=== PATIENT | female | born 1965 | race Caucasian/White ===

== ENCOUNTER 2019-12-28 23:58 | Emergency (ER) | payer OTHER, SELFPAY ==
--- NOTE | ~2019-12-28 | XR_ITS ---
EXAMINATION: XR chest 1V portable DATE: 12/29/2019 00:40 INDICATION: Chest pain and palpitations TECHNIQUE: frontal view of the chest was obtained. COMPARISON: Chest radiograph dated 01/11/2019 FINDINGS: The lungs are clear with no focal airspace opacities, pulmonary edema, pleural effusion or pneumothor ax. The cardiomediastinal silhouette is normal. Mild thoracic dextrocurvature. IMPRESSION: 1. No acute cardiopulmonary disease. Reviewed, dictated and finalized at location A.
[2019-12-29 00:02] VITALS: BP 172/102; PULSE 78; RESP 12; TEMP 37.4; O2SAT 100
--- NOTE | 2019-12-29 00:06 | ECG_ITS ---
Measurements Intervals [place] Rate: 71 P: 26 [place]: 134 QRS: 15 QRSD: 89 T: 51 QT: 382 QTc: 417 Interpretive Statements SINUS RHYTHM NORMAL ECG Electronically Signed On 12-29-2019 6:53:37 CDT by Arthur Capellan D.O.
--- NOTE | 2019-12-29 00:23 | ED.ARRPALP ---
HPI - Arrhythmia/Palpitations General Chief Complaint: Arrhythmia/Palpitations Stated Complaint: cp, palpitations Time Seen by Provider: 12/29/19 00:02 Source: patient Mode of arrival: ambulatory Limitations: no limitations History of Present Illness HPI narrative: 54 yo female with h/o palpitations, GERD who presents for evaluation of palpitations. Patient states that over the past few years she has had intermittent palpitations which was thought to be due to GERD. She reports once she started taking ranitidine her palpitations resolved and GERD symptoms resolved. She stopped taking RAnitidine due to recall so she is taking protonix and pepcid in place of it. She reports her GI symptoms have returned and she has develop palpitations again. She reports her palpitations are occurring more frequently now. She states tonight she felt her heart race and then she states it felt like it was skipping beats. Prior to this feeling, she reports feeling of bubble in her Chest , and it resolved after belching. She also reports palpitations stopped briefly afterwards, but then restarted 2 minutes later. She reports this is occurring frequently over the past our. She is also concerned about heart attack because she had chest tightness and sob 2 days ago that have resolved. She reports strong family history of woman under age 55 for [place]. complaint: rapid heart beat, skipped beats and palpitations Onset (ago): month(s) Duration: intermittent Context: occurred during rest Related Data Allergies Allergy/AdvReac Type Severity Reaction Status Date / Time codeine Allergy Unknown Verified 05/13/17 11:07 antihistamines Allergy Unknown Uncoded 01/30/14 04:04 Review of Systems Review of Systems: All systems reviewed & are unremarkable except as noted in HPI and below Constitutional: Constitutional: Denies chills, Denies fever(s) and Denies weakness ENT: Denies dizziness and Denies sore throat Cardiovascular: Cardiovascular: Reports chest pain, Reports rapid heart rate and Denies radiating jaw, neck or arm pain Respiratory: Respiratory: Denies cough and Reports dyspnea Gastrointestinal: Gastrointestinal: Reports abdominal pain, Denies constipation, Denies diarrhea, Denies nausea and Denies vomiting Neurologic: Denies dizziness and Denies weakness [facility] Past Medical History Medical History (Updated 12/29/19 @ 02:03 by Johanna Calero MD) GERD (gastroesophageal reflux disease) Iron deficiency anemia Surgical History Surgical History (Updated 12/29/19 @ 00:38 by Johanna Calero MD) H/O tubal ligation Family History Family History (Updated 12/29/19 @ 00:38 by Johanna Calero MD) Mother Acute myocardial infarction Social History Social History (Updated 12/29/19 @ 00:39 by Johanna Calero MD) Smoking packs per day: 1 Smoking cigarettes per day: 20.0 Years smoked: 6 Smoking pack-years: 6.00 Smoking status: Former smoker Tobacco type: cigarettes and e-cigarettes Exam Const: General: no acute distress and alert Nutritional Appearance: thin Orientation/consciousness: patient oriented x3 HENMT: Mouth: Yes Normal oral and palatal mucosa present Throat: posterior oropharynx normal Eyes: Pupils: Equal, round and reactive pupils present EOM: EOMs intact bilaterally Chest: Chest palpation & inspection: normal inspection of the chest Resp: Effort & Inspection: normal respiratory effort, no retractions and no use of accessory muscles Auscultation: clear to auscultation bilaterally Cardio: Rate: regular rate Rhythm: regular rhythm Heart sounds: no murmurs GI: Inspection: non-distended GI Palp: Yes Tenderness to palpation present (GI) (epigastric) Auscultation: normal bowel sounds Back/Spine/Pelvis: Back: no CVA tenderness Skin: General skin exam: normal color Rashes: no rashes Neuro: General: patient oriented x3 and moves all extremities Extrem: General: normal to inspection and no ped
[2019-12-29 00:32] LABS: Basophils Absolute Auto 0.1 K/mm3 (0.0-0.1); Basophils Percent Auto 0.8 % (0.2-1.2); Eosinophils Absolute Auto 0.1 K/mm3 (0-0.3); Eosinophils Percent Auto 0.9 % (0-4.4); Hematocrit 37.1 % (37.0-47.0); Hemoglobin 11.6 g/dL (12.0-15.0); Immature Granulocyte Absolute 0.02 K/mm3 (0.00-0.031); Immature Granulocyte Percent A 0.3 % (0-0.5); Lymphocytes Absolute Auto 2.37 K/mm3 (0.9-3.2); Lymphocytes Percent Auto 31.8 % (18.3-44.2); Mean Corpuscular HGB Conc 31.3 g/dl (32-36); Mean Corpuscular Hemoglobin 26.1 pg (26-34); Mean Corpuscular Volume 83.4 fl (80-100); Mean Platelet Volume 10.9 fl (7.4-10.4); Monocytes Absolute Auto 0.8 K/mm3 (0.1-0.6); Monocytes Percent Auto 10.1 % (2.6-8.5); Neutrophils Absolute Auto 4.2 K/mm3 (1.3-6.7); Neutrophils Percent Auto 56.1 % (45.5-73.1); Platelet Count Result 362 k/mm3 (150-375); Red Blood Count 4.45 M/mm3 (4.2-5.4); Red Cell Distribution Width 15.2 % (11.5-14.5); White Blood Count 7.5 K/mm3 (4.5-10.0)
[2019-12-29 00:41] LABS: INR 0.9; Prothrombin Time 11.5 Seconds (11.1-14.7)
[2019-12-29 00:42] LABS: Partial Thromboplastin Time 26.6 SECONDS (22.3-36.8)
[2019-12-29 00:49] LABS: Magnesium 2.1 mg/dL (1.6-2.3)
[2019-12-29 00:51] LABS: Blood Urea Nitrogen 20 mg/dL (7-17); Calcium 9.2 mg/dL (8.4-10.2); Carbon Dioxide 32 mmol/L (22-30); Chloride 100 mmol/L (98-107); Estimated Glomerular Filt Rate > 60; Glucose 101 mg/dL (65-105); Potassium 3.8 mmol/L (3.4-5.0); Sodium 138 mmol/L (137-145)
[2019-12-29 01:02] VITALS: BP 149/87; PULSE 62; RESP 14; O2SAT 100
[2019-12-29 01:03] LABS: Troponin I < 0.012 ng/mL (0.000-0.034)
[2019-12-29 01:05] LABS: Alanine Aminotransferase 19 U/L (4-35); Albumin Level 4.7 g/dL (3.5-5.1); Alkaline Phosphatase 65 U/L (38-126); Aspartate Amino Transferase 28 U/L (14-36); Bilirubin,Total 0.2 mg/dL (0.2-1.3); Lipase 103 U/L (23-300)
[2019-12-29 01:58] VITALS: BP 135/81; PULSE 66; RESP 16; O2SAT 100
[2019-12-29 02:22] VITALS: BP 146/83; PULSE 66; RESP 14; TEMP 37.1; O2SAT 99
== END 2019-12-29 02:24 | disposition home or self-care (01) ==
PROVIDERS: Emergency Provider General Practice; PCP Family Medicine
DX: R00.2 Palpitations (principal); I48.91 Unspecified atrial fibrillation; I48.92 Unspecified atrial flutter; K21.9 Gastro-esophageal reflux disease without esophagitis; Z87.891 Personal history of nicotine dependence
CPT/HCPCS: 36415; 71045; 80048; 80076; 83690; 83735; 84443; 84484; 85025; 85610; 85730; 93005; 99284

== ENCOUNTER 2020-01-09 00:29 | Emergency (ER) | payer OTHER, SELFPAY ==
--- NOTE | ~2020-01-09 | XR_ITS ---
EXAMINATION: XR chest 2V DATE: 01/09/2020 01:48 INDICATION: Heart palpitations and midsternal chest pain TECHNIQUE: PA and lateral views of the chest are obtained. COMPARISON: 12/29/2019 FINDINGS: The lungs are free of acute opacities. There is no pleural effusion or pneumothorax. The ca rdiomediastinal silhouette is normal. There is mild thoracic spondylosis. IMPRESSION: 1. No acute cardiopulmonary abnormality. Reviewed, dictated and finalized at location A.
[2020-01-09 00:34] VITALS: BP 160/99; PULSE 79; RESP 16; O2SAT 99
[2020-01-09 00:37] VITALS: PULSE 79
--- NOTE | 2020-01-09 00:45 | ECG_ITS ---
Measurements Intervals [place] Rate: 80 P: 67 [place]: 143 QRS: -4 QRSD: 89 T: 47 QT: 369 QTc: 426 Interpretive Statements SINUS RHYTHM NORMAL ECG Electronically Signed On 01-09-2020 8:52:53 CDT by Arthur Capellan D.O.
--- NOTE | 2020-01-09 00:57 | ED.ARRPALP ---
HPI - Arrhythmia/Palpitations General Chief Complaint: Chest Pain Stated Complaint: heart palpitations Time Seen by Provider: 01/09/20 00:39 Source: patient Mode of arrival: ambulatory Limitations: no limitations History of Present Illness HPI narrative: Patient is a 54-year-old female who presents to the emergency department with complaint of palpitations and feeling as though her heart is racing. Patient was seen in the emergency department earlier this month for similar symptoms. At that time it was noted by emergency physician the patient appeared to have a short run of atrial fibrillation. Patient has follow-up appointment scheduled with tray worker next month. Patient has followed up with primary care who has her taking metoprolol and she has just completed wearing a Holter monitor. Patient reports intense symptoms this evening which are slightly improved here in the emergency department, the patient does still feel though she is having palpitations. Patient states she had very minor chest pain and feeling clammy. Patient also reports feeling lightheaded and dizzy. MD complaint: rapid heart beat, heart racing and palpitations Severity: similar to previous episodes Arrhythmia history: atrial fibrillation Associated symptoms: chest pain, shortness of breath, diaphoresis and other (weakness, dizziness) Treatments prior to arrival: beta-sirena (Metoprolol extended release 25 mg daily) Related Data Allergies Allergy/AdvReac Type Severity Reaction Status Date / Time Antihistamines - Alkylamine Allergy Unknown Palpitation Verified 01/06/20 12:23 s codeine Allergy Unknown Hallucinati Verified 01/06/20 12:23 ons antihistamines Allergy Unknown Uncoded 01/06/20 12:23 Review of Systems Review of Systems: All systems reviewed & are unremarkable except as noted in HPI and below Cardiovascular: Cardiovascular: Reports chest pain, Reports rapid heart rate, Reports irregular heart rhythm, Reports lightheadedness, Reports palpitations and Reports dyspnea PMFSH Past Medical History Medical History GERD (gastroesophageal reflux disease) Iron deficiency anemia Palpitations Surgical History Surgical History H/O tubal ligation Family History Family History (System 01/06/20 @ 12:23 by Meseret Buckley) Father Family history of cardiovascular disease Mother Family history of cardiovascular disease Mother Acute myocardial infarction Social History Social History Smoking packs per day: 1 Smoking cigarettes per day: 20.0 Years smoked: 6 Smoking pack-years: 6.00 Smoking status: Former smoker Tobacco type: cigarettes and e-cigarettes Smoking end date: 09/16/15 Alcohol intake: current Gender identity (if verbalized by the patient): Female Exam Const: General: cooperative, no acute distress and alert Nutritional Appearance: well nourished Orientation/consciousness: patient oriented x3 Limitations: no limitations HENMT: Mouth: Yes lip normal and Yes moist mucous membranes Resp: Effort & Inspection: normal respiratory effort Auscultation: clear to auscultation bilaterally Cardio: Rate: regular rate Rhythm: regular rhythm GI: GI Palp: Yes Soft to palpation and No Tenderness to palpation present (GI) Auscultation: normal bowel sounds Skin: General skin exam: normal color Neuro: General: patient oriented x3 Cognition (Neuro): normal cognition Speech: normal speech Extrem: General: normal to inspection, full ROM and no clubbing, cyanosis or edema Psych: Mental Status: mental status grossly normal Affect: Anxious affect present Attitude: cooperative Course Course Emergency Course: Patient in normal sinus rhythm in the emergency department without any evidence of arrhythmia noted on telemetry monitoring and no arrhy
[2020-01-09 01:40] LABS: Basophils Absolute Auto 0.1 K/mm3 (0.0-0.1); Basophils Percent Auto 0.6 % (0.2-1.2); Eosinophils Absolute Auto 0.1 K/mm3 (0-0.3); Eosinophils Percent Auto 1.6 % (0-4.4); Hematocrit 31.8 % (37.0-47.0); Hemoglobin 10.2 g/dL (12.0-15.0); Immature Granulocyte Absolute 0.02 K/mm3 (0.00-0.031); Immature Granulocyte Percent A 0.2 % (0-0.5); Lymphocytes Absolute Auto 3.22 K/mm3 (0.9-3.2); Lymphocytes Percent Auto 37.2 % (18.3-44.2); Mean Corpuscular HGB Conc 32.1 g/dl (32-36); Mean Corpuscular Hemoglobin 26.4 pg (26-34); Mean Corpuscular Volume 82.4 fl (80-100); Monocytes Absolute Auto 0.7 K/mm3 (0.1-0.6); Monocytes Percent Auto 8.5 % (2.6-8.5); Neutrophils Absolute Auto 4.5 K/mm3 (1.3-6.7); Neutrophils Percent Auto 51.9 % (45.5-73.1); Platelet Count Result 350 k/mm3 (150-375); Red Blood Count 3.86 M/mm3 (4.2-5.4); Red Cell Distribution Width 15.5 % (11.5-14.5); White Blood Count 8.7 K/mm3 (4.5-10.0)
[2020-01-09 01:51] LABS: INR 0.9; Partial Thromboplastin Time 25.7 SECONDS (22.3-36.8); Prothrombin Time 11.9 Seconds (11.1-14.7)
[2020-01-09 01:56] LABS: Alanine Aminotransferase 23 U/L (4-35); Albumin Level 4.1 g/dL (3.5-5.1); Alkaline Phosphatase 67 U/L (38-126); Aspartate Amino Transferase 28 U/L (14-36); Bilirubin,Total 0.2 mg/dL (0.2-1.3); Blood Urea Nitrogen 14 mg/dL (7-17); Calcium 9.2 mg/dL (8.4-10.2); Carbon Dioxide 23 mmol/L (22-30); Chloride 104 mmol/L (98-107); Estimated Glomerular Filt Rate > 60; Glucose 78 mg/dL (65-105); Magnesium 1.7 mg/dL (1.6-2.3); Potassium 3.5 mmol/L (3.4-5.0); Sodium 137 mmol/L (137-145)
[2020-01-09 02:08] LABS: Troponin I < 0.012 ng/mL (0.000-0.034)
[2020-01-09 02:15] LABS: D Dimer 0.27 ug/mL (<0.48)
[2020-01-09 03:41] VITALS: BP 119/74; PULSE 72; RESP 13; O2SAT 97
--- NOTE | 2020-01-09 03:43 | PC.NURSE ---
MD notified that Pt states she having no chest discomfort and abd pain has subsided to a 2.
== END 2020-01-09 03:45 | disposition home or self-care (01) ==
PROVIDERS: Emergency Provider Emergency Medicine; PCP Family Medicine
DX: R00.2 Palpitations (principal); K21.9 Gastro-esophageal reflux disease without esophagitis; D50.9 Iron deficiency anemia, unspecified; Z87.891 Personal history of nicotine dependence
CPT/HCPCS: 36415; 71046; 80053; 83735; 84484; 85025; 85380; 85610; 85730; 93005; 99284

== ENCOUNTER 2020-01-18 07:49 | Outpatient (CLI) | payer OTHER, SELFPAY ==
--- NOTE | ~2020-01-18 | US_ITS ---
US right upper quadrant INDICATION: Biliary colic. PROCEDURE: Realtime right upper abdominal ultrasound. COMPARISON: No prior studies for comparison. FINDINGS: The pancreas is normal without focal mass or pancreatic ductal dilation. Liver echotexture is normal without focal mass or intrahepatic biliary dilatation. There is normal directional flow i n the portal vein. The gallbladder is normal without stones, gallbladder wall thickening or pericholecystic fluid. Comm on bile duct measures 4 mm. No sonographic Conner's sign. IMPRESSION: 1: Normal limited abdominal ultrasound. Reviewed, dictated and finalized at location A.
== END 2020-01-18 07:50 | disposition home or self-care (01) ==
PROVIDERS: PCP Family Medicine; Visit Provider Internal Medicine Gastroenterology
DX: K80.50 Calculus of bile duct without cholangitis or cholecystitis without obstruction (principal)
CPT/HCPCS: 76705

== ENCOUNTER 2020-03-01 00:43 | Outpatient (CLI) | payer OTHER, SELFPAY ==
[2020-03-01 18:12] LABS: SARS-CoV-2 RNA PCR Negative
== END 2020-03-01 00:44 | disposition home or self-care (01) ==
LOC: ANHCOVIDDT 00:43
PROVIDERS: PCP Family Medicine; Visit Provider Internal Medicine Gastroenterology
DX: Z20.828 Contact with and (suspected) exposure to other viral communicable diseases (principal); Z01.812 Encounter for preprocedural laboratory examination
CPT/HCPCS: 87635; C9803; U0003

== ENCOUNTER 2020-03-03 01:52 | Day surgery (SDC) | payer OTHER, SELFPAY ==
[2020-02-29 13:20] VITALS: BMI 20.4
--- NOTE | 2020-03-03 09:33 | SUR.PREOP ---
Pt took Metoprolol with small sip of water per Dr Szymanski order.
[2020-03-03 09:34] VITALS: BP 174/100; PULSE 68; RESP 18; TEMP 36.8; O2SAT 100; BMI 21.2
[2020-03-03] MEDS: LACTATED RINGERS 1,000 ML 150 ML IV CONT (09:49)
--- NOTE | 2020-03-03 09:59 | P.PNAN_ITS ---
Anes - Initial Pre Proc Eval Procedure: Operation Date: 03/03/20 10:30 Proposed Procedures p Esophagogastroduodenoscopy - Chuy Andino MD Date/Time: 03/03/20 09:59 Surgeon: Chuy Andino MD Pre Op Diagnosis: Dyspepsia, Epigastric Pain Patient Data Age: 54 Gender: F Height: 5 ft 1 in Weight: 51.1 kg Last Vital Signs Temp 98.3 F 03/03/20 09:34 Pulse 68 03/03/20 09:34 Resp 18 03/03/20 09:34 BP 174/100 H 03/03/20 09:34 Pulse Ox 100 03/03/20 09:34 Allergies Allergy/AdvReac Type Severity Reaction Status Date / Time Antihistamines - Alkylamine Allergy Mild Palpitation Verified 03/03/20 09:32 s codeine Allergy Unknown Hallucinati Verified 03/03/20 09:32 ons antihistamines AdvReac Mild Other Uncoded 03/03/20 09:32 Home Medications Medication Instructions Recorded Confirmed Type metoprolol succinate 50 mg PO DAILY 02/29/20 02/29/20 History pantoprazole 40 mg PO BID 02/29/20 02/29/20 History Patient hx anesthesia problems: none Family hx anesthesia problems: none PMFSH Past Medical History Medical History (Updated 02/17/20 @ 09:46 by Elie Aquino PA-C) GERD (gastroesophageal reflux disease) Iron deficiency anemia Palpitations Paroxysmal A-fib Surgical History Surgical History H/O tubal ligation Family History Family History (System 01/06/20 @ 12:23 by Meseret Buckley) Father Family history of cardiovascular disease Mother Family history of cardiovascular disease Mother Acute myocardial infarction Social History Social History Smoking packs per day: 1 Smoking cigarettes per day: 20.0 Years smoked: 6 Smoking pack-years: 6.00 Smoking status: Former smoker Tobacco type: cigarettes and e-cigarettes/vaping Smoking end date: 09/16/15 Alcohol intake: current Gender identity (if verbalized by the patient): Female Anes - Eval Final PreProcedure Day of Procedure 03/03/20 09:59 Patient weight: normal Heart: regular rate and rhythm Lungs: clear to auscultation Airway: Mallampati scale class II Neurological: alert and oriented Last oral intake: >/= 8 hours ASA classification: III Emergent: no Anesthetic plan: proceed Anesthesia type and monitoring: general GIVS and standard monitoring Informed Consent: The patient's anesthetic plan and its attendant risks and ana efits were discussed with the patient/family/POA. Questions were solicited and answers provided to the satisfaction of the patient/family/POA.
--- NOTE | 2020-03-03 10:04 | WPDGICN ---
Assessment and Plan Assessment and plan (1) Dyspepsia: Code(s): R10.13 - Epigastric pain Status: Acute Assessment and Plan: Patient has epigastric pain. Acid appears to be a component of this discomfort. She notices worsening on eating. In modest improvement on pantoprazole b.i.d.. Previously had good response to ranitidine. Because of current poor response plan is to proceed with EGD further recommendations after endoscopy. (2) Paroxysmal A-fib: Code(s): I48.0 - Paroxysmal atrial fibrillation Status: Acute (3) Epigastric abdominal pain: Code(s): R10.13 - Epigastric pain Status: Acute GI Consult Note Consult date/time: 03/03/20 10:04 HPI: Maureen Sorenson is a 54 year old female Seen in evaluation at the request of Dr. Axel Angeles. Patient has a long history of abdominal pain is been present for many years. Pain is located in mid epigastric area of the abdomen. She previously had a good response to ranitidine. This medication with withdrawn. Since that time she has had difficulty with Pepcid and Protonix with no response to symptoms. Over the last 1 week his increased dose of pantoprazole to40mg p.o. b.i.d. with slight improvement. She denies any bleeding. She denies any weight loss. She describes pain in the midepigastric area was. It is sometimes a pressure-like pain sometimes burning. Intensity appears to fluctuate. Occasionally eating may help this discomfort. Review of Systems Review of Systems: All systems reviewed & are unremarkable except as noted in HPI and below PMFSH Past Medical History Medical History GERD (gastroesophageal reflux disease) Iron deficiency anemia Palpitations Paroxysmal A-fib Surgical History Surgical History H/O tubal ligation Family History Family History Father Family history of cardiovascular disease Mother Family history of cardiovascular disease Mother Acute myocardial infarction Social History Social History Smoking packs per day: 1 Smoking cigarettes per day: 20.0 Years smoked: 6 Smoking pack-years: 6.00 Smoking status: Former smoker Tobacco type: cigarettes and e-cigarettes/vaping Smoking end date: 09/16/15 Alcohol intake: current Gender identity (if verbalized by the patient): Female Meds Home Medications and Allergies Home Medications Medication Instructions Recorded Confirmed Type metoprolol succinate 50 mg PO DAILY 02/29/20 02/29/20 History pantoprazole 40 mg PO BID 02/29/20 02/29/20 History Allergies Allergy/AdvReac Type Severity Reaction Status Date / Time Antihistamines - Alkylamine Allergy Mild Palpitation Verified 03/03/20 09:32 s codeine Allergy Unknown Hallucinati Verified 03/03/20 09:32 ons antihistamines AdvReac Mild Other Uncoded 03/03/20 09:32 Vital Signs Vital Signs - 24 hr 03/03/20 09:34 Temperature 36.8 C Pulse Rate 68 Respiratory Rate 18 Blood Pressure 174/100 H Pulse Oximetry 100 Exam Narrative: Exam Narrative: physical exam reveals patient to be alert. Vital signs stable. HEENT exam unremarkable. Lungs are clear to auscultation and percussion. Heart is without murmur or extra sounds. Abdominal exam bowel sounds are present soft nontender with no hepatosplenomegaly. Digital external rectal exam normal. Recent ultrasound of the right upper quadrant unremarkable.
[2020-03-03] MEDS: BENZOCAINE (*SP) 60 ML SPRAY CAN (HURRICAINE) 1 SPRAY MUCOUS MEM (10:15)
[2020-03-03 10:25] VITALS: BP 144/62; PULSE 59; RESP 18; O2SAT 98
[2020-03-03 10:35] VITALS: BP 150/72; PULSE 59; RESP 20; O2SAT 99
[2020-03-03 11:04] VITALS: BP 159/88; PULSE 59; RESP 21; O2SAT 100
== END 2020-03-03 10:55 | disposition home or self-care (01) ==
PROVIDERS: PCP Family Medicine; Visit Provider Internal Medicine Gastroenterology
PROC: 0DJ08ZZ Inspection of Upper Intestinal Tract, Via Natural or Artificial Opening Endoscopic (ICD-10-PCS; CPT 43235; principal; 2020-03-03 10:30)
DX: R10.13 Epigastric pain (principal); I48.0 Paroxysmal atrial fibrillation; D50.9 Iron deficiency anemia, unspecified; K21.9 Gastro-esophageal reflux disease without esophagitis; Z87.891 Personal history of nicotine dependence
CPT/HCPCS: 43239; 87081; J2704; J7120

== ENCOUNTER 2020-06-08 12:09 | Emergency (ER) | payer OTHER, SELFPAY ==
[2020-06-08 12:17] VITALS: BP 152/86; PULSE 76; RESP 20; TEMP 36.8; O2SAT 100
--- NOTE | 2020-06-08 12:23 | ED.ABDPAIN ---
HPI - Abdominal Pain General Chief Complaint: Abdominal Pain Stated Complaint: LOW ABD PAIN/DIARRHEA/CONSTIPATION Source: patient and RN notes reviewed Limitations: no limitations History of Present Illness HPI narrative: The patient, a recent ex-smoker/occ drinker, presents with fever and lower quadrant pain. Patient states and records indicate she has had normal RUQ ultrasound [2019], pelvic ultrasound for cyst that resolved [2019], no prior colonoscopy. And recently, patient states she was treated for UTI with Septra for 5 days, to about 05 June [no C &S available]. About a day and a half later she developed right lower quadrant and pubic abdominal pain, associated with fever to 100.6 and cramps. Symptoms are mild to moderate, worse with walking or movement, and associated with intermittent loose stools -after she had taken Gas-Ex . No vomiting, hematuria, frequency/urgency/dysuria; cough, S OB, rash, CP, loss of taste/smell Related Data Home Medications Medication Instructions Recorded Confirmed metoprolol succinate 50 mg PO DAILY 02/29/20 02/29/20 pantoprazole 40 mg PO BID 02/29/20 02/29/20 Allergies Allergy/AdvReac Type Severity Reaction Status Date / Time Antihistamines - Alkylamine Allergy Mild Palpitation Verified 06/08/20 16:15 s codeine Allergy Unknown Hallucinati Verified 06/08/20 16:15 ons antihistamines AdvReac Mild Other Uncoded 05/31/20 16:41 Review of Systems Review of Systems: Narrative: General/Constitutional: No weight loss,REPORTS fever Eyes: N0: Redness,discharge Ears/Nose/Throat: No: Epistaxis,ear discharge Respiratory: Denies: Hemoptysis Gastrointestinal: No Vomiting, Bleeding-rectal Skin: No Lumps, eruption Neurologic: No Focal Weakness,Sz Hematologic: Denies: Petechiae/Purpura Psychiatric: No: Suicida ideationl All Other Systems: Reviewed and Negative [facility] Social History Social History Smoking packs per day: 1 Smoking cigarettes per day: 20.0 Years smoked: 6 Smoking pack-years: 6.00 Smoking status: Former smoker Tobacco type: cigarettes and e-cigarettes/vaping Second hand tobacco smoke exposure: No Smoking end date: 09/16/15 Alcohol intake: current Substance use: never Substance use type: does not use Gender identity (if verbalized by the patient): Female Comments At time of signature, agree with nursing past medical, surgical, social and family history. There is no relevant family history pertinent to the presenting complaint Exam Narrative: Exam Narrative: General Appearance: Well appearing, Conjunctiva clear Ears: External ear normal Nose: Normal nose Mouth/Throat: Normal appearing Supple Respiratory: Airway patent, No respiratory distress Abdomen: Soft, RLQ and suprapubic tenderness tender, No massess, No organomegaly Musculoskeletal: Positive heel tap on left, full ROM Skin: Warm, Dry Neurological: A&O x3, Normal affect Course Vital Signs Vital signs: Vital Signs Temperature 98.2 F 06/08/20 12:17 Pulse Rate 76 06/08/20 12:17 Respiratory Rate 20 06/08/20 12:17 Blood Pressure 152/86 H 06/08/20 12:17 Pulse Oximetry 100 06/08/20 12:17 Temperature 98.2 F 06/08/20 12:17 Pulse Rate 76 06/08/20 12:17 Respiratory Rate 20 06/08/20 12:17 Blood Pressure 152/86 H 06/08/20 12:17 Pulse Oximetry 100 06/08/20 12:17 MDM - Abdominal Pain Lab Data Labs: Urine Glucose Negative Reference Range: Negative Urine Bilirubin 1+ Reference Range: Negative Urine Ketone Trace Reference Range: Negative Urine Specific [place] 1.030 Reference Range:1.001-1.035 Urine Blood 2+ Reference Range: Negative * * Urine pH 5.0 Reference Range: 5.0-9.0 Urine
== END 2020-06-08 12:57 | disposition short-term general hospital (02) ==
LOC: EXPGLEN 12:12
PROVIDERS: Emergency Provider Emergency Medicine; PCP Family Medicine
DX: R10.30 Lower abdominal pain, unspecified (principal); Z87.891 Personal history of nicotine dependence; I48.91 Unspecified atrial fibrillation; K21.9 Gastro-esophageal reflux disease without esophagitis; M19.90 Unspecified osteoarthritis, unspecified site
CPT/HCPCS: 81003; 99212; G0463

== ENCOUNTER 2020-06-08 13:08 | Emergency (ER) | payer OTHER, SELFPAY ==
--- NOTE | ~2020-06-08 | CT_ITS ---
EXAMINATION: CT abdomen pelvis w con DATE: 06/08/2020 16:42 INDICATION: Low abdominal pain. Constipation. Recent UTI. TECHNIQUE: Computed tomography (CT) of the abdomen and pelvis was performed with 100 cc Omnipaque 350 intravenous contrast. The dose-length product was 203.71 mGy-cm. Automated exposure control and iter ative reconstruction technique were employed. COMPARISON: No prior studies for comparison. FINDINGS: Lung bases are unremarkable. Heart size normal. No significant pleural or pericardial effus ion. No significant vascular abnormality. Mild retroperitoneal lymphadenopathy, likely reactive. The liver, spleen, pancreas, adrenal glands and kidneys are unremarkable. Gallbladder is present. Nor mal appendix. There is abnormal thickening of the distal sigmoid colon and rectum with surrounding ph legmonous change in the left pelvis, most likely infectious colitis, although malignancy is not exclu ded. No drainable abscess identified. Small follicles are noted in the left ovary. No free air. IMPRESSION: 1. Abnormal thickening of the distal sigmoid colon and rectum with surrounding phlegmonous change in the left pelvis, most likely infectious colitis, although malignancy is not excluded. No drainable ab scess identified. Reviewed, dictated and finalized at location A. IMPRESSION: 1. Abnormal thickening of the distal sigmoid colon and rectum with surrounding phlegmonous change in the left pelvis, most likely infectious colitis, although malignancy is not excluded. No drainable abscess identified.
--- NOTE | ~2020-06-08 | XR_ITS ---
EXAMINATION: XR chest 2V DATE: 06/08/2020 16:51 INDICATION: Cough TECHNIQUE: PA and lateral views of the chest are obtained. COMPARISON: 01/09/2020 FINDINGS: The lungs are free of acute opacities. There is no pleural effusion or pneumothorax. The ca rdiomediastinal silhouette is normal. The visualized bones and soft tissues are unremarkable. Contras t from earlier CT examination partially opacifies the urinary tract. IMPRESSION: 1. No acute cardiopulmonary abnormality. Reviewed, dictated and finalized at location A.
[2020-06-08 13:12] VITALS: BP 147/79; PULSE 73; RESP 18; TEMP 36.8; O2SAT 100
[2020-06-08 13:33] LABS: Basophils Absolute Auto 0.1 K/mm3 (0.0-0.1); Basophils Percent Auto 0.4 % (0.2-1.2); Eosinophils Absolute Auto 0.1 K/mm3 (0-0.3); Eosinophils Percent Auto 0.4 % (0-4.4); Hematocrit 31.3 % (37.0-47.0); Hemoglobin 9.7 g/dL (12.0-15.0); Immature Granulocyte Percent A 0.5 % (0-0.5); Lymphocytes Percent Auto 13.9 % (18.3-44.2); Mean Corpuscular Hemoglobin 23.5 pg (26-34); Mean Corpuscular Volume 75.8 fl (80-100); Mean Platelet Volume 9.8 fl (7.4-10.4); Monocytes Absolute Auto 1.4 K/mm3 (0.1-0.6); Monocytes Percent Auto 6.9 % (2.6-8.5); Neutrophils Absolute Auto 15.2 K/mm3 (1.3-6.7); Neutrophils Percent Auto 77.9 % (45.5-73.1); Platelet Count Result 389 k/mm3 (150-375); Red Blood Count 4.13 M/mm3 (4.2-5.4); White Blood Count 19.5 K/mm3 (4.5-10.0)
[2020-06-08 13:47] LABS: Alanine Aminotransferase 31 U/L (4-35); Albumin Level 4.6 g/dL (3.5-5.1); Alkaline Phosphatase 110 U/L (38-126); Anion Gap 8 mmol/L (8-16); Aspartate Amino Transferase 26 U/L (14-36); Bilirubin,Total 0.8 mg/dL (0.2-1.3); Blood Urea Nitrogen 13 mg/dL (7-17); Calcium 9.4 mg/dL (8.4-10.2); Carbon Dioxide 27 mmol/L (22-30); Chloride 100 mmol/L (98-107); Estimated CRCL calculation 70 ml/min; Estimated Glomerular Filt Rate > 60; Glucose 83 mg/dL (65-105); Lipase 33 U/L (23-300); Potassium 4.5 mmol/L (3.4-5.0); Sodium 135 mmol/L (137-145)
--- NOTE | 2020-06-08 16:02 | ED.ABDPAIN ---
HPI - Abdominal Pain General Chief Complaint: Abdominal Pain Stated Complaint: Abd pain Time Seen by Provider: 06/08/20 16:02 Source: patient Limitations: no limitations History of Present Illness HPI narrative: Patient is a 54-year-old female who presents for evaluation of lower abdominal pain and fever. Patient reports that she has had a 2-day history of intermittent fevers to 100 Fahrenheit. Patient reports that she was treated for urinary tract infection last week and finished a course of Septra. She reports mild lower abdominal pain with radiation to both flanks. She denies nausea or vomiting. She reports history of acid reflux and gastrointestinal symptoms, has suffered from loose stools over the past several days. Patient denies any vaginal bleeding or purulent discharge. No new sexual partners. Patient denies blood present in her stool. Related Data Home Medications Medication Instructions Recorded Confirmed metoprolol succinate 50 mg PO DAILY 02/29/20 02/29/20 pantoprazole 40 mg PO BID 02/29/20 02/29/20 Allergies Allergy/AdvReac Type Severity Reaction Status Date / Time Antihistamines - Alkylamine Allergy Mild Palpitation Verified 06/08/20 16:15 s codeine Allergy Unknown Hallucinati Verified 06/08/20 16:15 ons antihistamines AdvReac Mild Other Uncoded 05/31/20 16:41 Review of Systems Review of Systems: Narrative: CONSTITUTIONAL: Reports low-grade fever and chills EYES: Denies visual changes, redness, or discharge. ENT: Reports mild rhinorrhea and congestion CARDIOVASCULAR: Denies chest pain, palpitations, or edema. RESPIRATORY: Reports mild dry cough, denies shortness of breath GASTROINTESTINAL: Reports lower abdominal pain, nausea and vomiting GENITOURINARY: Denies dysuria or hematuria. SKIN: Denies rash or itching. MUSCULOSKELETAL: Reports flank pain without joint pain, or myalgia. NEUROLOGIC: Denies headache, numbness, or weakness. [facility] Past Medical History Medical History GERD (gastroesophageal reflux disease) Iron deficiency anemia Palpitations Paroxysmal A-fib Family History Family History Father Family history of cardiovascular disease Mother Family history of cardiovascular disease Mother Acute myocardial infarction Social History Social History Smoking packs per day: 1 Smoking cigarettes per day: 20.0 Years smoked: 6 Smoking pack-years: 6.00 Smoking status: Former smoker Tobacco type: cigarettes and e-cigarettes/vaping Second hand tobacco smoke exposure: No Smoking end date: 09/16/15 Alcohol intake: current Substance use: never Substance use type: does not use Gender identity (if verbalized by the patient): Female Exam Narrative: Exam Narrative: GENERAL: Awake, alert, conversant HEAD: Normocephalic, atraumatic. EYES: PERRLA and EOMI. ENT: Nares clear, no rhinorrhea or epistaxis. Mucous membranes moist. NECK: Supple. CHEST: No respiratory distress, breathing even and non labored HEART: Regular rate, sinus rhythm ABDOMEN:Non distended, tender to palpation in the right and left lower quadrant, guarding present, nonrigid, no rebound EXTREMITIES: Normal range of motion. No edema. SKIN: Warm, dry, no rash. NEURO:No focal deficits. Alert and oriented x3 Course Vital Signs Vital signs: Vital Signs Temperature 36.8 C 06/08/20 13:12 Pulse Rate 73 06/08/20 13:12 Respiratory Rate 18 06/08/20 13:12 Blood Pressure 147/79 H 06/08/20 13:12 Pulse Oximetry 100 06/08/20 13:12 Temperature 36.7 C 06/08/20 16:14 Pulse Rate 88 06/08/20 16:14 Respiratory Rate 17 06/08/20 16:14 Blood Pressure 139/80 06/08/20 16:14 Pulse Oximetry 98 06/08/20 16:14 MDM - Abdominal Pain Differential Diagnosis Differential diagnosis: Likely abdominal pain, constipation, dive
[2020-06-08 16:14] VITALS: BP 139/80; PULSE 88; RESP 17; TEMP 36.7; O2SAT 98
[2020-06-08 16:31] LABS: Add Urine Microscopic? YES; Appearance Urine Clear (Clear); Bacteria Urine Trace /hpf; Bilirubin Urine Negative (Negative); Blood Urine 1+ (Negative); Color Urine Yellow (Yellow); Glucose Urine UA Negative (Negative); Ketones Urine Trace mg/dL (Negative); Leukocyte Esterase Ur Negative LEU/UL (Negative); Mucus Urine Heavy /lpf; Nitrate Urine Negative (Negative); Protein Urine 1+ mg/dL (Negative); RBC Urine 0-2 /hpf (0-2); Specific Grav Ur 1.023 (1.001-1.035); Squamous Epithelial Cell Urine Moderate /hpf (Few); Urobilinogen Urine Negative mg/dL (<2.0); WBC Urine 0-3 /hpf
[2020-06-08 16:36] LABS: Lactic Acid Reflex 0.6 mmol/L (0.7-2.1)
== END 2020-06-08 19:15 | disposition home or self-care (01) ==
PROVIDERS: Emergency Medicine; Emergency Provider Emergency Medicine; PCP Family Medicine
DX: K52.9 Noninfective gastroenteritis and colitis, unspecified (principal); R10.30 Lower abdominal pain, unspecified; Z87.891 Personal history of nicotine dependence
CPT/HCPCS: 36415; 71046; 74177; 80053; 81001; 81025; 83605; 83690; 85025; 87040; 96365; 99284; J2543; Q9967

== ENCOUNTER 2020-07-25 11:56 | Outpatient (CLI) | payer OTHER, SELFPAY ==
--- NOTE | ~2020-07-25 | NM_ITS ---
EXAMINATION: NM hepatobiliary w pharm DATE: 07/25/2020 15:25 INDICATION: Right upper quadrant abdominal pain. COMPARISON: CT abdomen and pelvis 06/08/2020 TECHNIQUE: 5.2 mCi Tc-99m mebrofenin (Choletec) was administered intravenously. Scintigraphic images of the abdomen were obtained for one hour. Then, 1.1 mcg sincalide (Kinevac) IV was administered, an d imaging was continued for 30 minutes. FINDINGS: There is normal clearance of radiotracer from the blood pool. There is homogeneous tracer u ptake by the liver. Activity progresses to the bowel and gallbladder. Gallbladder ejection fraction (GBEF) was 79%. Note that most patients with gallbladder dysfunction have GBEF < 35%, which overlaps with the broad normal range of 10-90%. IMPRESSION: 1. Normal hepatobiliary scintigraphy. Reviewed, dictated and finalized at location B. EON'S ASSISTANT
== END 2020-07-25 11:57 | disposition home or self-care (01) ==
PROVIDERS: PCP Family Medicine; Visit Provider Internal Medicine Gastroenterology
DX: R10.11 Right upper quadrant pain (principal)
CPT/HCPCS: 78227; A9537; J2805

== ENCOUNTER 2020-08-02 03:00 | Outpatient (CLI) | payer OTHER, SELFPAY ==
[2020-08-02 19:47] LABS: SARS-CoV-2 RNA PCR Positive
== END 2020-08-02 03:01 | disposition home or self-care (01) ==
LOC: ANHCOVIDDT 03:00
PROVIDERS: PCP Family Medicine; Visit Provider Internal Medicine Gastroenterology
DX: Z01.812 Encounter for preprocedural laboratory examination (principal); U07.1 COVID-19
CPT/HCPCS: 87635; C9803; U0003

== ENCOUNTER 2020-12-02 16:48 | Outpatient (CLI) | payer OTHER, SELFPAY | END 2020-12-02 16:49 | disposition home or self-care (01) | LOC: ANHCOVIDVC 16:48 | PROVIDERS: PCP Family Medicine | DX: Z23 Encounter for immunization (principal) | CPT/HCPCS: 0001A; 91300 ==

== ENCOUNTER 2021-01-02 11:06 | Outpatient (CLI) | payer OTHER, SELFPAY | END 2021-01-02 11:07 | disposition home or self-care (01) | LOC: ANHCOVIDVC 11:06 | PROVIDERS: PCP Family Medicine | DX: Z23 Encounter for immunization (principal) | CPT/HCPCS: 0001A; 91300 ==

== ENCOUNTER 2021-02-10 12:16 | Outpatient (CLI) | payer OTHER, SELFPAY ==
[2021-02-10 12:42] LABS: Basophils Absolute Auto 0.1 K/mm3 (0.0-0.1); Basophils Percent Auto 0.8 % (0.2-1.2); Eosinophils Absolute Auto 0.1 K/mm3 (0-0.3); Eosinophils Percent Auto 1.2 % (0-4.4); Hematocrit 29.9 % (37.0-47.0); Hemoglobin 8.9 g/dL (12.0-15.0); Immature Granulocyte Absolute 0.02 K/mm3 (0.00-0.031); Immature Granulocyte Percent A 0.3 % (0-0.5); Lymphocytes Absolute Auto 2.25 K/mm3 (0.9-3.2); Lymphocytes Percent Auto 29.8 % (18.3-44.2); Mean Corpuscular HGB Conc 29.8 g/dl (32-36); Mean Corpuscular Hemoglobin 21.9 pg (26-34); Mean Corpuscular Volume 73.5 fl (80-100); Mean Platelet Volume 9.9 fl (7.4-10.4); Monocytes Absolute Auto 0.7 K/mm3 (0.1-0.6); Monocytes Percent Auto 9.3 % (2.6-8.5); Neutrophils Absolute Auto 4.4 K/mm3 (1.3-6.7); Neutrophils Percent Auto 58.6 % (45.5-73.1); Platelet Count Result 428 k/mm3 (150-375); Red Blood Count 4.07 M/mm3 (4.2-5.4); Red Cell Distribution Width 17.6 % (11.5-14.5); White Blood Count 7.6 K/mm3 (4.5-10.0)
[2021-02-10 12:55] LABS: Alanine Aminotransferase 25 U/L (4-35); Albumin Level 4.7 g/dL (3.5-5.1); Alkaline Phosphatase 66 U/L (38-126); Anion Gap 8 mmol/L (8-16); Aspartate Amino Transferase 28 U/L (14-36); Bilirubin,Total 0.3 mg/dL (0.2-1.3); Blood Urea Nitrogen 19 mg/dL (7-17); Calcium 9.8 mg/dL (8.4-10.2); Carbon Dioxide 29 mmol/L (22-30); Chloride 105 mmol/L (98-107); Estimated Glomerular Filt Rate > 60; Glucose 93 mg/dL (65-105); Potassium 4.5 mmol/L (3.4-5.0); Sodium 142 mmol/L (137-145)
[2021-02-10 13:02] LABS: Erythrocyte Sedimentation Rate 29 mm/hr (0-20)
[2021-02-10 13:25] LABS: Thyroid Stimulating Hormone 0.703 uIU/mL (0.465-4.680)
== END 2021-02-10 12:17 | disposition home or self-care (01) ==
PROVIDERS: PCP Family Medicine; Visit Provider Physician Assistant
DX: R51.9 Headache, unspecified (principal); R11.0 Nausea
CPT/HCPCS: 36415; 80053; 84443; 85025; 85652

== ENCOUNTER 2021-02-13 13:08 | Emergency (ER) | payer OTHER, SELFPAY ==
--- NOTE | ~2021-02-13 | CT_ITS ---
EXAMINATION: CT BRAIN W/O DATE: 02/13/2021 16:34 INDICATION: Headache for 3 months. TECHNIQUE: Computed tomography (CT) of the head was performed without intravenous contrast. The dose- length product was 605.33 mGy-cm. Automated exposure control and iterative reconstruction technique w ere employed. COMPARISON: MRI dated 04/16/2018 FINDINGS: Normal brain parenchymal volume for age. Normal shaw-white differentiation. No acute intrac ranial hemorrhage, infarction, mass or mass effect. There is a prominent left choroidal fissure cyst. No ventriculomegaly or midline shift. Midline sagittal images demonstrate a normal corpus callosum, c raniovertebral junction and sella turcica. Basilar cisterns are patent. Paranasal sinuses and mastoids are pneumatized. No depressed skull fractures. IMPRESSION: 1. No acute intracranial abnormality. Reviewed, dictated and finalized at location A.
[2021-02-13 13:47] VITALS: BP 173/87; PULSE 72; RESP 16; TEMP 36.8; O2SAT 100
[2021-02-13 16:00] VITALS: BP 187/90; PULSE 62; RESP 18; TEMP 36.8; O2SAT 100
--- NOTE | 2021-02-13 16:33 | ED.HA ---
HPI - Headache General Chief Complaint: Headache Stated Complaint: HEADACHE MULTIPLE AREAS Time Seen by Provider: 02/13/21 14:25 Source: patient, family and RN notes reviewed Mode of arrival: ambulatory History of Present Illness HPI Narrative: Patient is 55 years old white female presents with intermittent pain at left forehead, left temporal area, left lower jaw for the last few days. Patient is so concerned and worried about the possibility of intracranial blood clot. Patient had a new diagnosis of temporalis arthritis and was started on prednisone 4 days ago. Currently patient is asymptomatic. Patient denies any fever, chills, nausea, vomiting, headache, vision disorder Related Data Home Medications Medication Instructions Recorded Confirmed metoprolol succinate 50 mg PO DAILY 02/29/20 02/10/21 Allergies Allergy/AdvReac Type Severity Reaction Status Date / Time Antihistamines - Alkylamine Allergy Mild Palpitation Verified 02/10/21 11:43 s codeine Allergy Unknown Hallucinati Verified 02/10/21 11:43 ons antihistamines AdvReac Mild Other Uncoded 02/10/21 11:43 Review of Systems Review of Systems: Narrative: CONSTITUTIONAL: Denies fever, chills, or sweats. EYES: Denies visual changes, redness, or discharge. ENT: Denies rhinorrhea, congestion, sore throat, or otalgia. CARDIOVASCULAR: Denies chest pain, palpitations, or edema. RESPIRATORY: Denies cough or dyspnea. GASTROINTESTINAL: Denies abdominal pain, nausea, vomiting, or diarrhea. GENITOURINARY: Denies dysuria or hematuria. SKIN: Denies rash or itching. MUSCULOSKELETAL: Denies back pain, joint pain, or myalgia. NEUROLOGIC: Denies headache, numbness, or weakness. PSYCHIATRIC: Denies anxiety or depression. [facility] Past Medical History Medical History (Updated 02/13/21 @ 16:39 by Makayla Vogt MD) GERD (gastroesophageal reflux disease) Iron deficiency anemia Palpitations Paroxysmal A-fib Surgical History Surgical History H/O tubal ligation Family History Family History Father Family history of cardiovascular disease Mother Family history of cardiovascular disease Mother Acute myocardial infarction Social History Social History Social History: Smoking packs per day: 1 Smoking cigarettes per day: 20.0 Years smoked: 6 Smoking pack-years: 6.00 Smoking status: Former smoker Tobacco type: cigarettes and e-cigarettes/vaping Second hand tobacco smoke exposure: No Smoking end date: 09/16/15 Additional smoking assessment comments: VAPING 12/2019 Alcohol intake: current Drinks per week: 12 Substance use: never Substance use type: does not use Gender identity (if verbalized by the patient): Female Spiritual care concerns: No Exam Narrative: Exam Narrative: General appearance: Well-developed, well-nourished Skin: Normal color Head: Normocephalic, nontraumatic Eyes: Clear conjunctiva ENT: Oropharynx normal, ears normal, nose normal Neck: Supple, nontender Chest and respiratory: Airway patent, no respiratory distress, no accessory muscle use Heart: Regular rate/rhythm Abdomen: Soft, nontender, no organomegaly, quiet bowel sounds Vascular: Normal peripheral pulses, normal capillary refill. Musculoskeletal: Normal range of motion, nontender back Neurologic: Alert and oriented ?3, MECHANIC ASSISTANT is normal as tested, no gross motor deficit Course Course Emergency Course: Stable Vital Signs Vital signs: Vital Signs Temperature 36.8 C 02/13/21 13:47 Pulse Rate 72
== END 2021-02-13 17:07 | disposition home or self-care (01) ==
PROVIDERS: Emergency Provider Emergency Medicine; PCP Family Medicine
DX: R51.9 Headache, unspecified (principal); I48.0 Paroxysmal atrial fibrillation; K21.9 Gastro-esophageal reflux disease without esophagitis; D50.9 Iron deficiency anemia, unspecified; Z87.891 Personal history of nicotine dependence
CPT/HCPCS: 70450; 99284

== ENCOUNTER 2021-04-27 05:05 | Emergency (ER) | payer OTHER, SELFPAY ==
--- NOTE | ~2021-04-27 | US_ITS ---
EXAMINATION: US abdomen limited DATE: 04/27/2021 08:09 INDICATION: Epigastric pain TECHNIQUE: Multiple grayscale and Doppler ultrasound images of the abdomen were obtained. COMPARISON: 01/18/2020 FINDINGS: The head, body, and tail of the pancreas are normal. The liver is normal with normal echoge nicity and echotexture. No surface nodularity. Normal hepatopetal flow in the main portal vein. The g allbladder is normal with no abnormal wall thickening, pericholecystic fluid or stones. The normal co mmon bile duct measures 3 mm. There was no sonographic Conner sign. IMPRESSION: 1. Normal sonographic study of the gallbladder. Reviewed, dictated and finalized at location B.
[2021-04-27 05:07] VITALS: BP 185/100; PULSE 76; RESP 20; TEMP 36.5; O2SAT 99
[2021-04-27 05:51] LABS: Basophils Absolute Auto 0.1 K/mm3 (0.0-0.1); Basophils Percent Auto 0.4 % (0.2-1.2); Eosinophils Absolute Auto 0.2 K/mm3 (0-0.3); Eosinophils Percent Auto 1.3 % (0-4.4); Hematocrit 30.6 % (37.0-47.0); Hemoglobin 9.2 g/dL (12.0-15.0); Immature Granulocyte Absolute 0.06 K/mm3 (0.00-0.031); Immature Granulocyte Percent A 0.4 % (0-0.5); Lymphocytes Absolute Auto 2.07 K/mm3 (0.9-3.2); Lymphocytes Percent Auto 15.3 % (18.3-44.2); Mean Corpuscular HGB Conc 30.1 g/dl (32-36); Mean Corpuscular Hemoglobin 23.5 pg (26-34); Mean Corpuscular Volume 78.1 fl (80-100); Mean Platelet Volume 9.8 fl (7.4-10.4); Monocytes Absolute Auto 0.9 K/mm3 (0.1-0.6); Monocytes Percent Auto 6.4 % (2.6-8.5); Neutrophils Absolute Auto 10.3 K/mm3 (1.3-6.7); Neutrophils Percent Auto 76.2 % (45.5-73.1); Platelet Count Result 364 k/mm3 (150-375); Red Blood Count 3.92 M/mm3 (4.2-5.4); Red Cell Distribution Width 22.9 % (11.5-14.5); White Blood Count 13.5 K/mm3 (4.5-10.0)
[2021-04-27 06:02] LABS: Alanine Aminotransferase 21 U/L (4-35); Albumin Level 4.1 g/dL (3.5-5.1); Alkaline Phosphatase 56 U/L (38-126); Anion Gap 7 mmol/L (8-16); Aspartate Amino Transferase 30 U/L (14-36); Bilirubin,Total 0.2 mg/dL (0.2-1.3); Blood Urea Nitrogen 12 mg/dL (7-17); Calcium 8.8 mg/dL (8.4-10.2); Carbon Dioxide 23 mmol/L (22-30); Chloride 102 mmol/L (98-107); Estimated CRCL calculation 82 ml/min; Estimated Glomerular Filt Rate > 60; Glucose 89 mg/dL (65-110); Lipase 51 U/L (23-300); Potassium 3.5 mmol/L (3.4-5.0); Sodium 132 mmol/L (137-145)
[2021-04-27 06:41] LABS: Add Urine Microscopic? NO; Appearance Urine Clear (Clear); Bilirubin Urine Negative (Negative); Blood Urine Negative (Negative); Color Urine Straw (Yellow); Glucose Urine UA Negative (Negative); Ketones Urine Negative (Negative); Leukocyte Esterase Ur Negative LEU/UL (Negative); Nitrate Urine Negative (Negative); Protein Urine Negative (Negative); Specific Grav Ur 1.013 (1.001-1.035); Urobilinogen Urine Negative mg/dL (<2.0)
[2021-04-27 07:18] VITALS: BP 127/84; PULSE 71; RESP 14; O2SAT 97
--- NOTE | 2021-04-27 07:43 | ED.NAVMDI ---
HPI - Nausea/Vomiting/Diarrhea General Chief complaint: Nausea/Vomiting/Diarrhea Stated complaint: abd pain, N/V Time Seen by Provider: 04/27/21 07:08 History of Present Illness HPI Narrative: 55 yo female w/ h/o GERD presents to the ED for nausea, vomiting, and abdominal pain. The pain started last night shortly after returning form a trip to [place]. bilateral upper quadrants. Radiates to the epigastrium. Cramping. Moderate. Associated with vomiting. No diarrhea, fever, CP, SOB. Related Data Home Medications Medication Instructions Recorded Confirmed metoprolol succinate 50 mg PO DAILY 02/29/20 04/13/21 Allergies Allergy/AdvReac Type Severity Reaction Status Date / Time Antihistamines - Alkylamine Allergy Mild Palpitation Verified 04/27/21 07:22 s codeine Allergy Unknown Hallucinati Verified 04/27/21 07:22 ons antihistamines AdvReac Mild Other Uncoded 04/13/21 14:48 Review of Systems Review of Systems: All systems reviewed & are unremarkable except as noted in HPI and below Constitutional: Constitutional: Denies fever(s) ENT: Denies dizziness Cardiovascular: Cardiovascular: Denies chest pain Respiratory: Respiratory: Denies dyspnea Gastrointestinal: Gastrointestinal: Reports as per HPI, Denies constipation and Denies diarrhea Genitourinary: Genitourinary: Denies hematuria, Denies nocturia, Denies dysuria and Denies flank pain Neurologic: Denies dizziness and Denies weakness [facility] Past Medical History Medical History GERD (gastroesophageal reflux disease) Iron deficiency anemia Palpitations Paroxysmal A-fib Surgical History Surgical History H/O tubal ligation Family History Family History Father Family history of cardiovascular disease Mother Family history of cardiovascular disease Mother Acute myocardial infarction Social History Social History Social History: Smoking packs per day: 1 Smoking cigarettes per day: 20.0 Years smoked: 6 Smoking pack-years: 6.00 Smoking status: Never smoker Tobacco type: cigarettes and e-cigarettes/vaping Second hand tobacco smoke exposure: No Smoking end date: 09/16/15 Additional smoking assessment comments: VAPING 2016 12/2019 Alcohol intake: current Drinks per week: 12 Substance use: never Substance use type: does not use Gender identity (if verbalized by the patient): Female Spiritual care concerns: No Exam Const: General: healthy appearing, no acute distress and alert Orientation/consciousness: patient oriented x3 HENMT: Head: normal to inspection Neck: Neck: normal visual inspection and lymphadenopathy noted Resp: Effort & Inspection: normal respiratory effort Auscultation: clear to auscultation bilaterally, no rales, no rhonchi and no wheezes Cardio: Jugular venous distension: no JVD Rate: regular rate Rhythm: regular rhythm Heart sounds: no murmurs GI: Inspection: non-distended GI Palp: Yes Soft to palpation, Yes Tenderness to palpation present (GI) (epigastric, mild), No Guarding due to palpation present (GI) and No Rebound tenderness present Skin: General skin exam: normal color Neuro: General: patient oriented x3 and moves all extremities Speech: normal speech Extrem: General: no edema Psych: Appearance: well kempt Affect: normal affect Course Vital Signs Vital signs: Vital Signs Temperature 36.5 C 04/27/21 05:07 Pulse Rate 76 04/27/21 05:07 Respiratory Rate 20 04/27/21 05:07 Blood Pressure 185/100 H 04/27/21 05:07 Pulse Oximetry 99 04/27/21 05:07 Temperature 36.5 C 04/27/21 05:07 Pulse Rate 71 04/27/21 07:18 Respiratory Rate 14 04/27/21 07:18 Blood Pressure 127/84 04/27/21 07:18 Pulse Oximetry 97 04/27/21 0
[2021-04-27] MEDS: ONDANSETRON INJ 4 MG/2 ML VIAL IV PUSH (07:55)
[2021-04-27] MEDS: SODIUM CHLORIDE 0.9% IV 1,000 ML 999 ML IV CONT (07:55)
[2021-04-27] MEDS: PANTOPRAZOLE SODIUM IV 40 MG VIAL IV PUSH (07:56)
[2021-04-27] MEDS: DICYCLOMINE HCL INJ 20 MG/2 ML VIAL IM (07:56)
[2021-04-27 09:27] VITALS: BP 156/90; PULSE 755; RESP 20; O2SAT 100
== END 2021-04-27 09:35 | disposition home or self-care (01) ==
PROVIDERS: General Practice; Emergency Provider Emergency Medicine; PCP Family Medicine
DX: K52.9 Noninfective gastroenteritis and colitis, unspecified (principal); K21.9 Gastro-esophageal reflux disease without esophagitis; D50.9 Iron deficiency anemia, unspecified; I48.0 Paroxysmal atrial fibrillation; Z87.891 Personal history of nicotine dependence
CPT/HCPCS: 36415; 51701; 76705; 80053; 81003; 81025; 83690; 85025; 96361; 96374; 96375; 99284; C9113; J0500; J2405; J7030

== ENCOUNTER 2021-05-18 15:20 | Outpatient (CLI) | payer OTHER, SELFPAY ==
[2021-05-18 15:55] LABS: Hematocrit 33.4 % (37.0-47.0); Hemoglobin 10.4 g/dL (12.0-15.0); Mean Corpuscular HGB Conc 31.1 g/dl (32-36); Mean Corpuscular Hemoglobin 24.6 pg (26-34); Mean Corpuscular Volume 79.1 fl (80-100); Mean Platelet Volume 10.4 fl (7.4-10.4); Platelet Count Result 424 k/mm3 (150-375); Red Blood Count 4.22 M/mm3 (4.2-5.4); Red Cell Distribution Width 21.4 % (11.5-14.5); White Blood Count 8.4 K/mm3 (4.5-10.0)
== END 2021-05-18 15:21 | disposition home or self-care (01) ==
LOC: ANHLAB 15:23
PROVIDERS: PCP Family Medicine; Visit Provider Obstetrics & Gynecology Gynecology
DX: R79.9 Abnormal finding of blood chemistry, unspecified (principal)
CPT/HCPCS: 36415; 85027

== ENCOUNTER 2021-06-05 01:50 | Day surgery (SDC) | payer OTHER, SELFPAY ==
[2021-05-26 14:48] VITALS: BMI 20.7
--- NOTE | 2021-06-05 07:34 | WPDHPUPDATE1 ---
History and Physical Update Update Date/Time: 06/05/21 07:34 History and Physical has been reviewed, including an updated exam of the patient. There are NO changes in the patient's condition. Risks, benefits, and alternatives have been discussed and questions answered. Patient agrees to proceed with procedure.
--- NOTE | 2021-06-05 07:34 | PM.HPGS ---
History of Present Illness History of Present Illness Consent: Risks, benefits, and alternatives have been discussed and questions answered. Patient agrees to proceed with procedure. Chief complaint: menorrhagia, abnormal uterine bleeding Narrative: Maureen Sorenson is a 55 year old female with anemia and noted in February 03 at hemoglobin of 8.9 hematocrit of 29.9. Repeat hemoglobin after iron in May reveals a hemoglobin of 10.4 hematocrit of 33.4. Patient states cycles have been heavy and on her worst days she has been changing a tampon every 15minutes for the months of December and January. The patient was previously scheduled canceled and is now rescheduled for further evaluation using D&C hysteroscopy. Risks of infection, bleeding, and perforation were reviewed as well as possible pathology. Pelvic ultrasound was grossly normal without evidence of fibroids. Patient voices understanding and agrees to proceed. Review of Systems Constitutional: Constitutional: Reports night sweats Genitourinary: Genitourinary: Reports urinary incontinence Musculoskeletal: Musculoskeletal: Reports back pain and Reports neck pain Neurologic: Reports headache(s) PMFSH Past Medical History Medical History (Updated 06/05/21 @ 08:05 by Theresa Marrqouin MD) GERD (gastroesophageal reflux disease) Iron deficiency anemia (normal spontaneous vaginal delivery) x3 Palpitations Paroxysmal A-fib Surgical History Surgical History (Updated 06/05/21 @ 08:04 by Theresa Marroquin MD) H/O tubal ligation Status post myomectomy 2006 Family History Family History Father Family history of cardiovascular disease Mother Family history of cardiovascular disease Mother Acute myocardial infarction Social History Social History Social History: Smoking packs per day: 1 Smoking cigarettes per day: 20.0 Years smoked: 6 Smoking pack-years: 6.00 Smoking status: Never smoker Tobacco type: cigarettes and e-cigarettes/vaping Second hand tobacco smoke exposure: No Smoking end date: 09/16/15 Additional smoking assessment comments: VAPING 2015 TO 12/2019 Alcohol intake: current Drinks per week: 15 Substance use: never Substance use type: does not use Living arrangements: with family Gender identity (if verbalized by the patient): Female Sexual Orientation (if Verbalized by the Patient): Straight or Heterosexual Spiritual care concerns: No Meds Home Medications and Allergies Home Medications Medication Instructions Recorded Confirmed Type metoprolol succinate 50 mg PO QAM 02/29/20 05/26/21 History pantoprazole 40 mg tablet,delayed 40 mg PO BID #180 tablet 01/02/21 05/26/21 Rx release Allergies Allergy/AdvReac Type Severity Reaction Status Date / Time codeine Allergy Unknown Hallucinati Verified 05/26/21 14:23 ons antihistamines AdvReac Mild Other Uncoded 05/26/21 14:23 Exam : External Female Exam: normal external appearance Speculum Exam - Vagina: normal appearance of the vagina Speculum Exam - Cervix: normal appearance of the cervix Bimanual exam- vagina & uterus: normal bimanual exam Bimanual Exam- Adnexa, other: normal adnexae Assessment and Plan Assessment and plan (1) Menorrhagia: Code(s): N92.0 - Excessive and frequent menstruation with regular cycle Status: Acute Assessment and Plan: Plan to proceed with D&C hysteroscopy
[2021-06-05] MEDS: ACETAMINOPHEN 500 MG TABLET 1000 MG PO (08:30)
--- NOTE | 2021-06-05 08:30 | WPDANESEPPF ---
Anes - Initial Pre Proc Eval Procedure: Operation Date: 06/05/21 09:45 Proposed Procedures p Hysteroscopy Dilation and Curettage - Theresa Marroquin MD Date/Time: 06/05/21 08:30 Surgeon: Theresa Marroquin MD Pre Op Diagnosis: menorrhagia, abnormal uterine bleeding Patient Data Age: 55 Gender: F Height: 1.55 m Weight: 49.9 kg Allergies Allergy/AdvReac Type Severity Reaction Status Date / Time codeine AdvReac Unknown Hallucinati Verified 06/05/21 08:17 ons antihistamines AdvReac Mild Other Uncoded 06/05/21 08:17 Home Medications Medication Instructions Recorded Confirmed Type metoprolol succinate 50 mg PO QAM 02/29/20 06/05/21 History pantoprazole 40 mg tablet,delayed 40 mg PO BID #180 tablet 01/02/21 06/05/21 Rx release Patient hx anesthesia problems: none Family hx anesthesia problems: none PMFSH Past Medical History Medical History (Updated 06/05/21 @ 08:32 by Darien Thompson MD) Anemia, blood loss Anemia, iron deficiency Chronic GERD GERD (gastroesophageal reflux disease) History of peptic ulcer Iron deficiency anemia Menorrhagia (normal spontaneous vaginal delivery) x3 Palpitations Paroxysmal A-fib Surgical History Surgical History (Updated 06/05/21 @ 08:04 by Theresa Marroquin MD) H/O tubal ligation Status post myomectomy 2006 Family History Family History Father Family history of cardiovascular disease Mother Family history of cardiovascular disease Mother Acute myocardial infarction Social History Social History Social History: Smoking packs per day: 1 Smoking cigarettes per day: 20.0 Years smoked: 6 Smoking pack-years: 6.00 Smoking status: Never smoker Tobacco type: cigarettes and e-cigarettes/vaping Second hand tobacco smoke exposure: No Smoking end date: 09/16/15 Additional smoking assessment comments: VAPING 2015 TO 12/2019 Alcohol intake: current Drinks per week: 15 Substance use: never Substance use type: does not use Living arrangements: with family Gender identity (if verbalized by the patient): Female Sexual Orientation (if Verbalized by the Patient): Straight or Heterosexual Spiritual care concerns: No Anes - Eval Final PreProcedure Day of Procedure 06/05/21 08:30 Patient weight: normal Heart: regular rate and rhythm Lungs: clear to auscultation and normal air movement Airway: Mallampati scale class II Neurological: alert and oriented Last oral intake: >/= 8 hours ASA classification: III Emergent: no Anesthetic plan: proceed Anesthesia type and monitoring: general GIVS and LMA Informed Consent: The patient's anesthetic plan and its attendant risks and benefits were discussed with the patient/family/POA. Questions were solicited and answers provided to the satisfaction of the patient/family/POA.
[2021-06-05] MEDS: LACTATED RINGERS 1,000 ML 30 ML IV CONT (08:35)
[2021-06-05 08:57] VITALS: BP 162/93; PULSE 67; TEMP 37.1; O2SAT 99
--- NOTE | 2021-06-05 10:03 | P.OP_ITS ---
Procedure Note - Detailed Date of Procedure 06/05/21 Pre-op Diagnosis menorrhagia, abnormal uterine bleeding Post-op Diagnosis same Procedure Performed D&C hysteroscopy Surgeon Theresa Marroquin MD Anesthesia MAC and local Findings Uterus is 8cm and appears grossly to be secretory Description of Procedure The patient is taken to the operating room and placed under anesthesia in the dorsal lithotomy position. She was prepped and draped in usual sterile fashion. [place] speculum was placed in the vagina and cervix is grasped on the anterior lip with a tenaculum. The cervix is serially injected in each quadrant with 1% lidocaine. The uterus is sounded to 8cm. The cervix is serially dilated with Hegar. The diagnostic hysteroscope is placed with a secretory appearance noted. The hysteroscope was removed and the medium sharp curette used to sharply curette the endometrium until a good uterine cry was noted in all areas. All instruments are removed. Patient is awakened from anesthesia and taken to recovery in stable condition. Sponge, needle, and instrument counts are correct per the OR staff. Estimated Blood Loss 5 Drains No Packing No Pathology yes (Endometrial curettings) Complications No immediate complications Condition stable Disposition PACU
[2021-06-05 10:04] VITALS: BP 143/100; PULSE 63; RESP 16; O2SAT 99
[2021-06-05 10:25] VITALS: BP 180/90; PULSE 56; RESP 16; O2SAT 99
[2021-06-05 10:45] VITALS: BP 167/88; PULSE 55; RESP 16
== END 2021-06-05 10:58 | disposition home or self-care (01) ==
PROVIDERS: PCP Family Medicine; Visit Provider Obstetrics & Gynecology Gynecology
PROC: 0U5B8ZZ Destruction of Endometrium, Via Natural or Artificial Opening Endoscopic (ICD-10-PCS; CPT 58563; principal; 2021-06-05 09:45)
DX: N92.0 Excessive and frequent menstruation with regular cycle (principal); K21.9 Gastro-esophageal reflux disease without esophagitis; Z87.891 Personal history of nicotine dependence
CPT/HCPCS: 58558; 88305; A9270; J3010; J7030; J7120

== ENCOUNTER 2021-06-06 08:42 | Emergency (ER) | payer OTHER, SELFPAY ==
[2021-06-06 08:59] VITALS: BP 198/95; PULSE 67; RESP 16; TEMP 37; O2SAT 99
--- NOTE | 2021-06-06 09:10 | ED.GENADULT ---
HPI - General Adult General Chief complaint: Unspecified Stated complaint: jaw pain Source: patient and RN notes reviewed Limitations: no limitations History of Present Illness HPI narrative: The patient, on several medications, presents with jaw pain. Patient states she has been seeing neurology in the past for possible TMJ versus trigeminal neuralgia. She has been on gabapentin, and symptoms had resolved; but she noticed a new 1 day history of left jaw pain. Coincident with this, patient had a D&C yesterday during which she underwent anesthesia involving the LMA. No fever, tooth ache, earache, lancinating pain, known teeth grinding/bruxism. There is a mild, slightly worse with palpation; vital signs remarkable for elevated blood pressure [did not take musa blood pressure pills today, not until 10 AM] Related Data Home Medications Medication Instructions Recorded Confirmed metoprolol succinate 50 mg PO QAM 02/29/20 06/05/21 gabapentin 06/06/21 Allergies Allergy/AdvReac Type Severity Reaction Status Date / Time codeine AdvReac Unknown Hallucinati Verified 06/05/21 08:17 ons antihistamines AdvReac Mild Other Uncoded 06/05/21 08:17 Review of Systems Review of Systems: General/Constitutional: No weight loss,fever Eyes: N0: Redness,discharge Ears/Nose/Throat: No: Epistaxis,ear discharge Respiratory: Denies: Hemoptysis Gastrointestinal: No Vomiting, Bleeding-rectal Skin: No Lumps, eruption Neurologic: No Focal Weakness,Sz Hematologic: Denies: Petechiae/Purpura Psychiatric: No: Suicida ideationl All Other Systems: Reviewed and Negative [facility] Past Medical History Medical History (Updated 06/06/21 @ 09:14 by Gregg Cordero MD) Anemia, blood loss Anemia, iron deficiency Chronic GERD GERD (gastroesophageal reflux disease) History of peptic ulcer Iron deficiency anemia Menorrhagia (normal spontaneous vaginal delivery) x3 Palpitations Paroxysmal A-fib Surgical History Surgical History (Updated 06/05/21 @ 08:04 by Theresa Marroquin MD) H/O tubal ligation Status post myomectomy 2006 Family History Family History Father Family history of cardiovascular disease Mother Family history of cardiovascular disease Mother Acute myocardial infarction Social History Social History Social History: Smoking packs per day: 1 Smoking cigarettes per day: 20.0 Years smoked: 6 Smoking pack-years: 6.00 Smoking status: Never smoker Tobacco type: cigarettes and e-cigarettes/vaping Second hand tobacco smoke exposure: No Smoking end date: 09/16/15 Additional smoking assessment comments: VAPING 2015 TO 12/2019 Alcohol intake: current Drinks per week: 15 Substance use: never Substance use type: does not use Gender identity (if verbalized by the patient): Female Sexual Orientation (if Verbalized by the Patient): Straight or Heterosexual Spiritual care concerns: No Comments At time of signature, agree with nursing past medical, surgical, social and family history. There is no relevant family history pertinent to the presenting complaint Exam Narrative: General Appearance: Well appearing, Well nourished, EYE: PERRLA, EOMI, Conjunctiva clear Ears: External ear normal, Auditory canal normal Nose: Normal nose Mouth/Throat: Normal appearing without left jaw swelling), tender TMJ, normal lips, MM moist, Uvula midline ,scattered dental caries) Neck: Supple, No adenopathy Respiratory: Airway patent, No respiratory distress, Musculoskeletal: Full ROM, Non tender, Normal strength Skin: Warm, Dry, Normal color Neurological: A&O x3, Speech clear, CN II-XII intact Psychiatric: Normal mood, Normal affect Course Vital Signs Vital signs: Vital Signs Temperature 98.6 F 06/06/21 08:59 Pulse Rate 67 06/06/21 08:59 Respiratory Ra
[2021-06-06 09:22] VITALS: BP 174/92
== END 2021-06-06 09:22 | disposition home or self-care (01) ==
PROVIDERS: Emergency Provider Emergency Medicine; PCP Family Medicine
DX: M26.622 Arthralgia of left temporomandibular joint (principal); F17.200 Nicotine dependence, unspecified, uncomplicated; D50.9 Iron deficiency anemia, unspecified; K21.9 Gastro-esophageal reflux disease without esophagitis
CPT/HCPCS: 99213; G0463

== ENCOUNTER 2021-07-27 11:36 | Outpatient (CLI) | payer OTHER, SELFPAY ==
[2021-07-27 11:50] LABS: Hematocrit 37.1 % (37.0-47.0); Hemoglobin 11.8 g/dL (12.0-15.0)
== END 2021-07-27 11:37 | disposition home or self-care (01) ==
LOC: ANHSURGERY 11:39
PROVIDERS: Anesthesiology; PCP Family Medicine; Visit Provider Obstetrics & Gynecology Gynecology
DX: Z01.812 Encounter for preprocedural laboratory examination (principal); D50.9 Iron deficiency anemia, unspecified
CPT/HCPCS: 36415; 85014; 85018

== ENCOUNTER 2021-07-31 01:59 | Day surgery (SDC) | payer OTHER, SELFPAY ==
[2021-07-26 13:57] VITALS: BMI 20.7
--- NOTE | 2021-07-26 14:14 | PC.NURSE ---
Report to the Outpatient Waiting Room, entrance under the green pavilion located off [facility], at time 8:45 on date 07/31/21. OR Time: 10:45. - You and your visitor will be asked a series of questions to screen for COVID 19 for your protection. - A mask is required within the hospital. - Only one visitor is allowed at this time. Patient visitors will be guided where to wait when not with patient. Preoperative COVID Testing Requirements: No COVID Test needed if: (proof is required; if not received patient will have Rapid Test prior to entry) - Patient has received COVID Vaccine at least 14 days prior to procedure date or - Patient has positive COVID test result within last 90 days of surgery date. COVID Test needed if above criteria is not met If not COVID vaccinated a COVID test must be conducted within 72 hours of surgery and patient is asked to isolate self from time of testing until procedure. You will go to the [facility] for your COVID testing. The [facility] site is located at the corner of [address] [facility]. You will only be called if COVID results are positive and your surgeon may reschedule your elective surgery date. Patients may have clear liquids (water, carbonated beverages, clear teas, apple juice) until 3 hours prior to surgery with a maximum of 20 ounces. - No food from midnight until time of surgery - Infants may have breast milk until 4 hours before surgery, infant formula 6 hours prior to surgery. - Children will be allowed to drink immediately following surgery. If applicable, please bring a bottle or sippy cup to assist with drinking. Juice, water, soda, and popsicles are readily available. For infants on formula, please bring formula the day of surgery. Pacifiers are allowed. Take the following medications with a SIP of water the morning of surgery: METOPROLOL Medications to discontinue per physician: N/A Date to take last dose: N/A Please no make-up, nail icelandic, hairspray, perfume, deodorant, or body powder the day of surgery. No jewelry (including any body piercings) or valuables the day of surgery, leave them at home. Please take a shower or bath the night before, or the morning of, surgery with an antibacterial soap. Wear comfortable, loose fitting clothing. Children are encouraged to wear pajamas. - Jewelry must be removed prior to entering the operating room. Rings and piercings that are not removed may be cut off. - The hospital will not accept responsibility for valuables. - Please leave all valuables, including medications, at home the day of surgery. If you are going home after surgery, a licensed intermodal owner operator truck driver must drive you home. - NO public transportation without another adult. - We recommend that an adult stay with you for 24 hours following discharge. - We also recommend that you do not drive, make important decision, drink alcoholic beverages, or take any drugs that were not prescribed by your health care provider for at least 24 hours after your discharge time. For Pediatric surgeries, we recommend two adults accompany the child home (only one inside the building at this time). Follow any additional instructions given to you from your surgeon. Telephone instructions given to CALVIN CLEMENTS and asked if any additional questions and then verbalized understanding. Patient advised to call surgeon office or pre surgery nurse liaison [phone] if any additional questions.
--- NOTE | 2021-07-31 07:37 | WPDHPUPDATE1 ---
History and Physical Update Update Date/Time: 07/31/21 07:37 History and Physical has been reviewed, including an updated exam of the patient. There are NO changes in the patient's condition. Risks, benefits, and alternatives have been discussed and questions answered. Patient agrees to proceed with procedure.
--- NOTE | 2021-07-31 07:37 | PM.HPGS ---
History of Present Illness History of Present Illness Consent: Risks, benefits, and alternatives have been discussed and questions answered. Patient agrees to proceed with procedure. Chief complaint: menorrhagia Narrative: Maureen Sorenson is a 56 year old female with regular and heavy cycles resulting in anemia. Options were reviewed and the patient elected to proceed with Faiza ablation for treatment. Risks of infection, bleeding, perforation, and persistent menorrhagia were reviewed. Patient voiced understanding and agrees to proceed. Review of Systems Constitutional: Constitutional: Reports night sweats Musculoskeletal: Musculoskeletal: Reports back pain and Reports neck pain Neurologic: Reports headache(s) [facility] Past Medical History Medical History (Updated 06/07/21 @ 00:00 by Tiffanie Dabrian) Anemia, blood loss Anemia, iron deficiency Chronic GERD GERD (gastroesophageal reflux disease) History of peptic ulcer Iron deficiency anemia Menorrhagia (normal spontaneous vaginal delivery) x3 Palpitations Paroxysmal A-fib Surgical History Surgical History (Updated 06/05/21 @ 08:04 by Theresa Marroquin MD) H/O tubal ligation Status post myomectomy 2005 Family History Family History Father Family history of cardiovascular disease Mother Family history of cardiovascular disease Mother Acute myocardial infarction Social History Social History Social History: Smoking packs per day: 1 Smoking cigarettes per day: 20.0 Years smoked: 6 Smoking pack-years: 6.00 Smoking status: Never smoker Tobacco type: cigarettes and e-cigarettes/vaping Second hand tobacco smoke exposure: No Smoking end date: 09/16/15 Additional smoking assessment comments: VAPING 2015 TO 12/2019 Alcohol intake: current Drinks per week: 15 Substance use: never Substance use type: does not use Living arrangements: with family Gender identity (if verbalized by the patient): Female Sexual Orientation (if Verbalized by the Patient): Straight or Heterosexual Spiritual care concerns: No Meds Home Medications and Allergies Home Medications Medication Instructions Recorded Confirmed Type metoprolol succinate 50 mg PO QAM 02/29/20 07/26/21 History pantoprazole 40 mg tablet,delayed 40 mg PO BID #180 tablet 01/02/21 07/26/21 Rx release Allergies Allergy/AdvReac Type Severity Reaction Status Date / Time codeine AdvReac Unknown Hallucinati Verified 07/26/21 13:56 ons antihistamines AdvReac Mild Other Uncoded 07/26/21 13:56 Exam Const: General: healthy appearing and alert Orientation/consciousness: patient oriented x3 Resp: Effort & Inspection: normal respiratory effort Auscultation: clear to auscultation bilaterally Cardio: Rate: regular rate Rhythm: regular rhythm GI: GI Palp: Yes Soft to palpation, No Tenderness to palpation present (GI) and No Palpable mass present : External Female Exam: normal external appearance Speculum Exam - Vagina: normal appearance of the vagina and normal vaginal discharge Speculum Exam - Cervix: normal appearance of the cervix Bimanual exam- vagina & uterus: uterine size normal and consistency normal Bimanual Exam- Adnexa, other: normal adnexae and No adnexal tenderness Neuro: General: patient oriented x3 Assessment and Plan Assessment and plan (1) Menorrhagia: Code(s): N92.0 - Excessive and frequent menstruation with regular cycle Status: Acute Assessment and Plan: Plan to proceed with Fazia endometrial ablation
[2021-07-31 09:30] VITALS: BP 186/90; PULSE 65; RESP 16; TEMP 37.2; O2SAT 100
[2021-07-31] MEDS: ACETAMINOPHEN 500 MG TABLET 1000 MG PO (09:39)
--- NOTE | 2021-07-31 09:41 | P.PNAN_ITS ---
Anes - Initial Pre Proc Eval Procedure: Operation Date: 07/31/21 10:45 Proposed Procedures p Hysteroscopy Endometrial Ablation with Faiza - Theresa Marroquin MD Date/Time: 07/31/21 09:41 Surgeon: Theresa Marroquin MD Pre Op Diagnosis: menorrhagia Patient Data Age: 56 Gender: F Height: 1.55 m Weight: 49.9 kg Allergies Allergy/AdvReac Type Severity Reaction Status Date / Time codeine AdvReac Unknown Hallucinati Verified 07/26/21 13:56 ons antihistamines AdvReac Mild Other Uncoded 07/26/21 13:56 Home Medications Medication Instructions Recorded Confirmed Type metoprolol succinate 50 mg PO QAM 02/29/20 07/26/21 History pantoprazole 40 mg tablet,delayed 40 mg PO BID #180 tablet 01/02/21 07/26/21 Rx release Patient hx anesthesia problems: none Family hx anesthesia problems: none Results Review: All pre-operative results and documents have been reviewed as part of the pre-operative evaluation. [facility] Past Medical History Medical History Anemia, blood loss Anemia, iron deficiency Chronic GERD GERD (gastroesophageal reflux disease) History of peptic ulcer Iron deficiency anemia Menorrhagia (normal spontaneous vaginal delivery) x3 Palpitations Paroxysmal A-fib Surgical History Surgical History H/O tubal ligation Status post myomectomy 2006 Family History Family History Father Family history of cardiovascular disease Mother Family history of cardiovascular disease Mother Acute myocardial infarction Social History Social History (Updated 07/31/21 @ 09:42 by Amrit Carias MD) Social History: Smoking packs per day: 1 Smoking cigarettes per day: 20.0 Years smoked: 6 Smoking pack-years: 6.00 Smoking status: Former smoker Tobacco type: cigarettes and e-cigarettes/vaping Second hand tobacco smoke exposure: No Smoking end date: 09/16/15 Additional smoking assessment comments: VAPING 2015 TO 12/2019 Alcohol intake: current Drinks per week: 15 Substance use: never Substance use type: does not use Living arrangements: with family Gender identity (if verbalized by the patient): Female Sexual Orientation (if Verbalized by the Patient): Straight or Heterosexual Spiritual care concerns: No Anes - Eval Final PreProcedure Day of Procedure 07/31/21 09:41 Patient weight: normal Heart: regular rate and rhythm Lungs: clear to auscultation Airway: Mallampati scale class II Neurological: alert and oriented Last oral intake: >/= 8 hours ASA classification: II Emergent: no Anesthetic plan: proceed Anesthesia type and monitoring: general GIVS and standard monitoring Results Review: All pre-operative results and documents have been reviewed as part of the pre-operative evaluation. Informed Consent: The patient's anesthetic plan and its attendant risks and benefits were discussed with the patient/family/POA. Questions were solicited and answers provided to the satisfaction of the patient/family/POA.
[2021-07-31] MEDS: LACTATED RINGERS 1,000 ML 30 ML IV CONT (09:42)
--- NOTE | 2021-07-31 11:06 | W.PM.PROC2 ---
Procedure Note - Detailed Date of Procedure 07/31/21 Pre-op Diagnosis menorrhagia Post-op Diagnosis same Procedure Performed Faiza endometrial ablation with hysteroscopy Surgeon Theresa Marroquin MD Anesthesia MAC and local Description of Procedure the patient was taken to the operating room and placed under anesthesia in the dorsal lithotomy position. She was prepped and draped in the usual sterile fashion. [place] speculum was placed in the vagina and the cervix was grasped on the anterior lip with a tenaculum. The cervix is injected in each quadrant with 1% lidocaine. The uterus is sounded to 8cm. The cervix is serially dilated to an 8 Hegar. Diagnostic hysteroscope was placed with no abnormalities noted. TheMinerva device is opened and placed. Cavity assessment passed on the 1st attempt. The device was set at 5cm. Treatment cycle lasted the full 2 minutes. Diagnostic hysteroscope is placed with good ablation effect noted. All instruments are removed and the patient was awakened from anesthesia. Sponge, needle, and instrument counts are correct per the OR staff. Patient is taken to recovery room in stable condition. Estimated Blood Loss 5 Drains No Packing No Pathology none sent Complications No immediate complications Disposition PACU
[2021-07-31 11:11] VITALS: BP 170/85; PULSE 68; RESP 16; O2SAT 100
[2021-07-31 11:40] VITALS: BP 172/89; PULSE 55
== END 2021-07-31 11:58 | disposition home or self-care (01) ==
PROVIDERS: PCP Family Medicine; Visit Provider Obstetrics & Gynecology Gynecology
PROC: 0U5B8ZZ Destruction of Endometrium, Via Natural or Artificial Opening Endoscopic (ICD-10-PCS; CPT 58563; principal; 2021-07-31 10:45)
DX: N92.0 Excessive and frequent menstruation with regular cycle (principal); D50.8 Other iron deficiency anemias; Z87.11 Personal history of peptic ulcer disease; K21.9 Gastro-esophageal reflux disease without esophagitis; I48.0 Paroxysmal atrial fibrillation; Z87.891 Personal history of nicotine dependence; R00.2 Palpitations
CPT/HCPCS: 58563; 36415; 85014; 85018; A9270; J1100; J1885; J2250; J2405; J2704; J3010; J7030; J7120

== ENCOUNTER 2021-09-19 14:40 | Outpatient (CLI) | payer OTHER, SELFPAY ==
[2021-09-19 15:00] LABS: Hematocrit 34.8 % (37.0-47.0); Hemoglobin 11.2 g/dL (12.0-15.0); Mean Corpuscular HGB Conc 32.2 g/dl (32-36); Mean Corpuscular Volume 90.2 fl (80-100); Mean Platelet Volume 9.9 fl (7.4-10.4); Platelet Count Result 387 k/mm3 (150-375); Red Blood Count 3.86 M/mm3 (4.2-5.4); Red Cell Distribution Width 15.1 % (11.5-14.5); White Blood Count 7.5 K/mm3 (4.5-10.0)
== END 2021-09-19 14:41 | disposition home or self-care (01) ==
PROVIDERS: PCP Family Medicine; Visit Provider Obstetrics & Gynecology Gynecology
DX: N92.0 Excessive and frequent menstruation with regular cycle (principal)
CPT/HCPCS: 36415; 85027

== ENCOUNTER 2022-01-16 17:14 | Emergency (ER) | payer OTHER, SELFPAY ==
[2022-01-16] VITALS (24 sets, daily range): BP systolic 160–195; BP diastolic 89–107; PULSE 60–82; RESP 12–22; TEMP 36.7; O2SAT 92–100
--- NOTE | ~2022-01-16 | XR_ITS ---
EXAMINATION: XR chest 2V Exam Date/Time: 01/16/2022 17:35 CDT CLINICAL HISTORY: chest pain X2 DAYS, LT SIDED ACHEY PAIN, HX AFIB Comparison: 06/08/20. RESULT: Lines, tubes, and devices: None. Lungs and pleura: Clear. Cardiomediastinal silhouette: Stable cardiomediastinal silhouette. Other: No acute osseous or upper abdominal finding. IMPRESSION: No acute cardiopulmonary process Reviewed, dictated and finalized at location K.
--- NOTE | 2022-01-16 17:24 | ECG_ITS ---
Measurements Intervals [place] Rate: 67 P: 12 MO: 133 QRS: -17 QRSD: 98 T: -3 QT: 389 QTc: 413 Interpretive Statements SINUS RHYTHM LEFT VENTRICULAR HYPERTROPHY BASELINE ARTIFACT- II, III BORDERLINE ECG Electronically Signed On 01-17-2022 7:00:26 CDT by Arthur Capellan D.O.
--- NOTE | 2022-01-16 17:27 | ED.CHESTPAIN ---
HPI - Chest Pain General Chief Complaint: Chest Pain <Ying Quintana PA-C - Last Filed: 01/16/22 22:56> Stated Complaint: chest pain <ANGÉLICA Guy Last Filed: 01/16/22 22:56> Time Seen by Provider: 01/16/22 17:26 <ANGÉLICA Guy Last Filed: 01/16/22 22:56> Source: patient <ANGÉLICA Guy Last Filed: 01/16/22 22:56> Mode of arrival: ambulatory <ANGÉLICA Guy Last Filed: 01/16/22 22:56> Limitations: no limitations <ANGÉLICA Guy Last Filed: 01/16/22 22:56> History of Present Illness HPI narrative: Patient is a 56-year-old female who presents the ED with report of L sided chest pain. Patient reports she developed pain just to the left of her sternum yesterday morning around 11 AM. The pain feels like a brief sharp pain which radiates straight through to her back. The pain lasts for a few seconds at a time before resolving. It has been intermittent and occurred about 5 times throughout the day yesterday and today. 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 No other unusual activity. She has a Hx of GERD and reports having CP associated with this in the past, but states this pain felt different. Also reports having recent congestion and mild occasional shortness of breath today, which she feels is more due to anxiety. No shortness of breath with exertion. No nausea, dizziness, abdominal pain, fever, chills, cough. No long distance travel, recent surgery or immobilization. Patient reports a history of palpitations which she has seen Dr. Haile for in the past. She has worn a Holter monitor due to concern for paroxysmal AFIB but was never able to capture this with previous Holters. She denies having palpitations with her current chest pain. She does not take aspirin or any other blood thinners. She does have a history of high blood pressure for which she takes metoprolol. Also reports family history in late 50s of heart disease. <Ying Quintana PA-C - Last Filed: 01/16/22 22:56> Related Data Home Medications: Home Medications Medication Instructions Recorded Confirmed metoprolol succinate 50 mg PO QAM 02/29/20 01/18/22 <Ying Quintana PA-C - Last Filed: 01/16/22 22:56> Allergies/Adverse Reactions: Allergies Allergy/AdvReac Type Severity Reaction Status Date / Time codeine AdvReac Unknown Hallucinati Verified 01/18/22 13:56 ons antihistamines AdvReac Mild Other Uncoded 01/18/22 13:56 <Ying Quintana PA-C - Last Filed: 01/16/22 22:56> Review of Systems Review of Systems: CONSTITUTIONAL: Denies fever, chills, or sweats. ENT: Reports congestion. Denies rhinorrhea, sore throat, or otalgia. CARDIOVASCULAR: Reports CP. Denies palpitations or BLE edema. RESPIRATORY: Reports SOB. Denies cough. GASTROINTESTINAL: Denies abdominal pain, nausea, vomiting, or diarrhea. MUSCULOSKELETAL: Reports back pain, radiated from chest. Denies BLE pain, joint pain, or myalgia. NEUROLOGIC: Denies dizziness, headache, numbness, or weakness. PSYCHIATRIC: Reports anxiety. <Ying Quintana PA-C - Last Filed: 01/16/22 22:56> All systems reviewed & are unremarkable except as noted in HPI and below <Ying Quintana PA-C - Last Filed: 01/16/22 22:56> [facility] Past Medical History Medical History: Medical History Anemia, blood loss Anemia, iron deficiency Chronic GERD GERD (gastroesophageal reflux disease) History of peptic ulcer Iron deficiency anemia Menorrhagia (normal spontaneous vaginal delivery) x3 Palpitations Paroxysmal A-fib <Ying Quintana PA-C - Last Filed: 01/16/22 22:56> Surgical History Surgical History: Surgical History H/O tubal ligation History of endometrial ablation Status post myomectomy 2005
[2022-01-16] MEDS: ASPIRIN 81 MG CHEWABLE TABLET 324 MG PO (17:39)
[2022-01-16 17:51] LABS: Basophils Absolute Auto 0.1 K/mm3 (0.0-0.1); Basophils Percent Auto 0.7 % (0.2-1.2); Eosinophils Absolute Auto 0.1 K/mm3 (0-0.3); Eosinophils Percent Auto 0.8 % (0-4.4); Hematocrit 35.5 % (37.0-47.0); Hemoglobin 11.7 g/dL (12.0-15.0); Immature Granulocyte Absolute 0.02 K/mm3 (0.00-0.031); Immature Granulocyte Percent A 0.2 % (0-0.5); Lymphocytes Absolute Auto 2.56 K/mm3 (0.9-3.2); Mean Corpuscular Volume 88.1 fl (80-100); Mean Platelet Volume 10.5 fl (7.4-10.4); Monocytes Absolute Auto 0.9 K/mm3 (0.1-0.6); Monocytes Percent Auto 10.4 % (2.6-8.5); Neutrophils Absolute Auto 4.7 K/mm3 (1.3-6.7); Neutrophils Percent Auto 56.9 % (45.5-73.1); Platelet Count Result 317 k/mm3 (150-375); Red Blood Count 4.03 M/mm3 (4.2-5.4); Red Cell Distribution Width 14.5 % (11.5-14.5); White Blood Count 8.3 K/mm3 (4.5-10.0)
[2022-01-16 18:03] LABS: Alanine Aminotransferase 22 U/L (4-35); Albumin Level 4.7 g/dL (3.5-5.1); Alkaline Phosphatase 70 U/L (38-126); Anion Gap 7 mmol/L (8-16); Aspartate Amino Transferase 27 U/L (14-36); Bilirubin,Total 0.2 mg/dL (0.2-1.3); Blood Urea Nitrogen 21 mg/dL (7-17); Calcium 8.9 mg/dL (8.4-10.2); Carbon Dioxide 29 mmol/L (22-30); Chloride 102 mmol/L (98-107); Estimated CRCL calculation 60 ml/min; Estimated Glomerular Filt Rate > 60; Glucose 97 mg/dL (65-110); Lipase 88 U/L (23-300); Sodium 138 mmol/L (137-145)
[2022-01-16 18:12] LABS: Partial Thromboplastin Time 29.4 SECONDS (22.3-36.8); Prothrombin Time 12.4 Seconds (11.1-14.7)
[2022-01-16 18:14] LABS: Troponin I < 0.012 ng/mL (0.000-0.034)
[2022-01-16 18:15] LABS: D Dimer 0.29 ug/mL (<0.48)
[2022-01-16] MEDS: SODIUM CHLORIDE 0.9% IV 1,000 ML 999 ML IV CONT (18:41)
[2022-01-16] MEDS: LIDOCAINE HCL 2% VISC SOLN 15 ML UDC 20 ML PO (19:52)
[2022-01-16] MEDS: MAG HYDROX/AL HYDROX/SIMETH 30 ML UDC PO (19:53)
[2022-01-16 20:35] LABS: Troponin I < 0.012 ng/mL (0.000-0.034)
== END 2022-01-16 20:50 | disposition home or self-care (01) ==
PROVIDERS: Emergency Provider Emergency Medicine; PCP Family Medicine
DX: R07.89 Other chest pain (principal); I10 Essential (primary) hypertension; D50.9 Iron deficiency anemia, unspecified; I48.0 Paroxysmal atrial fibrillation; Z87.891 Personal history of nicotine dependence; I51.7 Cardiomegaly
CPT/HCPCS: 36415; 71046; 80053; 83690; 84484; 85025; 85380; 85610; 85730; 93005; 96361; 96374; 99284; A9270; J0131; J7030

== ENCOUNTER 2022-02-17 16:55 | Emergency (ER) | payer OTHER, SELFPAY ==
[2022-02-17 17:04] VITALS: BP 169/74; PULSE 68; RESP 16; TEMP 36.7; O2SAT 99
--- NOTE | 2022-02-17 17:07 | ED.SKABFB ---
HPI - Skin/Abscess/Foreign Bdy General Chief complaint: Skin/Abscess/Foreign Body Stated complaint: insect bite Time Seen by Provider: 02/17/22 17:08 Source: patient Mode of arrival: ambulatory Limitations: no limitations History of Present Illness HPI narrative: 56-year-old female presents with concern for insect bite to left side of chest. Reports that she woke up this morning with redness, tenderness and itching. Thinks that she may have a spider or wasp bite. Did not see either of these insects in her home. Afebrile. Applying triple antibiotic ointment with no relief of symptoms. All systems reviewed and negative except as noted above. Related Data Home Medications Medication Instructions Recorded Confirmed metoprolol succinate 25 mg 50 mg PO QAM 02/29/20 02/17/22 tablet,extended release 24 hr Allergies Allergy/AdvReac Type Severity Reaction Status Date / Time codeine AdvReac Unknown Hallucinati Verified 02/17/22 17:03 ons antihistamines AdvReac Intermediate Palpitation Uncoded 02/17/22 17:18 s Review of Systems Review of Systems: CONSTITUTIONAL: Denies fever, chills, or sweats. EYES: Denies visual changes, redness, or discharge. ENT: Denies rhinorrhea, congestion, sore throat, or otalgia. CARDIOVASCULAR: Denies chest pain, palpitations, or edema. RESPIRATORY: Denies cough or dyspnea. GASTROINTESTINAL: Denies abdominal pain, nausea, vomiting, or diarrhea. GENITOURINARY: Denies dysuria or hematuria. SKIN: Denies and itching to left chest. MUSCULOSKELETAL: Denies back pain, joint pain, or myalgia. NEUROLOGIC: Denies headache, numbness, or weakness. PSYCHIATRIC: Denies anxiety or depression. All other systems reviewed are negative, except as documented in HPI. [facility] Past Medical History Medical History Anemia, blood loss Anemia, iron deficiency Chronic GERD GERD (gastroesophageal reflux disease) History of peptic ulcer Iron deficiency anemia Menorrhagia (normal spontaneous vaginal delivery) x3 Palpitations Paroxysmal A-fib Surgical History Surgical History H/O tubal ligation History of endometrial ablation Status post myomectomy 2006 Family History Family History Father Family history of cardiovascular disease Diabetes mellitus Skin cancer Heart disease Mother Family history of cardiovascular disease Heart disease Mother Acute myocardial infarction Sibling Skin cancer Hypertension Heart disease Son Heart disease Social History Social History Social History: Smoking packs per day: 1 Smoking cigarettes per day: 20.0 Years smoked: 6 Smoking pack-years: 6.00 Tobacco type: cigarettes and e-cigarettes/vaping Second hand tobacco smoke exposure: No Smoking end date: 09/16/15 Additional smoking assessment comments: VAPING 2015 TO 12/2019 Alcohol intake: current Drinks per week: 15 Substance use: never Substance use type: does not use Gender identity (if verbalized by the patient): Female Sexual Orientation (if Verbalized by the Patient): Straight or Heterosexual Spiritual care concerns: No Comments At time of signature, agree with nursing past medical, surgical, social and family history. There is no relevant family history pertinent to the presenting complaint. Exam Narrative: GENERAL: This is a well-nourished, well-developed patient, in no apparent distress. HEAD: normocephalic, atraumatic. EYES: PERRL. Sclera clear/white. Vision is grossly intact. EARS: External ears normal NOSE: External nose normal NECK: Neck supple, non-tender without lymphadenopathy, masses or thyromegaly. CARDIOVASCULAR: Regular rate and rhythm without murmurs, gallops, or rubs. RESPIRATORY: Clear to auscultatio
== END 2022-02-17 17:25 | disposition home or self-care (01) ==
PROVIDERS: Emergency Provider Nurse Practitioner Family; PCP Family Medicine
DX: S20.362A Insect bite (nonvenomous) of left front wall of thorax, initial encounter (principal); W57.XXXA Bitten or stung by nonvenomous insect and other nonvenomous arthropods, initial encounter; Z87.891 Personal history of nicotine dependence; K21.9 Gastro-esophageal reflux disease without esophagitis; I48.0 Paroxysmal atrial fibrillation
CPT/HCPCS: 99213; G0463

== ENCOUNTER 2022-04-28 13:35 | Outpatient (CLI) | payer OTHER, SELFPAY ==
--- NOTE | ~2022-04-28 | MR_ITS ---
EXAMINATION: MR brain IAC wo con DATE: 04/28/2022 14:34 INDICATION: Dizziness. Vertigo. Headache. Bilateral tinnitus. TECHNIQUE: Magnetic resonance imaging (MRI) of the brain, brainstem, and internal auditory canals was performed without intravenous contrast. COMPARISON: Brain MRI 04/16/2018, head CT 02/13/2021 FINDINGS: There are scattered areas of nonspecific increased T2-weighted signal intensity in the cere bral white matter. There is no intracranial hemorrhage, acute infarction, or abnormal intracranial ma ss lesion. The ventricles are normal in size. The internal auditory canals and inner and middle ears are normal. The paranasal sinuses are clear. The orbits are normal. The mastoid air cells are normal. IMPRESSION: 1. Moderate nonspecific cerebral white matter disease, which likely represents chronic small vessel i schemic disease, worsened from 04/16/2018. Reviewed, dictated and finalized at location A. IMPRESSION: 1. Moderate nonspecific cerebral white matter disease, which likely represents chronic small vessel ischemic disease, worsened from 04/16/2018.
== END 2022-04-28 13:36 | disposition home or self-care (01) ==
PROVIDERS: PCP Family Medicine; Visit Provider Physician Assistant
DX: R51.9 Headache, unspecified (principal); R42 Dizziness and giddiness; H93.19 Tinnitus, unspecified ear; H53.8 Other visual disturbances; R93.0 Abnormal findings on diagnostic imaging of skull and head, not elsewhere classified
CPT/HCPCS: 70551

== ENCOUNTER 2022-07-07 22:25 | Emergency (ER) | payer OTHER, SELFPAY ==
--- NOTE | ~2022-07-07 | CT_ITS ---
EXAMINATION: CT brain wo con INDICATION: Transient alteration of awareness COMPARISON: None TECHNIQUE: Standard unenhanced head CT. The dose-length product (DLP) was 529.67 mGy-cm. The mA was a djusted according to patient size. Iterative reconstruction technique was employed. FINDINGS: There is no intracranial hemorrhage, acute infarction, or abnormal mass lesion. The ventric les are normal. There is no abnormal mass effect or midline shift. The shaw-white matter differentiat ion is normal. The basal cisterns are patent. The orbits are normal. There is mild mucosal thickening of the paranasal sinuses. IMPRESSION: 1. No acute intracranial abnormality. Reviewed, dictated and finalized at location F.
[2022-07-07 22:21] VITALS: BP 166/85; PULSE 72; RESP 20; TEMP 36.9; O2SAT 97
--- NOTE | 2022-07-07 22:29 | ECG_ITS ---
Measurements Intervals [place] Rate: 67 P: 25 WI: 138 QRS: -2 QRSD: 93 T: 20 QT: 395 QTc: 418 Interpretive Statements SINUS RHYTHM COMPARED TO ECG 01/16/2022 17:28:40 NO SIGNIFICANT CHANGES Electronically Signed On 07-08-2022 8:55:22 CDT by Lindsay Sampson M.D.
--- NOTE | 2022-07-07 22:41 | PC.NURSE ---
Patient ambulated to the bathroom with a steady unassisted gait. When patient ambulated back to the room she got lightheaded and needed a stand by assistance. ERP notified.
[2022-07-07 23:24] VITALS: PULSE 71; RESP 19
[2022-07-07 23:30] VITALS: PULSE 78; RESP 17
[2022-07-07 23:32] VITALS: BP 109/84; PULSE 70; RESP 19; O2SAT 97
[2022-07-07 23:33] VITALS: PULSE 83; RESP 19; O2SAT 100
[2022-07-07 23:45] VITALS: PULSE 72; RESP 14; O2SAT 96
[2022-07-08] VITALS (19 sets, daily range): BP systolic 105–135; BP diastolic 61–81; PULSE 63–77; RESP 12–24; O2SAT 96–100
--- NOTE | 2022-07-08 00:30 | ED.SYNCOPE ---
HPI - Syncope General Chief Complaint: Syncope <ANGÉLICA Garcia Filed: 07/08/22 03:40> Stated Complaint: Syncopal episode <ANGÉLICA Garcia Filed: 07/08/22 03:40> Time Seen by Provider: 07/07/22 23:40 <ANGÉLICA Garcia Last Filed: 07/08/22 03:40> Source: patient and old records reviewed <ANGÉLICA Garcia Filed: 07/08/22 03:40> Mode of arrival: EMS <ANGÉLICA Garcia Filed: 07/08/22 03:40> Limitations: no limitations <ANGÉLICA Garcia Filed: 07/08/22 03:40> History of Present Illness HPI narrative: Patient is a 56 y/o female who presents to the ED with c/o syncope. Patient reports she was at a [employer] and had 5 beers. She got into a heated argument with her son and began feeling unwell and slightly dizzy during the argument. She then reportedly passed out. Family member at bedside witnessed event and reports she fell backwards, but did not hit her head. It took 3-4 minutes for her to regain full consciousness and awareness afterwards. Patient c/o pain to her LUE and left sided head. She states she feels better otherwise. Does have frequent history of dizziness. Sees Dr. Caballero. States she was recently diagnosed with small vessel white matter disease and is concerned that her disease has progressed to the point it is causing her to pass out. She denies any CP, SOB, N/V, abdominal pain, vision changes. <ANGÉLICA Garcia Filed: 07/08/22 03:40> Related Data Home Medications: Home Medications Medication Instructions Recorded Confirmed metoprolol succinate 25 mg 50 mg PO QAM 02/29/20 06/14/22 tablet,extended release 24 hr <ANGÉLICA Garcia Last Filed: 07/08/22 03:40> Allergies/Adverse Reactions: Allergies Allergy/AdvReac Type Severity Reaction Status Date / Time codeine AdvReac Unknown Hallucinati Verified 07/07/22 22:30 ons antihistamines AdvReac Intermediate Palpitation Uncoded 06/22/22 10:51 s decongestants AdvReac Intermediate Palpitation Uncoded 07/07/22 22:30 s <Ying Harvey PA-C - Last Filed: 07/08/22 03:40> Review of Systems Review of Systems: CONSTITUTIONAL: Denies fever, chills, or sweats. EYES: Denies visual changes. CARDIOVASCULAR: Denies chest pain. RESPIRATORY: Denies dyspnea. GASTROINTESTINAL: Denies abdominal pain, nausea, vomiting, or diarrhea. MUSCULOSKELETAL: Reports LUE pain. NEUROLOGIC: Reports syncope, lightheaded, L sided CORONADO. Denies HI, numbness, or weakness. <Ying Harvey PA-C - Last Filed: 07/08/22 03:40> All systems reviewed & are unremarkable except as noted in HPI and below <Ying Harvey PA-C - Last Filed: 07/08/22 03:40> [facility] Past Medical History Medical History: Medical History Anemia, blood loss Anemia, iron deficiency Chronic GERD Dyspepsia GERD (gastroesophageal reflux disease) History of peptic ulcer Iron deficiency anemia Menorrhagia (normal spontaneous vaginal delivery) x3 Palpitations Paroxysmal A-fib White matter disease <Ying Harvey PA-C - Last Filed: 07/08/22 03:40> Surgical History Surgical History: Surgical History H/O tubal ligation History of endometrial ablation Status post myomectomy 2005 <Ying Harvey PA-C - Last Filed: 07/08/22 03:40> Family History Family History: Family History Father Family history of cardiovascular disease Diabetes mellitus Skin cancer Heart disease Mother Family history of cardiovascular disease Heart disease Mother Acute myocardial infarction Sibling Skin cancer Hypertension Heart disease Son Heart disease <Ying Harvey PA-C - Last Filed: 07/08/22 03:40> Social H
[2022-07-08] MEDS: SODIUM CHLORIDE 0.9% IV 1,000 ML 999 ML IV CONT (00:43)
[2022-07-08] MEDS: MECLIZINE HCL 25 MG TABLET PO (00:44)
--- NOTE | 2022-07-08 00:46 | PC.NURSE ---
Patient taken to CT at this time.
[2022-07-08 00:51] LABS: Basophils Absolute Auto 0.1 K/mm3 (0.0-0.1); Basophils Percent Auto 0.8 % (0.2-1.2); Eosinophils Absolute Auto 0.2 K/mm3 (0-0.3); Eosinophils Percent Auto 1.5 % (0-4.4); Hematocrit 35.6 % (37.0-47.0); Hemoglobin 11.7 g/dL (12.0-15.0); Immature Granulocyte Absolute 0.05 K/mm3 (0.00-0.031); Immature Granulocyte Percent A 0.5 % (0-0.5); Lymphocytes Absolute Auto 2.69 K/mm3 (0.9-3.2); Lymphocytes Percent Auto 25.1 % (18.3-44.2); Mean Corpuscular HGB Conc 32.9 g/dl (32-36); Mean Corpuscular Hemoglobin 30.5 pg (26-34); Mean Corpuscular Volume 92.7 fl (80-100); Monocytes Absolute Auto 0.6 K/mm3 (0.1-0.6); Monocytes Percent Auto 5.5 % (2.6-8.5); Neutrophils Absolute Auto 7.1 K/mm3 (1.3-6.7); Neutrophils Percent Auto 66.6 % (45.5-73.1); Platelet Count Result 419 k/mm3 (150-375); Red Blood Count 3.84 M/mm3 (4.2-5.4); Red Cell Distribution Width 14.5 % (11.5-14.5); White Blood Count 10.7 K/mm3 (4.5-10.0)
[2022-07-08 00:56] LABS: Add Urine Microscopic? YES; Appearance Urine Clear (Clear); Bilirubin Urine Negative (Negative); Blood Urine 2+ (Negative); Color Urine Colorless (Yellow); Glucose Urine UA Negative (Negative); Ketones Urine Negative (Negative); Leukocyte Esterase Ur Negative LEU/UL (Negative); Mucus Urine Rare /lpf; Nitrate Urine Negative (Negative); Protein Urine Negative (Negative); RBC Urine 0-2 /hpf (0-2); Squamous Epithelial Cell Urine Rare /hpf (Few); Urobilinogen Urine Negative mg/dL (<2.0); WBC Urine 0-3 /hpf
[2022-07-08 00:57] LABS: Specific Grav Ur 1.002 (1.001-1.035)
[2022-07-08 01:00] LABS: Alanine Aminotransferase 33 U/L (6-35); Albumin Level 4.5 g/dL (3.5-5.1); Alkaline Phosphatase 90 U/L (38-126); Anion Gap 14 mmol/L (8-16); Aspartate Amino Transferase 40 U/L (14-36); Bilirubin,Total 0.4 mg/dL (0.2-1.3); Blood Urea Nitrogen 13 mg/dL (7-17); Calcium 8.8 mg/dL (8.4-10.2); Carbon Dioxide 23 mmol/L (22-30); Chloride 105 mmol/L (98-107); Estimated CRCL calculation 81 ml/min; Estimated Glomerular Filt Rate > 60; Glucose 86 mg/dL (65-110); Potassium 4.4 mmol/L (3.4-5.0); Sodium 142 mmol/L (137-145)
== END 2022-07-08 02:42 | disposition home or self-care (01) ==
PROVIDERS: Physician Assistant; Emergency Provider Emergency Medicine; PCP Family Medicine
DX: R55 Syncope and collapse (principal); I48.0 Paroxysmal atrial fibrillation; D50.9 Iron deficiency anemia, unspecified; K21.9 Gastro-esophageal reflux disease without esophagitis; Z87.891 Personal history of nicotine dependence
CPT/HCPCS: 36415; 70450; 80053; 81001; 85025; 93005; 96360; 99284; A9270; J7030

== ENCOUNTER 2022-08-08 09:02 | Outpatient (CLI) | payer OTHER, SELFPAY ==
--- NOTE | 2022-08-08 11:00 | NEURO_ITS ---
Impression: # History of pain in all four extremities. # Normal nerve conduction study. # Normal needle/EMG exam. # Clinical correlation recommended. Motor Nerve Conduction Upper Extremities Median Nerve Conduction Velocity (m/sec) Terminal Latency (msec) Response Voltage(mV) Elbow-Wrist Wrist Elbow Wrist Right 63 2.4 6 9 Left 60 2.3 8 10 Ulnar Nerve Conduction Velocity (m/sec) Terminal Latency (msec) Response Voltage(mV) Above Elbow Below Elbow Wrist Above Elbow Below Elbow Wrist Right 63 64 2.1 6 6 7 Left 60 60 2.5 4 4 5 F-Wave Latency Median (ms) Ulnar (ms) Right 24.2 24.9 Left 24.2 24.7 Sensory Nerve Conduction Upper Extremities Median Nerve Stimulation Terminal Latency (msec) Wrist/Digit Response Voltage (uV) Wrist Right 2.6/2.7 57/42 Left 2.9/3.0 57/75 Ulnar Nerve Stimulation Terminal Latency (msec) Wrist/Digit Response Voltage (uV) Wrist Right 2.3 73 Left 2.3 53 Radial Nerve Terminal Latency (msec) Response Voltage(mV) Right 2.2 50 Left 2.2 60 Left Right Muscles Examined Fibrillation Fasciculation Scarcity Voltage Duration Left Right Left Right Left Right Left Right Left Right Deltoid Biceps X X Brachioradialis Triceps X X Pronator Teres X X Ext Indicis X X Ext Digitorum X X Abd Poll Brev X X 1st Dorsal Interosseus Paraspinals Motor Nerve Conduction Lower Extremities Peroneal Nerve Conduction Velocity (m/sec) Terminal Latency (msec) Response Voltage(mV) Popliteal space-Ankle Ankle Extensor Dig Brevis Popliteal space Ankle Right 53-54 3.4 6-6 7 Left 47-48 3.4 4-4 5 Tibial Nerve Conduction Velocity (m/sec) Terminal Latency (msec) Response Voltage(mV) Popliteal space-Ankle Ankle-Extensor Dig Brevis Popliteal space Ankle Right 54 3.7 7 10 Left 48 3.7 6 8 F-waves Peroneal Nerve (ms) Tibial Nerve (ms) Right 43.9 44.6 Left 44.0 45.5 Sensory Nerve Conduction Lower Extremities Sural Nerve Stimulation Terminal Latency (msec) Ankle Response Voltage (uV) Ankle Response Velocity (m/sec) Right 3.5 7 46 Left 3.5 13 46 Superficial Peroneal Nerve Stimulation Terminal Latency (msec) Ankle Response Voltage (uV) Ankle Response Velocity (m/sec) Right 3.3 7 48 Left 3.5 9 46 Left Right Muscles Examined Fibrillation Fasciculation Scarcity Voltage Duration Left Right Left Right Left Right Left Right Left Right X X Ant Tibialis X X Gastroc X X Fibularis Long X X Flex Dig Long X X Ext Dig Brev Abd Hallucis Quadriceps Paraspinals MTDD
== END 2022-08-08 09:03 | disposition home or self-care (01) ==
PROVIDERS: PCP Family Medicine; Visit Provider Psychiatry & Neurology Neurology
DX: M79.601 Pain in right arm (principal); M79.605 Pain in left leg; M79.602 Pain in left arm; M79.604 Pain in right leg
CPT/HCPCS: 95886; 95913

== ENCOUNTER 2022-08-13 13:32 | Emergency (ER) | payer OTHER, SELFPAY ==
--- NOTE | ~2022-08-13 | CT_ITS ---
EXAMINATION: CT brain wo con DATE: 08/13/2022 13:55 INDICATION: Right-sided visual changes last night and again today TECHNIQUE: Computed tomographic angiography (CTA) of the head was performed without intravenous contr ast. Exam dose: 605.33 mGy-cm total exam DLP. Volume-rendered and maximum intensity projection 3D reconstructions of the intracranial arteries were created by the technologist on a separate workstati on. COMPARISON: 07/08/2022 CT brain 04/28/2022 MR brain examination 02/13/2021 CT brain FINDINGS: Left choroidal fissure cyst, anatomic variant. No intracranial mass lesion or hemorrhage or cerebrovascular accident is detected. No midline shift o r mass effect. Normal ventricular size. No subdural or epidural hematoma. The orbital contents are unremarkable. The mastoid air cells and included paranasal sinuses are unremarkable. No fracture or bone destruction of the cranial vault. IMPRESSION: No significant abnormality or significant change since 07/08/2022 Reviewed, dictated and finalized at Location A. Reviewed, dictated and finalized at location B. [employer]UITY [employer]ANNER
--- NOTE | ~2022-08-13 | XR_ITS ---
XR chest 1V DATE: 08/13/2022 13:59 INDICATION: Partial loss of right vision. Right-sided headache. History of atrial fibrillation. TECHNIQUE: PA view COMPARISON: 01/16/2022 PA and lateral chest FINDINGS: Normal heart size. No hilar or mediastinal enlargement. The lungs are moderately hyperinfla leydi but clear of infiltrate or consolidation. No pleural effusion or pulmonary vascular congestion or pneumothorax is detected. IMPRESSION: Moderate hyperinflation; no active cardiopulmonary disease Reviewed, dictated and finalized at location B. WARE SPECIALIST
--- NOTE | 2022-08-13 13:33 | ECG_ITS ---
Measurements Intervals [place] Rate: 64 P: 24 SD: 138 QRS: 26 QRSD: 84 T: 26 QT: 389 QTc: 404 Interpretive Statements SINUS RHYTHM INCOMPLETE RIGHT BUNDLE BRANCH BLOCK NONSPECIFIC T-WAVE ABNORMALITY- ANTERIOR LEADS BASELINE ARTIFACT- I, II, III, AVR, AVL, AVF BORDERLINE ECG COMPARED TO ECG 07/07/2022 22:30 NO FURTHER INTERPRETATION IS POSSIBLE Electronically Signed On 08-13-2022 17:42:37 GIS CONSULTANT by Arthur Capellan D.O.
[2022-08-13 14:00] LABS: Basophils Absolute Auto 0.1 K/mm3 (0.0-0.1); Basophils Percent Auto 0.6 % (0.2-1.2); Eosinophils Absolute Auto 0.2 K/mm3 (0-0.3); Eosinophils Percent Auto 1.8 % (0-4.4); Hematocrit 37.3 % (37.0-47.0); Hemoglobin 12.2 g/dL (12.0-15.0); Immature Granulocyte Absolute 0.02 K/mm3 (0.00-0.031); Immature Granulocyte Percent A 0.2 % (0-0.5); Lymphocytes Absolute Auto 1.75 K/mm3 (0.9-3.2); Lymphocytes Percent Auto 19.7 % (18.3-44.2); Mean Corpuscular HGB Conc 32.7 g/dl (32-36); Mean Corpuscular Hemoglobin 30.3 pg (26-34); Mean Corpuscular Volume 92.8 fl (80-100); Mean Platelet Volume 10.2 fl (7.4-10.4); Monocytes Absolute Auto 0.6 K/mm3 (0.1-0.6); Monocytes Percent Auto 7.1 % (2.6-8.5); Neutrophils Absolute Auto 6.3 K/mm3 (1.3-6.7); Neutrophils Percent Auto 70.6 % (45.5-73.1); Platelet Count Result 397 k/mm3 (150-375); Red Blood Count 4.02 M/mm3 (4.2-5.4); Red Cell Distribution Width 14.6 % (11.5-14.5); White Blood Count 8.9 K/mm3 (4.5-10.0)
[2022-08-13 14:05] VITALS: BP 152/72; PULSE 69; RESP 16; TEMP 36.9; O2SAT 98
[2022-08-13 14:10] LABS: Alanine Aminotransferase 21 U/L (6-35); Albumin Level 4.5 g/dL (3.5-5.1); Alkaline Phosphatase 60 U/L (38-126); Anion Gap 10 mmol/L (8-16); Aspartate Amino Transferase 25 U/L (14-36); Bilirubin,Total 0.5 mg/dL (0.2-1.3); Blood Urea Nitrogen 15 mg/dL (7-17); Calcium 8.9 mg/dL (8.4-10.2); Carbon Dioxide 27 mmol/L (22-30); Chloride 101 mmol/L (98-107); Estimated Glomerular Filt Rate > 60; Glucose 115 mg/dL (65-110); Potassium 4.2 mmol/L (3.4-5.0); Prothrombin Time 12.8 Seconds (11.1-14.7); Sodium 138 mmol/L (137-145)
[2022-08-13 14:11] LABS: Partial Thromboplastin Time 28.6 SECONDS (22.3-36.8)
[2022-08-13 14:22] LABS: Troponin I < 0.012 ng/mL (0.000-0.034)
[2022-08-13 15:38] VITALS: PULSE 64
[2022-08-13 15:41] VITALS: O2SAT 100
--- NOTE | 2022-08-13 16:16 | ED.NEUROSD ---
HPI - Neuro Symptoms/Deficit General Chief Complaint: Neuro Symptoms/Deficit Stated Complaint: visual changes/ pain behind eye Time Seen by Provider: 08/13/22 16:13 Source: patient Limitations: no limitations History of Present Illness HPI Narrative: Patient is a 57-year-old female with a history of hypertension, acid reflux, presenting to the emergency department for evaluation of left eye pain with intermittent flashes/floaters sensation in the left eye. Patient endorses intermittent flashes of light which have persisted over the past 2 days. They seem to come and last for a few minutes and are associated with right temporal pain. Patient denies any current visual changes. To reports complete resolution of symptoms. She denies neck pain, chest pain, shortness of breath. Denies lower extremity or upper extremity focal weakness or numbness. Patient has a history of vertigo and white matter disease and does follow with neurologist Dr. Caballero. She did discuss her symptoms with her physician and he referred her to this emergency department for evaluation yesterday but she decided to come today patient denies any current eye pain, redness or discharge. She does report chronic sinusitis and congestion. Related Data Home Medications Medication Instructions Recorded Confirmed metoprolol succinate 25 mg 50 mg PO QAM 02/29/20 06/14/22 tablet,extended release 24 hr Allergies Allergy/AdvReac Type Severity Reaction Status Date / Time codeine AdvReac Unknown Hallucinati Verified 08/13/22 15:45 ons antihistamines AdvReac Intermediate Palpitation Uncoded 08/13/22 15:45 s decongestants AdvReac Intermediate Palpitation Uncoded 08/13/22 15:45 s Review of Systems Review of Systems: CONSTITUTIONAL: Denies fever, chills, or sweats. EYES: Denies current visual changes, redness, or discharge. ENT: Denies rhinorrhea, congestion, sore throat, or otalgia. CARDIOVASCULAR: Denies chest pain, palpitations, or edema. RESPIRATORY: Denies cough or dyspnea. GASTROINTESTINAL: Denies abdominal pain, nausea, vomiting, or diarrhea. GENITOURINARY: Denies dysuria or hematuria. SKIN: Denies rash or itching. MUSCULOSKELETAL: Denies back pain, joint pain, or myalgia. NEUROLOGIC: Denies current headache, numbness, or weakness. [facility] Past Medical History Medical History Anemia, blood loss Anemia, iron deficiency Chronic GERD Dyspepsia GERD (gastroesophageal reflux disease) History of peptic ulcer Iron deficiency anemia Menorrhagia (normal spontaneous vaginal delivery) x3 Palpitations Paroxysmal A-fib White matter disease Surgical History Surgical History H/O tubal ligation History of endometrial ablation Status post myomectomy 2005 Family History Family History Father Family history of cardiovascular disease Diabetes mellitus Skin cancer Heart disease Mother Family history of cardiovascular disease Heart disease Mother Acute myocardial infarction Sibling Skin cancer Hypertension Heart disease Son Heart disease Social History Social History Social History: Years smoked: 6 Smoking status: Former smoker Second hand tobacco smoke exposure: No Smoking end date: 09/16/15 Additional smoking assessment comments: VAPING 2015 TO 12/2019/stopped vaping Alcohol intake: current Drinks per week: 10 Substance use: never Substance use type: does not use Gender identity (if verbalized by the patient): Female Sexual Orientation (if Verbalized by the Patient): Straight or Heterosexual Spiritual care concerns: No Exam Narrative: GENERAL: Awake, alert, conversant HEAD: Normocephalic, atraumatic. EYES: PERRLA and EOMI. visual acuity OD: 20/25, OS 20/25, OU 20/25
[2022-08-13 19:00] VITALS: BP 141/87; PULSE 66; RESP 16; TEMP 36.8; O2SAT 100
[2022-08-13 20:00] VITALS: BP 135/94; PULSE 65; RESP 16; TEMP 36.8; O2SAT 99
== END 2022-08-13 20:28 | disposition home or self-care (01) ==
PROVIDERS: Family Medicine; Emergency Provider Emergency Medicine; PCP Family Medicine
DX: H53.8 Other visual disturbances (principal); I10 Essential (primary) hypertension; K21.9 Gastro-esophageal reflux disease without esophagitis; D50.9 Iron deficiency anemia, unspecified; I48.0 Paroxysmal atrial fibrillation; R90.82 White matter disease, unspecified; Z87.11 Personal history of peptic ulcer disease; Z87.891 Personal history of nicotine dependence; I45.10 Unspecified right bundle-branch block; R94.31 Abnormal electrocardiogram [ECG] [EKG]
CPT/HCPCS: 36415; 70450; 71045; 80053; 84484; 85025; 85610; 85730; 93005; 99284

== ENCOUNTER 2022-10-31 15:32 | Outpatient (CLI) | payer OTHER, SELFPAY | END 2022-10-31 15:33 | disposition home or self-care (01) | LOC: ANHLAB 15:34 | PROVIDERS: PCP Family Medicine; Visit Provider Physician Assistant | DX: Z00.5 Encounter for examination of potential donor of organ and tissue (principal) | CPT/HCPCS: 36415; 86850; 86900; 86901 ==

== ENCOUNTER 2022-11-19 10:33 | Outpatient (CLI) | payer OTHER, SELFPAY ==
[2022-11-19 11:16] LABS: Basophils Absolute Auto 0.1 K/mm3 (0.0-0.1); Basophils Percent Auto 0.8 % (0.2-1.2); Eosinophils Absolute Auto 0.1 K/mm3 (0-0.3); Eosinophils Percent Auto 0.8 % (0-4.4); Hematocrit 40.5 % (37.0-47.0); Hemoglobin 13.1 g/dL (12.0-15.0); Immature Granulocyte Absolute 0.02 K/mm3 (0.00-0.031); Immature Granulocyte Percent A 0.3 % (0-0.5); Lymphocytes Absolute Auto 1.81 K/mm3 (0.9-3.2); Lymphocytes Percent Auto 22.6 % (18.3-44.2); Mean Corpuscular HGB Conc 32.3 g/dl (32-36); Mean Corpuscular Hemoglobin 29.4 pg (26-34); Mean Corpuscular Volume 90.8 fl (80-100); Mean Platelet Volume 10.9 fl (7.4-10.4); Monocytes Absolute Auto 0.7 K/mm3 (0.1-0.6); Monocytes Percent Auto 8.9 % (2.6-8.5); Neutrophils Absolute Auto 5.3 K/mm3 (1.3-6.7); Neutrophils Percent Auto 66.6 % (45.5-73.1); Platelet Count Result 326 k/mm3 (150-375); Red Blood Count 4.46 M/mm3 (4.2-5.4); Red Cell Distribution Width 15.2 % (11.5-14.5)
[2022-11-19 12:01] LABS: Erythrocyte Sedimentation Rate 16 mm/hr (0-20)
== END 2022-11-19 10:34 | disposition home or self-care (01) ==
LOC: ANHLAB 10:35
PROVIDERS: PCP Family Medicine; Visit Provider Psychiatry & Neurology Neurology
DX: R51.9 Headache, unspecified (principal)
CPT/HCPCS: 36415; 85025; 85652; 86038; 86039

== ENCOUNTER 2022-11-25 12:56 | Emergency (ER) | payer OTHER, SELFPAY ==
[2022-11-25 13:04] VITALS: BP 188/100; PULSE 65; RESP 16; TEMP 36.3; O2SAT 99
[2022-11-25 13:15] VITALS: BP 182/112
--- NOTE | 2022-11-25 13:27 | ED.GENADULT ---
HPI - General Adult General Chief complaint: Unspecified Stated complaint: hbp Time Seen by Provider: 11/25/22 13:20 Source: patient Mode of arrival: ambulatory Limitations: no limitations History of Present Illness HPI narrative: Ms. Sorenson is a 57 year old female patient presenting to the clinic is a 57-year-old female patient presenting to clinic today with complaints of high blood pressure and fogginess. States she had a headache last night that prompted her to take her blood pressure and her blood pressure was 190 systolic. Her headache has since subsided. She is also feeling flushed. She denies any visual changes, dizziness, shortness of breath, chest pain. Has been having some issues with binge drinking over the last few nights. She has discussed her high blood pressure with her PCP and she states he was planning to increase her amlodipine if her blood pressure was still elevated-states she has been keeping a record for her doctor. States that she has just finishing her menses Related Data Home Medications Medication Instructions Recorded Confirmed metoprolol succinate 25 mg 50 mg PO QAM 02/29/20 11/25/22 tablet,extended release 24 hr Allergies Allergy/AdvReac Type Severity Reaction Status Date / Time codeine AdvReac Unknown Hallucinati Verified 11/25/22 13:08 ons antihistamines AdvReac Intermediate Palpitation Uncoded 11/25/22 13:08 s decongestants AdvReac Intermediate Palpitation Uncoded 11/25/22 13:08 s Review of Systems Review of Systems: Pertinent positives per HPI. Patient denies any fever, chills, rash, headache, visual changes, dizziness, cough, runny nose, sore throat, shortness of breath, chest pain, palpitations, nausea, vomiting, diarrhea, constipation, abdominal pain, or any urinary issues. [facility] Past Medical History Medical History Anemia, blood loss Anemia, iron deficiency Chronic GERD Dyspepsia GERD (gastroesophageal reflux disease) History of peptic ulcer Iron deficiency anemia Menorrhagia (normal spontaneous vaginal delivery) x3 Palpitations Paroxysmal A-fib White matter disease Surgical History Surgical History H/O tubal ligation History of endometrial ablation Status post myomectomy 2006 Family History Family History Father Family history of cardiovascular disease Diabetes mellitus Skin cancer Heart disease Mother Family history of cardiovascular disease Heart disease Mother Acute myocardial infarction Sibling Skin cancer Hypertension Heart disease Son Heart disease Social History Social History Social History: Years smoked: 6 Smoking status: Former smoker Second hand tobacco smoke exposure: No Smoking end date: 09/16/15 Additional smoking assessment comments: VAPING 2015 TO 12/2019/stopped vaping Alcohol intake: current Drinks per week: 10 Substance use: never Substance use type: does not use Lack of Transportation: No Lack of Food: Never True Current Housing: I Have Housing Concerned About Future Housing: No Difficulty Paying Gas/Electric Bills: No Difficulty Paying for Meds: No Education: High School Diploma/GED Difficulty w/ Childcare or Family Care: No Living arrangements: with family Occupation/Education: occupation Gender identity (if verbalized by the patient): Female Sexual Orientation (if Verbalized by the Patient): Straight or Heterosexual Spiritual care concerns: No Comments At the time of my signature, I reviewed and agree with the nursing past medical, surgical, social, and family history. There is no relevant family history pertinent to the patient complaint. Exam Narrative: General: Well-developed, well sarah
[2022-11-25] MEDS: cloNIDine HCL 0.1 MG TABLET PO (13:39)
[2022-11-25 14:20] VITALS: BP 178/112
== END 2022-11-25 14:49 | disposition home or self-care (01) ==
PROVIDERS: Emergency Provider Nurse Practitioner Family; PCP Family Medicine
DX: I10 Essential (primary) hypertension (principal); I48.0 Paroxysmal atrial fibrillation; Z87.891 Personal history of nicotine dependence
CPT/HCPCS: 81003; 99212; A9270; G0463

== ENCOUNTER 2023-04-24 16:30 | Outpatient (RCR) | payer OTHER, SELFPAY ==
--- NOTE | 2023-04-05 09:06 | OPREHPOC ---
Outpatient Therapy Plan of Care This is a Multidisciplinary Plan of Care that may contain components documented by all disciplines (PT, OT, and ST.) PT Problem 1 PT Problem #1 Knowledge Deficit PT Goal 1 Goal 1* indep with HEP 2* demonstrate correct posture with exercises PT Problem 2 PT Problem #2 Pain PT Goal 1 Goal 1* pt report pain at worst of 5/10 2* pt report times of NO pain 3* Self assessment functional score with Neck Index of 24% limitation PT Problem 3 PT Problem #3 Impaired Range of Motion PT Goal 1 Goal 1* sitting active cervical rotation to L 55', without pain increase 2* in standing, pt maintain correct shoulder position PT Problem 4 PT Problem #4 Impaired Strength PT Goal 1 Goal 1* pt perform 20 reps of cervical-thoracic strengthening exercises, on mat and standing positions
--- NOTE | 2023-04-05 09:06 | PTOPEVAL1 ---
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; likes to work out and do fitness exercises-due to shoulder pain; now limited due to shoulder pain Reported Pain Level Pain Score Self Report Additional Pain Score Comments pain range in the past week: 3-8/10 both sides of neck, into both upper traps and biceps; fu, hurts, sore, throbs, pulling, tense, tight muscles ; like nerve pain in upper traps; pinch in neck; headaches-- not really migraines, generally pain over L forehead and sometimes L cheek; sometimes over various parts of head; increase pain: work at computer 1 hr to 5 hours-- varies; resisted arm weights for fitness decrease pain: rest, tylenol, heat pad; awaken 1-2x/night due to pain--have insomnia in general, do not sleep well; usually sleep on sides Assessment PT Clinical Summary Maureen has the diagnosis of chronic cervical pain, which has increased over the past year. She has never had PT in the past. Pain is increased with working on the computer and resisted arm exercises , with a disruption in her sleep. She also has headaches, dizziness and sinus issue. Self assessment functional activity limitation of 38% with Neck Index. With the evaluation: she has spasms and tenderness throughout cervical, upper traps, SCM; poor position of neck and shoulders, with computer use of 4 monitors; cervical rotation is limited to R and L, with L painful. Skilled PT services are indicated for modalities to decrease pain and spasms, therapeutic exercises to increase strength and
--- NOTE | 2023-04-17 15:03 | PCPTNOTE ---
Pt. canceled 04/17/23 noting that she had to work.
--- NOTE | 2023-04-26 15:32 | PCPTNOTE ---
Pt. got stuck at work and is not able to make appointment on 04/26/23.
--- NOTE | 2023-05-08 11:51 | PCPTNOTE ---
pt did not show for today's appt; called and she thought appt was tomorrow. she rescheduled the reeval appt.
--- NOTE | 2023-05-15 10:55 | PTOPDC ---
Assessment and note entered by Martha Curran, PT Evaluation Information Assessment PT Clinical Summary PHYSICAL THERAPY DISCHARGE Maureen has received 5 PT sessions. She did not show for the reevaluation appointment. She called/canceled 2 and did not show for 2 appointments. The goals were not assessed. Discharge PT services. Discharge PT. Plan of Care PT Services Indicated No
== END 2023-05-15 13:04 | disposition home or self-care (01) ==
LOC: ANHPT 16:30
PROVIDERS: PCP Family Medicine; Visit Provider Physician Assistant
DX: M54.2 Cervicalgia (principal); M47.812 Spondylosis without myelopathy or radiculopathy, cervical region; G89.29 Other chronic pain
CPT/HCPCS: 97110; 97140; 97161; 97530; 99199

== ENCOUNTER → 2023-06-17 15:25 | Outpatient (CLI) | payer OTHER, SELFPAY ==
--- NOTE | ~2023-06-17 | XR_ITS ---
XR cervical spine min 6V DATE: 06/17/2023 15:54 INDICATION: Neck pain TECHNIQUE: AP, open-mouth, odontoid, lateral, bilateral oblique views. Flexion and extension lateral views. COMPARISON: 07/19/2018 MRI cervical spine FINDINGS: C1 and C2 are normally aligned and the odontoid process is intact. No fracture or dislocati on or locked facet or prevertebral soft tissue swelling. Moderately severe degenerative disc disease at C4-5 and severe degenerative disc disease at C5-6, wit h mild retrolisthesis at each of these levels. Moderately prominent degenerative disc disease at C6-7. Prominent uncovertebral joint spurring is noted at C4-5 and C5-6 in particular, with corresponding en croachment upon the anterior aspect of the C5 and C6 neural foramina. There is no instability on flexion or extension. IMPRESSION: Cervical spondylosis Reviewed, dictated and finalized at location L. IMPRESSION: Cervical spondylosis
== END ==
PROVIDERS: PCP Psychiatry & Neurology Neurology; Visit Provider Physician Assistant
DX: M47.892 Other spondylosis, cervical region (principal)
CPT/HCPCS: 72052

== ENCOUNTER → 2023-07-10 08:37 | Outpatient (CLI) | payer OTHER, SELFPAY ==
--- NOTE | ~2023-07-10 | MR_ITS ---
MRI of the cervical spine Clinical History: Cervicalgia Technique: Axial T2-weighted and gradient images, and sagittal T1-weighted, T2-weighted, and STIR jolie ges were acquired. COMPARISON: 07/19/2018 Findings: No acute fracture seen. There is minimal grade 1 retrolisthesis of C4 over C5. No suspiciou s bone marrow signal abnormality seen. At C2-C3, there is no disc bulge or herniation. No spinal canal stenosis, cord compression, or neural foraminal narrowing. At C3-C4, there is mild central disc protrusion. No spinal canal stenosis, cord compression, or neura l foraminal narrowing. At C4-C5, there is degenerative distended with minimal disc osteophyte complex. There is probable min imal central canal stenosis without alvaro cord compression. There is mild bilateral neural foraminal narrowing. At C5-C6, there is degenerative disc narrowing with mild disc osteophyte complex. There is mild centr al canal stenosis without alvaro cord compression. There is probable mild bilateral neural foraminal n arrowing. At C6-C7, there is minimal disc osteophyte complex. No spinal canal stenosis, cord compression, or de finite neural foraminal narrowing. No abnormal signal seen in the spinal cord. Paravertebral soft tissues are unremarkable. Impression: Mild degenerative spondylosis, as above. Minimal grade 1 retrolisthesis of C4 over C5. Reviewed, dictated and finalized at [facility]. Impression: Mild degenerative spondylosis, as above. Minimal grade 1 retrolisthesis of C4 over C5.
== END ==
PROVIDERS: PCP Physician Assistant; Visit Provider Physician Assistant
DX: M43.02 Spondylolysis, cervical region (principal)
CPT/HCPCS: 72141

== ENCOUNTER 2023-09-13 09:47 | Outpatient (CLI) | payer OTHER, SELFPAY ==
--- NOTE | ~2023-09-13 | US_ITS ---
EXAMINATION: US pelvic complete DATE: 09/13/2023 INDICATION: Other specified noninflammatory disorders of the cervix TECHNIQUE: Multiple transabdominal sonographic images of the pelvis were obtained. COMPARISON: 08/11/2019 FINDINGS: The uterus measures 8.2 x 3.4 x 4.9 cm. Small nabothian cysts are noted at the cervix which measure up to 10 mm. The endometrial complex measures 5 mm. The right ovary measures 2.0 x 1.3 x 2.2 cm. The left ovary measures 1.9 x 1.7 x 2.3 cm. There is normal vascular flow in the ovaries. There is no free fluid in the pelvis. IMPRESSION: 1. Small nabothian cysts of the cervix. Reviewed, dictated and finalized at location B. ACTER IMPERSONATOR
== END 2023-09-13 09:48 ==
LOC: MICIMG 09:48
PROVIDERS: PCP Obstetrics & Gynecology Gynecology; Visit Provider Obstetrics & Gynecology Gynecology
DX: N88.8 Other specified noninflammatory disorders of cervix uteri (principal)
CPT/HCPCS: 76856

== ENCOUNTER 2023-09-27 13:38 | Outpatient (CLI) | payer OTHER, SELFPAY ==
[2023-09-27 14:05] LABS: Appearance Urine Clear (Clear); Bilirubin Urine Negative (Negative); Blood Urine Negative (Negative); Color Urine Yellow (Yellow); Glucose Urine UA Negative (Negative); Ketones Urine Negative (Negative); Leukocyte Esterase Ur Negative LEU/UL (NEGATIVE); Nitrate Urine Negative (Negative); Protein Urine Negative (Negative); Specific Grav Ur 1.015 (1.001-1.035); Urobilinogen Urine 0.2 mg/dL (<2.0); pH Urine 5.5 (5.0-9.0)
[2023-09-27 14:11] LABS: Add Urine Microscopic? NO
== END 2023-09-27 13:39 | disposition home or self-care (01) ==
LOC: ANHLAB 13:40
PROVIDERS: PCP Obstetrics & Gynecology Gynecology; Visit Provider Physician Assistant
DX: N39.0 Urinary tract infection, site not specified (principal); R30.0 Dysuria
CPT/HCPCS: 81003; 87086; 87088

== ENCOUNTER 2023-10-22 16:11 | Outpatient (CLI) | payer OTHER, SELFPAY ==
--- NOTE | ~2023-10-22 | US_ITS ---
Pelvic ultrasound. Clinical History: Pelvic pain Technique: Realtime transabdominal and transvaginal scanning of the pelvis was performed. Color flow Doppler and Doppler spectral analysis were performed. Findings: The uterus is anteverted, and measures 6.9 x 3.2 x 3.8 cm. The endometrial stripe has a th ickness of 5 mm. Probable ill-defined intramural fibroid measures 1.2 cm in diameter. Cervical naboth adri cysts present. Neither ovary seen. No other adnexal mass seen.. There is no evidence of free fluid in the cul de sac. Impression: Probable 1.2 cm ill-defined intramural fibroid. Reviewed, dictated and finalized at location . MANUFACTURER Impression: Probable 1.2 cm ill-defined intramural fibroid.
== END 2023-10-22 16:12 ==
PROVIDERS: Visit Provider Advanced Practice Midwife
DX: R10.31 Right lower quadrant pain (principal); R10.2 Pelvic and perineal pain
CPT/HCPCS: 76830

== ENCOUNTER 2023-10-23 10:25 | Outpatient (CLI) | payer OTHER, SELFPAY ==
--- NOTE | ~2023-10-23 | MM_ITS ---
EXAMINATION: MM screening raffi BI w melisa HISTORY: Screening mammogram. Baseline examination. TECHNIQUE: Craniocaudal and mediolateral oblique 3-D tomosynthesis images were obtained and synthetic 2-D images were generated. CAD analysis was submitted and interpreted. COMPARISON: No prior mammogram is available for comparison at this institution. BREAST PARENCHYMAL COMPOSITION: The breasts are heterogeneously dense, which may obscure small masses . FINDINGS: There is no evidence of suspicious mass, calcification, or architectural distortion to sugg est malignancy in either breast. IMPRESSION: 1. No mammographic evidence of malignancy. 2. Recommend routine screening mammography in one year. BI-RADS Category 1: Negative Reviewed, dictated and finalized at location A. GAME BOX PERSON
== END 2023-10-23 10:26 ==
LOC: MICIMG 10:26
PROVIDERS: PCP Obstetrics & Gynecology Gynecology; Visit Provider Obstetrics & Gynecology Gynecology
DX: Z12.31 Encounter for screening mammogram for malignant neoplasm of breast (principal)
CPT/HCPCS: 77063; 77067

== ENCOUNTER 2023-10-30 16:48 | Outpatient (CLI) | payer OTHER, SELFPAY ==
--- NOTE | ~2023-10-30 | CT_ITS ---
EXAMINATION: CT abdomen pelvis wo con DATE: 10/30/2023 17:11 INDICATION: Constipation TECHNIQUE: Computed tomography (CT) of the abdomen and pelvis was performed without intravenous contr ast. Automated exposure control and iterative reconstruction technique were employed. The dose-length product was 218.77 mGy-cm. COMPARISON: 06/08/2020 FINDINGS: Lung bases are clear. Heart size is normal. Atherosclerotic coronary artery calcific lesion. No peric ardial or pleural effusion. Liver, gallbladder, spleen, pancreas, bilateral adrenal glands and kidney s are normal. There is mild to moderate sigmoid diverticulosis without adjacent inflammatory change t o suggest diverticulitis. There is a moderate amount of stool scattered throughout the colon. No bow el obstruction. Bladder and anteverted uterus are normal. There are tubal ligation rings at the bilat eral adnexa. No free intraperitoneal gas or fluid. No pathologically enlarged abdominal or pelvic lym phadenopathy. Bones are unremarkable. IMPRESSION: 1. Moderate amount of colonic stool and mild to moderate sigmoid diverticulosis. Reviewed, dictated and finalized at location A. INE BOOKKEEPER IMPRESSION: 1. Moderate amount of colonic stool and mild to moderate sigmoid diverticulosis .
== END 2023-10-30 16:49 | disposition home or self-care (01) ==
LOC: ANHIMG 16:50
PROVIDERS: PCP Obstetrics & Gynecology Gynecology; Visit Provider Physician Assistant
DX: K59.00 Constipation, unspecified (principal); R19.5 Other fecal abnormalities; R10.30 Lower abdominal pain, unspecified
CPT/HCPCS: 74176

== ENCOUNTER 2023-11-09 15:19 | Emergency (ER) | payer OTHER, SELFPAY ==
[2023-11-09 15:57] VITALS: BP 119/76; PULSE 59; RESP 18; TEMP 36.4; O2SAT 100
[2023-11-09 16:15] LABS: Basophils Absolute Auto 0.1 K/mm3 (0.0-0.1); Basophils Percent Auto 0.5 % (0.2-1.2); Eosinophils Absolute Auto 0.1 K/mm3 (0-0.3); Eosinophils Percent Auto 0.6 % (0-4.4); Hematocrit 39.8 % (37.0-47.0); Hemoglobin 12.9 g/dL (12.0-15.0); Immature Granulocyte Absolute 0.04 K/mm3 (0.00-0.031); Immature Granulocyte Percent A 0.3 % (0-0.5); Immature Platelet Fraction Pct 4.7 % (0.9-11.2); Lymphocytes Absolute Auto 2.34 K/mm3 (0.9-3.2); Lymphocytes Percent Auto 18.1 % (18.3-44.2); Mean Corpuscular HGB Conc 32.4 g/dl (32-36); Mean Corpuscular Volume 95.7 fl (80-100); Mean Platelet Volume 10.2 fl (7.4-10.4); Monocytes Absolute Auto 0.8 K/mm3 (0.1-0.6); Neutrophils Absolute Auto 9.7 K/mm3 (1.3-6.7); Neutrophils Percent Auto 74.5 % (45.5-73.1); Platelet Count Result 326 k/mm3 (150-375); Red Blood Count 4.16 M/mm3 (4.2-5.4); Red Cell Distribution Width 13.2 % (11.5-14.5); White Blood Count 12.9 K/mm3 (4.5-10.0)
[2023-11-09 16:24] LABS: Alanine Aminotransferase 70 U/L (6-35); Albumin Level 4.5 g/dL (3.5-5.1); Alkaline Phosphatase 83 U/L (38-126); Anion Gap 7 mmol/L (8-16); Aspartate Amino Transferase 48 U/L (14-36); Bilirubin,Total 0.6 mg/dL (0.2-1.3); Blood Urea Nitrogen 18 mg/dL (7-17); Calcium 9.7 mg/dL (8.4-10.2); Carbon Dioxide 30 mmol/L (22-30); Chloride 102 mmol/L (98-107); Estimated CRCL calculation 67 ml/min; Estimated Glomerular Filt Rate > 60; Glucose 95 mg/dL (65-110); Lipase 68 U/L (23-300); Potassium 4.2 mmol/L (3.4-5.0); Sodium 139 mmol/L (137-145)
[2023-11-09 16:58] LABS: Appearance Urine Clear (Clear); Bacteria Urine None Seen /hpf; Bilirubin Urine Negative (Negative); Blood Urine Negative (Negative); Color Urine Dark Yellow (Yellow); Glucose Urine UA Negative (Negative); Ketones Urine Negative (Negative); Leukocyte Esterase Ur Negative LEU/UL (Negative); Need Manual Microscopic Reviewed; Nitrate Urine Positive (Negative); Non Pathogenic Casts 0-2; Protein Urine Negative (Negative); RBC Urine 0-2 /hpf (0-2); Specific Grav Ur 1.005 (1.001-1.035); Squamous Epithelial Cell Urine None seen /hpf (Few); WBC Urine 0-5 /hpf; pH Urine 7.5 (5.0-9.0)
[2023-11-09 17:10] LABS: Add Urine Microscopic? YES
--- NOTE | 2023-11-09 20:08 | PC.NURSE ---
2008-NO ANSWER WHEN NAME CALLED FOR ROOM PLACEMENT.
--- NOTE | 2023-11-09 20:28 | PC.NURSE ---
PT CALLED FOR TRIAGE X2, NO ANSWER
== END 2023-11-09 20:00 | disposition left against medical advice (07) ==
LOC: ANHED 20:45
PROVIDERS: Emergency Provider Emergency Medicine
DX: R10.9 Unspecified abdominal pain (principal)
CPT/HCPCS: 36415; 80053; 81001; 83690; 85025; 85055; 99199

== ENCOUNTER 2023-11-27 02:29 | Day surgery (SDC) | payer OTHER, SELFPAY ==
[2023-11-21 14:25] VITALS: BMI 21.2
--- NOTE | 2023-11-25 09:01 | SUR.PREOP ---
Patient called regarding upcoming procedure. Reviewed preop instructions, appointment times, and procedure prep.
[2023-11-27 07:43] VITALS: BP 109/73; PULSE 71; RESP 16; TEMP 36.4; O2SAT 100; BMI 21.3
[2023-11-27] MEDS: LACTATED RINGERS 1,000 ML 150 ML IV CONT (07:47)
--- NOTE | 2023-11-27 08:32 | WPDANESEPPF ---
Anes - Initial Pre Proc Eval Procedure: Operation Date: 11/27/23 09:00 Proposed Procedures p Colonoscopy - Jeevan Anne MD Date/Time: 11/27/23 08:32 Surgeon: Jeevan Anne MD Pre Op Diagnosis: right lower quadrant pain,constipation, Patient Data Age: 58 Gender: F Height: 1.55 m Weight: 51.2 kg Last Vital Signs Temp 97.5 F L 11/27/23 07:43 Pulse 71 11/27/23 07:43 Resp 16 11/27/23 07:43 BP 109/73 11/27/23 07:43 Pulse Ox 100 11/27/23 07:43 O2 Del Method Room Air 11/27/23 07:43 Allergies Allergy/AdvReac Type Severity Reaction Status Date / Time codeine Allergy Intermediate Hives Verified 11/27/23 07:41 antihistamines Allergy Intermediate Palpitation Uncoded 11/27/23 07:41 s decongestants Allergy Intermediate Palpitation Uncoded 11/27/23 07:41 s Home Medications Medication Instructions Recorded Confirmed Type amlodipine 5 mg tablet 5 mg PO DAILY #90 tabs 09/26/23 11/27/23 Rx pantoprazole 40 mg tablet,delayed 40 mg PO BID #180 tabs 10/21/23 11/27/23 Rx release Prelies 2 tab-cap PO BIDWMEAL 11/21/23 11/27/23 History acetaminophen 500 mg capsule 500 - 1,000 mg PO BID PRN Pain 11/21/23 11/27/23 History metoprolol succinate 50 mg 50 mg PO DAILY 11/21/23 11/27/23 History tablet,extended release 24 hr Patient hx anesthesia problems: none Family hx anesthesia problems: none Results Review: All pre-operative results and documents have been reviewed as part of the pre-operative evaluation. [facility] Past Medical History Medical History (Updated 11/12/23 @ 15:18 by So Anderson APRN) Altered bowel habits Anemia, blood loss Anemia, iron deficiency Chronic GERD Constipation Dyspepsia GERD (gastroesophageal reflux disease) History of peptic ulcer Iron deficiency anemia Menorrhagia (normal spontaneous vaginal delivery) x3 Palpitations Paroxysmal A-fib RLQ abdominal pain White matter disease Surgical History Surgical History H/O tubal ligation History of endometrial ablation Status post myomectomy 2005 Family History Family History Father Family history of cardiovascular disease Diabetes mellitus Skin cancer Heart disease Mother Family history of cardiovascular disease Heart disease Mother Acute myocardial infarction Sibling Skin cancer Hypertension Heart disease Son Heart disease Social History Social History Social History: Smoking packs per day: 1 Smoking cigarettes per day: 20.0 Years smoked: 5 Smoking pack-years: 5.00 Smoking status: Former smoker Tobacco type: cigarettes Second hand tobacco smoke exposure: No Smoking end date: 09/16/15 Additional smoking assessment comments: VAPING 2015 TO 12/2019/stopped vaping Alcohol intake: current Drinks per week: 12 Substance use: never Substance use type: does not use Lack of Transportation: No Lack of Food: Never True Current Housing: I Have Housing Concerned About Future Housing: No Difficulty Paying Gas/Electric Bills: No Difficulty Paying for Meds: No Education: High School Diploma/GED Difficulty w/ Childcare or Family Care: No Living arrangements: with family Occupation/Education: occupation Gender identity (if verbalized by the patient): Female Sexual Orientation (if Verbalized by the Patient): Straight or Heterosexual Spiritual care concerns: No Anes - Eval Final PreProcedure Day of Procedure 11/27/23 08:32 Patient weight: normal Heart: regular rate and rhythm Lungs: clear to auscultation Airway: Mallampati scale class II Neurological: alert and oriented Last oral intake: >/= 8 hours ASA classification: III Emergent: no Anesthetic plan: proceed Anesthesia type and monitoring: general GIVS and standard monit
--- NOTE | 2023-11-27 08:35 | WPDHPUPDATE1 ---
History and Physical Update Update Date/Time: 11/27/23 08:35 History and Physical has been reviewed, including an updated exam of the patient. There are NO changes in the patient's condition. Risks, benefits, and alternatives have been discussed and questions answered. Patient agrees to proceed with procedure.
[2023-11-27 08:56] VITALS: BP 93/56; PULSE 73; RESP 20; O2SAT 100
[2023-11-27 09:06] VITALS: BP 107/68; PULSE 71; RESP 20; O2SAT 100
[2023-11-27 09:16] VITALS: BP 108/67; PULSE 60; RESP 18; O2SAT 100
== END 2023-11-27 09:23 | disposition home or self-care (01) ==
PROVIDERS: PCP Family Medicine; Visit Provider Internal Medicine Gastroenterology
PROC: 0DJD8ZZ Inspection of Lower Intestinal Tract, Via Natural or Artificial Opening Endoscopic (ICD-10-PCS; CPT 45378; principal; 2023-11-27 09:00)
DX: K57.30 Diverticulosis of large intestine without perforation or abscess without bleeding (principal); K64.8 Other hemorrhoids; D50.0 Iron deficiency anemia secondary to blood loss (chronic); K21.9 Gastro-esophageal reflux disease without esophagitis; D50.9 Iron deficiency anemia, unspecified; R90.82 White matter disease, unspecified; Z98.890 Other specified postprocedural states; Z87.891 Personal history of nicotine dependence; Z86.79 Personal history of other diseases of the circulatory system; Z82.49 Family history of ischemic heart disease and other diseases of the circulatory system; Z84.0 Family history of diseases of the skin and subcutaneous tissue
CPT/HCPCS: 45378; J2704; J7120

== ENCOUNTER 2023-12-20 23:52 | Emergency (ER) | payer OTHER, SELFPAY ==
[2023-12-20 23:55] VITALS: BP 131/76; PULSE 65; RESP 15; TEMP 36.4; O2SAT 100
--- NOTE | 2023-12-21 01:25 | ED.EYEPROB ---
HPI - Eye Problem General Chief complaint: Eye Problems Stated complaint: pain in right eye Time Seen by Provider: 12/21/23 01:14 History of Present Illness HPI Narrative: Patient is a 58-year-old female who presents to the emergency department this evening complaining of a red right eye. Patient states that she was this afternoon taking a nap and when she woke up she noticed this spot. Patient admits that she does have some pain in her and she believes that this occurred due to her rubbing her eye multiple. Patient denies any recent upper respiratory illness, any fevers or chills, any blood thinner use and any recent trauma. Patient did state that she is currently doing physical therapy for pelvic muscle strengthening. There are no other modifying, alleviating, or precipitating factors at this time. Related Data Home Medications Medication Instructions Recorded Confirmed Prelies 2 tab-cap PO BIDWMEAL 11/21/23 11/27/23 acetaminophen 500 mg capsule 500 - 1,000 mg PO BID PRN Pain 11/21/23 11/27/23 metoprolol succinate 50 mg 50 mg PO DAILY 11/21/23 11/27/23 tablet,extended release 24 hr Allergies Allergy/AdvReac Type Severity Reaction Status Date / Time codeine Allergy Intermediate Hives Verified 12/21/23 00:38 antihistamines Allergy Intermediate Palpitation Uncoded 11/27/23 07:41 s decongestants Allergy Intermediate Palpitation Uncoded 11/27/23 07:41 s Review of Systems Review of Systems: All systems are reviewed and are negative unless stated otherwise in the HPI. [facility] Past Medical History Medical History Altered bowel habits Anemia, blood loss Anemia, iron deficiency Chronic GERD Constipation Dyspepsia GERD (gastroesophageal reflux disease) History of peptic ulcer Iron deficiency anemia Menorrhagia (normal spontaneous vaginal delivery) x3 Palpitations Paroxysmal A-fib RLQ abdominal pain White matter disease Surgical History Surgical History H/O tubal ligation History of endometrial ablation Status post myomectomy 2005 Family History Family History Father Family history of cardiovascular disease Diabetes mellitus Skin cancer Heart disease Mother Family history of cardiovascular disease Heart disease Mother Acute myocardial infarction Sibling Skin cancer Hypertension Heart disease Son Heart disease Social History Social History Social History: Smoking packs per day: 1 Smoking cigarettes per day: 20.0 Years smoked: 5 Smoking pack-years: 5.00 Smoking status: Former smoker Tobacco type: cigarettes Second hand tobacco smoke exposure: No Smoking end date: 09/16/15 Additional smoking assessment comments: VAPING 2015 TO 12/2019/stopped vaping Alcohol intake: current Drinks per week: 12 Substance use: never Substance use type: does not use Lack of Transportation: No Lack of Food: Never True Current Housing: I Have Housing Concerned About Future Housing: No Difficulty Paying Gas/Electric Bills: No Difficulty Paying for Meds: No Education: High School Diploma/GED Difficulty w/ Childcare or Family Care: No Living arrangements: with family Occupation/Education: occupation Gender identity (if verbalized by the patient): Female Sexual Orientation (if Verbalized by the Patient): Straight or Heterosexual Spiritual care concerns: No Exam Narrative: General: Alert, awake, afebrile, in no acute distress. HEENT: PERRL, right subconjunctival hemorrhage extending from the 8:00 a.m. to the 10 o'clock position, no conjunctival injection, chemosis or proptosis, right eye was stained using fluorescein stain and tetracaine revealing a small corneal abrasion at the 9 o'clock position, no dendrit
== END 2023-12-21 01:52 | disposition home or self-care (01) ==
LOC: ANHED 12-21 01:46
PROVIDERS: Emergency Provider Emergency Medicine; PCP Family Medicine
DX: H11.31 Conjunctival hemorrhage, right eye (principal); S05.01XA Injury of conjunctiva and corneal abrasion without foreign body, right eye, initial encounter; K21.9 Gastro-esophageal reflux disease without esophagitis; I48.0 Paroxysmal atrial fibrillation; Z87.891 Personal history of nicotine dependence
CPT/HCPCS: 99283

== ENCOUNTER 2024-06-01 22:05 | Emergency (ER) | payer OTHER, SELFPAY ==
[2024-06-01 22:09] VITALS: BP 117/73; PULSE 64; RESP 15; TEMP 36.4; O2SAT 100
== END 2024-06-01 22:48 | disposition left against medical advice (07) ==
LOC: ANHED 22:46
PROVIDERS: PCP Family Medicine
DX: R10.32 Left lower quadrant pain (principal)
CPT/HCPCS: 99199

== ENCOUNTER 2024-10-20 07:20 | Day surgery (SDC) | payer OTHER, SELFPAY ==
--- NOTE | ~2024-10-20 | XR_ITS ---
INTRAOPERATIVE FLUOROSCOPY: CLINICAL HISTORY: 59 years old Female; DIAG/PROG RIGHT C4,C5,C6 MEDIAL BRANCH NERVE BLOCK PROCEDURE COMMENTS: Limited intraoperative fluoroscopy of the cervical spine was performed. CUMULATIVE DOSE: 1.3 mGy FLUOROSCOPY TIME: 20 seconds FINDINGS/IMPRESSION: Please refer to operative note for further details. Reviewed, dictated and finalized at location A. ICER
--- NOTE | 2024-10-20 06:15 | PM.HPGS ---
History of Present Illness History of Present Illness Consent: Risks, benefits, and alternatives have been discussed and questions answered. Patient agrees to proceed with procedure. Chief complaint: Cervical Spondylosis, chronic cervicalgia Narrative: Maureen Sorenson is a 59 year old female with chronic, recalcitrant and disabling right -sided neck pain secondary to degenerative spondylosis with failure to respond to aggressive conservative measures including PT, oral and topical analgesics, opioid and nonopioid analgesics, rest, time and activity/behavioral modification over the past 1-2 years who presents for diagnostic/prognostic medial branch blocks of the right C4, C5, C6 medial branches(#1) addressing the ipsilateral C4-5, C5-6 facet joints under fluoroscopic guidance and with contrast control. Review of Systems Review of Systems: Patient denies any new infectious, allergic, cardiopulmonary, neurologic or constitutional symptoms or changes in activity tolerance or exercise capacity including new or progressive SOB/HOFFMAN, peripheral edema, productive cough, dysuria, nausea/vomiting, diarrhea, weight change, fevers/chills/night sweats, new or progressive neurologic deficit, cognitive or mood changes since last seen, except as documented in the HPI. All systems reviewed & are unremarkable except as noted in HPI and below PMFSH Past Medical History Medical History (Updated 10/02/24 @ 08:27 by Axel Angeles MD) Single kidney RLQ abdominal pain Constipation Altered bowel habits Dyspepsia White matter disease Menorrhagia (normal spontaneous vaginal delivery) x3 Anemia, blood loss Anemia, iron deficiency Paroxysmal A-fib GERD (gastroesophageal reflux disease) Iron deficiency anemia Palpitations Chronic GERD History of peptic ulcer Surgical History Surgical History (Updated 09/02/24 @ 12:07 by Axel Angeles MD) History of nephrectomy R for donation History of endometrial ablation Status post myomectomy 2005 H/O tubal ligation Family History Family History Father Family history of cardiovascular disease Diabetes mellitus Skin cancer Heart disease Mother Family history of cardiovascular disease Heart disease Mother Acute myocardial infarction Sibling Skin cancer Hypertension Heart disease Son Heart disease Social History Social History Social History: Smoking packs per day: 1 Smoking cigarettes per day: 20.0 Years smoked: 5 Smoking pack-years: 5.00 Smoking status: Former smoker Tobacco type: cigarettes Second hand tobacco smoke exposure: No Smoking end date: 09/16/15 Additional smoking assessment comments: VAPING 2015 TO 12/2019/stopped vaping Alcohol intake: current Drinks per week: 12 Substance use: never Substance use type: does not use Do You Feel Safe in your Home?: Yes Lack of Transportation: No Lack of Food: Never True Current Housing: I Have Housing Concerned About Future Housing: No Difficulty Paying Gas/Electric Bills: No Difficulty Paying for Meds: No Currently Unemployed: No Education: High School Diploma/GED Difficulty w/ Childcare or Family Care: No Living arrangements: with family Occupation/Education: occupation Gender identity (if verbalized by the patient): Female Sexual Orientation (if Verbalized by the Patient): Straight or Heterosexual Spiritual care concerns: No Meds Home Medications and Allergies Home Medications ?Medication ?Instructions ?Recorded ?Confirmed ?Type pantoprazole 40 mg tablet,delayed 40 mg PO BID #180 tabs 10/21/23 09/07/24 Rx release acetaminophen 500 mg capsule 500 - 1,000 mg PO BID PRN Pain 11/21/23 09/07/24 History metoprolol succinate 50 mg 50 mg PO DAILY 11/21/23 09/07/24 History tablet,extended release 24 hr amlodipine 5 mg tablet 5 mg PO DAILY #90 tabs 05/28/24 09/07/24 Rx tramadol 50 mg tablet 50 mg PO Q6-8H PRN pain #20 tabs 08/10/24 10/02/24 Rx Allergies Allergy/AdvReac Type Severity Reaction Status Date / Time codeine Allergy Intermediate Hives Verified 10/02/24 08:55 pregabalin Allergy nausea and Verified 10/02/24 08:55 lightheadedness antihistamines Allergy Intermediate Palpitation Uncoded 10/02/24 08:55 s decongestants Allergy Intermediate Palpitation Uncoded 10/02/24 08:55 s Exam Narrative: The patient's physical exam is essentially unchanged from prior examination on 08/10/2024. Specifically, patient demonstrates normal lung capacity, tidal volume and respiratory rate without wheezes, crackles, rales or rubs. Heart rate and rhythm are regular without murmurs, gallops or rubs. No JVD. Pulses 2+ globally without increasing peripheral edema. AAOx3 with no evidence of confusion, intoxication or altered mental state, NC/AT without acute distress or altered consciousness. Speech, cognition, mood, insight and judgment at baseline and within normal limits. Assessment and Plan Assessment and plan (1) Spondylosis of cervical spine: Code(s): M47.812 - Spondylosis without myelopathy or radiculopathy, cervical region Status: Acute Assessment and Plan: proceed as planned with right-sided diagnostic/prognostic medial branch blocks at C4, C5, C6 ( # 1) a dressing the right C4-5, C5-6 facet joints under fluoroscopic guidance. (2) Cervicalgia: Code(s): M54.2 - Cervicalgia Status: Acute (3) Chronic pain: Code(s): G89.29 - Other chronic pain Status: Acute
--- NOTE | 2024-10-20 06:19 | WPDHPUPDATE1 ---
History and Physical Update Update Date/Time: 10/20/24 06:19 History and Physical has been reviewed, including an updated exam of the patient. There are NO changes in the patient's condition. Risks, benefits, and alternatives have been discussed and questions answered. Patient agrees to proceed with procedure.
--- NOTE | 2024-10-20 06:20 | P.OP_ITS ---
Procedure Note - Detailed Date of Procedure 10/20/24 Pre-op Diagnosis Cervical Spondylosis, chronic cervicalgia Post-op Diagnosis Same Procedure Performed Diagnostic Right Cervical Medial Branch Nerve Blocks at C4, C5, C6 Blocking the Ipsilateral C4-5, C5-6 facet joints under Fluoroscopic Guidance and with Contrast Control (2 levels blocked). Surgeon Shaq Estes MD Stars Coordinator None. Anesthesia Local Description of Procedure INFORMED CONSENT: Risks, benefits and alternatives to the procedure were discussed in detail with the patient who expressed explicit understanding and consent to proceed. Patient was informed verbally and in written form regarding the risks associated with the procedure including the low risk of serious infection, bleeding/bruising, allergic reaction, nerve or organ injury, paralysis, procedural site pain or discomfort, worsening pain and/or mobility, failure to treat and/or disfigurement. The patient expressed explicit understanding and consent to proceed. All materials required for the procedure were available prior to procedure start. Site and side were marked prior to procedure and confirmed in the presence of the patient. PROCEDURE IN DETAIL: The patient was brought to the procedural suite and placed in the prone position with head stabilized with a ProneView pillow. Patient was made comfortable with use of pillows under the head/chest, hips and ankles. Skin overlying the injection site on the affected side(s) was prepared broadly with ChloraPrep applicator and draped in a sterile manner. Aseptic technique was used throughout. The endplates of the vertebral bodies at the site(s) of interest were aligned in the AP view. Ipsilateral oblique angulation was utilized to optimize visualization of the pars interarticularis at each target site. Local anesthesia was established by infiltration with approximately 5 mL of 0.5% lidocaine via a 1-1/2 inch 27-gauge needle divided over each injection site. A 25-gauge 3.5 inch Quincke spinal needle was advanced until the needle tip contacted the periosteum of the pars interarticularis at the target site, right C4 medial branch. Lateral view was utilized to confirm the appropriate placement of the needle tip just anterior to the center point of the interarticularis. In the Lateral view, 0.25 mL of Omnipaque 300 contrast medium was injected after negative aspiration for CSF, blood or other bodily fluid, showing appropriate extra-articular spread of contrast without evidence of intravascular, foraminal or intrathecal placement. A 0.25 mL solution of 0.5% PF bupivacaine was injected after negative repeat aspiration. Appropriate spread of the injectate was confirmed with washout of previously injected contrast. No parasthesias were elicited. Needle was removed completely intact without difficulty. The same exact procedure was repeated for all remaining levels on the ipsilateral side, right C5, C6 medial branches, modified as necessary to accommodate for the new target location with identical findings and results and no evidence of complication. Images were saved and documented in the patient chart. Patient's skin was cleansed and sterile bandage applied. The patient tolerated the procedure well. The patient was transported to the recovery area in stable condition where they were observed for an appropriate amount of time prior to discharge, without evidence of complication. Patient was instructed on the appropriate completion of a pain diary over the next 12-24 hours. The patient was instructed to avoid excessive activity for the next 48 hours, including climbing and frequent use of stairs. Showers only for 48 hours. They were instructed not to drive or operate heavy machinery for 24 hours. They are to monitor for severe headaches, fevers, chills, night sweats, erythema/swelling at the site or any other signs of infection, bleeding/bruising, bowel or bladder changes as well as new pain, weakness or numbness in the upper or lower extremity. Should they notice these changes, they are instructed to call our office immediately or report directly to the nearest Emergency Department if no answer or if after posted office hours. COMPLICATIONS: None COMMENTS: None CONTRAST WASTED: 28.5mL Omnipaque 300. Complications No immediate complications Condition Stable Disposition Same day [facility] Billing Surgery - Charge Forward: Surgery Billing
--- OUTSIDE RECORDS SUMMARY | 2024-10-20 08:19 | XMS_ITS | Clinical Summary ---
Author Organization [facility] [employer] Address [address] [place] [address] Care Team Providers Care House Calls Nurse Practitioner Name Role Phone Axel Angeles MD Primary Care Provider [phone] Source Comments [facility],non-owned Affiliates and Associated Physician Practices is amultiple site organization consisting of ambulatory clinics and hospital sitesin [place], [place], [place] and [place]. This disclosure is being madepursuant to the Care Everywhere program and may not contain all information available regarding this patient. Last updated 18.[facility] Allergies Active Allergy Reactions Criticality Noted Date Comments Fexofenadine-Pseudoeph ed Er Palpitations Low 01/19/2020 Alkylamines 12/09/2013 Diphenhydramine Palpitations 06/16/2024 Chocolate Rash,Nausea and/or Vomiting Medium 06/25/2024 Codeine Other Low 12/09/2013 Age 19 hallucinations Pseudoephedrine Base 12/09/2013 Lidocaine Palpitations 07/27/2024 Medications * Be aware that medications may not be up to date on this document. Alwaysverify current medications with the patient. Medication Sig Dispensed Refills Start Date End Date Status pantoprazole EC (PROTONIX) 40 MG tablet Take 1 (one) tablet by mouth 2 times daily 01/02/2021 Active metoprolol succinate XL 24hr (TOPROL XL) 50 MG tablet Take 1 (one) tablet by mouth once daily 02/06/2021 Active amLODIPine (Norvasc) 5 MG tablet Take 1 (one) tablet by mouth once daily 09/26/2023 Active acetaminophen (Tylenol) 500 MG tablet Take 1 (one) tablet by mouth every 6 hours Maximum allowable Acetaminophen amount = 4 Grams (4000 mg) / 24 hours. 06/26/2024 Active sennosides (Senokot) 8.6 MG tablet Take 1 (one) tablet by mouth once daily Please take as long as you are requiring opioids (oxycodone) for pain control 20 tablet 06/26/2024 Active diazePAM (Valium) 10 MG tablet INSERT 1 TABLET VAGINALLY EVERY NIGHT AT BEDTIME 03/16/2024 Active traMADol (Ultram) 50 MG tablet 1 (one) tablet 08/10/2024 Active Active Problems Problem Noted Date Diagnosed Date Willing to be kidney donor 09/27/2023 Overview (07/10/2024): Images from the original note were not included. Kidney Donor Review Donor Name: Maureen Sorenson Donor type: Standard to daughter w ADKPD Living Donor Nurse Coordinator: Ankush Tom RN Test Donor Results Acceptable to proceed with donation? LABS CMP Recent Labs Component Name 06/19/24 0821 POTASSIUM 4.2 CO2 26 BUN 17 CREATININE 0.55* CALCIUM 9.6 ALT 46 AST 27 GLUCOSE 90 Creatinine 0.64 09/25/2020 06/16/2024 elevated AST/ALT/GGT Pt reported 4000 mg tylenol for sinus pressure and heavy ETOH use (8 beers) on Saturday with friends - reviewed with Dr. Sierra - recheck to ensure normal prior to proceeding with donation. Pt agrees to adhere to recommended guidelines for drinking in women - no more than 1 drink in a single day and no more than 7 drinks per week. Pt states she has decided to abstain from drinking completely. 06/19 - recheck trending down Now in normal range notified Dr. Declan lindquist to proceed. PHOS Recent Labs Component Name 08/19/23 1512 PHOS 3.0 Acceptable Uric Acid Recent Labs Component Name 06/16/24 1541 08/19/23 1512 URICACID 3.1 4.8 Acceptable Lipid profile Recent Labs Component Name 08/19/23 1512 CHOL 179 HDL 67 LDLCALC 94 TRIG 91 Acceptable Drug Screen Recent Labs Component Name 08/16/23 1330 LABAMPH Negative LABBARB Negative LABBENZ Negative LABOPIA Negative COCAINESCRN Negative PCPUR Negative THCUR Negative METHADONE Negative Acceptable Alcohol Recent Labs Component Name 08/19/23 1512 ETOH <10 Acceptable Nicotine Recent Labs Component Name 08/19/23 1512 NICOTBLD <5 COTINBLD <5 Acceptable Urinalysis + micro Recent Labs Component Name 06/16/24 1541 COLORU Straw CLARITYU Clear LABSPEC 1.010 PHUA 7.0 PROTEINU Negative KETONES Negative BILIRUBINUR Negative BLOODU Negative NITRITE Negative LEUKOCYTE Trace* UROBILINUA Negative WBCU 0-5 SQUAMOUS 3-5 Recent Labs Component Name 06/16/24 1541 URINECULT <10,000 CFU/mL urogenital nirmal Acceptable Cystatin C Recent Labs Component Name 08/19/23 1512 EGFRCYSTATIN 99 CYSTATINC 0.8 Acceptable CrCl Result Recent Labs Component Name 08/19/23 1512 08/16/23 1330 CREATCLEAR <1.76* - VOLUMETIMDUR 1,100 1,100 1,100 - CREATININEUR <3.00 7.51 Not accurate collection Performed mGFR - see below Urine Microalbumin Albumin 24 Hour Urine (mg/24 hrs) Date Value 08/19/2023 6 Urine Albumin/Creatinine Ratio (mg/g) Date Value 08/16/2023 <67 (H) Albumin/Creatinine Ratio Urine (mg/g) Date Value 08/16/2023 See Comment Creatinine Urine (mg/dL) Date Value 08/19/2023 <3.00 Albumin Random Urine (ug/mL) Date Value 08/19/2023 5.5 08/16/2023 <5.0 Acceptable Urine Total Protein Recent Labs Component Name 08/19/23 1512 [id number] <77* VOLUMETIMDUR 1,100 1,100 1,100 PROTEINTO <7 Acceptable Hemoglobin A1c Hemoglobin A1c (%) Date Value 08/19/2023 5.1 Acceptable 2 HR GTT (as needed) No results found for: [id number] n/a CBC Recent Labs Component Name 06/16/24 1541 08/19/23 1512 WBC 8.8 8.7 HGB 12.4 13.0 HCT 37.2 39.3 PLTCOUNT 335 360 Acceptable PTT APTT (Seconds) Date Value 06/16/2024 29.3 08/19/2023 29.6 Acceptable INR INR (no units) Date Value 06/16/2024 0.9 08/19/2023 1.0 Acceptable ABO Recent Labs Component Name 06/19/24 0821 06/16/24 1541 ABORH O POS O POS Acceptable Preliminary crossmatch Negative Acceptable SEROLOGIES CMV Recent Labs Component Name 06/16/24 1541 08/19/23 1512 CMVIGG <0.20 <0.20 CMVIGM <30.0 <30.0 Acceptable EBV Recent Labs Component Name 08/19/23 1512 EBVABIGG 135.0* EBVIGMAB <36.0 Acceptable Hepatitis B Surface Antibody Recent Labs Component Name 08/19/23 1512 HEPBSAB Non-reactive HBVSAB 0.0 Acceptable Hepatitis B Surface Antigen Recent Labs Component Name 06/16/24 1541 08/19/23 1512 HEPBSAG Non-reactive Non-reactive Acceptable Hepatitis B Core Total Antibody Recent Labs Component Name 06/16/24 1541 08/19/23 1512 HEPBCAB Non-reactive Non-reactive Acceptable Hepatitis C Antibody Recent Labs Component Name 06/16/24 1541 08/19/23 1512 HEPCAB Non-reactive Non-reactive Acceptable HIV AG/AB Qualitative Recent Labs Component Name 06/16/24 1541 08/19/23 1512 [id number] Negative Negative Acceptable QUANT Gold Recent Labs Component Name 08/19/23 1512 QNTTBGOLD Negative Acceptable Strongyloides Recent Labs Component Name 06/16/24 1541 08/19/23 1512 STRONGYL 0.8 0.9 Acceptable T Cruzi Recent Labs Component Name 06/16/24 1541 08/19/23 1512 TCRUZIGG 0.3 0.3 Acceptable West Nile Recent Labs Component Name 06/16/24 1541 08/19/23 1512 WNILEIGG 0.22 0.18 WNILEIGM 0.00 0.00 Acceptable Syphilis Total with Reflex Recent Labs Component Name 06/16/24 1541 TPALLIDUM Non-reactive Acceptable HEALTH SCREENING PSA Not indicated in women n/a Mammogram Acceptable - Next Screening due 11/12/2024 Pap Acceptable next Due 05/14/[address] (if needed) Former smoker/ 6 pack year hx N/A Dermatology N/A Colonoscopy - no polyp Acceptable - next follow up 2033 IMAGING RESULTS EKG Acceptable Echo stress test (if needed) Left Ventricle: Left ventricle size is normal. Normal wall thickness. Ventricular mass is normal. Normal systolic function. EF by 2D Morel biplane is 77%. Normal wall motion. Normal diastolic function. Right Ventricle: Right ventricle size is normal. Normal systolic function. Tricuspid Valve: Trace regurgitation. The pulmonary artery systolic pressure is normal (under 35 mmHg). Estimated RVSP is 31.0 mmHg. Stress: The patient achieved the target heart rate. The target heart rate was 139 bpm. A peak heart rate of 148 bpm (90% of max predicted heart rate) was achieved. Blood pressure demonstrated a normal response and heart rate demonstrated a normal response to stress. The patient's heart rate recovery was normal. The patient's resting blood pressure was 153/83 mmHg. The patient's peak stress blood pressure was 174/86 mmHg. ECG: Stress ECG: Non-specific abnormalities in ST-segment deviation adn T wave inversion in leads V3-V5. Exhibits occasional premature ventricular contractions. The ECG was equivocal for ischemia. Normal exercise stress echocardiogram. No echocardiographic evidence of ischemia. PVCs Hx of a-fib? Has natural gas engineer last visit :11/29/2022 Cardiology Sees q6 months for follow up of atrial fibrillation. intermittent episodes of some palpitations and had a event monitor that was done as an outpatient interpreted as showing some relatively brief self-limited episodes of atrial fibrillation. The patient was placed on a beta-sirena in the form of metoprolol and was seen in follow-up by the nurse practitioner after this and was essentially asymptomatic. She has previous history of smoking no other cardiac problems in the past. Echocardiogram did not show any significant structural cardiac problems at the time of her initial consultation. 48 hour Holter demonstrated no evidence of atrial fib but she does have some PACs that appeared to be the source of these symptoms. She has been continued on metoprolol for this. Her low chads score would indicate no need for anticoagulation See clearance note from her natural gas engineer CXR FINDINGS/IMPRESSION: There is no focal consolidation, pleural effusion, or pneumothorax. The cardiomediastinal silhouette is normal. The visible bony thorax is intact. Acceptable Nuc Med GFR/split function as needed Findings: Uncorrected GFR 116 ml/min/1.73 m2 After body surface area correction, Corrected GFR 135. Normal range of GFR in adult females 74.4 - 110.4. Impression: GFR of 135 ml/min/1.73 m2, which is elevated for the patient's age. COMPARISON: Quantitative function Left Right 10 8 Time to peak (mins) 13 14 T 1/2 (mins) 53 47 Differential function (%) IMPRESSION: 1. Mild reduced function of both kidneys. No evidence of obstruction. 2. Relative function is 53% for the left kidney and 47% for the right kidney. Acceptable CTA w/ 3D FINDINGS: The imaged lung bases are clear. The imaged heart is normal in size. No pericardial effusion is seen. No substantial atherosclerosis is noted. The liver enhances homogenously without focal mass/lesion. The main portal vein is patent and non-dilated. The hepatic veins are patent. The gallbladder is normal. No intra or extra-hepatic biliary dilatation is present. The spleen is within normal limits. The pancreas is normal. The adrenal glands are normal bilaterally. The kidneys enhance symmetrically. No hydronephrosis is present. Extra renal pelvises are noted bilaterally. No renal stones are identified. No hydroureter is present. No suspicious renal mass is noted. Right Kidney: Number of arteries: 2, dominant superior pole and accessory interpolar/inferior pole artery. Number of veins: 1 Number of ureters: 1 Kidney height: 3.1 cm Kidney length: 10.8 cm Kidney width: 5.4 cm Kidney volume (mL/cc): 95 mL Renal artery has early bifurcation(<10mm from aorta): No Left Kidney: Number of arteries: 1 Number of veins: 1 Number of ureters: 1 Kidney height: 4.4 cm Kidney length: 12.3 cm Kidney width: 4.2 cm Kidney volume (mL/cc): 119 mL Renal artery has early bifurcation(<10mm from aorta): No The distal esophagus and stomach are within normal limits. The small and large bowel are normal in course and caliber without evidence of wall thickening or obstruction. No ascites is present. No free intraperitoneal air is noted. No mesenteric or retroperitoneal lymphadenopathy is identified. The abdominal aorta is normal in course and caliber. 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 The urinary bladder is distended with fluid and demonstrates no acute abnormality. The uterus is anteflexed. There are multiple hypoattenuating cystic-appearing observations within the cervical canal. For reference, the largest measures up to 1.2 cm. No adnexal mass is noted. Simple appearing left adnexal cyst are present and measure no greater than 1.6 cm. The soft tissues are within normal limits. No lytic or blastic lesions are identified. The osseous structures are intact. IMPRESSION: 1.No evidence of hydronephrosis, nephrolithiasis, or solid renal mass. 2.Right renal artery demonstrates an accessory interpolar/inferior pole artery. Single left renal artery. 3.No evidence of early bifurcation of the arterial anatomy. 4.Single bilateral renal veins and ureters. 5.Indeterminant cystic lesions within the cervix. Findings are favored to represent nabothian cysts. Further characterization with pelvic sonogramcan be obtained. Acceptable Dr Manriquez planning RIGHT nephrectomy/ dual arteries/ reviewed anatomy with implanting surgeon Dr. Bowles at recipient's pre-op clinic visit with the family UNOS/CMS COMPLIANCES Independent Donor Advocate Completed Registered Dietitian BMI: 22.1, Normal weight. Pt is considered to be a good candidate for a Kidney Transplant from a Nutrition standpoint. Complete Clinical Psychology Results and Impressions Trinitys scores on the anxiety and depression inventories fell into the minimal range, indicating no current psychopathology. Results and Impressions Overall, from a psychological perspective, Maureen Sorenson is a good candidate for kidney donation. Based upon this evaluation there are minimal concerns regarding the patient's candidacy. She does not presently have significant psychiatric symptoms or characterological disorder. She does not have a history of substance abuse. She has good supports to help recover from the transplant and good understanding of what the process entails. It is recommended that if she feels that she needs extra supports from a mental health perspective, she engage in psychotherapy as needed. Social Work Completed Transplant Surgeon Dr. Manriquez plans RIGHT nephrectomy Complete UNOS/CMS Education 10/04/23 repeated 06/16/2024 d/t long interval Complete Living Donor Consent 10/04/23 repeated 06/16/2024 Complete ESRD Risk Prediction Acceptable Genetic screen (APOL1, ADPKD) ADPKD in daughter (inherited from father) n/a 24 hr ABPM (as needed) Acceptable Outstanding tasks Final crossmatch 3 out of 6 mismatch (haplotype) T-cell negative MC SHIFT -3, B- Cell Negative MC SHIFT -10 Donor EBV IGG positive, CMV negative Acceptable Completed by: Ankush Tom RN [facility] Date: 06/23/2024 . Paroxysmal atrial fibrillation 09/05/2021 Encounters Date Type Department Care Team Description 08/21/2024 8:55 AM BAIT PAINTER - 08/21/2024 11:59 PM BAIT PAINTER Hospital Encounter [facility] OP [facility]RAW [facility]ATION [address] [place] [address] Axel Angeles MD Discharge Disposition: Home or Self Care 08/21/2024 8:00 AM BAIT PAINTER Office Visit [facility] - Nephrology [address] [place] [address] Carrie Sierra MD Kidney donor (Primary Dx); Primary hypertension; Swelling 08/21/2024 Travel 08/20/2024 Telephone [facility] TRANSPLANT [address] [place] [address] Alice Luna [facility] Kidney/Liver Donor Follow-up 08/19/2024 Travel 07/27/2024 10:00 AM BAIT PAINTER Clinical Support [facility] [address] [place] [address] Chantal Manriquez MD Follow-up examination following surgery 07/27/2024 8:40 AM BAIT PAINTER - 07/27/2024 11:59 PM BAIT PAINTER Hospital Encounter [facility] OP [facility] [address] [place] [address] Discharge Disposition: Home or Self Care 07/27/2024 Orders Only [facility] [address] [place] [address] Ankush Tom, RN Donor of kidney for transplant 07/27/2024 Orders Only [facility] TRANSPLANT [address] [place] [address] Ankush Tom, RN Donor of kidney for transplant 07/27/2024 Travel 07/27/2024 Orders Only [facility] TRANSPLANT [address] [place] [address] Ankush Tom, RN Willing to be kidney donor 07/24/2024 Travel from Last 3 Months Family History Medical History Relation Name Comments Hypercholesterolemia Father Heart Failure Mother Hypercholesterolemia Mother Hypertension Mother Stroke Mother Relation Name Status Comments Father Mother Social History Tobacco Use Types Packs/Day Years Used Date Smoking Tobacco: Former Cigarettes 0.5 5 0 09/16/2010 - 09/16/2015 Smokeless Tobacco: Never Alcohol Use Standard Drinks/Week Comments Yes 5 (1 standard drink = 0.6 oz pur e alcohol) socially 4-6 weekly AUDIT-C Answer Date Recorded Q1: How often do you have a drink containing alcohol? Never 06/24/2024 Q2: How many drinks containi ng alcohol do you have on a typical day when you are drinking? Patient does not drink Q3: How often do you have si x or more drinks on one occasion? Never 06/24/2024 Overall Financial Resource Strain (CARDIA) Answe r Date Recorded How hard is it for you to pa y for the very basics like food, housing, medical care, and heating? Not hard at all 06/24/2024 [facility] - Occupational Stress Questionnaire Answer Date Recorded Do you feel stress - tense, restless, nervous, or anxious, or unable to sleep at night because your mind is troubled all the time - these days? Not at all 06/24/2024 Hunger Vital Sign Answer Date Recorded Within the past 12 months, y ou worried that your food would run out before you got the money to buy more. Never true 06/24/20 24 Within the past 12 months, t he food you bought just didn't last and you didn't have money to get more. Never true 06/24/2024 PRAPARE - Transportation Answer Date Re corded In the past 12 months, has l ack of transportation kept you from medical appointments or from getting medications? No 05/2024 In the past 12 months, has l ack of transportation kept you from meetings, work, or from getting things needed for daily living? No 06/24/2024 Housing Stability Vital Sign Answer Ac e Recorded In the last 12 months, was t here a time when you were not able to pay the mortgage or rent on time? No 06/24/2024 In the last 12 months, how many places have you lived? 1 06/24/2024 In the last 12 months, was t here a time when you did not have a steady place to sleep or slept in a prison (including now)? No 06/24/2024 Sex and Gender Information Value Date Recorded Sex Assigned at Not on file Gender Identity Not on file Sexual Orientation Straight 07/07/2024 5: 30 PM CDT Last Filed Vital Signs Vital Sign Reading Time Taken Comments Blood Pressure 176/89 08/21/2024 8:49 AM BAIT PAINTER Pulse 60 08/21/2024 8:19 AM BAIT PAINTER Temperature 36.7 ??C (98 ??F) 07/27/2024 9:50 AM BAIT PAINTER Respiratory Rate 18 07/27/2024 9:50 AM BAIT PAINTER Oxygen Saturation 100% 08/21/2024 8:19 AM BAIT PAINTER Inhaled Oxygen Concentration - - Weight 57.6 kg (127 lb) 07/27/2024 9:50 AM BAIT PAINTER Height 154.9 cm (5' 1 ) 07/27/2024 9:50 AM BAIT PAINTER Body Mass Index 24 07/27/2024 9:50 AM BAIT PAINTER Plan of Treatment Upcoming Encounters Date Type Department Care Team (Late st Contact Info) Description 12/04/2024 8:30 AM CDT Office Visit [facility] - Nephrology [address] [place] [phone] Carrie Sierra MD [address] [place] [address] [address] [place] [phone] 05/07/2025 8:00 AM CDT Office Visit [facility] - Nephrology [address] [place] [phone] Carrie Sierra MD [address] [place] [address] [address] [place] [phone] Health Maintenance Due Date Last Done Comments COLOGUARD (AGES 45-75) - COL ON CA SCREENING 1967 COLON MONITORING 1967 COLONOSCOPY - COLON CA SCREENING 1967 CT COLONOGRAPHY - COLON CA SCREENING 1967 Colorectal Cancer Screening 1967 FIT - COLON CA SCREENING 1967 FLEX SIG - COLON CA SCREENING 1967 MAMMOGRAM 1967 PAP SMEAR 1967 HIV SCREENING 1982 DTAP/TDAP/TD VACCINES (1 - Tdap) 1986 HEPATITIS B VACCINE (1 of 3 - 19+ 3-dose series) 1986 PNEUMOCOCCAL VACCINE 50+ (1 of 1 - PCV) 2017 ZOSTER VACCINE (1 of 2) 2017 COVID-19 VACCINE (3 - 2023-2 5 season) 2024 01/02/2021, 12/02/2020 DEPRESSION SCREENING 09/16/2024 LIPID TESTING 08/19/2028 08/19/2023 INFLUENZA VACCINE Completed 06/08/2024 HEPATITIS C SCREENING Completed 06/16/2024 , 08/19/2023 HIB VACCINE Aged Out No longer eligi ble based on patient's age to complete this topic HPV VACCINE Aged Out No longer eligi ble based on patient's age to complete this topic MENINGOCOCCAL (Group B) VACCINE Aged Out No longer eligible b ased on patient's age to complete this topic MENINGOCOCCAL VACCINE Aged Out No ling shamika eligible based on patient's age to complete this topic Procedures Procedure Name Priority Date/Time Associated Diagnosis Comments URINE MICROSCOPIC ONLY REFLEX TO CULTURE Routine 08/21/2024 9:25 AM BAIT PAINTER Donor of kidney for transplant MICROALB/CREAT RATIO URINE RANDOM PANEL Routine 08/21/2024 9:25 AM BAIT PAINTER Donor of kidney for transplant URINALYSIS REFLEX MICROSCOPIC REFLEX CULTURE Routine 08/21/2024 9:25 AM BAIT PAINTER Donor of kidney for transplant RENAL FUNCTION PANEL Routine 08/21/2024 9:19 AM BAIT PAINTER Donor of kidney for transplant CBC W AUTO DIFFERENTIAL Routine 08/21/2024 9:19 AM BAIT PAINTER Donor of kidney for transplant URINE MICROSCOPIC ONLY REFLEX TO CULTURE Routine 07/27/2024 9:19 AM BAIT PAINTER Willing to be kidney donor MICROALB/CREAT RATIO URINE RANDOM PANEL Routine 07/27/2024 9:19 AM BAIT PAINTER Willing to be kidney donor URINALYSIS REFLEX MICROSCOPIC REFLEX CULTURE Routine 07/27/2024 9:19 AM BAIT PAINTER Willing to be kidney donor CULTURE URINE Routine 07/27/2024 9:19 AM BAIT PAINTER Willing to be kidney donor RENAL FUNCTION PANEL Routine 07/27/2024 9:16 AM BAIT PAINTER Willing to be kidney donor CBC W AUTO DIFFERENTIAL Routine 07/27/2024 9:16 AM BAIT PAINTER Willing to be kidney donor HEPATITIS C AB SCREEN RFLX NAAT QUANT STAT 06/16/2024 3:41 PM CDT Willing to be kidney donor LIPID PROFILE Routine 08/19/2023 3:12 PM BAIT PAINTER Willing to be kidney donor from Last 3 Months or Most Recently Relevant to Health Maintenance Results * (ABNORMAL) URINE MICROSCOPIC ONLY REFLEX TO CULTURE (08/21/2024 9:25 AM BAIT PAINTER) Only the most recent of2 resultswithin the time period is included. Reflex Status Culture not indicated 08/21/2024 10:18 AM [facility] RBC UA 0-2 None Seen, 0-2, 3-5 /HPF 08/21/2024 10:18 AM [facility] WBC UA 0-5 None Seen, 0-5 /HPF 08/21/2024 10:18 AM [facility] Squamous Epithelial Cells UA 6-10(A) None Seen, 0-2, 3-5 /HPF 08/21/2024 10:18 AM [facility] Mucus UA 1+ /LPF 08/21/2024 10:18 AM [facility] Urine URINE SPECIMEN OBTAINED BY CLEAN CATCH PROCEDURE / Unknown Collection / Unknown 08/21/2024 9:25 AM BAIT PAINTER 08/21/2024 9:40 AM [facility] - 08/21/2024 10:18 AM BAIT PAINTER Carrie Sierra MD LAB - URINALYSIS ORD ERABLES [facility] [address] [place] [address], [facility] [phone] * (ABNORMAL) URINALYSIS REFLEX MICROSCOPIC REFLEX CULTURE (08/21/2024 9:25 AM BAIT PAINTER) Only the most recent of2 resultswithin the time period is included. Color UA Yellow Straw, Yellow 08/21/2024 10:16 AM [facility] Clarity UA Slt Cloudy(A) Clear 08/21/2024 10:16 AM [facility] Specific [place] UA 1.019 1.005 - 1.030 08/21/2024 10:16 AM [facility] pH UA 5.0 5.0 - 8.0 pH 08/21/2024 10:16 AM [facility] Protein UA Negative Negative 08/21/2024 10:16 AM [facility] Glucose UA Negative Negative 08/21/2024 10:16 AM [facility] Ketone UA Negative Negative 08/21/2024 10:16 AM [facility] Bilirubin UA Negative Negative 08/21/2024 10:16 AM [facility] Blood UA 1+(A) Negative 08/21/2024 10:16 AM [facility] Nitrite UA Negative Negative 08/21/2024 10:16 AM [facility] Leukocyte Esterase Negative Negative 08/21/2024 10:16 AM [facility] Urobilinogen UA Negative Negative mg/dL 08/21/2024 10:16 AM [facility] Urine URINE SPECIMEN OBTAINED BY CLEAN CATCH PROCEDURE / Unknown Collection / Unknown 08/21/2024 9:25 AM BAIT PAINTER 08/21/2024 9:40 AM [facility] - 08/21/2024 10:16 AM [facility] Carrie Sierra MD LAB - URINALYSIS ORD ERABLES [facility] [address] [place] [address], [facility] [phone] * MICROALB/CREAT RATIO URINE RANDOM PANEL (08/21/2024 9:25 AM BAIT PAINTER) Only the most recent of2 resultswithin the time period is included. Pathologist [facility] Albumin Random Urine 19.2 Not Established ug/mL 08/21/2024 10:45 AM [facility] Creatinine Urine 94.85 Not Established mg/dL 08/21/2024 10:45 AM [facility] Urine Albumin/Creati nine Ratio 20 <30 mg/g 08/21/2024 10:45 AM [facility] Urine URINE SPECIMEN OBTAINED BY CLEAN CATCH PROCEDURE / Unknown Collection / Unknown 08/21/2024 9:25 AM BAIT PAINTER 08/21/2024 9:40 AM BAIT PAINTER Carrie Sierra MD LAB - URINE CHEMISTR Y ORDERABLES [address] [address], [facility] [phone] * CBC WITH DIFFERENTIAL (08/21/2024 9:19 AM [facility]) Only the most recent of2 resultswithin the time period is included. [facility] WBC 7.0 4.0 - 10.7 x10E9/L 08/21/2024 9:57 AM [facility] RBC Count 4.07 3.90 - 5.20 x10E12/L 08/21/2024 9:57 AM [facility] Hemoglobin 12.3 11.9 - 15.8 g/dL 08/21/2024 9:57 AM [facility] Hematocrit 37.7 34.8 - 46.1 % 08/21/2024 9:57 AM [facility] MCV 92.6 80.0 - 98.0 fL 08/21/2024 9:57 AM [facility] MCH 30.2 26.7 - 33.6 pg 08/21/2024 9:57 AM [facility] MCHC 32.6 31.7 - 36.3 g/dL 08/21/2024 9:57 AM [facility] RDW-CV 12.9 11.3 - 14.8 % 08/21/2024 9:57 AM [facility] Platelet Count 336 150 - 420 x10E9/L 08/21/2024 9:57 AM [facility] MPV 10.3 7.8 - 11.4 fL 08/21/2024 9:57 AM [facility] Neutrophil % 57.3 41.0 - 74.0 % 08/21/2024 9:57 AM [facility] Lymphocyte % 32.1 17.0 - 47.0 % 08/21/2024 9:57 AM [facility] Monocyte % 8.6 3.0 - 11.0 % 08/21/2024 9:57 AM [facility] Eosinophil % 1.3 0.0 - 7.0 % 08/21/2024 9:57 AM [facility] Basophil % 0.6 0.0 - 1.6 % 08/21/2024 9:57 AM [facility] Immature Granulocytes % 0.1 0.0 - 1.0 % 08/21/2024 9:57 AM [facility] Neutrophil Absolute 3.98 1.60 - 7.50 x10E9/L 08/21/2024 9:57 AM [facility] Lymphocyte Absolute 2.23 1.00 - 4.40 x10E9/L 08/21/2024 9:57 AM [facility] Monocyte Absolute 0.60 0.15 - 1.00 x10E9/L 08/21/2024 9:57 AM [facility] Eosinophil Absolute 0.09 0.00 - 0.60 x10E9/L 08/21/2024 9:57 AM [facility] Basophil Absolute 0.04 0.00 - 0.13 x10E9/L 08/21/2024 9:57 AM [facility] Blood BLOOD SPECIMEN / Unknown Lab Venipuncture / Unknown 08/21/2024 9:19 AM BAIT PAINTER 08/21/2024 9:48 AM [facility] Carrie Sierra MD LAB - HEMATOLOGY ORD ERABLES [facility] [address] [place] [address], [facility] [phone] * (ABNORMAL) RENAL FUNCTION PANEL (08/21/2024 9:19 AM [facility]) Only the most recent of2 resultswithin the time period is included. BUN 25 7 - 26 mg/dL 08/21/2024 10:37 AM [facility] Creatinine 0.84 0.56 - 0.96 mg/dL 08/21/2024 10:37 AM [facility] Sodium 140 136 - 145 mmol/L 08/21/2024 10:37 AM [facility] Potassium 4.4 3.5 - 4.5 mmol/L 08/21/2024 10:37 AM [facility] Chloride 107 98 - 107 mmol/L 08/21/2024 10:37 AM [facility] CO2 24 22 - 29 mmol/L 08/21/2024 10:37 AM [facility] Glucose 83 70 - 99 mg/dL 08/21/2024 10:37 AM [facility] Albumin 4.0 3.4 - 5.0 g/dL 08/21/2024 10:37 AM [facility] Calcium 9.9 8.4 - 10.2 mg/dL 08/21/2024 10:37 AM [facility] Phosphorus 3.1 2.9 - 5.1 mg/dL 08/21/2024 10:37 AM [facility] Anion Gap 9 6 - 16 08/21/2024 10:37 AM [facility] BUN/Creatinine Ratio 30(H) 7 - 23 08/21/2024 10:37 AM [facility] Osmolality Calculated 294 275 - 295 mOsm/kg 08/21/2024 10:37 AM [facility] eGFR by CKD-EPI 81(L) >=90 mL/min/1.7 3 m2 08/21/2024 10:37 AM [facility] Blood BLOOD SPECIMEN / Unknown Lab Venipuncture / Unknown 08/21/2024 9:19 AM BAIT PAINTER 08/21/2024 9:48 AM [facility] Carrie Sierra MD LAB - CHEMISTRY CHRISTIE PURCELL [facility] [address] [place] [address], [facility] [phone] * CULTURE URINE (07/27/2024 9:19 AM BAIT PAINTER) [facility] Culture Urine <10,000 CFU/mL urogenital nirmal NAZIA 07/28/2024 3:35 PM BAIT PAINTER [facility] MICROBIOLOGY Urine URINE SPECIMEN OBTAINED BY CLEAN CATCH PROCEDURE / Unknown Collection / Unknown 07/27/2024 9:19 AM BAIT PAINTER 07/27/2024 9:49 AM BAIT PAINTER Chantal Manriquez MD LAB - MICROBIOL OGY ORDERABLES Performing Organization Address [facility] Co de Phone Number [facility] MICROBIOLOGY [address] [place] [address], [facility] [phone] * HEPATITIS C AB SCREEN RFLX NAAT QUANT (06/16/2024 3:41 PM CDT) [facility] Hepatitis C Antibody Non-react marquez Non-reac tive 06/16/2024 5:28 PM CDT [facility] Comment:Hepatitis C Antibody screen indicates no serologic evidence of past or current infection with Hepatitis C Virus. Patients with unexplained liver disease who are immunocompromised or suspected of having acute Hepatitis C infection may benefit from Nucleic Acid Test (GABBY) for Hepatitis C Viral RNA to confirm Hepatitis C status. Blood BLOOD SPECIMEN / Unknown Lab Venipuncture / Unknown 06/16/2024 3:41 PM CDT 06/16/2024 4:43 PM CDT Chantal Manriquez MD LAB - CHEMISTRY ORDERABLES Performing Organization Address [facility] Co de Phone Number [facility] [address] [place] [address], [facility] [phone] * LIPID PROFILE (08/19/2023 3:12 PM BAIT PAINTER) [facility] Cholesterol Total 179 <200 mg/dL 08/19/2023 3:53 PM BAIT PAINTER [facility] HDL 67 >40 mg/dL 08/19/2023 3:53 PM [facility] Comment: ATP III Classification of HDL Cholesterol: ? <40 mg/dL: ??Considered a major risk factor. ? >60 mg/dL: ??Considered a negative risk factor. ? LDL Calculated 94 <100 mg/dL 08/19/2023 3:53 PM [facility] Comment: ATP III Classification of LDL Cholesterol: ?<100 mg/dL: ??Optimal ? 100 - 129 mg/dL: ??Near Optimal/Above Optimal ? 130 - 159 mg/dL: ??Borderline High ? 160 - 189 mg/dL: ??High ?>190 mg/dL: ??Very High ? Triglycerides 91 <150 mg/dL 08/19/2023 3:53 PM [facility] Comment: ATP III Classification of Triglycerides: ?<150 mg/dL: ??Normal ? 150 - 199 mg/dL: ??Borderline High ? 200 - 400 mg/dL: ??High ?>500 mg/dL: ??Very High Blood BLOOD SPECIMEN / Unknown Lab Venipuncture / Unknown 08/19/2023 3:12 PM BAIT PAINTER 08/19/2023 3:22 PM BAIT PAINTER Chantal Manriquez MD LAB - CHEMISTRY ORDERABLES Performing Organization Address [facility]/State/[facility] Co de Phone Number [facility] [address] [place] [address], [facility] [phone] from Last 3 Months or Most Recently Relevant to Health Maintenance Care Teams House Calls Nurse Practitioner Relationship Specialty Start Date End Date Axel Angeles MD [address] [place] [address] PCP - General 02/16/21
--- OUTSIDE RECORDS SUMMARY | 2024-10-20 08:19 | XMS_ITS | Referral Summary ---
Author Organization [facility] Address [address] [facility] [place] [address] Care Team Providers Care Deck Steward Name Role Phone Axel Angeles MD Primary Care Provider [phone] Source Comments [facility],non-owned Affiliates and Associated Physician Practices is amultiple site organization consisting of ambulatory clinics and hospital sitesin [place], [place], [place] and [place]. This disclosure is being madepursuant to the Care Everywhere program and may not contain all information available regarding this patient. Last updated 18.[facility] Encounters Date Type Department Care Team Description 08/21/2024 8:55 AM [employer] - 08/21/2024 11:59 PM [employer] Hospital Encounter [facility] OP DRAW STATION [address] [place] [address] Axel Angeles MD Discharge Disposition: Home or Self Care 08/21/2024 Travel 08/21/2024 8:00 AM [employer] Office Visit [facility] - Nephrology [address], [place] [phone] Carrie Sierra MD Kidney donor (Primary Dx); Primary hypertension; Swelling 08/20/2024 Telephone [facility] TRANSPLANT [address] [place] [phone] Alice Luna CPC Kidney/Liver Donor Follow-up 08/19/2024 Travel 07/27/2024 Orders Only [facility] TXP DAKOTAH CSM [address] [place] [address] Ankush Tom, RN Donor of kidney for transplant 07/27/2024 Orders Only [facility] TRANSPLANT [address] [place] [address] Ankush Tom, RN Donor of kidney for transplant 07/27/2024 Travel 07/27/2024 8:40 AM [employer] - 07/27/2024 11:59 PM [employer] Hospital Encounter [facility] OP DRAW STATION [address] [place] [address] Discharge Disposition: Home or Self Care 07/27/2024 Orders Only [facility] TRANSPLANT [address] [place] [address] Ankush Tom, TOM Willing to be kidney donor 07/27/2024 10:00 AM [employer] Clinical Support [facility] TXP DAKOTAH CSM [address] [place] [address] Chantal Manriquez MD Follow-up examination following surgery 07/24/2024 Travel from Last 3 Months Allergies Active Allergy Reactions Criticality Noted Date [...] included. Kidney Donor Review Donor Name: Maureen [place] Donor type: Standard to daughter w ADKPD [...] Protein Recent Labs Component Name 08/19/23 1512 [id number] <77* VOLUMETIMDUR 1,100 1,100 1,100 PROTEINTO <7 Acceptable Hemoglobin A1c Hemoglobin A1c (%) Date Value 08/19/2023 5.1 Acceptable 2 HR GTT (as needed) No results found for: [id number] n/a CBC Recent Labs Component Name 06/16/24 [...] Labs Component Name 06/16/24 1541 08/19/23 1512 [id number] Negative Negative Acceptable QUANT Gold Recent Labs [...] of ischemia. PVCs Hx of a-fib? 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 Pt is considered to be a good candidate for a Kidney Transplant from a Nutrition standpoint. Complete Clinical Psychology Results and Impressions Maureen's scores on the anxiety and depression inventories fell into the minimal range, indicating no current psychopathology. Results and Impressions Overall, from a psychological perspective, Maureen Clements is a good candidate for kidney donation. [...] Surgeon Dr. Manriquez plans RIGHT nephrectomy Complete [facility] Education 10/04/23 repeated 06/16/2024 d/t long interval [...] negative Acceptable Completed by: Ankush Tom RN M [facility] Transplant [facility] Date: 06/23/2024 . Paroxysmal atrial fibrillation 09/05/2021 Social History Tobacco Use Types Packs/Day Years [...] and heating? Not hard at all 06/24/2024 [facility] Occupat ional Health - Occupational Stress [...] place to sleep or slept in a skilled nursing (including now)? No 06/24/2024 Sex and Gender Information Value Date Recorded Sex Assigned at Not on file Gender Identity Not on file Sexual Orientation Straight 07/07/2024 5: 30 PM CDT Last Filed Vital Signs Vital Sign Reading Time Taken Comments Blood Pressure 176/89 08/21/2024 8:49 AM [employer] Pulse 60 08/21/2024 8:19 AM [employer] Temperature 36.7 ??C (98 ??F) 07/27/2024 9:50 AM [employer] Respiratory Rate 18 07/27/2024 9:50 AM [employer] Oxygen Saturation 100% 08/21/2024 8:19 AM [employer] Inhaled Oxygen Concentration - - Weight 57.6 kg (127 lb) 07/27/2024 9:50 AM [employer] Height 154.9 cm (5' 1 ) 07/27/2024 9:50 AM [employer] Body Mass Index 24 07/27/2024 9:50 AM [employer] Functional Status Functional Status Response Date of Assess ment Is person deaf or have serious hearing difficult y? No 06/24/2024 Is person blind or have serious difficulty seein g? No 06/24/2024 Does person have serious dif ficulty walking/climbing stairs? No 06/24/2024 Does person have difficulty dressing/bathing? No 06/24/2024 Does person have difficulty doing errands alone? No 06/24/2024 Cognitive Status Response Date of Assessm ent Does person have difficulty concentrating/remembering/making decisions? No 06/24/2024 Plan of Treatment Upcoming Encounters Date Type Department Care Team (Late st Contact Info) Description 12/04/2024 8:30 AM CDT Office Visit [facility] - Nephrology [address] [place] [phone] Carrie Sierra MD [address] [place] [address] [address] [place] [phone] 05/07/2025 8:00 AM CDT Office Visit [facility] - Nephrology [address] [place] [phone] Carrie Sierra MD [address] [place] [address] [address] [place] [address] Procedures Procedure Name Priority Date/Time Associated Diagnosis Comments URINE MICROSCOPIC ONLY REFLEX TO CULTURE Routine 08/21/2024 9:25 AM [employer] Donor of kidney for transplant MICROALB/CREAT RATIO URINE RANDOM PANEL Routine 08/21/2024 9:25 AM [employer] Donor of kidney for transplant URINALYSIS REFLEX MICROSCOPIC REFLEX CULTURE Routine 08/21/2024 9:25 AM [employer] Donor of kidney for transplant RENAL FUNCTION PANEL Routine 08/21/2024 9:19 AM [employer] Donor of kidney for transplant CBC W AUTO DIFFERENTIAL Routine 08/21/2024 9:19 AM [employer] Donor of kidney for transplant URINE MICROSCOPIC ONLY REFLEX TO CULTURE Routine 07/27/2024 9:19 AM [employer] Willing to be kidney donor MICROALB/CREAT RATIO URINE RANDOM PANEL Routine 07/27/2024 9:19 AM [employer] Willing to be kidney donor URINALYSIS REFLEX MICROSCOPIC REFLEX CULTURE Routine 07/27/2024 9:19 AM [employer] Willing to be kidney donor CULTURE URINE Routine 07/27/2024 9:19 AM [employer] Willing to be kidney donor RENAL FUNCTION PANEL Routine 07/27/2024 9:16 AM [employer] Willing to be kidney donor CBC W AUTO DIFFERENTIAL Routine 07/27/2024 9:16 AM [employer] Willing to be kidney donor HEPATITIS C AB SCREEN RFLX NAAT QUANT STAT 06/16/2024 3:41 PM CDT Willing to be kidney donor LIPID PROFILE Routine 08/19/2023 3:12 PM [employer] Willing to be kidney donor from Last 3 Months or Most Recently Relevant to Health Maintenance Results * (ABNORMAL) URINE MICROSCOPIC ONLY REFLEX TO CULTURE (08/21/2024 9:25 AM [employer]) Only the most recent of2 resultswithin the time period is included. Reflex Status Culture not indicated 08/21/2024 10:18 AM [facility] RBC UA 0-2 None Seen, 0-2, 3-5 /HPF 08/21/2024 10:18 AM [facility] WBC UA 0-5 None Seen, 0-5 /HPF 08/21/2024 10:18 AM [facility] Squamous Epithelial Cells UA 6-10(A) None Seen, 0-2, 3-5 /HPF 08/21/2024 10:18 AM [facility] Mucus UA 1+ /LPF 08/21/2024 10:18 AM [facility] Urine URINE SPECIMEN OBTAINED BY CLEAN CATCH PROCEDURE / Unknown Collection / Unknown 08/21/2024 9:25 AM [employer] 08/21/2024 9:40 AM [facility] - 08/21/2024 10:18 AM [employer] Carrie Sierra MD LAB - URINALYSIS ORD ERABLES [facility] [address] [place] [phone], [facility] [phone] * (ABNORMAL) URINALYSIS REFLEX MICROSCOPIC REFLEX CULTURE (08/21/2024 9:25 AM [employer]) Only the most recent of2 resultswithin the time period is included. Color UA Yellow Straw, Yellow 08/21/2024 10:16 AM [facility] Clarity UA Slt Cloudy(A) Clear 08/21/2024 10:16 AM [facility] Specific [place] UA 1.019 1.005 - 1.030 08/21/2024 10:16 AM [facility] pH UA 5.0 5.0 - 8.0 pH 08/21/2024 10:16 AM [facility] Protein UA Negative Negative 08/21/2024 10:16 AM [facility] Glucose UA Negative Negative 08/21/2024 10:16 AM [facility] Ketone UA Negative Negative 08/21/2024 10:16 AM [facility] Bilirubin UA Negative Negative 08/21/2024 10:16 AM [facility] Blood UA 1+(A) Negative 08/21/2024 10:16 AM [facility] Nitrite UA Negative Negative 08/21/2024 10:16 AM [facility] Leukocyte Esterase Negative Negative 08/21/2024 10:16 AM [facility] Urobilinogen UA Negative Negative mg/dL 08/21/2024 10:16 AM [facility] Urine URINE SPECIMEN OBTAINED BY CLEAN CATCH PROCEDURE / Unknown Collection / Unknown 08/21/2024 9:25 AM [employer] 08/21/2024 9:40 AM [facility] - 08/21/2024 10:16 AM [employer] Carrie Sierra MD LAB - URINALYSIS ORD ERABLES Performing Organization Address City/[facility]/ZIP Co de Phone Number [address] [address], [facility] [phone] * MICROALB/CREAT RATIO URINE RANDOM PANEL (08/21/2024 9:25 AM [employer]) Only the most recent of2 resultswithin the time period is included. Albumin Random Urine 19.2 Not Established ug/mL 08/21/2024 10:45 AM [facility] Creatinine Urine 94.85 Not Established mg/dL 08/21/2024 10:45 AM [facility] Urine Albumin/Creati nine Ratio 20 <30 mg/g 08/21/2024 10:45 AM [facility] Urine URINE SPECIMEN OBTAINED BY CLEAN CATCH PROCEDURE / Unknown Collection / Unknown 08/21/2024 9:25 AM [employer] 08/21/2024 9:40 AM [employer] Carrie Sierra MD LAB - URINE CHEMISTR Y ORDERABLES Performing Organization Address City/[facility]/ZIP Co de Phone Number [address] [address], [facility] [phone] * CBC WITH DIFFERENTIAL (08/21/2024 9:19 AM [employer]) Only the most recent of2 resultswithin the time period is included. WBC 7.0 4.0 - 10.7 x10E9/L 08/21/2024 9:57 AM [facility] RBC Count 4.07 3.90 - 5.20 x10E12/L 08/21/2024 9:57 AM [facility] Hemoglobin 12.3 11.9 - 15.8 g/dL 08/21/2024 9:57 AM [facility] Hematocrit 37.7 34.8 - 46.1 % 08/21/2024 9:57 AM [facility] MCV 92.6 80.0 - 98.0 fL 08/21/2024 9:57 AM [facility] MCH 30.2 26.7 - 33.6 pg 08/21/2024 9:57 AM [facility] MCHC 32.6 31.7 - 36.3 g/dL 08/21/2024 9:57 AM [facility] RDW-CV 12.9 11.3 - 14.8 % 08/21/2024 9:57 AM [facility] Platelet Count 336 150 - 420 x10E9/L 08/21/2024 9:57 AM [facility] MPV 10.3 7.8 - 11.4 fL 08/21/2024 9:57 AM [facility] Neutrophil % 57.3 41.0 - 74.0 % 08/21/2024 9:57 AM [facility] Lymphocyte % 32.1 17.0 - 47.0 % 08/21/2024 9:57 AM [facility] Monocyte % 8.6 3.0 - 11.0 % 08/21/2024 9:57 AM [facility] Eosinophil % 1.3 0.0 - 7.0 % 08/21/2024 9:57 AM [facility] Basophil % 0.6 0.0 - 1.6 % 08/21/2024 9:57 AM [facility] Immature Granulocytes % 0.1 0.0 - 1.0 % 08/21/2024 9:57 AM [facility] Neutrophil Absolute 3.98 1.60 - 7.50 x10E9/L 08/21/2024 9:57 AM [facility] Lymphocyte Absolute 2.23 1.00 - 4.40 x10E9/L 08/21/2024 9:57 AM [facility] Monocyte Absolute 0.60 0.15 - 1.00 x10E9/L 08/21/2024 9:57 AM [facility] Eosinophil Absolute 0.09 0.00 - 0.60 x10E9/L 08/21/2024 9:57 AM [facility] Basophil Absolute 0.04 0.00 - 0.13 x10E9/L 08/21/2024 9:57 AM [facility] Blood BLOOD SPECIMEN / Unknown Lab Venipuncture / Unknown 08/21/2024 9:19 AM [employer] 08/21/2024 9:[address] [facility] Carrie Sierra MD LAB - HEMATOLOGY ORD ERABLES [facility] [address] [place] [address], [facility] [phone] * (ABNORMAL) RENAL FUNCTION PANEL (08/21/2024 9:[address] [facility]) Only the most recent of2 resultswithin the time period is included. BUN 25 7 - 26 mg/dL 08/21/2024 10:37 AM [facility] Creatinine 0.84 0.56 - 0.96 mg/dL 08/21/2024 10:37 AM [facility] Sodium 140 136 - 145 mmol/L 08/21/2024 10:37 AM [facility] Potassium 4.4 3.5 - 4.5 mmol/L 08/21/2024 10:37 AM [facility] Chloride 107 98 - 107 mmol/L 08/21/2024 10:37 AM [facility] CO2 24 22 - 29 mmol/L 08/21/2024 10:37 AM [facility] Glucose 83 70 - 99 mg/dL 08/21/2024 10:37 AM [facility] Albumin 4.0 3.4 - 5.0 g/dL 08/21/2024 10:37 AM [facility] Calcium 9.9 8.4 - 10.2 mg/dL 08/21/2024 10:37 AM [facility] Phosphorus 3.1 2.9 - 5.1 mg/dL 08/21/2024 10:37 AM [facility] Anion Gap 9 6 - 16 08/21/2024 10:37 AM [facility] BUN/Creatinine Ratio 30(H) 7 - 23 08/21/2024 10:37 AM [facility] Osmolality Calculated 294 275 - 295 mOsm/kg 08/21/2024 10:37 AM [facility] eGFR by CKD-EPI 81(L) >=90 mL/min/1.7 3 m2 08/21/2024 10:37 AM [facility] Blood BLOOD SPECIMEN / Unknown Lab Venipuncture / Unknown 08/21/2024 9:19 AM [employer] 08/21/2024 9:48 AM [employer] Carrie Sierra MD LAB - CHEMISTRY ORDAntonio PURCELL [facility] [address] [place] [address], [place] [phone] * CULTURE URINE (07/27/2024 9:19 AM [employer]) Culture Urine <10,000 CFU/mL urogenital nirmal NAZIA 07/28/2024 3:35 PM [employer] [facility] MICROBIOLOGY Urine URINE SPECIMEN OBTAINED BY CLEAN CATCH PROCEDURE / Unknown Collection / Unknown 07/27/2024 9:19 AM [employer] 07/27/2024 9:49 AM [employer] Chantal Manriquez MD LAB - MICROBIOL OGY ORDERABLES [facility] MICROBIOLOGY [address] [place] [address], [facility] [phone] * HEPATITIS C AB SCREEN RFLX NAAT QUANT (06/16/2024 3:41 PM CDT) Hepatitis C Antibody Non-react marquez Non-reac tive 06/16/2024 5:28 PM CDT [facility] Comment:Hepatitis C Antibody screen indicates no [...] LAB - CHEMISTRY ORDERABLES Performing Organization Address [facility] Co de Phone Number [facility] [address] [place] [address], [facility] [phone] * LIPID PROFILE (08/19/2023 3:[address] [facility]) Pathologist [facility] Cholesterol Total 179 <200 mg/dL 08/19/2023 3:53 PM [facility] HDL 67 >40 mg/dL 08/19/2023 3:53 PM [facility] Comment: ATP III Classification of HDL Cholesterol: ? <40 mg/dL: ??Considered a major risk factor. ? >60 mg/dL: ??Considered a negative risk factor. ? LDL Calculated 94 <100 mg/dL 08/19/2023 3:53 PM [facility] Comment: ATP III Classification of LDL Cholesterol: ?<100 mg/dL: ??Optimal ? 100 - 129 mg/dL: ??Near Optimal/Above Optimal ? 130 - 159 mg/dL: ??Borderline High ? 160 - 189 mg/dL: ??High ?>190 mg/dL: ??Very High ? Triglycerides 91 <150 mg/dL 08/19/2023 3:53 PM [facility] Comment: ATP III Classification of Triglycerides: ?<150 mg/dL: ??Normal ? 150 - 199 mg/dL: ??Borderline High ? 200 - 400 mg/dL: ??High ?>500 mg/dL: ??Very High Blood BLOOD SPECIMEN / Unknown Lab Venipuncture / Unknown 08/19/2023 3:12 PM [employer] 08/19/2023 3:22 PM [employer] Chantal Manriquez MD LAB - CHEMISTRY ORDERABLES [facility] [address] [place] [address], [facility] [phone] from Last 3 Months or Most Recently Relevant to Health Maintenance Care Teams Deck Steward Relationship Specialty Start Date End Date Axel Angeles MD [address] [place], [place] [id number] PCP - General 02/16/21
--- OUTSIDE RECORDS SUMMARY | 2024-10-20 08:19 | XMS_ITS | Encounter Summary ---
Author Organization [facility] Address [address] [facility] [place] [address] Care Team Providers Care Machine Puller And Laster Name Role Phone Axel Angeles MD Primary Care Provider [phone] Encounter Details Date Type Department Care Team (Late Contact Info) Description 02/16/2021 Telephone [facility] [address] [place] [address] Lizz Hess MD No info available Social History Tobacco Use Types Packs/Day Years Used Date Smoking Tobacco: Every Day Cigarettes 0.5 2 Alcohol Use Standard Drinks/Week Comments Yes 0 (1 standard drink = 0.6 oz pur e alcohol) sociall Sex and Gender Information Value Date Recorded Sex Assigned at Not on file Gender Identity Not on file Sexual Orientation Straight 07/07/2024 5: 30 PM CDT documented as of this encounter Plan of Treatment Upcoming Encounters Date Type Department Care Team (Late Contact Info) Description 12/04/2024 8:30 AM CDT Office Visit [facility] - Nephrology [address] [place] [phone] Carrie Sierra MD [address] [place] [address] [place] [address] 05/07/2025 8:00 AM CDT Office Visit [facility] - Nephrology [address] [place] [address] [place] [address] Carrie Sierra MD [facility] [facility] [place] [address] [place] [address] documented as of this encounter Visit Diagnoses Not on filedocumented in this encounter Additional Health Concerns Infection Onset Date Last Indicated Resolved Time COVID-19 Under Investigation 06/16/2024 06/16/2024 06/17/2024 12:28 AM CDT documented as of this encounter Care Teams Machine Puller And Laster Relationship Specialty Start Date End Date Axel Angeles MD [address] [place] [address] PCP - General 02/16/21 documented as of this encounter
--- OUTSIDE RECORDS SUMMARY | 2024-10-20 08:19 | XMS_ITS | Clinical Summary ---
Author Organization [facility] Address [address] [place] [address] [place] [address] Care Team Providers Care Highway Patrol Commander Name Role Phone Unavailable Primary Care Provider Unavailabl e Medications No known medications Active Problems No known active problems Social History Tobacco Use Types Packs/Day Years Used Date Smoking Tobacco: Never Smokeless Tobacco: Never Alcohol Use Standard Drinks/Week Comments Yes 0 (1 standard drink = 0.6 oz pur e alcohol) Comments No Sex and Gender Information Value Date Recorded Sex Assigned at Not on file Legal Sex Female 12:03 PM OPTOMETRIC TECHNICIAN Gender Identity Not on file Sexual Orientation Not on file Last Filed Vital Signs Vital Sign Reading Time Taken Comments Blood Pressure 203/103 09/09/2021 12:20 PM OPTOMETRIC TECHNICIAN Pulse 70 09/09/2021 12:20 PM OPTOMETRIC TECHNICIAN Temperature 36.7 ??C (98 ??F) 09/09/2021 12:20 PM OPTOMETRIC TECHNICIAN Respiratory Rate 16 09/09/2021 12:20 PM OPTOMETRIC TECHNICIAN Oxygen Saturation 99% 09/09/2021 12:20 PM OPTOMETRIC TECHNICIAN Inhaled Oxygen Concentration - - Weight 49.9 kg (110 lb) 09/09/2021 12:20 PM OPTOMETRIC TECHNICIAN Height 154.9 cm (5' 1 ) 09/09/2021 12:20 PM OPTOMETRIC TECHNICIAN Body Mass Index 20.78 09/09/2021 12:20 PM OPTOMETRIC TECHNICIAN Plan of Treatment Health Maintenance Due Date Last Done Comments DTAP/TDAP/TD VACCINES (1 - Tdap) 1986 HEPATITIS B VACCINES (1 of 3 - 19+ 3-dose series) 09/1985 CERVICAL CANCER SCREENING 1997 BREAST CANCER SCREENING 2007 COLORECTAL SCREENING 2012 Colorectal Cancer Screening 2012 FIT-DNA Q 3 years 2012 FIT/FOBT Q 1 year 2012 Flex Sig/CT Colonography Q 5 years 2012 ZOSTER VACCINE (1 of 2) 2017 INFLUENZA VACCINE (#1) 2024 [place] [address] [facility] [id number] POS II
--- OUTSIDE RECORDS SUMMARY | 2024-10-20 08:19 | XMS_ITS | Patient Health Summary ---
Author Organization [facility] Address [address] [place] [address] Care Team Providers Care Wastewater Analyst Lab Analyst Name Role Phone Axel Angeles MD Primary Care Provider [phone] Note from [facility],non-owned Affiliates and Associated Physician Practices is amultiple site organization consisting of ambulatory clinics and hospital sitesin [place], [place], [place] and [place]. This disclosure is being madepursuant to the Care Everywhere program and may not contain all information available regarding this patient. Last updated 18.[facility] Allergies * Fexofenadine-Pseudoephed Er(Palpitations) -Low Criticality * Alkylamines * Diphenhydramine(Palpitations) * Chocolate(Rash,Nausea and/or Vomiting) -Medium Criticality * Codeine(Other) -Low Criticality * Pseudoephedrine Base * Lidocaine(Palpitations) Medications * Be aware that medications may not be up to date on this document. Alwaysverify current medications with the patient. * pantoprazole EC (PROTONIX) 40 MG tablet(Started 01/02/2021) Take 1 (one) tablet by mouth 2 times daily * metoprolol succinate XL 24hr (TOPROL XL) 50 MG tablet(Started 02/06/2021) Take 1 (one) tablet by mouth once daily * amLODIPine (Norvasc) 5 MG tablet(Started 09/26/2023) Take 1 (one) tablet by mouth once daily * acetaminophen (Tylenol) 500 MG tablet(Started 06/26/2024) Take 1 (one) tablet by mouth every 6 hours Maximum allowable Acetaminophen amount = 4 Grams (4000 mg) / 24 hours. * sennosides (Senokot) 8.6 MG tablet(Started 06/26/2024) Take 1 (one) tablet by mouth once daily Please take as long as you are requiring opioids (oxycodone) for pain control * diazePAM (Valium) 10 MG tablet(Started 03/16/2024) INSERT 1 TABLET VAGINALLY EVERY NIGHT AT BEDTIME * traMADol (Ultram) 50 MG tablet(Started 08/10/2024) 1 (one) tablet Active Problems Problem Noted Date Diagnosed Date Willing to be kidney donor 09/27/2023 Paroxysmal atrial fibrillation 09/05/2021 Social History Tobacco [...] and heating? Not hard at all 06/24/2024 [facility] [place] [facility] - Occupational Stress [...] place to sleep or slept in a senior living (including now)? No 06/24/2024 Sex and Gender Information Value Date Recorded Sex Assigned at Not on file Gender Identity Not on file Sexual Orientation Straight 07/07/2024 5: 30 PM CDT Last Filed Vital Signs Vital Sign Reading Time Taken Comments Blood Pressure 176/89 08/21/2024 8:49 AM CREDIT MANAGER Pulse 60 08/21/2024 8:19 AM CREDIT MANAGER Temperature 36.7 ??C (98 ??F) 07/27/2024 9:50 AM CREDIT MANAGER Respiratory Rate 18 07/27/2024 9:50 AM CREDIT MANAGER Oxygen Saturation 100% 08/21/2024 8:19 AM CREDIT MANAGER Inhaled Oxygen Concentration - - Weight 57.6 kg (127 lb) 07/27/2024 9:50 AM CREDIT MANAGER Height 154.9 cm (5' 1 ) 07/27/2024 9:50 AM CREDIT MANAGER Body Mass Index 24 07/27/2024 9:50 AM CREDIT MANAGER Procedures * URINE MICROSCOPIC ONLY REFLEX TO CULTURE(Performed 08/21/2024) Performed for Donor of kidney for transplant * MICROALB/CREAT RATIO URINE RANDOM PANEL(Performed 08/21/2024) Performed for Donor of kidney for transplant * URINALYSIS REFLEX MICROSCOPIC REFLEX CULTURE(Performed 08/21/2024) Performed for Donor of kidney for transplant * RENAL FUNCTION PANEL(Performed 08/21/2024) Performed for Donor of kidney for transplant * CBC W AUTO DIFFERENTIAL(Performed 08/21/2024) Performed for Donor of kidney for transplant * URINE MICROSCOPIC ONLY REFLEX TO CULTURE(Performed 07/27/2024) Performed for Willing to be kidney donor * MICROALB/CREAT RATIO URINE RANDOM PANEL(Performed 07/27/2024) Performed for Willing to be kidney donor * URINALYSIS REFLEX MICROSCOPIC REFLEX CULTURE(Performed 07/27/2024) Performed for Willing to be kidney donor * CULTURE URINE(Performed 07/27/2024) Performed for Willing to be kidney donor * RENAL FUNCTION PANEL(Performed 07/27/2024) Performed for Willing to be kidney donor * CBC W AUTO DIFFERENTIAL(Performed 07/27/2024) Performed for Willing to be kidney donor * MICROALB/CREAT RATIO URINE RANDOM PANEL(Performed 07/07/2024) Performed for Donor of kidney for transplant * URINALYSIS W/MICROSCOPIC NO CULTURE(Performed 07/07/2024) Performed for Donor of kidney for transplant * TYPE + SCREEN PANEL(Performed 07/07/2024) Performed for Willing to be kidney donor * RENAL FUNCTION PANEL(Performed 07/07/2024) Performed for Donor of kidney for transplant * CBC W AUTO DIFFERENTIAL(Performed 07/07/2024) Performed for Donor of kidney for transplant * URINALYSIS REFLEX TO MICROSCOPIC NO CULTURE(Performed 06/25/2024) * PHOSPHORUS BLOOD(Performed 06/25/2024) * CBC W AUTO DIFFERENTIAL(Performed 06/25/2024) * BASIC METABOLIC PANEL (CALCIUM TOTAL)(Performed 06/25/2024) * MAGNESIUM BLOOD(Performed 06/25/2024) * CBC W/O DIFFERENTIAL(Performed 06/24/2024) * URINALYSIS REFLEX TO MICROSCOPIC NO CULTURE(Performed 06/24/2024) * CBC W AUTO DIFFERENTIAL(Performed 06/24/2024) * ENDOTRACHEAL TUBE NOTE(Performed 06/24/2024) * [place] LAPARSCPY SURG; DONOR NEPHRECT FROM LIVING DONOR(Performed 06/24/2024) Performed for Willing to be kidney donor * HCG URINE QUALITATIVE - POCT (IP) INTERFACED(Performed 06/24/2024) * TYPE + SCREEN PANEL(Performed 06/24/2024) * HCG BETA BLOOD QUANTITATIVE(Performed 06/24/2024) Performed for Willing to be kidney donor * LIVING DONOR HOLD(Performed 06/24/2024) Performed for Willing to be kidney donor * HCG URINE QUAL POCT NOTIFICATION(Performed 06/24/2024) * TYPE + SCREEN PANEL(Performed 06/19/2024) Performed for Willing to be kidney donor * COMPREHENSIVE METABOLIC PANEL(Performed 06/19/2024) Performed for Willing to be kidney donor * TYPE + SCREEN PANEL(Performed 06/16/2024) Performed for Willing to be kidney donor * ALT(Performed 06/16/2024) Performed for Willing to be kidney donor * AST BLOOD(Performed 06/16/2024) Performed for Willing to be kidney donor * GGT(Performed 06/16/2024) Performed for Willing to be kidney donor * URINE MICROSCOPIC ONLY REFLEX TO CULTURE(Performed 06/16/2024) Performed for Willing to be kidney donor * [place] VIRUS ANTIBODY IGG/IGM PANEL(Performed 06/16/2024) Performed for Willing to be kidney donor * URINALYSIS REFLEX MICROSCOPIC REFLEX CULTURE(Performed 06/16/2024) Performed for Willing to be kidney donor * URIC ACID BLOOD(Performed 06/16/2024) Performed for Willing to be kidney donor * TRYPANOSOMA ANTIBODY IGG(Performed 06/16/2024) Performed for Willing to be kidney donor * SYPHILIS ANTIBODY CASCADING REFLEX(Performed 06/16/2024) Performed for Willing to be kidney donor * STRONGYLOIDES ANTIBODY IGG(Performed 06/16/2024) Performed for Willing to be kidney donor * PTT SLH(Performed 06/16/2024) Performed for Willing to be kidney donor * PT-INR [facility]H(Performed 06/16/2024) Performed for Willing to be kidney donor * HIV/HCV/HBV GABBY DONOR(Performed 06/16/2024) Performed for Willing to be kidney donor * HIV 1/0/2 RFLX TO WB DONOR(Performed 06/16/2024) Performed for Willing to be kidney donor * HEPATITIS C AB SCREEN RFLX NAAT QUANT(Performed 06/16/2024) Performed for Willing to be kidney donor * HEPATITIS B SURFACE ANTIGEN W RFLX CONFIRMATION(Performed 06/16/2024) Performed for Willing to be kidney donor * HEPATITIS B CORE ANTIBODY TOTAL(Performed 06/16/2024) Performed for Willing to be kidney donor * HCG BETA BLOOD QUANTITATIVE(Performed 06/16/2024) Performed for Willing to be kidney donor * CYTOMEGALOVIRUS ANTIBODY IGM BLOOD(Performed 06/16/2024) Performed for Willing to be kidney donor * CYTOMEGALOVIRUS ANTIBODY IGG BLOOD(Performed 06/16/2024) Performed for Willing to be kidney donor * COMPREHENSIVE METABOLIC PANEL(Performed 06/16/2024) Performed for Willing to be kidney donor * CBC W AUTO DIFFERENTIAL(Performed 06/16/2024) Performed for Willing to be kidney donor * CULTURE URINE(Performed 06/16/2024) Performed for Willing to be kidney donor * XR CHEST 2VW(Performed 06/16/2024) Performed for Willing to be kidney donor * SARS-COV-2 (COVID-19) IN HOUSE(Performed 06/16/2024) Performed for Willing to be kidney donor * EKG 12-LEAD(Performed 06/16/2024) Performed for Willing to be kidney donor * URINALYSIS AUTO - POINT OF CARE (AMB) SLU(Performed 10/23/2023) Performed for Bladder pain * NM RENAL GFR STUDY(Performed 09/23/2023) Performed for Willing to be kidney donor * NM RENAL SCAN W FLOW AND FUNCTION(Performed 09/23/2023) Performed for Willing to be kidney donor * TYPE + SCREEN PANEL(Performed 08/19/2023) Performed for Willing to be kidney donor * HLA TYPING DNA LOW RESOLUTION DR,DQ(Performed 08/19/2023) Performed for Willing to be kidney donor * HLA TYPING DNA LOW RESOLUTION A,B,C(Performed 08/19/2023) Performed for Willing to be kidney donor * CYSTATIN C REFLEX(Performed 08/19/2023) Performed for Willing to be kidney donor * CREATININE CLEARANCE URINE TIMED(Performed 08/19/2023) Performed for Willing to be kidney donor * CREATININE BLOOD(Performed 08/19/2023) Performed for Willing to be kidney donor * PROTEIN URINE TIMED QUANTITATIVE(Performed 08/19/2023) Performed for Willing to be kidney donor * CREATININE CLEARANCE URINE(Performed 08/19/2023) Performed for Willing to be kidney donor * ALBUMIN URINE TIMED(Performed 08/19/2023) Performed for Willing to be kidney donor * NICOTINE + METABOLITES BLOOD(Performed 08/19/2023) Performed for Willing to be kidney donor * PHOSPHORUS BLOOD(Performed 08/19/2023) Performed for Willing to be kidney donor * PT-INR [facility](Performed 08/19/2023) Performed for Willing to be kidney donor * PTT [facility](Performed 08/19/2023) Performed for Willing to be kidney donor * QUANTIFERON-TB GOLD PLUS 4-TUBE(Performed 08/19/2023) Performed for Willing to be kidney donor * STRONGYLOIDES ANTIBODY IGG(Performed 08/19/2023) Performed for Willing to be kidney donor * SYPHILIS ANTIBODY CASCADING REFLEX(Performed 08/19/2023) Performed for Willing to be kidney donor * TRYPANOSOMA ANTIBODY IGG(Performed 08/19/2023) Performed for Willing to be kidney donor * URIC ACID BLOOD(Performed 08/19/2023) Performed for Willing to be kidney donor * [place] VIRUS ANTIBODY IGG/IGM PANEL(Performed 08/19/2023) Performed for Willing to be kidney donor * LIPID PROFILE(Performed 08/19/2023) Performed for Willing to be kidney donor * HIV/HCV/HBV GABBY DONOR(Performed 08/19/2023) Performed for Willing to be kidney donor * HIV 1/0/2 RFLX TO WB DONOR(Performed 08/19/2023) Performed for Willing to be kidney donor * HEPATITIS C AB SCREEN RFLX NAAT QUANT(Performed 08/19/2023) Performed for Willing to be kidney donor * HEPATITIS B SURFACE ANTIGEN W RFLX CONFIRMATION(Performed 08/19/2023) Performed for Willing to be kidney donor * HEPATITIS B SURFACE ANTIBODY(Performed 08/19/2023) Performed for Willing to be kidney donor * HEPATITIS B CORE ANTIBODY TOTAL(Performed 08/19/2023) Performed for Willing to be kidney donor * HEMOGLOBIN A1C(Performed 08/19/2023) Performed for Willing to be kidney donor * ADRIAN-BARLOW VIRUS AB VIRAL CAPSID IGG/IGM(Performed 08/19/2023) Performed for Willing to be kidney donor * CYTOMEGALOVIRUS ANTIBODY IGM BLOOD(Performed 08/19/2023) Performed for Willing to be kidney donor * CYTOMEGALOVIRUS ANTIBODY IGG BLOOD(Performed 08/19/2023) Performed for Willing to be kidney donor * CYSTATIN C WITH EGFR(Performed 08/19/2023) Performed for Willing to be kidney donor * COMPREHENSIVE METABOLIC PANEL(Performed 08/19/2023) Performed for Willing to be kidney donor * CBC W AUTO DIFFERENTIAL(Performed 08/19/2023) Performed for Willing to be kidney donor * ALCOHOL ETHYL BLOOD(Performed 08/19/2023) Performed for Willing to be kidney donor * MICROALB/CREAT RATIO URINE RANDOM PANEL(Performed 08/16/2023) Performed for Willing to be kidney donor * URINALYSIS REFLEX MICROSCOPIC REFLEX CULTURE(Performed 08/16/2023) Performed for Willing to be kidney donor * URINE DRUG SCREEN IMMUNOASSAY(Performed 08/16/2023) Performed for Willing to be kidney donor * CT ANGIO ABDOMEN PELVIS(Performed 08/16/2023) Performed for Willing to be kidney donor * CREATININE - POCT INTERFACED(Performed 08/16/2023) * XR CHEST 2VW(Performed 08/16/2023) Performed for Willing to be kidney donor * ECHO STRESS EXERCISE W CONTRAST(Performed 08/16/2023) Performed for Willing to be kidney donor * ECHO COMPLETE W CONTRAST(Performed 08/16/2023) Performed for Willing to be kidney donor * OPH OCT TEST [facility]U(Performed 09/18/2022) Performed for PVD (posterior vitreous detachment), both eyes * OPH OCT TEST [facility](Performed 08/14/2022) Performed for Visual disturbances * COMPREHENSIVE METABOLIC PANEL(Performed 02/23/2021) Performed for Nonintractable headache, unspecified chronicity pattern, unspecified headache type * ERYTHROCYTE SEDIMENTATION RATE(Performed 02/23/2021) Performed for Nonintractable headache, unspecified chronicity pattern, unspecified headache type * C-REACTIVE PROTEIN(Performed 02/23/2021) Performed for Nonintractable headache, unspecified chronicity pattern, unspecified headache type * CBC W AUTO DIFFERENTIAL(Performed 02/23/2021) Performed for Nonintractable headache, unspecified chronicity pattern, unspecified headache type * STREP A SCREEN DIRECT W RFLX STREP A CULTURE(Performed 12/09/2013) * CULTURE STREP GROUP A(Performed 12/09/2013) Results * (ABNORMAL) URINE MICROSCOPIC ONLY REFLEX TO CULTURE (08/21/2024 9:25 AM CREDIT MANAGER) Only the most recent of3 resultswithin the time period is included. Reflex Status Culture not indicated 08/21/2024 10:18 AM [facility] RBC UA 0-2 None Seen, 0-2, 3-5 /HPF 08/21/2024 10:18 AM [facility] WBC UA 0-5 None Seen, 0-5 /HPF 08/21/2024 10:18 AM [facility] Squamous Epithelial Cells UA 6-10(A) None Seen, 0-2, 3-5 /HPF 08/21/2024 10:18 AM [facility] Mucus UA 1+ /LPF 08/21/2024 10:18 AM [facility] Urine URINE SPECIMEN OBTAINED BY CLEAN CATCH PROCEDURE / Unknown Collection / Unknown 08/21/2024 9:25 AM CREDIT MANAGER 08/21/2024 9:40 AM [facility] - 08/21/2024 10:18 AM CREDIT MANAGER Carrie Sierra MD LAB - URINALYSIS ORD ERABLES [address] [address], [facility] [phone] * (ABNORMAL) URINALYSIS REFLEX MICROSCOPIC REFLEX CULTURE (08/21/2024 9:25 AM CREDIT MANAGER) Only the most recent of4 resultswithin the time period is included. Color UA Yellow Straw, Yellow 08/21/2024 10:16 AM [facility] Clarity UA Slt Cloudy(A) Clear 08/21/2024 10:16 AM [facility] Specific [place] UA 1.019 1.005 - 1.030 08/21/2024 10:16 AM [facility] pH UA 5.0 5.0 - 8.0 pH 08/21/2024 10:16 AM [facility] Protein UA Negative Negative 08/21/2024 10:16 AM [facility] Glucose UA Negative Negative 08/21/2024 10:16 AM [facility] Ketone UA Negative Negative 08/21/2024 10:16 AM [facility] Bilirubin UA Negative Negative 08/21/2024 10:16 AM [facility] Blood UA 1+(A) Negative 08/21/2024 10:16 AM [facility] Nitrite UA Negative Negative 08/21/2024 10:16 AM [facility] Leukocyte Esterase Negative Negative 08/21/2024 10:16 AM [facility] Urobilinogen UA Negative Negative mg/dL 08/21/2024 10:16 AM [facility] Urine URINE SPECIMEN OBTAINED BY CLEAN CATCH PROCEDURE / Unknown Collection / Unknown 08/21/2024 9:25 AM CREDIT MANAGER 08/21/2024 9:40 AM CREDIT MANAGER Narrative [facility] - 08/21/2024 10:16 AM CREDIT MANAGER Carrie Sierra MD LAB - URINALYSIS ORD ERABLES Performing Organization Address City/[facility]/ZIP Co de Phone Number [facility] [address] [place] [phone], [facility] [phone] * MICROALB/CREAT RATIO URINE RANDOM PANEL (08/21/2024 9:25 AM CREDIT MANAGER) Only the most recent of4 resultswithin the time period is included. Pathologist [facility] Albumin Random Urine 19.2 Not Established ug/mL 08/21/2024 10:45 AM [facility] Creatinine Urine 94.85 Not Established mg/dL 08/21/2024 10:45 AM [facility] Urine Albumin/Creati nine Ratio 20 <30 mg/g 08/21/2024 10:45 AM [facility] Urine URINE SPECIMEN OBTAINED BY CLEAN CATCH PROCEDURE / Unknown Collection / Unknown 08/21/2024 9:25 AM CREDIT MANAGER 08/21/2024 9:40 AM CREDIT MANAGER Carrie Sierra MD LAB - URINE CHEMISTR Y ORDERABLES Performing Organization Address City/[facility]/ZIP Co de Phone Number [facility] [address] [place] [id number], [facility] [phone] * CBC WITH DIFFERENTIAL (08/21/2024 9:19 AM CREDIT MANAGER) Only the most recent of8 resultswithin the time period is included. WBC 7.0 4.0 - 10.7 x10E9/L 08/21/2024 9:57 AM [facility] RBC Count 4.07 3.90 - 5.20 x10E12/L 08/21/2024 9:57 AM [facility] Hemoglobin 12.3 11.9 - 15.8 g/dL 08/21/2024 9:57 AM [facility] Hematocrit 37.7 34.8 - 46.1 % 08/21/2024 9:57 AM [facility] MCV 92.6 80.0 - 98.0 fL 08/21/2024 9:57 AM [facility] MCH 30.2 26.7 - 33.6 pg 08/21/2024 9:57 AM [facility] MCHC 32.6 31.7 - 36.3 g/dL 08/21/2024 9:57 AM [facility] RDW-CV 12.9 11.3 - 14.8 % 08/21/2024 9:57 AM [facility] Platelet Count 336 150 - 420 x10E9/L 08/21/2024 9:57 AM [facility] MPV 10.3 7.8 - 11.4 fL 08/21/2024 9:57 AM [facility] Neutrophil % 57.3 41.0 - 74.0 % 08/21/2024 9:57 AM [facility] Lymphocyte % 32.1 17.0 - 47.0 % 08/21/2024 9:57 AM [facility] Monocyte % 8.6 3.0 - 11.0 % 08/21/2024 9:57 AM [facility] Eosinophil % 1.3 0.0 - 7.0 % 08/21/2024 9:57 AM [facility] Basophil % 0.6 0.0 - 1.6 % 08/21/2024 9:57 AM [facility] Immature Granulocytes % 0.1 0.0 - 1.0 % 08/21/2024 9:57 AM [facility] Neutrophil Absolute 3.98 1.60 - 7.50 x10E9/L 08/21/2024 9:57 AM [facility] Lymphocyte Absolute 2.23 1.00 - 4.40 x10E9/L 08/21/2024 9:57 AM [facility] Monocyte Absolute 0.60 0.15 - 1.00 x10E9/L 08/21/2024 9:57 AM [facility] Eosinophil Absolute 0.09 0.00 - 0.60 x10E9/L 08/21/2024 9:57 AM [facility] Basophil Absolute 0.04 0.00 - 0.13 x10E9/L 08/21/2024 9:57 AM [facility] Blood BLOOD SPECIMEN / Unknown Lab Venipuncture / Unknown 08/21/2024 9:19 AM CREDIT MANAGER 08/21/2024 9:[address] [facility] Carrie Sierra MD LAB - HEMATOLOGY ORD ERABLES [facility] [address] [place] [address], [facility] [phone] * (ABNORMAL) RENAL FUNCTION PANEL (08/21/2024 9:[address] [facility]) Only the most recent of3 resultswithin the time period is included. BUN 25 7 - 26 mg/dL 08/21/2024 10:37 AM [facility] Creatinine 0.84 0.56 - 0.96 mg/dL 08/21/2024 10:37 AM [facility] Sodium 140 136 - 145 mmol/L 08/21/2024 10:37 AM [facility] Potassium 4.4 3.5 - 4.5 mmol/L 08/21/2024 10:37 AM [facility] Chloride 107 98 - 107 mmol/L 08/21/2024 10:37 AM [facility] CO2 24 22 - 29 mmol/L 08/21/2024 10:37 AM [facility] Glucose 83 70 - 99 mg/dL 08/21/2024 10:37 AM [facility] Albumin 4.0 3.4 - 5.0 g/dL 08/21/2024 10:37 AM [facility] Calcium 9.9 8.4 - 10.2 mg/dL 08/21/2024 10:37 AM [facility] Phosphorus 3.1 2.9 - 5.1 mg/dL 08/21/2024 10:37 AM [facility] Anion Gap 9 6 - 16 08/21/2024 10:37 AM [facility] BUN/Creatinine Ratio 30(H) 7 - 23 08/21/2024 10:37 AM [facility] Osmolality Calculated 294 275 - 295 mOsm/kg 08/21/2024 10:37 AM [facility] eGFR by CKD-EPI 81(L) >=90 mL/min/1.7 3 m2 08/21/2024 10:37 AM [facility] Blood BLOOD SPECIMEN / Unknown Lab Venipuncture / Unknown 08/21/2024 9:19 AM CREDIT MANAGER 08/21/2024 9:48 AM CREDIT MANAGER Carrie Sierra MD LAB - CHEMISTRY ORDE BINH [facility] [address] [place] [address], [facility] [phone] * CULTURE URINE (07/27/2024 9:19 AM CREDIT MANAGER) Only the most recent of2 resultswithin the time period is included. Culture Urine <10,000 CFU/mL urogenital nirmal NAZIA 07/28/2024 3:35 PM CREDIT MANAGER [facility] Urine URINE SPECIMEN OBTAINED BY CLEAN CATCH PROCEDURE / Unknown Collection / Unknown 07/27/2024 9:19 AM CREDIT MANAGER 07/27/2024 9:49 AM CREDIT MANAGER Chantal Manriquez MD LAB - MICROBIOL OGY ORDERABLES [facility] [address] [place] [address], [facility] [phone] * (ABNORMAL) URINALYSIS W/MICROSCOPIC NO CULTURE (07/07/2024 2:08 PM CDT) Color UA Yellow Straw, Yellow 07/07/2024 2:30 PM CDT [facility] Clarity UA Clear Clear 07/07/2024 2:30 PM CDT [facility] Specific [place] UA 1.017 1.005 - 1.030 07/07/2024 2:30 PM CDT [facility] pH UA 5.0 5.0 - 8.0 pH 07/07/2024 2:30 PM CDT [facility] Protein UA Negative Negative 07/07/2024 2:30 PM CDT [facility] Glucose UA Negative Negative 07/07/2024 2:30 PM CDT [facility] Ketone UA Negative Negative 07/07/2024 2:30 PM CDT [facility] Bilirubin UA Negative Negative 07/07/2024 2:30 PM CDT [facility] Blood UA Negative Negative 07/07/2024 2:30 PM CDT [facility] Nitrite UA Negative Negative 07/07/2024 2:30 PM CDT [facility] Leukocyte Esterase Negative Negative 07/07/2024 2:30 PM CDT [facility] Urobilinogen UA Negative Negative mg/dL 07/07/2024 2:30 PM CDT [facility] RBC UA 0-2 None Seen, 0-2, 3-5 /HPF 07/07/2024 2:30 PM CDT [facility] WBC UA 0-5 None Seen, 0-5 /HPF 07/07/2024 2:30 PM CDT [facility] Bacteria UA Trace(A) None /HPF 07/07/2024 2:30 PM CDT [facility] Squamous Epithelial Cells UA 3-5 None Seen, 0-2, 3-5 /HPF 07/07/2024 2:30 PM CDT [facility] Mucus UA 1+ /LPF 07/07/2024 2:30 PM CDT [facility] Urine URINE SPECIMEN OBTAINED BY CLEAN CATCH PROCEDURE / Unknown Collection / Unknown 07/07/2024 2:08 PM CDT 07/07/2024 2:17 PM CDT Narrative [facility] - 07/07/2024 2:30 PM CDT Chantal Manriquez MD LAB - URINALYSI S ORDERABLES [address] [address], [facility] [phone] * TYPE + SCREEN PANEL (07/07/2024 2:03 PM CDT) Only the most recent of5 resultswithin the time period is included. Antibody Screen NEG 3:14 PM CDT [facility] ABO Rh O POS 07/07/2024 3:14 PM CDT [facility] Blood Bank BLOOD SPECIMEN / Unknown Lab Venipuncture / Unknown 07/07/2024 2:03 PM CDT 07/07/2024 2:30 PM CDT Chantal Manriquez MD LAB - BLOOD BAN K ORDERABLES [facility] [address] [place] [address], [facility] [phone] * (ABNORMAL) URINALYSIS REFLEX TO MICROSCOPIC NO CULTURE (06/25/2024 8:12 AM CDT) Only the most recent of2 resultswithin the time period is included. Color UA Straw Straw, Yellow 06/25/2024 8:26 AM [facility] Clarity UA Clear Clear 06/25/2024 8:26 AM [facility] Specific [place] UA 1.009 1.005 - 1.030 06/25/2024 8:26 AM [facility] pH UA 5.0 5.0 - 8.0 pH 06/25/2024 8:26 AM [facility] Protein UA Negative Negative 06/25/2024 8:26 AM [facility] Glucose UA Negative Negative 06/25/2024 8:26 AM [facility] Ketone UA Trace(A) Negative 06/25/2024 8:26 AM [facility] Bilirubin UA Negative Negative 06/25/2024 8:26 AM [facility] Blood UA 2+(A) Negative 06/25/2024 8:26 AM [facility] Nitrite UA Negative Negative 06/25/2024 8:26 AM [facility] Leukocyte Esterase Negative Negative 06/25/2024 8:26 AM [facility] Urobilinogen UA Negative Negative mg/dL 06/25/2024 8:26 AM [facility] RBC UA 0-2 None Seen, 0-2, 3-5 /HPF 06/25/2024 8:26 AM [facility] WBC UA 0-5 None Seen, 0-5 /HPF 06/25/2024 8:26 AM [facility] Bacteria UA Trace(A) None /HPF 06/25/2024 8:26 AM [facility] Squamous Epithelial Cells UA 0-2 None Seen, 0-2, 3-5 /HPF 06/25/2024 8:26 AM [facility] Urine URINE SPECIMEN OBTAINED VIA [employer] URINARY CATHETER / Unknown Collection / Unknown 06/25/2024 8:12 AM CDT 06/25/2024 8:19 AM CDT [facility] - 06/25/2024 8:26 AM CDT Chantal Manriquez MD LAB - URINALYSI S ORDERABLES [facility] [address] [place] [address], [facility] [phone] * (ABNORMAL) BASIC METABOLIC PANEL (CALCIUM TOTAL) (06/25/2024 4:04 AM CDT) BUN 11 7 - 26 mg/dL 06/25/2024 4:56 AM [facility] Creatinine 0.80 0.56 - 0.96 mg/dL 06/25/2024 4:56 AM [facility] Sodium 135(L) 136 - 145 mmol/L 06/25/2024 4:56 AM [facility] Potassium 4.5 3.5 - 4.5 mmol/L 06/25/2024 4:56 AM [facility] Chloride 103 98 - 107 mmol/L 06/25/2024 4:56 AM [facility] CO2 26 22 - 29 mmol/L 06/25/2024 4:56 AM [facility] Glucose 97 70 - 115 mg/dL 06/25/2024 4:56 AM [facility] Calcium 8.7 8.4 - 10.2 mg/dL 06/25/2024 4:56 AM [facility] Anion Gap 6 6 - 16 06/25/2024 4:56 AM [facility] BUN/Creatinine Ratio 14 7 - 23 06/25/2024 4:56 AM [facility] Osmolality Calculated 279 275 - 295 mOsm/kg 06/25/2024 4:56 AM [facility] eGFR by CKD-EPI 86(L) >=90 mL/min/1.7 3 m2 06/25/2024 4:56 AM [facility] Blood BLOOD SPECIMEN / Unknown Venipuncture / Unknown 06/25/2024 4:04 AM CDT 06/25/2024 4:25 AM CDT Chantal Manriquez MD LAB - CHEMISTRY ORDERABLES Performing Organization Address City/[facility]/ZIP Co de Phone Number [facility] [address] [place] [address], [place] [phone] * PHOSPHORUS BLOOD (06/25/2024 4:04 AM CDT) Only the most recent of2 resultswithin the time period is included. Phosphorus 4.0 2.9 - 5.1 mg/dL 06/25/2024 4:56 AM CDT [facility] Blood BLOOD SPECIMEN / Unknown Venipuncture / Unknown 06/25/2024 4:04 AM CDT 06/25/2024 4:25 AM CDT Chantal Manriquez MD LAB - CHEMISTRY ORDERABLES Performing Organization Address City/[facility]/ZIP Co de Phone Number [address] [address], [place] [phone] * MAGNESIUM BLOOD (06/25/2024 4:04 AM CDT) Magnesium 2.4 1.6 - 2.6 mg/dL 06/25/2024 4:56 AM CDT [facility] Blood BLOOD SPECIMEN / Unknown Venipuncture / Unknown 06/25/2024 4:04 AM CDT 06/25/2024 4:25 AM CDT Chantal Manriquez MD LAB - CHEMISTRY ORDERABLES [facility] [address] [place] [address], [place] [phone] * (ABNORMAL) CBC W/O DIFFERENTIAL (06/24/2024 8:57 PM CDT) WBC 16.8(H) 4.0 - 10.7 x10E9/L 06/24/2024 9:09 PM [facility] RBC Count 3.43(L) 3.90 - 5.20 x10E12/L 06/24/2024 9:09 PM [facility] Hemoglobin 10.8(L) 11.9 - 15.8 g/dL 06/24/2024 9:09 PM [facility] Hematocrit 32.0(L) 34.8 - 46.1 % 06/24/2024 9:09 PM [facility] MCV 93.3 80.0 - 98.0 fL 06/24/2024 9:09 PM [facility] MCH 31.5 26.7 - 33.6 pg 06/24/2024 9:09 PM [facility] MCHC 33.8 31.7 - 36.3 g/dL 06/24/2024 9:09 PM [facility] RDW-CV 13.8 11.3 - 14.8 % 06/24/2024 9:09 PM [facility] Platelet Count 275 150 - 420 x10E9/L 06/24/2024 9:09 PM [facility] MPV 10.5 7.8 - 11.4 fL 06/24/2024 9:09 PM [facility] Blood BLOOD SPECIMEN / Unknown Venipuncture / Unknown 06/24/2024 8:57 PM CDT 06/24/2024 9:06 PM CDT Chantal Manriquez MD LAB - HEMATOLOG Y ORDERABLES [facility] [address] [place] [address], [facility] [phone] * ETT LINE PERFORMABLE (06/24/2024 10:04 AM CDT) Narrative Rama Zhu APRN-FARM MACHINE TENDER - 06/24/2024 10:04 AM CDT Rama Zhu APRN-FARM MACHINE TENDER ? 06/24/2024 10:05 AM Endotracheal Tube Placement: ? Patient Location: OR. Procedure: intubation (33443) Procedure Section: ?? Sedation: under general anesthesia. Indications for Airway Management: ??anesthesia Procedure pretreatments used? ??No Induction: standard IV Patient Position: ??sniffing Mask Ventilation: easy with oral airway. Blade Type: Dario Blade Size: 3 Laryngoscopy View: grade 2 (partial cords) Intubation Adjuncts: stylet Tube: endotracheal tube Placement: oral Tube type: cuff - inflated Tube Size (MM): 6.5 Depth of Insertion (CM): 22 Measured From: teeth Cuff volume (mL): ??5 Cuff Inflated With: air Number of Attempts: 1. Placement Verified By: direct visualization, bilateral breath sounds and CO2 monitor Tube secured with: ??adhesive tape. Dentition unchanged? ??Yes Difficult Airway? ??No. Staff Section ? Anesthesia Provider: Rama Zhu, CORPORATE TRAINER-FARM MACHINE TENDER, Performed the procedure Tiny Willingham MD [facility] ORDERABLES * HCG URINE QUALITATIVE - POCT (IP) INTERFACED (06/24/2024 7:52 AM CDT) HCG Qual Urine Negative Negative 06/24/2024 7:59 AM CDT [facility] Urine URINE / Unknown 06/24/2024 7 :52 AM CDT 06/24/2024 7:59 AM CDT Chantal Manriquez MD LAB - POINT OF CARE ORDERABLES [facility] [address] [place] [address], [facility] [phone] * LIVING DONOR HOLD (06/24/2024 7:45 AM CDT) Donor Hold The Hold Sample has been received in the lab and will be held for 10 years in -70 Freezer. 06/24/2024 8:33 AM CDT [facility] Cryo Rack # Small Blue plastic rack 06/24/2024 8:33 AM CDT [facility] Rack Slot # No number 06/24/2024 8:33 AM CDT [facility] Blood BLOOD SPECIMEN / Unknown Venipuncture / Unknown 06/24/2024 7:45 AM CDT 06/24/2024 7:54 AM CDT Chantal Manriquez MD LAB - CHEMISTRY ORDERABLES Performing Organization Address [facility]/ZIP Co de Phone Number [facility] [address] [place] [address], [place] [phone] * HCG BETA BLOOD QUANTITATIVE (06/24/2024 7:45 AM CDT) Only the most recent of2 resultswithin the time period is included. Beta-hCG Total Quantitative <3 mIU/mL 06/24/2024 8:37 AM CDT [facility] Comment: HCG Numeric Result Interpretation: ? Non- Females: ? < 5 mIU/mL ? Post-Menopausal Females: ??< 7 mIU/mL ? This assay is cleared for use in the early detection of only. It is not approved for any other uses such as tumor marker screening, tumor marker monitoring, etc. and should not be used for any other purposes. Blood BLOOD SPECIMEN / Unknown Venipuncture / Unknown 06/24/2024 7:45 AM CDT 06/24/2024 8:00 AM CDT Chantal Manriquez MD LAB - CHEMISTRY ORDERABLES Performing Organization Address [facility] Co de Phone Number [facility] [address] [place] [address], [place] [phone] * HCG URINE QUAL POCT NOTIFICATION (06/24/2024 7:22 AM CDT) Comment Notification Label Only - See Separate Report 06/24/2024 8:31 AM CDT [facility] Urine URINE / Unknown 06/24/2024 7 :22 AM CDT 06/24/2024 7:25 AM CDT Chantal Manriquez MD LAB - URINALYSI S ORDERABLES Performing Organization Address City/[facility]/ZIP Co de Phone Number [facility] [address] [place] [address], [facility] [phone] * (ABNORMAL) COMPREHENSIVE METABOLIC PANEL (06/19/2024 8:21 AM [facility]) Only the most recent of4 resultswithin the time period is included. BUN 17 7 - 26 mg/dL 06/19/2024 9:33 AM [facility] Creatinine 0.55(L) 0.56 - 0.96 mg/dL 06/19/2024 9:33 AM [facility] Sodium 138 136 - 145 mmol/L 06/19/2024 9:33 AM [facility] Potassium 4.2 3.5 - 4.5 mmol/L 06/19/2024 9:33 AM [facility] Chloride 105 98 - 107 mmol/L 06/19/2024 9:33 AM [facility] CO2 26 22 - 29 mmol/L 06/19/2024 9:33 AM [facility] Glucose 90 70 - 115 mg/dL 06/19/2024 9:33 AM [facility] Calcium 9.6 8.4 - 10.2 mg/dL 06/19/2024 9:33 AM [facility] Protein Total 7.4 6.0 - 8.3 g/dL 06/19/2024 9:33 AM [facility] Albumin 4.0 3.4 - 5.0 g/dL 06/19/2024 9:33 AM [facility] Bilirubin Total 0.6 0.2 - 1.2 mg/dL 06/19/2024 9:33 AM [facility] Alkaline Phosphatase 109 40 - 150 U/L 06/19/2024 9:33 AM [facility] ALT 46 5 - 55 U/L 06/19/2024 9:33 AM [facility] AST 27 5 - 34 U/L 06/19/2024 9:33 AM [facility] Anion Gap 7 6 - 16 06/19/2024 9:33 AM [facility] BUN/Creatinine Ratio 31(H) 7 - 23 06/19/2024 9:33 AM CDT [facility] Osmolality Calculated 287 275 - 295 mOsm/kg 06/19/2024 9:33 AM T [facility] Albumin/Globulin Ratio 1.2 1.1 - 2.3 06/19/2024 9:33 AM T [facility] eGFR by CKD-EPI >90 >=90 mL/min/1.7 3 m2 06/19/2024 9:33 AM T [facility] Blood BLOOD SPECIMEN / Unknown Lab Venipuncture / Unknown 06/19/2024 8:21 AM CDT 06/19/2024 9:02 AM CDT Jonathan Bowles MD LAB - CHEMISTRY CHRISTIE PURCELL Performing Organization Address City/[facility]/ZIP Co de Phone Number [address] [address], [place] [phone] * PTT [facility] (06/16/2024 3:41 PM CDT) Only the most recent of2 resultswithin the time period is included. APTT 29.3 23.0 - 38.4 Seconds 06/16/2024 5:06 PM T [facility] Comment:Suggested therapeuti c range for full dose I.V. unfractionated heparin therapy for venous thromboembolism is 71 to 109 seconds. Blood BLOOD SPECIMEN / Unknown Lab Venipuncture / Unknown 06/16/2024 3:41 PM CDT 06/16/2024 4:45 PM CDT Chantal Manriquez MD LAB - COAGULATI ON ORDERABLES [address] [address], [place] [phone] * (ABNORMAL) PT-INR [facility] (06/16/2024 3:41 PM CDT) Only the most recent of2 resultswithin the time period is included. PT 11.8(L) 12.1 - 14.8 Seconds 06/16/2024 5:06 PM T [facility] INR 0.9 See Comment 06/16/2024 5:06 PM CDT [facility] Comment:The suggested therap eutic range for standard coumadin (warfarin) therapy is an INR of 2.0-3.0. For high-risk patients (Mechanical Mitral Valve Prosthesis, etc.), the suggested prophylactic therapeutic range is an INR of 2.5-3.5. Blood BLOOD SPECIMEN / Unknown Lab Venipuncture / Unknown 06/16/2024 3:41 PM CDT 06/16/2024 4:45 PM CDT Chantal Manriquez MD LAB - COAGULATI ON ORDERABLES Performing Organization Address City/[facility]/ZIP Co de Phone Number [facility] [address] [place] [address], [facility] [phone] * HIV/HCV/HBV GABBY DONOR (06/16/2024 3:41 PM CDT) Only the most recent of2 resultswithin the time period is included. Donor HIV-1/HCV/HBV Comment Non Reactive 06/18/2024 11:14 AM CDT [facility] ([facility]) Comment: ?Non-Reactive for HIV RNA ?Non-Reactive for HCV RNA ?Non-Reactive for HBV DNA Test performed with [employer] Ultrio Elite Assay Kit. Blood BLOOD SPECIMEN / Unknown Lab Venipuncture / Unknown 06/16/2024 3:41 PM CDT 06/16/2024 4:44 PM CDT Narrative [facility] ([facility]) - 06/18/2024 11:14 AM CDT Performed at: ??01 - [facility] [address] [place] [address] ??[id number] Kettle Fry Cook Operator: Fabian Lino [facility], Phone: ??[phone] Chantal Manriquez MD LAB - CHEMISTRY ORDERABLES Performing Organization Address City/[facility]/ZIP Co de Phone Number [facility] ([facility]) [address] [phone] * HIV 1/0/2 RFLX TO WB DONOR (06/16/2024 3:41 PM CDT) Only the most recent of2 resultswithin the time period is included. [facility] HIV-1/HIV-2 Ab + p24 Ag Negative Negative 06/18/2024 7:08 PM CDT [facility] ([facility]) Comment: Test performed with [employer] s HIV Ag/Ab kit. The HIV Ag/Ab Combo Kit can detect: HIV-1 (groups M and O)/HIV-2 Ab, HIV-1 p24 Ag Blood BLOOD SPECIMEN / Unknown Lab Venipuncture / Unknown 06/16/2024 3:41 PM CDT 06/16/2024 4:44 PM CDT Narrative [facility] ([facility]) - 06/18/2024 7:08 PM CDT Performed at: ??01 - [email or web address] [address] ??[id number] Kettle Fry Cook Operator: Fabian Lino [facility], Phone: ??[phone] Chantal Manriquez MD LAB - CHEMISTRY ORDERABLES [facility] ([facility]) [address] [place] [address], [facility] * HEPATITIS C AB SCREEN RFLX NAAT QUANT (06/16/2024 3:41 PM CDT) Only the most recent of2 resultswithin the time period is included. [facility] Hepatitis C Antibody Non-react marquez Non-reac tive 06/16/2024 5:28 PM CDT [facility] Comment:Hepatitis C Antibody screen [...] LAB - CHEMISTRY ORDERABLES Performing Organization Address [facility] Co de Phone Number [address] [address], [facility] [phone] * SYPHILIS ANTIBODY CASCADING REFLEX (06/16/2024 3:41 PM CDT) Only the most recent of2 resultswithin the time period is included. Treponema pallidum Antibody Non-react marquez Non-react marquez 06/16/2024 5:28 PM CDT [facility] Comment: No Laboratory evidence of syphilis infection. ?? Note: ??Circulating antibodies may be low or undetectable in early infection. ??If recent exposure is suspected, re-draw sample in 2-4 weeks and repeat testing. Blood BLOOD SPECIMEN / Unknown Lab Venipuncture / Unknown 06/16/2024 3:41 PM CDT 06/16/2024 4:43 PM CDT Chantal Manriquez MD LAB - SEROLOGY ORDERABLES Performing Organization Address [facility] Co de Phone Number [address] [address], [facility] [phone] * TRYPANOSOMA ANTIBODY IGG (06/16/2024 3:41 PM CDT) Only the most recent of2 resultswithin the time period is included. Pathologist [facility] Trypan. cruzi IgG 0.3 <=1.0 IV 024 10:56 PM CDT [facility] ([facility]) Comment: INTERPRETIVE INFORMATION: Trypanosoma cruzi Ab, IgG ??1.0 IV or less......Negative - No significant level of ?Trypanosoma cruzi IgG antibody detected. ??1.1 IV..............Equivocal - Questionable presence of ?Trypanosoma cruzi IgG antibody detected. ?Repeat testing in 10-14 days may be ?helpful. ??1.2 IV or greater...Positive - IgG antibodies to Trypanosoma ?cruzi detected, which may suggest current ?or past infection. This assay should not be used for blood donor screening or associated re-entry protocols, or for screening Human Cell and Cellular Tissue-Based Products (HCT/Ps). According to the CDC, at least two different serologic tests should be used to make the laboratory diagnosis of chronic Chagas Disease, as no single serologic test is sufficiently sensitive and specific. Performed By: [facility] [address] [place] [address] Compliance Representative: Art Mcdowell MD, PhD CLIA Number: [id number] Blood BLOOD SPECIMEN / Unknown Lab Venipuncture / Unknown 06/16/2024 3:41 PM CDT 06/16/2024 4:44 PM CDT Chantal Manriquez MD LAB - SEROLOGY ORDERABLES Performing Organization Address [facility] de Phone Number [facility] ([facility]) [address] [place] [id number] * URIC ACID BLOOD (06/16/2024 3:41 PM CDT) Only the most recent of2 resultswithin the time period is included. Uric Acid 3.1 2.6 - 6.0 mg/dL 06/16/2024 5:13 PM CDT [facility] Blood BLOOD SPECIMEN / Unknown Lab Venipuncture / Unknown 06/16/2024 3:41 PM CDT 06/16/2024 4:45 PM CDT Chantal Manriquez MD LAB - CHEMISTRY ORDERABLES Performing Organization Address [facility] Co de Phone Number [facility] [address] [place] [address], [place] [phone] * WEST NILE VIRUS ANTIBODY IGG/IGM PANEL (06/16/2024 3:41 PM CDT) Only the most recent of2 resultswithin the time period is included. West Nile IgG Ab 0.22 <=1.29 IV 06/19/20 24 8:04 PM CDT [facility] ([facility]) Comment: INTERPRETIVE INFORMATION: West Nile Virus Ab, IgG by RICARDO, Serum ??1.29 IV or less ........ Negative - No significant level ? of West Nile virus IgG antibody ? detected. ??1.30 - 1.49 IV ......... Equivocal - Questionable ? presence of West Nile virus IgG ? antibody detected. Repeat ? testing in 10-14 days may be ? helpful. ??1.50 IV or greater ..... Positive - Presence of IgG ? antibody to West Nile virus ? detected, suggestive of ? current or past infection. This test is intended to be used as a semi-quantitative means of detecting West Nile virus-specific IgG in serum samples in which there is a clinical suspicion of West Nile virus infection. This test should not be used solely for quantitative purposes, nor should the results be used without correlation to clinical history or other data. Because other members of the Flaviviridae family, such as St.Amando encephalitis virus, show extensive cross-reactivity with West Nile virus, serologic testing specific for these species should be considered. Seroconversion between acute and convalescent sera is considered strong evidence of current or recent infection. The best evidence for infection is a significant change on two appropriately timed specimens, where both tests are done in the same laboratory at the same time. West Nile IgM Ab 0.00 <=0.89 IV 06/19/20 24 8:04 PM T [facility] ([facility]) Comment: INTERPRETIVE INFORMATION: West Nile Virus Ab, IgM by RICARDO, Serum 0.89 IV or less ...... Negative - No significant level ? of West Nile virus IgM antibody ? detected. 0.90-1.10 IV ......... Equivocal - Questionable presence ? of West Nile virus IgM antibody ? detected. Repeat testing in ? 10-14 days may be helpful. 1.11 IV or greater ... Positive - Presence of IgM ? antibody to West Nile virus ? detected, suggestive of current ? or recent infection. This test is intended to be used as a semi-quantitative means of detecting West Nile virus-specific IgM in serum samples in which there is a clinical suspicion of West Nile virus infection. This test should not be used solely for quantitative purposes, nor should the results be used without correlation to clinical history or other data. Because other members of the Flaviviridae family, such as St.Amando encephalitis virus, show extensive cross-reactivity with West Nile virus, serologic testing specific for these species should be considered. Seroconversion between acute and convalescent sera is considered strong evidence of current or recent infection. The best evidence for infection is a significant change on two appropriately timed specimens, where both tests are done in the same laboratory at the same time. Performed By: [facility] [address] [place] [address] Compliance Representative: Art Mcdowell MD, PhD CLIA Number: [id number] Blood BLOOD SPECIMEN / Unknown Lab Venipuncture / Unknown 06/16/2024 3:41 PM CDT 06/16/2024 4:43 PM CDT Chantal Manriquez MD LAB - CHEMISTRY ORDERABLES [facility] ([facility]) [address] [place] [address], [facility] * STRONGYLOIDES ANTIBODY IGG (06/16/2024 3:41 PM CDT) Only the most recent of2 resultswithin the time period is included. Strongyloides Antibody IgG 0.8 <=0.9 IV 06/19/2024 11:01 PM CDT [facility] ([facility]) Comment: INTERPRETIVE INFORMATION: Strongyloides Ab, IgG by RICARDO ??0.9 IV or less....... Negative - No significant ?level of Strongyloides IgG ?antibody detected. ??1.0 IV................Equivocal - The Strongyloides IgG ?antibody result is borderline and ?therefore inconclusive. Recommend ?retesting the patient in 2-4 weeks, ?if clinically indicated. ??1.1 IV or greater ... Positive - IgG antibodies to ?Strongyloides detected, which ?may suggest current or past ?infection. False-positive results may occur with prior exposure to other helminth infections. Testing low-prevalence populations may also result in false-positive results. Performed By: [facility] [employer] [address] [place] [address] Compliance Representative: Art Mcdowell MD, PhD CLIA Number: [id number] Blood BLOOD SPECIMEN / Unknown Lab Venipuncture / Unknown 06/16/2024 3:41 PM CDT 06/16/2024 4:44 PM CDT Chantal Manriquez MD LAB - SEROLOGY ORDERABLES [facility] ([facility]) [address] [place] [address], [facility] * CYTOMEGALOVIRUS ANTIBODY IGM BLOOD (06/16/2024 3:41 PM CDT) Only the most recent of2 resultswithin the time period is included. Cytomegalovirus Antibody IgM <30.0 0.0 - 29.9 AU/mL 06/18/2024 7:13 AM CDT [facility] ([facility]) Comment: ?Negative ? <30.0 ?Equivocal ??30.0 - 34.9 ?Positive ? >34.9 A positive result is generally indicative of acute infection, reactivation or persistent IgM production. Blood BLOOD SPECIMEN / Unknown Lab Venipuncture / Unknown 06/16/2024 3:41 PM CDT 06/16/2024 4:43 PM CDT Narrative [facility] ([facility]) - 06/18/2024 7:13 AM CDT Performed at: ??01 - [facility] [address] [place], [place] ??[id number] Kettle [employer] Cook Operator: Daniel Colón PhD, Phone: ??[phone] Chantal Manriquez MD LAB - CHEMISTRY ORDERABLES [facility] ([facility]) [address] [place] [address], [facility] * CYTOMEGALOVIRUS ANTIBODY IGG BLOOD (06/16/2024 3:41 PM CDT) Only the most recent of2 resultswithin the time period is included. Cytomegalovirus Antibody IgG <0.20 <=0.70 U/mL 06/18/2024 6:00 PM CDT [facility] ([facility]) Comment: INTERPRETIVE INFORMATION: Cytomegalovirus Antibody, IgG ??0.59 U/mL or less......... Not Detected ??0.6 - 0.69 U/mL........... Indeterminate-Repeat testing in ? 10-14 days may be helpful. ??0.70 U/mL or greater...... Detected In immunocompromised patients, CMV serology (IgG or IgM antibody titers) may not be reliable and may be misleading in the diagnosis of acute or reactivation CMV disease. The preferred method for diagnosis is culture of virus and/or demonstration of viral antigen in peripheral white cells (buffy coat), bronchoalveolar lavage (BAL) cells, or tissue biopsies. This test should not be used for blood donor screening, associated re-entry protocols, or for screening Human Cell, Tissues and Cellular and Tissue-Based Products (HCT/P). The best evidence for current infection is a significant change on two appropriately timed specimens, where both tests are done in the same laboratory at the same time. Performed By: [employer] [address] [place] [address] Compliance Representative: Atr Mcdowell MD, PhD CLIA Number: [id number] Blood BLOOD SPECIMEN / Unknown Lab Venipuncture / Unknown 06/16/2024 3:41 PM CDT 06/16/2024 4:44 PM CDT Chantal Manriquez MD LAB - CHEMISTRY ORDERABLES Performing Organization Address City/[facility]/ZIP Co de Phone Number [facility]) [address] [place], [place] [address] * (ABNORMAL) ALT (06/16/2024 3:41 PM CDT) ALT 60(H) 5 - 55 U/L 06/17/2024 10:23 AM CDT [facility] Blood BLOOD SPECIMEN / Unknown Lab Venipuncture / Unknown 06/16/2024 3:41 PM CDT 06/17/2024 10:09 AM CDT Carrie Sierra MD LAB - CHEMISTRY CHRISTIE PURCELL Performing Organization Address [facility]/ZIP Co de Phone Number [address] [address], [place] [phone] * (ABNORMAL) AST BLOOD (06/16/2024 3:41 PM CDT) AST 36(H) 5 - 34 U/L 06/17/2024 10:23 AM CDT [facility] Blood BLOOD SPECIMEN / Unknown Lab Venipuncture / Unknown 06/16/2024 3:41 PM CDT 06/17/2024 10:09 AM CDT Carrie Sierra MD LAB - CHEMISTRY CHRISTIE PURCELL Performing Organization Address City/[facility]/ZIP Co de Phone Number [address] [address], [place] [phone] * HEPATITIS B CORE ANTIBODY TOTAL (06/16/2024 3:41 PM CDT) Only the most recent of2 resultswithin the time period is included. HBc Antibody Total Non-reacti ve Non-reacti ve 06/16/2024 5:28 PM CDT [facility] Blood BLOOD SPECIMEN / Unknown Lab Venipuncture / Unknown 06/16/2024 3:41 PM CDT 06/16/2024 4:43 PM CDT Chantal Manriquez MD LAB - CHEMISTRY ORDERABLES Performing Organization Address City/[facility]/ZIP Co de Phone Number [address] [address], [place] [phone] * HEPATITIS B SURFACE ANTIGEN W RFLX CONFIRMATION (06/16/2024 3:41 PM CDT) Only the most recent of2 resultswithin the time period is included. Hepatitis B Virus Surface Antigen Non-reacti ve Non-reacti ve 06/16/2024 5:28 PM CDT [facility] Blood BLOOD SPECIMEN / Unknown Lab Venipuncture / Unknown 06/16/2024 3:41 PM CDT 06/16/2024 4:43 PM CDT Chantal Manriquez MD LAB - CHEMISTRY ORDERABLES Performing Organization Address [facility]/ZIP Co de Phone Number [address] [address], [place] [phone] * (ABNORMAL) GGT (06/16/2024 3:41 PM CDT) GGT 252(H) 9 - 64 Units/L 06/17/2024 10:23 AM CDT [facility] Blood BLOOD SPECIMEN / Unknown Lab Venipuncture / Unknown 06/16/2024 3:41 PM CDT 06/17/2024 10:09 AM CDT Carrie Sierra MD LAB - CHEMISTRY CHRISTIE PURCELL [facility] [address] [place] [address], [facility] [phone] * XR Chest 2Vw (06/16/2024 3:23 PM CDT) Only the most recent of2 resultswithin the time period is included. Anatomical Region Laterality Modality Chest Digital Radiogra phy 06/16/2024 3:58 PM CDT Impressions 06/17/2024 8:10 AM CDT IMPRESSION: No acute cardiopulmonary process. Report dictated by Justino Castro MD, (residential roofer helper). Bhargav Aguilar MD have personally reviewed and interpreted this examination/study. > Interpreting Provider: Bhargav Bates MD on 06/17/2024 8:10 AM Narrative 06/17/2024 8:10 AM CDT PROCEDURE: ??XR CHEST 2VW, DATE/TIME OF EXAM: ??06/16/2024 3:24 PM, LOCATION [facility] INDICATION: Z00.5: Willing to be kidney donor COMPARISON: None. FINDINGS: There is no focal consolidation, pleural effusion, or pneumothorax. The superior mediastinal contours and cardiac silhouette are normal. The visible bony thorax is intact. Procedure Note Bhargav Bates MD - 06/17/2024 PROCEDURE: XR CHEST 2VW, DATE/TIME OF EXAM: 06/16/2024 3:24 PM, LOCATION [facility] INDICATION: Z00.5: Willing to be kidney donor COMPARISON: None. FINDINGS: There is no focal consolidation, pleural effusion, or pneumothorax. The superior mediastinal contours and cardiac silhouette are normal. The visible bony thorax is intact. IMPRESSION: No acute cardiopulmonary process. Report dictated by Justino Castro MD, (residential roofer helper). Bhargav Aguilar MD have personally reviewed and interpreted this examination/study. > Interpreting Provider: Bhargav Bates MD on 06/17/2024 8:10 AM Chantal Manriquez MD DIAGNOSTIC IMAG ING ORDERABLES * SARS-COV-2 (COVID-19) PRE-SURGICAL/PROCEDURE (06/16/2024 12:33 PM CDT) Pathologist [facility] COVID-19 PCR Not detected Not detected 06/17/2024 12:28 AM CDT [facility] Microbiology SPECIMEN FROM NASOPHARYNGEAL STRUCTURE / Unknown Collection / Unknown 06/16/2024 12:33 PM CDT 06/16/2024 12:37 PM CDT Narrative [facility] - 06/17/2024 12:28 AM CDT This nucleic acid amplification assay performance was validated by [facility]. This test has been authorized by the Food and Drug administration (FDA)under an Emergency??Use Authorization (EUA). This test has been validated in accordance with the FDA's guidance document Policy for Diagnostic Testing in Laboratories Certified to perform High Complexity Testing under CLIA prior to Emergency Use Authorization for Coronavirus Disease-2019 during the Public Health Emergency issued on November 14, 2019. FDA independent review of this validation is pending. This test is only authorized for the duration of time the declaration that circumstances exist justifying the authorization of emergency use of in vitro diagnostic tests for detection of SARS-CoV-2 virus and/or diagnosis of COVID-19 infection under section 564(b)(1) of the Act, 21 U.S.C 360bbb-3 (b)(1), unless the authorization is terminated or revoked sooner. Fact Sheets for this EUA assay are available upon request. Chantal Manriquez MD LAB - MICROBIOL OGY ORDERABLES [facility] [address] [place] [phone] * EKG 12-LEAD (06/16/2024 10:25 AM CDT) Pathologist [facility] Ventricular Rate 61 BPM [facility] Atrial Rate 61 BPM [facility] P-R Interval 156 ms [facility] QRS Duration ms 82 ms [facility] Q-T Interval ms 402 ms [facility] QTC Calculation (Bezet) 404 ms [facility] Calculated P [place] 50 degrees [facility] Calculated R [place] -5 degrees [facility] Calculated T [place] 13 degrees [facility] Interpretation EKG NORMAL SINUS RHYTHM NORMAL ECG NO PREVIOUS ECGS AVAILABLE Confirmed by CODY MD, OMKAR-MARQUEZ ([id number]) on 06/17/2024 2:48:52 PM [facility] MUSE 06/16/2024 10:2 5 AM CDT 06/17/2024 2:48 PM CDT Chantal Manriquez MD ECG ORDERABLES [facility] * URINALYSIS AUTO - POINT OF CARE (AMB) [facility] (10/23/2023 3:44 PM CREDIT MANAGER) Glucose UA neg [facility] [address] Bilirubin UA POCT neg [facility] [address] Ketones UA POCT neg [facility] [address] Specific [place] UA 1.[address] [facility] [address] Blood Urine POCT neg [facility] [address] pH UA 5.[address] [facility] [address] Protein UA neg [facility] [address] Urobilinogen UA 3.5 [facility] [address] Nitrite UA neg [facility] [address] WBC UA neg [facility] [address] Urine URINE / Unknown 10/23/2023 3 :44 PM CREDIT MANAGER Emily Varma CORPORATE TRAINER-STAFF TOXICOLOGIST LAB - POINT OF CARE ORDERABLES [facility] [address] [place] [address], [facility] [phone] * NM RENAL GFR STUDY (09/23/2023 4:17 PM CREDIT MANAGER) Anatomical Region Laterality Modality Abdomen Nuclear Medicine 09/23/2023 10:1 0 AM CREDIT MANAGER Impressions 09/23/2023 4:37 PM CREDIT MANAGER Impression: GFR of 135 ml/min/1.73 m2, which is elevated for the patient's age. > Dictated by Radha Avendaño MD (Senior Policy Advisor) 09/23/2023 10:10 AM Florencio Aguilar, DO have personally reviewed and interpreted this examination/study. > Interpreting Provider: Florencio Vasquez DO on 09/23/2023 4:37 PM Narrative 09/23/2023 4:37 PM CREDIT MANAGER PROCEDURE: ??NM RENAL GFR STUDY DATE/TIME OF EXAM: ??09/23/2023 4:17 PM CLINICAL INFORMATION: None relevant/not provided if blank. Indication: Z00.5: Willing to be kidney donor Procedure: GFR by sampling History: A 58-year-old female presenting for renal evaluation prior to kidney donation. patient BMI 21.7 kg/m?? Technique: After giving the patient 100 uCi of Tc-99m DTPA IV in the left antecubital fossa, standard protocol was followed and blood samples were drawn at 1 hour, 2 hours and 3 hours after injection. Serum was extracted from all samples and radiotracer activity was calculated which was incorporated in the software to calculate the GFR. Findings: Uncorrected GFR ??116 ml/min/1.73 m2 After body surface area correction, Corrected GFR 135. ??Normal range of GFR in adult females 74.4 - 110.4. Procedure Note Florencio Vasquez DO - 09/23/2023 PROCEDURE: NM RENAL GFR STUDY DATE/TIME OF EXAM: 09/23/2023 4:17 PM CLINICAL INFORMATION: None relevant/not provided if blank. Indication: Z00.5: Willing to be kidney donor Procedure: GFR by sampling History: A 58-year-old female presenting for renal evaluation prior to kidney donation. patient BMI 21.7 kg/m?? Technique: After giving the patient 100 uCi of Tc-99m DTPA IV in theleft antecubital fossa, standard protocol was followed and blood samples were drawn at 1 hour, 2 hours and 3 hours after injection. Serum wasextracted from all samples and radiotracer activity was calculated which was incorporated in the software to calculate the GFR. Findings: Uncorrected GFR 116 ml/min/1.73 m2 After body surface area correction, Corrected GFR 135. Normal range of GFR in adult females 74.4 - 110.4. Impression: GFR of 135 ml/min/1.73 m2, which is elevated for the patient's age. > Dictated by Radha Avendaño MD (Senior Policy Advisor) 09/23/2023 10:10AM Florencio Aguilar DO have personally reviewed and interpreted this examination/study. > Interpreting Provider: Florencio Vasquez DO on 09/23/2023 4:37 PM Chantal Manriquez MD NM ORDERABLES * NM RENAL SCAN WO DRUG (09/23/2023 4:01 PM CREDIT MANAGER) Anatomical Region Laterality Modality Abdomen Nuclear Medicine 09/23/2023 2:29 PM CREDIT MANAGER Impressions 09/23/2023 4:37 PM CREDIT MANAGER IMPRESSION: 1. Mild reduced function of ??both kidneys. No evidence of obstruction. 2. Relative function is 53% for the left kidney and 47% for the right kidney. > Dictated by Radha Avendaño MD (Senior Policy Advisor) 09/23/2023 2:29 PM Florencio Aguilar DO have personally reviewed and interpreted this examination/study. > Interpreting Provider: Florencio Vasquez DO on 09/23/2023 4:37 PM Narrative 09/23/2023 4:37 PM CREDIT MANAGER PROCEDURE: ??NM RENAL SCAN WO DRUG DATE/TIME OF EXAM: ??09/23/2023 2:18 PM CLINICAL INFORMATION: None relevant/not provided if blank. Indication: Z00.5: Willing to be kidney donor MAG3 renal scan HISTORY: A 58-year-old female presenting for renal evaluation prior to kidney donation. BMI21.7 kg/m?? TECHNIQUE: An IV bolus of 9.36 ??mCi of Tc- 99m MAG 3 was administered. Sequential dynamic blood flow images of the abdomen were obtained in the anterior and posterior projections for 30 minutes following radiotracer injection. Whole kidney time-activity curves were produced with quantitative indices. FINDINGS: The blood flow phase of the study shows normal perfusion of both kidneys. The kidneys are grossly normal in size and contours. ??There is mild delayed uptake and excretion of the tracer bilaterally. The quantitative values are as follows: COMPARISON: Quantitative function Left ? Right 10 ?8 ?Time to peak (mins) ? 13 ?14 ?T 1/2 (mins) ? 53 ?47 ?Differential function (%) ? Procedure Note Florencio Vasquez DO - 09/23/2023 PROCEDURE: NM RENAL SCAN WO DRUG DATE/TIME OF EXAM: 09/23/2023 2:18 PM CLINICAL INFORMATION: None relevant/not provided if blank. Indication: Z00.5: Willing to be kidney donor MAG3 renal scan HISTORY: A 58-year-old female presenting for renal evaluation prior to kidney donation. BMI21.7 kg/m?? TECHNIQUE: An IV bolus of 9.36 mCi of Tc- 99m MAG 3 was administered. Sequential dynamic blood flow images of the abdomen were obtained in the anterior and posterior projections for 30 minutes following radiotracer injection. Whole kidney time-activity curves were produced with quantitative indices. FINDINGS: The blood flow phase of the study shows normal perfusion ofboth kidneys. The kidneys are grossly normal in size and contours. There is mild delayed uptake and excretion of the tracer bilaterally. The quantitative values are as follows: COMPARISON: Quantitative function Left Right 10 8 Time to peak (mins) 13 14 T 1/2 (mins) 53 47 Differential function (%) IMPRESSION: 1. Mild reduced function of both kidneys. No evidence of obstruction. 2. Relative function is 53% for the left kidney and 47% for the right kidney. > Dictated by Radha Avendaño MD (Senior Policy Advisor) 09/23/2023 2:29PM Florencio Aguilar DO have personally reviewed and interpreted this examination/study. > Interpreting Provider: Florencio Vasquez DO on 09/23/2023 4:37 PM Chantal Manriquez MD DC ORDERABLES * CYSTATIN C REFLEX (08/19/2023 3:12 PM CREDIT MANAGER) eGFR by Cystatin C 99 >=60 mL/min/BS A 08/21/2023 11:04 AM CREDIT MANAGER [facility] ([facility]) Comment: INTERPRETIVE INFORMATION: eGFR by Cystatin C eGFR by Cystatin C was calculated using the CKD-EPI equation. Stage ? Description ?eGFR Range ??1.......Normal or increased eGFR.......90 or Greater ??2.......Mildly decreased eGFR..........60-89 ??3.......Moderately decreased eGFR......30-59 ??4.......Severely decreased eGFR........15-29 ??5.......Kidney Failure.................Less than 15 Performed By: [facility] [address] [place] [address] Compliance Representative: Art Mcdowell MD, PhD CLIA Number: [id number] Blood BLOOD SPECIMEN / Unknown Lab Venipuncture / Unknown 08/19/2023 3:12 PM CREDIT MANAGER 08/19/2023 3:24 PM CREDIT MANAGER Chantal Manriquez MD LAB - CHEMISTRY ORDERABLES Performing Organization Address [facility] de Phone Number [facility]) [address] [place] [address] * CYSTATIN C WITH REFLEX TO EGFR (08/19/2023 3:12 PM CREDIT MANAGER) Cystatin C 0.8 0.5 - 1.2 mg/L 08/21/2023 11:04 AM CREDIT MANAGER [facility] ([facility]) Comment: Performed By: [facility] [address] [place] [address] Compliance Representative: Art Mcdowell MD, PhD CLIA Number: [id number] Blood BLOOD SPECIMEN / Unknown Lab Venipuncture / Unknown 08/19/2023 3:12 PM CREDIT MANAGER 08/19/2023 3:24 PM CREDIT MANAGER Chantal Manriquez MD LAB - CHEMISTRY ORDERABLES Performing Organization Address City/[facility] Co de Phone Number [facility] ([facility]) [address] [place] [address], [facility] * HLA TYPING DNA LOW RESOLUTION DR,DQ (08/19/2023 3:12 PM CREDIT MANAGER) DR DQ Low Resolution DRB1-1 *07 08/26/2023 3:38 PM CREDIT MANAGER [facility] ([facility]) DR DQ Low Resolution DRB1-2 *13 08/26/2023 3:38 PM CREDIT MANAGER U [facility] ([facility]) DR DQ Low Resolution DQB1-1 *03 (DQ7) 08/26/2023 3:38 PM CREDIT MANAGER [facility] ([facility]) DR DQ Low Resolution DQB1-2 *03 (DQ9) 08/26/2023 3:38 PM CREDIT MANAGER [facility] ([facility]) DR DQ Low Resolution DRB3-1 *01 08/26/2023 3:38 PM CREDIT MANAGER [facility] ([facility]) DR DQ Low Resolution DRB3-2 Negative 08/26/2023 3:38 PM CREDIT MANAGER [facility] ([facility]) DR DQ Low Resolution DRB4-1 *01:03N 08/26/2023 3:38 PM CREDIT MANAGER [facility] ([facility]) DR DQ Low Resolution DRB4-2 Negative 08/26/2023 3:38 PM CREDIT MANAGER [facility] ([facility]) DR DQ Low Resolution DRB5-1 Negative 08/26/2023 3:38 PM CREDIT MANAGER [facility] ([facility]) DR DQ Low Resolution DRB5-2 Negative 08/26/2023 3:38 PM CREDIT MANAGER [facility] ([facility]) DR DQ Low Resolution Methodology Real Time PCR 08/26/2023 3:38 PM CREDIT MANAGER [facility] ([facility]) DR DQ Low Resolution test date [id number] 08/26/2023 3:38 PM CREDIT MANAGER [facility] ([facility]) Comment: This test was developed and its performance characteristics determined by the [facility]. ??It has not been cleared or approved by the U.S. Food and Drug Administration. ??The FDA has determined that such clearance or approval is not necessary. ??This test is used for clinical purposes. ??It should not be regarded as investigational or for research. This laboratory is certified under the Clinical Laboratory Improvement Amendments of 1988 (CLIA-88) as qualified to perform high complexity clinical laboratory testing. ??CLIA ID# [id number] Performed at: [facility], [address] [place], [place] ??[address] Kettle Fry Cook Operator:Dr. Kevin Styles, PhD, Blood BLOOD SPECIMEN / Unknown Lab Venipuncture / Unknown 08/19/2023 3:12 PM CREDIT MANAGER 08/19/2023 3:25 PM CREDIT MANAGER Chantal Manriquez MD LAB - BLOOD BAN K ORDERABLES [facility] ([facility]) [address] [place] [address], [facility] * HLA TYPING DNA LOW RESOLUTION A,B,C (08/19/2023 3:12 PM CREDIT MANAGER) ABC DNA A1 *02 08/26/2023 3:33 PM CREDIT MANAGER U [facility] ([facility]) ABC DNA B1 *40 (B60) 08/26/2023 3:33 PM CREDIT MANAGER [facility] ([facility]) ABC DNA B2 *50 08/26/2023 3:33 PM CREDIT MANAGER [facility] ([facility]) ABC DNA BW1 6 08/26/2023 3:33 PM CREDIT MANAGER [facility] ([facility]) ABC DNA BW2 6 08/26/2023 3:33 PM CREDIT MANAGER [facility] ([facility]) ABC DNA C1 *03 (Cw10) 08/26/2023 3:33 PM CREDIT MANAGER [facility] ([facility]) ABC DNA C2 *06 08/26/2023 3:33 PM CREDIT MANAGER [facility] ([facility]) ABC DNA Methodology Real Time PCR 08/26/2023 3:33 PM CREDIT MANAGER [facility] ([facility]) ABC DNA Test Date [id number] 07/2023 3:33 PM CREDIT MANAGER [facility] ([facility]) Comment: This test was developed and its performance characteristics determined by the [facility]. ??It has not been cleared or approved by the U.S. Food and Drug Administration. ??The FDA has determined that such clearance or approval is not necessary. ??This test is used for clinical purposes. ??It should not be regarded as investigational or for research. This laboratory is certified under the Clinical Laboratory Improvement Amendments of 1988 (CLIA-88) as qualified to perform high complexity clinical laboratory testing. ??CLIA ID# [id number] Performed at: [facility], [address] [place], [place] ??[address] Kettle [employer] Cook Operator:Dr. Kevin Styles, PhD, Blood BLOOD SPECIMEN / Unknown Lab Venipuncture / Unknown 08/19/2023 3:12 PM CREDIT MANAGER 08/19/2023 3:25 PM CREDIT MANAGER Chantal Manriquez MD LAB - BLOOD BAN K ORDERABLES [facility] ([facility]) [address] [place] [address], [facility] * (ABNORMAL) ADRIAN-BARLOW VIRUS AB VIRAL CAPSID IGG/IGM (08/19/2023 3:12 PM CREDIT MANAGER) Adrian-Barlow Viral Capsid Antigen Antibody IgG 135.0(H) 0.0 - 17.9 U/mL 08/21/2023 2:10 PM CREDIT MANAGER [facility] ([facility]) Comment: ? Negative ?<18.0 ? Equivocal 18.0 - 21.9 ? Positive ?>21.9 Adrian-Barlow Viral Capsid Antigen Antibody IgM <36.0 0.0 - 35.9 U/mL 08/21/2023 2:10 PM CREDIT MANAGER [facility] ([facility]) Comment: ? Negative ?<36.0 ? Equivocal 36.0 - 43.9 ? Positive ?>43.9 Blood BLOOD SPECIMEN / Unknown Lab Venipuncture / Unknown 08/19/2023 3:12 PM CREDIT MANAGER 08/19/2023 3:23 PM CREDIT MANAGER Narrative [facility] ([facility]) - 08/21/2023 2:10 PM CREDIT MANAGER Performed at: ??01 - [facility] [address] [place], [place] ??[id number] Kettle Fry Cook Operator: Daniel Colón PhD, Phone: ??[phone] Chantal Manriquez MD LAB - SEROLOGY ORDERABLES Performing Organization Address [facility]/State/[facility] Co de Phone Number [facility] ([facility]) [address] [place] [address] * ALBUMIN URINE TIMED (08/19/2023 3:12 PM CREDIT MANAGER) Albumin Random Urine 5.5 Not Established ug/mL 08/19/2023 6:10 PM [facility] Collection Time Timed Urine 24 Hrs 08/19/2023 6:10 PM [facility] Comment:ht 5'1 wt 115 Albumin 24 Hour Urine 6 <30 mg/24 hrs 08/19/2023 6:10 PM [facility] Volume Timed Urine 1,100 mL 08/19/2023 6:10 PM [facility] Comment:start time was 09:30am finish time 08/19/23 09:30am Urine TIMED URINE SPECIMEN / Unknown Timed Urine Volume Measurement / Unknown 08/19/2023 3:12 PM CREDIT MANAGER 08/19/2023 5:44 PM CREDIT MANAGER Chantal Manriquez MD LAB - URINE SLADE BRISSA ORDERABLES [facility] [address] [place] [address], [facility] [phone] * (ABNORMAL) CREATININE CLEARANCE URINE TIMED (08/19/2023 3:12 PM CREDIT MANAGER) Creatinine Urine <3.00 Not Established mg/dL 08/19/2023 3:57 PM [facility] Creatinine 1.30(H) 0.56 - 0.96 mg/dL 08/19/2023 3:57 PM [facility] Volume Timed Urine 1,100 mL 08/19/2023 3:57 PM [facility] Comment:start time was 09:30am finish time 08/19/23 09:30am Collection Time Timed Urine 24 Hrs 08/19/2023 3:57 PM [facility] Comment:ht 5'1 wt 115 Creatinine Clearance <1.76(L) 70.00 - 130.00 mL/minute/1.73m 2 08/19/2023 3:57 PM [facility] Chart BSA 1.5 Avg. BSA = 1.73 m2 m2 08/19/2023 3:57 PM [facility] Creatinine Clearance (Corrected for BSA) <2 Not Established mL/minute 08/19/2023 3:57 PM [facility] Urine URINE / Unknown Collection / Unknown 08/19/2023 3:12 PM CREDIT MANAGER 08/19/2023 3:22 PM CREDIT MANAGER Chantal Manriquez MD LAB - URINE SLADE BRISSA ORDERABLES [facility] [address] [place] [address], [facility] [phone] * QUANTIFERON-TB GOLD PLUS 4-TUBE (08/19/2023 3:12 PM CREDIT MANAGER) QuantiFERON NIL 0.03 IU/mL 4:25 PM CREDIT MANAGER [facility] ([facility]) Comment: Performed By: [facility] [address] [place] [id number] Compliance Representative: Art Mcdowell MD, PhD [place] Number: [id number] QuantiFERON TB Gold Plus Negative Negative 08/21/2023 4:25 PM CREDIT MANAGER [facility] ([facility]) Comment: Interpretive Data: Quantiferon TB Gold Plus Interferon gamma release is measured for specimens from each of the four collection tubes. A qualitative result (Negative, Positive, or Indeterminate) is based on interpretation of the four values, NIL, MITOGEN minus NIL (MITOGEN-NIL), TB1 minus NIL (TB1-NIL), and TB2 minus NIL (TB2-NIL). The NIL value represents nonspecific reactivity produced by the patient specimen. The MITOGEN-NIL value serves as the positive control for the patient specimen, demonstrating successful lymphocyte activity. The TB1-NIL tube specifically detects CD4+ lymphocyte reactivity, specifically stimulated by the TB1 antigens. The TB2-NIL tube detects both CD4+ and CD8+ lymphocyte reactivity, stimulated by TB2 antigens. An overall Negative result does not completely rule out TB infection. A false-positive result in the absence of other clinical evidence of TB infection is not uncommon. Refer to: Updated Guidelines for Using Interferon Gamma Release Assays to Detect Mycobacterium tuberculosis Infection --- [place], 2010 (http://www.cdc.gov/mmwr/preview/mmwrhtml/fx5148n5.htm), for more information concerning test performance in low-prevalence populations and use in occupational screening. QuantiFERON Plus TB1 Minus NIL 0.00 0.00 - 0.34 IU/mL 08/21/2023 4:25 PM CREDIT MANAGER [facility] ([facility]) QuantiFERON Plus TB2 Minus NIL 0.00 0.00 - 0.34 IU/mL 08/21/2023 4:25 PM CREDIT MANAGER [facility] ([facility]) QuantiFERON Mitogen Minus NIL >10.00 IU/mL 08/21/2023 4:25 PM CREDIT MANAGER [facility] ([facility]) Blood BLOOD SPECIMEN / Unknown Lab Venipuncture / Unknown 08/19/2023 3:12 PM CREDIT MANAGER 08/19/2023 3:29 PM CREDIT MANAGER Chantal Manriquez MD LAB - CHEMISTRY ORDERABLES [facility]) [address] * HEMOGLOBIN A1C (08/19/2023 3:12 PM CREDIT MANAGER) Pathologist [facility] Hemoglobin A1c 5.1 <=5.6 % 08/20/2023 1:08 PM CREDIT MANAGER [facility] Estimated Average Glucose 100 mg/dL 08/20/2023 1:08 PM CREDIT MANAGER [facility] Comment: HbA1c Interpretation: Normal : < 5.7% Pre-diabetes: 5.7-6.4% Diabetes: Equal to or greater than 6.5% Test results diagnostic of diabetes should be repeated for confirmation. Treatment target values recommended by ADA and other clinical organizations should be used to evaluate metabolic control in patients. Reference: [place] [employer], Standards of Care in Diabetes -2020 In patients 70 years and older consider HbA1c target range of 7.0-7.5% (Reference: Samuel Ocasio et al. JAMDA. 2012) The Sebia assay for the measurement of HbA1c is a National Glycohemoglobin Standardization Program (NGSP) certified method. Blood BLOOD SPECIMEN / Unknown Lab Venipuncture / Unknown 08/19/2023 3:12 PM CREDIT MANAGER 08/19/2023 3:22 PM CREDIT MANAGER Chantal Manriquez MD LAB - CHEMISTRY ORDERABLES Performing Organization Address City/State/[facility] Co de Phone Number [facility] [address] [place] [phone], [facility] [phone] * NICOTINE + METABOLITES BLOOD (08/19/2023 3:12 PM CREDIT MANAGER) [facility] Nicotine <5 ng/mL 08/22/2023 3:48 PM CREDIT MANAGER [facility] ([facility]) Comment: Consistent with abstinence from nicotine-containing products for at least 1 week. INTERPRETIVE INFORMATION: Nicotine and Metabolites, ?Serum or Plasma, ?Quantitative Methodology: Quantitative Liquid Chromatography-Tandem Mass Spectrometry Positive cutoff: 5 ng/mL For medical purposes only; not valid for forensic use. This test is designed to evaluate recent use of nicotine-containing products. ??Passive and active exposure cannot be discriminated definitively, although a cutoff of 10 ng/mL cotinine is frequently used for surgery qualification purposes. ?? For smoking cessation programs or compliance testing, the absence of expected drug(s) and/or drug metabolite(s) may indicate non-compliance, inappropriate timing of specimen collection relative to drug administration, poor drug absorption, or limitations of testing. This test cannot distinguish between use of tobacco and purified nicotine products. The concentration value must be greater than or equal to the cutoff to be reported as positive. ?? This test was developed and its performance characteristics determined by [employer]. It has not been cleared or approved by the US Food and Drug Administration. This test was performed in a CLIA certified laboratory and is intended for clinical purposes. Performed By: [facility] [employer] [address] [place] [address] Compliance Representative: Art Mcdowell MD, PhD CLIA Number: [id number] Cotinine <5 ng/mL 08/22/2023 3:48 PM CREDIT MANAGER [facility]) Blood BLOOD SPECIMEN / Unknown Lab Venipuncture / Unknown 08/19/2023 3:12 PM CREDIT MANAGER 08/19/2023 3:23 PM CREDIT MANAGER Chantal Manriquez MD LAB - CHEMISTRY ORDERABLES [facility]) [address] [place] [address] * (ABNORMAL) PROTEIN URINE TIMED QUANTITATIVE (08/19/2023 3:12 PM CREDIT MANAGER) Protein Urine <7 Not Established mg/dL 08/19/2023 6:10 PM [facility] Collection Time Timed Urine 24 Hrs 08/19/2023 6:10 PM [facility] Comment:ht 5'1 wt 115 Protein 24 Hour Urine <77(L) 77 - 197 mg/24 hrs 08/19/2023 6:10 PM [facility] Comment:Unable to calculate excretion rate because the analyte concentration is outside the instrument measuring range. Volume Timed Urine 1,100 mL 08/19/2023 6:10 PM [facility] Comment:start time was 09:30am finish time 08/19/23 09:30am Urine TIMED URINE SPECIMEN / Unknown Timed Urine Volume Measurement / Unknown 08/19/2023 3:12 PM CREDIT MANAGER 08/19/2023 5:44 PM CREDIT MANAGER Chantal Manriquez MD LAB - URINE SLADE BRISSA ORDERABLES Performing Organization Address [facility]/ZIP Co de Phone Number [facility] [address] [place] [phone], [facility] [phone] * HEPATITIS B SURFACE ANTIBODY (08/19/2023 3:12 PM CREDIT MANAGER) Hepatitis B Virus Surface Antibody Non-react marquez Non-react marquez 08/19/2023 4:11 PM CREDIT MANAGER [facility] Comment: < 8 mIU/mL Hepatitis B surface Antibody (HBsAb). Nonreactive for HBsAb - individual is considered not immune to Hepatitis B Virus infection. Hepatitis B Surface Antibody Quantitative 0.0 <8.0 mIU/mL 08/19/2023 4:11 PM CREDIT MANAGER [facility] Comment: Hepatitis B Surface Antibody Numeric Result Interpretation: ? Nonreactive: ?<8.0 mIU/mL ? Indeterminate: ??8.0 - 12.0 mIU/mL ? Reactive: ?>12.0 mIU/mL ? Blood BLOOD SPECIMEN / Unknown Lab Venipuncture / Unknown 08/19/2023 3:12 PM CREDIT MANAGER 08/19/2023 3:23 PM CREDIT MANAGER Chantal Manriquez MD LAB - CHEMISTRY ORDERABLES Performing Organization Address [facility]/ZIP Co de Phone Number [facility] [address] [place] [phone], [facility] [phone] * (ABNORMAL) CREATININE BLOOD (08/19/2023 3:12 PM CREDIT MANAGER) Creatinine 1.30(H) 0.56 - 0.96 mg/dL 08/19/2023 3:53 PM CREDIT MANAGER [facility] eGFR by CKD-EPI 48(L) >=90 mL/min/1.7 3 m2 08/19/2023 3:53 PM [facility] Blood BLOOD SPECIMEN / Unknown Lab Venipuncture / Unknown 08/19/2023 3:12 PM CREDIT MANAGER 08/19/2023 3:22 PM CREDIT MANAGER Chantal Manriquez MD LAB - CHEMISTRY ORDERABLES Performing Organization Address City/[facility]/ZIP Co de Phone Number [address] [phone], [facility] [phone] * ALCOHOL ETHYL BLOOD (08/19/2023 3:12 PM CREDIT MANAGER) Ethanol (mg/dL) <10 <=10 mg/dL 3:53 PM CREDIT MANAGER [facility] Ethanol Calculated (g/dL) <0.010 <0.010 g/dL 08/19/2023 3:53 PM [facility] Blood BLOOD SPECIMEN / Unknown Lab Venipuncture / Unknown 08/19/2023 3:12 PM CREDIT MANAGER 08/19/2023 3:22 PM CREDIT MANAGER Narrative [facility] - 08/19/2023 3:53 PM CREDIT MANAGER Ethanol Interp <10: None Detected. Depression of [employer]: >100 mg/dl Potentially Critical: >250 mg/dl Potentially Fatal >400 mg/dl Ethanol in the patient's blood will contribute to the osmolar gap. Ethanol's contribution to the osmolar gap can be estimated by dividing the concentration of ethanol in mg/dL by 4.6. This test is for clinical use only and does not equal a LIZY for legal purposes. Chantal Manriquez MD LAB - CHEMISTRY ORDERABLES Performing Organization Address [facility]/ZIP Co de Phone Number [address] [address], [place] [phone] * LIPID PROFILE (08/19/2023 3:12 PM CREDIT MANAGER) Cholesterol Total 179 <200 mg/dL 08/19/2023 3:53 PM [facility] HDL 67 >40 mg/dL 08/19/2023 3:53 PM [facility] Comment: ATP III Classification of HDL Cholesterol: ? <40 mg/dL: ??Considered a major risk factor. ? >60 mg/dL: ??Considered a negative risk factor. ? LDL Calculated 94 <100 mg/dL 08/19/2023 3:53 PM [facility] Comment: ATP III Classification of LDL Cholesterol: ?<100 mg/dL: ??Optimal ? 100 - 129 mg/dL: ??Near Optimal/Above Optimal ? 130 - 159 mg/dL: ??Borderline High ? 160 - 189 mg/dL: ??High ?>190 mg/dL: ??Very High ? Triglycerides 91 <150 mg/dL 08/19/2023 3:53 PM [facility] Comment: ATP III Classification of Triglycerides: ?<150 mg/dL: ??Normal ? 150 - 199 mg/dL: ??Borderline High ? 200 - 400 mg/dL: ??High ?>500 mg/dL: ??Very High Blood BLOOD SPECIMEN / Unknown Lab Venipuncture / Unknown 08/19/2023 3:12 PM CREDIT MANAGER 08/19/2023 3:[address] [facility] Chantal Manriquez MD LAB - CHEMISTRY ORDERABLES Performing Organization Address [facility]/State/[facility] Co de Phone Number [address] [address], [place] [phone] * URINE DRUG SCREEN IMMUNOASSAY (08/16/2023 1:[address] [facility]) [facility] Amphetamines Screen Urine Negative Negative: < 1000 ng/mL 08/16/2023 2:13 PM [facility] Barbiturates Screen Urine Negative Negative: < 200 ng/mL 08/16/2023 2:13 PM [facility] Benzodiazepine Screen Urine Negative Negative: < 200 ng/mL 08/16/2023 2:13 PM [facility] Opiates Urine Negative Negative: < 300 ng/mL 08/16/2023 2:13 PM [facility] Cocaine Metabolites Urine Negative Negative: < 300 ng/mL 08/16/2023 2:13 PM [facility] Phencyclidine Screen Urine Negative Negative: < 25 ng/ml 08/16/2023 2:13 PM [facility] Cannabinoids Screen Urine Negative Negative: <50 ng/mL 08/16/2023 2:13 PM [facility] Methadone Screen Urine Negative Negative: < 300 ng/mL 08/16/2023 2:13 PM [facility] Fentanyl Screen Urine Negative Negative: <1.5 ng/mL 08/16/2023 2:13 PM [facility] Urine URINE / Unknown Collection / Unknown 08/16/2023 1:[address] [facility] 08/16/2023 1:41 PM [facility] - 08/16/2023 2:[address] [facility] The Urine Toxicology Screening Panel does not screen for Propoxyphene, Meprobamate, Carisoprodol, Trazodone, [id number] medications and/or volatiles (Acetone, Isopropanol, Methanol or Ethylene Glycol). Ethanol, Salicylate, Acetaminophen, Tricyclic Antidepressants and several therapeutic drugs may be individually assayed in serum or plasma specimen. Toxicology testing by the [facility] is an aid to medical diagnosis and treatment of patients. No documented chain of custody was maintained. Results are intended to be used for clinical purposes only. ? Chantal Manriquez MD LAB - URINE SLADE BRISSA ORDERABLES [facility] [address] [place] [address], [facility] [phone] * CT ANGIO ABDOMEN PELVIS (08/16/2023 1:00 PM CREDIT MANAGER) Anatomical Region Laterality Modality Abdomen, Pelvis Computed Tomogra phy 08/16/2023 1:12 PM CREDIT MANAGER Impressions 08/16/2023 1:25 PM CREDIT MANAGER IMPRESSION: 1.No evidence of hydronephrosis, nephrolithiasis, or solid renal mass. 2.Right renal artery demonstrates an accessory interpolar/inferior pole artery. Single left renal artery. 3.No evidence of early bifurcation of the arterial anatomy. 4.Single bilateral renal veins and ureters. 5.Indeterminant cystic lesions within the cervix. Findings are favored to represent nabothian cysts. Further characterization with pelvic sonogram can be obtained. > Interpreting Provider: JADEN VIRGEN MD on 08/16/2023 1:25 PM Narrative 08/16/2023 1:25 PM CREDIT MANAGER EXAMINATION: Computed tomography (CT) of the abdomen and pelvis with and without contrast HISTORY: Z00.5: Willing to be kidney donor TECHNIQUE: CT of the abdomen and pelvis was performed prior to and after the uneventful administration of Omnipaque 350 intravenous contrast according to standard protocol. COMPARISON: None FINDINGS: The imaged lung bases are clear. The imaged heart is normal in size. No pericardial effusion is seen. No substantial atherosclerosis is noted. The liver enhances homogenously without focal mass/lesion. ??The main portal vein is patent and non-dilated. [...] cm Kidney length: 10.8 cm Kidney width: ??5.4 cm Kidney volume (mL/cc): 95 mL Renal artery has early bifurcation(<10mm from aorta): No Left Kidney: Number of arteries: 1 Number of veins: 1 Number of ureters: 1 Kidney height: 4.4 cm Kidney length: 12.3 cm Kidney width: ??4.2 cm Kidney volume (mL/cc): 119 mL Renal artery has early bifurcation(<10mm from aorta): No The distal esophagus and stomach are within normal limits. The small and large bowel are normal in course and caliber without evidence of wall thickening or obstruction. ??No ascites is present. No free intraperitoneal air [...] are identified. The osseous structures are intact. Procedure Note Jaden Virgen MD - 08/16/2023 EXAMINATION: Computed tomography (CT) of the abdomen and pelvis with and without contrast HISTORY: Z00.5: Willing to be kidney donor TECHNIQUE: CT of the abdomen and pelvis was performed prior to and after the uneventful administration of Omnipaque 350 intravenous contrast according to standard protocol. COMPARISON: None FINDINGS: The imaged lung bases are clear. The imaged heart is normal in size. No pericardial effusion is seen. No substantial atherosclerosis is noted. The liver enhances homogenously without focal mass/lesion. The mainportal vein is patent and non-dilated. The hepatic [...] or obstruction. No ascites is present. No freeintraperitoneal air is noted. No mesenteric or retroperitoneal lymphadenopathy is identified. The abdominal aorta is normal in course and caliber. 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 The urinary bladder is distended with fluid and demonstrates no acute abnormality. The uterus is anteflexed. There are multiplehypoattenuating cystic-appearing observations within the cervical canal. For reference,the largest measures up to 1.2 cm. No adnexal mass is noted. Simpleappearing left adnexal cyst are present and measure [...] cystic lesions within the cervix. Findings are favoredto represent nabothian cysts. Further characterization with pelvic sonogram can be obtained. > Interpreting Provider: JADEN VIRGEN MD on 08/16/2023 1:25 PM Chantal Manriquez MD CT ORDERABLES * (ABNORMAL) CREATININE - POCT INTERFACED (08/16/2023 12:37 PM CREDIT MANAGER) Creatinine POCT 0.86 0.30 - 1.30 mg/dL 08/16/2023 12:43 PM CREDIT MANAGER [facility] eGFR 79(L) >90 mL/min/1.7 3 m2 08/16/2023 12:43 PM CREDIT MANAGER [facility] Blood BLOOD SPECIMEN / Unknown 08/16/2023 12:37 PM CREDIT MANAGER 08/16/2023 12:43 PM CREDIT MANAGER Chantal Manriquez MD LAB - POINT OF CARE ORDERABLES [address] [address], [facility] [phone] * ECHO STRESS EXERCISE W CONTRAST (08/16/2023 12:19 PM CREDIT MANAGER) BSA 1.5 m2 SSM CV FUJ I PACS Predicted METS 7.4 METS SSM C V FUJI PACS Target HR 139 bpm SSM CV FUJ I PACS Max Age Predicted HR 164 bpm SSM CV FUJI PACS Exercise duration (min) 9 min SSM CV FUJI PACS Exercise duration (sec) 49 sec SSM CV FUJI PACS Peak METS Achieved 12.7 METS SSM CV FUJI PACS Dobut peak dose 0.0 mcg/kg/min SSM CV FUJI PACS Atropine total dose 0.0 mg SSM CV FUJI PACS Actual / Predicted METS 171.2 % SSM CV FUJI PACS Angina Index 0 SSM CV FUJI PACS Baseline HR 59 bpm SSM CV F UJI PACS Stress peak HR 148 bpm SSM C V FUJI PACS Max HR Percent 90 % SSM C V FUJI PACS Baseline BP 153/83 mmHg SSM CV F UJI PACS Post peak BP 174/86 mmHg SSM CV FUJI PACS Target HR Percent 106 % SSM CV FUJI PACS Anatomical Region Laterality Modality Ultrasound Narrative 08/16/2023 3:17 PM CREDIT MANAGER ?Stress: The patient achieved the target heart rate. [...] peak stress blood pressure was 174/86 mmHg. ?ECG: Stress ECG: Non-specific abnormalities in ST-segment deviation adn T wave inversion in leads V3-V5. Exhibits occasional premature ventricular contractions. The ECG was equivocal for ischemia. ?Normal exercise stress echocardiogram. No echocardiographic evidence of ischemia. Study Details Study quality was good. A complete 2D stress echocardiogram was performed. The apical and parasternal views were obtained. Definity ultrasound enhancing agent used. Post stress images acquired within 90 seconds. Patient exhibited sinus rhythm. Stress Findings A Erlin protocol stress test was performed with the patient exercising for 9 min and 49 sec. The patient's exercise capacity was average for their age and sex. The patient experienced no angina during the test. Peak METs was 12.7. The peak dobutamine dose was 0.0 mcg/kg/min.The total atropine dose was 0.0 mg. The patient reported no symptoms during the stress test. The patient reached the end of the protocol. The patient achieved the target heart rate. [...] peak stress blood pressure was 174/86 mmHg. ECG Resting ECG: Exhibits sinus bradycardia, occasional premature atrial contractions. Stress ECG: Non-specific abnormalities in ST-segment deviation adn T wave inversion in leads V3-V5. Exhibits occasional premature ventricular contractions. Recovery ECG: Exhibits occasional premature atrial contractions. The ECG was equivocal for ischemia. Echo Post Stress Left ventricle at peak stress: Size is normal. Wall motion is normal. Study Impression Normal exercise stress echocardiogram. No echocardiographic evidence of ischemia. Chantal Manriquez MD ECHO CUPID * ECHO COMPLETE W CONTRAST (08/16/2023 12:14 PM CREDIT MANAGER) [facility] BSA 1.5 m2 SSM CV FUJ I PACS LV biplane EF 77 54 - 74 % SSM CV FUJI PACS LV A2C EF 76 52 - 76 % SSM CV FUJ I PACS LV A4C EF 79 46 - 78 % SSM CV FUJ I PACS LV stroke vol BP 64.5 mL SSM CV FUJI PACS LV stroke vol BP index 43.0 mL/m2 SSM CV FUJI PACS LVOT stroke vol 91.10 mL SSM CV FUJI PACS LVOT stroke vol index 60.73 mL/m2 SSM CV FUJI PACS LV stroke vol 2D teich 45.962 ml SSM CV FUJI PACS LV Stroke Index 2D Teich 30.64 mL/m2 SSM CV FUJI PACS LV stroke vol index A4C MOD 67.244 ml/m2 SSM CV FUJI PACS LVIDd 4.07 3.8 - 5.2 cm SSM CV FUJI PACS LVIDs 2.69 2.2 - 3.5 cm SSM CV FUJI PACS IVSd 2D 0.828 0.6 - 0.9 cm SSM CV FUJI PACS LVPWd 0.88 0.6 - 0.9 cm SSM CV FUJI PACS Fractional Shortening 2D 34 28 - 44 % SSM CV FUJI PACS LV ESV BP 18.873 14 - 42 mL SSM CV FUJI PACS LV ESV index BP 12.6 8 - 24 mL/m2 SSM CV FUJI PACS LV ESV A2C 17.9 10 - 54 mL SSM CV FUJI PACS LV ESV index A2C 11.93 6 - 30 mL/m2 SSM CV FUJI PACS LV EDV BP 83.375 46 - 106 mL SSM CV FUJI PACS LV ESV A4C 19.123 12 - 60 mL SSM CV FUJI PACS LV ESV index A4C 12.75 7 - 35 mL/m2 SSM CV FUJI PACS LV EDV index BP 55.6 29 - 61 mL/m2 SSM CV FUJI PACS LV EDV A2C 80.718 41 - 133 mL SSM CV FUJI PACS LV EDV index A2C 53.81 26 - 74 mL/m2 SSM CV FUJI PACS LV EDV A4C 85.144 mL SSM CV FU JI PACS LV ESV 2D 26.871 14 - 42 mL SSM CV FUJI PACS LV EDV index A4C 56.76 30 - 82 mL/m2 SSM CV FUJI PACS LV ESV index 2D 17.91 8 - 24 mL/m2 SSM CV FUJI PACS LV EDV 2D 72.833 46 - 106 mL SSM CV FUJI PACS LV EDV index 2D 48.56 29 - 61 mL/m2 SSM CV FUJI PACS LVOT diam 2.1 cm SSM CV FUJ I PACS LVOT area 3.59 cm2 SSM CV FUJ I PACS LV RWT 0.434 SSM CV FUJ I PACS LV Poon A2C 7.778 cm SSM CV F UJI PACS LV Poon A4C 7.921 cm SSM CV F UJI PACS IVS/LVPW 0.937 SSM CV FUJ I PACS LV mass 2D 91.154733 [id number] 66 - 150 g SSM CV FUJI PACS LV mass index 2D 60.92 44 - 88 g/m2 SSM CV FUJI PACS MV E pk narendra 92.78 cm/s SSM CV F UJI PACS MV avg E/e' ratio 10.28 SS M CV FUJI PACS MV A pk narendra 58.752 cm/s SSM CV F UJI PACS MV E A ratio 1.58 SSM CV FUJI PACS LV IVRT 108 ms SSM CV FUJ I PACS MV E' lateral narendra 9.424 cm/s SS M CV FUJI PACS MV DT 185 ms SSM CV FUJ I PACS MV E' septal narendra 8.655 cm/s SSM CV FUJI PACS MV A duration 146 ms SSM CV FUJI PACS MV E/e' septal 10.72 SSM C V FUJI PACS MV E/e' lateral 9.845 SSM CV FUJI PACS LA vol BP 36.294 mL SSM CV FUJ I PACS TR pk narendra 264.2 cm/s SSM CV FUJ I PACS P vein A narendra 21.4 cm/s SSM CV FUJI PACS P vein A duration 146 msec SS M CV FUJI PACS P vein S/D ratio 1.13 SSM CV FUJI PACS LVOT pk narendra 1.19 m/s SSM CV F UJI PACS LVOT mn narendra 0.67 m/s SSM CV F UJI PACS LVOT mn grad 2.2 mmHg SSM CV FUJI PACS LVOT Cardiac Output 5.379 l/min SSM CV FUJI PACS LVOT Cardiac Index 3.59 l/min/m2 SSM CV FUJI PACS GPLS AVG -22.7 % SSM CV FUJ I PACS GPLS A2C -23.2 % SSM CV FUJ I PACS GPLS A4C -20.0 % SSM CV FUJ I PACS GPLS APLAX -24.8 % SSM CV FU JI PACS AA pk sys strain -31.0 % SSM CV FUJI PACS AAS pk sys strain -34.7 % SS M CV FUJI PACS AI pk sys strain -31.6 % SSM CV FUJI PACS AL pk sys strain -24.9 % SSM CV FUJI PACS AP pk sys strain -28.9 % SSM CV FUJI PACS pk sys strain -28.6 % SSM CV FUJI PACS BA pk sys strain -15.7 % SSM CV FUJI PACS BAS pk sys strain -23.1 % SS M CV FUJI PACS BI pk sys strain -21.2 % SSM CV FUJI PACS BL pk sys strain -19.2 % SSM CV FUJI PACS BS pk sys strain -14.5 % SSM CV FUJI PACS MA pk sys strain -19.3 % SSM CV FUJI PACS MAS pk sys strain -27.1 % SS M CV FUJI PACS SC pk sys strain -20.0 % SSM CV FUJI PACS ML pk sys strain -17.4 % SSM CV FUJI PACS MP pk sys strain -16.1 % SSM CV FUJI PACS MS pk sys strain -17.8 % SSM CV FUJI PACS Qp:Qs 0.98 SSM CV FUJ I PACS LA vol index 24.2 16 - 34 mL/m2 SSM CV FUJI PACS LA size 2.679 2.7 - 3.8 cm SSM CV FUJI PACS LA vol BP A-L 39.743 mL SSM CV FUJI PACS RV-poon basal diam 3.7 2.5 - 4.1 cm SSM CV FUJI PACS RV-poon longitudinal diam 6.0 5.9 - 8.3 cm SSM CV FUJI PACS RVIDd 1.8 cm SSM CV FUJ I PACS RVOT diam Doppler 2.47 cm SS M CV FUJI PACS RVOT area Doppler 4.79 8 - 20 cm2 SSM CV FUJI PACS RVOT stroke vol 89.44 cm3 SSM CV FUJI PACS RVOT VTI 18.662 cm SSM CV FUJ I PACS TV S' narendra 11.975 cm/s SSM CV FUJ I PACS TAPSE 1.892 1.7 cm SSM CV FUJ I PACS RVOT pk narendra 0.78 m/s SSM CV F UJI PACS RA area 16.695 cm2 SSM CV FUJ I PACS AV mn grad 4 mmHg SSM CV FU JI PACS AV pk grad 7 mmHg SSM CV FU JI PACS AV mn narendra 0.91 m/s SSM CV FUJ I PACS AV pk narendra 1.30 m/s SSM CV FUJ I PACS AV VTI 32.613 cm SSM CV FUJ I PACS LVOT pk grad 5.644 mmHg SSM CV FUJI PACS LVOT VTI 25.408 cm SSM CV FUJ I PACS AV area cont VTI 2.8 cm2 SSM CV FUJI PACS AV area pk narendra 3.3 cm2 SSM C V FUJI PACS AV Doppler narendra index pk narendra 0.913 SSM CV FUJI PACS AV closure time 0.4 s SSM CV FUJI PACS Dimensionless Index 0.779 SSM CV FUJI PACS MV decel slope 500.45 cm/s2 SSM C V FUJI PACS TR VTI 90.1 cm SSM CV FUJ I PACS TR pk grad 28 mmHg SSM CV FU JI PACS RVOT mn grad 1 mmHg SSM CV FUJI PACS RVOT pk grad 2 mmHg SSM CV FUJI PACS PV area cont eq 3.8 cm2 SSM CV FUJI PACS KY pk narendra 189.688 cm/s SSM CV FUJ I PACS PV mn grad 2 mmHg SSM CV FU JI PACS PV pk narendra 93.702 cm/s SSM CV FUJ I PACS PV pk grad 3 mmHg SSM CV FU JI PACS PV VTI 23.258 cm SSM CV FUJ I PACS PV mn narendra 61.727 cm/s SSM CV FUJ I PACS Ascending aorta 2.96 cm SSM CV FUJI PACS RV stroke vol 89.40 mL SSM CV FUJI PACS LA ESV A4C MOD Index 22 ml/m2 SSM CV FUJI PACS LA ESV A2C MOD Index 26 ml/m2 SSM CV FUJI PACS [id number] 6.41 cm SSM CV FUJ I PACS [id number] 6.692 cm SSM CV FUJ I PACS Prox Asc Ao Diameter Index 1.972 cm SSM CV FUJI PACS LVIDs index 1.79 1.3 - 2.1 cm/m2 SSM CV FUJI PACS LV LVIDd index 2.71 2.3 - 3.1 cm/m2 SSM CV FUJI PACS GLS -22.7 % SSM CV FUJ I PACS RVSP 31.0 mmHg SSM CV FUJ I PACS RAP 3.0 mmHg SSM CV FUJ I PACS Sinus of Valsalva 3.20 cm SS M CV FUJI PACS Sinus of valsalva index 2.13 cm/m2 SSM CV FUJI PACS Anatomical Region Laterality Modality Ultrasound Narrative 08/16/2023 4:37 PM CREDIT MANAGER ?Left??Ventricle: Left ventricle size is normal. Normal wall thickness. Ventricular mass is normal. Normal systolic function. EF by 2D Morel biplane is 77%. Normal wall motion. Normal diastolic function. ?Right??Ventricle: Right ventricle size is normal. Normal systolic function. ?Tricuspid??Valve: Trace regurgitation. The pulmonary artery systolic pressure is normal (under 35 mmHg). Estimated RVSP is 31.0 mmHg. Left Ventricle Left ventricle size is normal. Normal wall thickness. Ventricular mass is normal. Normal systolic function. EF by 2D Morel biplane is 77%. Normal wall motion. Normal diastolic function. Right Ventricle Right ventricle size is normal. Normal systolic function. Left Atrium Left atrium size is normal. Left atrium volume index is 24.2 mL/m2. Right Atrium Right atrium size is normal. IVC/SVC IVC diameter is less than or equal to 21 mm and decreases greater than 50% during inspiration; therefore the estimated right atrial pressure is normal (~3 mmHg). Mitral Valve Valve structure is normal. No restricted motion. Trace regurgitation. No stenosis. Tricuspid Valve Valve structure is normal. No restricted motion. Trace regurgitation. The pulmonary artery systolic pressure is normal (under 35 mmHg). Estimated RVSP is 31.0 mmHg. No stenosis. Aortic Valve Valve structure is trileaflet. No restricted motion. Trace regurgitation. No stenosis. AV mean gradient is 4 mmHg. AV peak velocity is 1.30 m/s. AV area by continuity VTI is 2.8 cm2. Pulmonic Valve Valve structure is normal. Trace regurgitation. No stenosis. Ascending Aorta Normal sized sinus of Valsalva (aortic root) and ascending aorta. Sinus of Valsalva is 3.20 cm. Ascending Aorta is 2.96 cm. Sinus of Valsalva indexed to BSA is 2.13 cm/m2. Pericardium No pericardial effusion. Study Details Study quality was excellent. A complete 2D, color Doppler, spectral Doppler, strain and M-mode echocardiogram was performed. The apical, parasternal, subcostal and suprasternal views were obtained. Definity ultrasound enhancing agent used. Patient exhibited sinus rhythm. Procedure Note Marsha Brown MD - 08/16/2023 ? ? Left??Ventricle: Left ventricle size is normal. Normal wall thickness.Ventricular mass is normal. Normal systolic function. EF by 2D Simpsonbiplane is 77%. Normal wall motion. Normal diastolic function. ? ? Right??Ventricle: Right ventricle size is normal. Normal systolicfunction. ? ? Tricuspid??Valve: Trace regurgitation. The pulmonary artery systolicpressure is normal (under 35 mmHg). Estimated RVSP is 31.0 mmHg. Chantal Manriquez MD ECHO CUPID * OPH OCT TEST [facility] (09/18/2022 11:17 AM CREDIT MANAGER) Anatomical Region Laterality Modality Other 09/18/2022 11:1 7 AM CREDIT MANAGER Fletcher Vu OD OPHTHALMOLOGY SERVIC ES ORDERABLES * OPH OCT TEST [facility] (08/14/2022 2:46 PM CREDIT MANAGER) Anatomical Region Laterality Modality Other 08/14/2022 2:46 PM CREDIT MANAGER Gavin Richey MD OPHTHALMOLOGY SERVIC ES ORDERABLES * C-REACTIVE PROTEIN (02/23/2021 4:01 PM CDT) C-Reactive Protein <0.5 <=0.5 mg/dL 02/23/2021 5:20 PM CDT [facility] Blood BLOOD SPECIMEN / Unknown Lab Venipuncture / Unknown 02/23/2021 4:01 PM CDT 02/23/2021 4:55 PM CDT Lorenzo Scott MD LAB - CHEMISTRY ORDE RABKLEVER Performing Organization Address City/[facility]/ZIP Co de Phone Number [address] [address], [facility] [phone] * ERYTHROCYTE SEDIMENTATION RATE (02/23/2021 4:01 PM CDT) [facility] Erythrocyte Sedimentation Rate Westergren 10 0 - 30 MM/HR 02/23/2021 5:52 PM CDT [facility] Blood BLOOD SPECIMEN / Unknown Lab Venipuncture / Unknown 02/23/2021 4:01 PM CDT 02/23/2021 4:49 PM CDT Lorenzo Scott MD LAB - HEMATOLOGY ORD ERABLES [address] [address], [place] [phone] * STREP A SCREEN DIRECT W RFLX STREP A CULTURE (12/09/2013 7:52 PM CDT) Pathologist [facility] Strep A Rapid Negative Negative 12/09/2013 8:04 PM CDT [facility] Microbiology ENTIRE THROAT (SURFACE REGION OF NECK) / Unknown 12/09/2013 7:52 PM CDT 12/09/2013 7:55 PM CDT Narrative [facility] - 12/09/2013 8:04 PM CDT Test has reflexed to a Strep A culture. Shaq Travis MD LAB - MICROBIOLOGY O RDERABLES Performing Organization Address City/[facility]/ZIP Co de Phone Number [facility] [address] [place] [address] * CULTURE STREP GROUP A (12/09/2013 7:52 PM CDT) Culture Negative for Beta Hemolytic Streptococcus Group A 12/11/2013 4:44 AM CDT [facility] Microbiology ENTIRE THROAT (SURFACE REGION OF NECK) / Unknown 12/09/2013 7:52 PM CDT 12/09/2013 7:55 PM CDT Ben Morales DO LAB - MICROBIOLOGY ORDERABLES Performing Organization Address [facility] Co de Phone Number [facility] [address] [place], [place] [phone] [place] [address] Care Teams Wastewater Analyst Lab Analyst Relationship Specialty Start Date End Date Axel Angeles MD [address] [place] [id number] PCP - General 02/16/21
--- OUTSIDE RECORDS SUMMARY | 2024-10-20 08:19 | XMS_ITS ---
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
--- OUTSIDE RECORDS SUMMARY | 2024-10-20 08:20 | XMS_ITS | Encounter Summary ---
Author Organization [facility] Address [address] [facility] [address] Care Team Providers Care Tire Regrooving Machine Operator Name Role Phone Axel Angeles MD Primary Care Provider [phone] Reason for Visit * Reason Comments Transplant Donor Evaluation Persistent d ysuria (burning with urination) Encounter Details Date Type Department Care Team (Late Contact Info) Description 10/08/2023 Telephone [facility] TRANSPLANT [address] [place] [phone] Ankush Tom RN Transplant Donor Evaluation (Persistent dysuria (burning with urination)) Social History Tobacco Use Types Packs/Day Years Used Date Smoking Tobacco: Former Cigarettes 0.5 5 0 09/16/2010 - 09/16/2015 Smokeless Tobacco: Never Alcohol Use Standard Drinks/Week Comments Yes 10 (1 standard drink = 0.6 oz pu re alcohol) socially Sex and Gender Information Value Date Recorded Sex Assigned at Not on file Gender Identity Not on file Sexual Orientation Straight 07/07/2024 5: 30 PM CDT documented as of this encounter Plan of Treatment Upcoming Encounters Date Type Department Care Team (Late Contact Info) Description 12/04/2024 8:30 AM CDT Office Visit [facility] - Nephrology [address] [place] [address], [place] [phone] Carrie Sierra MD [address] [place] [address] [place] [phone] 05/07/2025 8:00 AM CDT Office Visit [facility] - Nephrology [address] [place] [address], [place] [address] Carrie Sierra MD [address] [place] [address] [address] [place] [phone] documented as of this encounter Visit Diagnoses Not on filedocumented in this encounter Additional Health Concerns Infection Onset Date Last Indicated Resolved Time COVID-19 Under Investigation 06/16/2024 06/16/2024 06/17/2024 12:28 AM CDT documented as of this encounter Care Teams Tire Regrooving Machine Operator Relationship Specialty Start Date End Date Axel Angeles MD [address] [place] [address] PCP - General 02/16/21 documented as of this encounter
[2024-10-20 08:53] VITALS: BP 151/91; PULSE 61; RESP 15; TEMP 36.9; O2SAT 99
[2024-10-20 09:45] VITALS: BP 180/95; PULSE 63; RESP 11; O2SAT 100
[2024-10-20 09:50] VITALS: BP 178/98; PULSE 73; RESP 14; O2SAT 100
[2024-10-20 09:58] VITALS: BP 183/86; PULSE 57; RESP 16; O2SAT 100
[2024-10-20] MEDS: BUPivacaine HCL 0.5% 10 ML AMP INFILTRATE (10:00)
[2024-10-20] MEDS: LIDOCAINE 1% PF INJ 5 ML VIAL 2 ML XX (10:03)
== END 2024-10-20 10:16 ==
LOC: ASC 08:11
PROVIDERS: PCP Family Medicine; Visit Provider Anesthesiology Pain Medicine
PROC: (CPT 64490; principal; 2024-10-20 09:15)
DX: M47.812 Spondylosis without myelopathy or radiculopathy, cervical region (principal); G89.29 Other chronic pain
CPT/HCPCS: 64490; 64491; 99199

== ENCOUNTER 2025-01-12 07:15 | Day surgery (SDC) | payer OTHER, SELFPAY ==
[2025-01-04 12:55] VITALS: BMI 22.8
--- NOTE | ~2025-01-12 | XR_ITS ---
EXAMINATION: XR fluoroscopy no charge DATE: 01/12/2025 8:35 CDT INDICATION: DIAG/PROG RIGHT C4,C5,C6 MEDIAL BRANCH BLK . TECHNIQUE: 7 fluoroscopic images and 4 cine clips of the cervical spine were obtained during diagnost ic/prognostic right C4, C5, C6 medial branch block, performed by Shaq Estes MD. I was not prese nt during the procedure. Fluoroscopy exposure time was 52.3 seconds. Air Kerma 8.78 mGy. COMPARISON: 10/20/2024 FINDINGS/IMPRESSION: Fluoroscopic documentation of diagnostic/prognostic right C4, C5, C6 medial branch block. Please refe r to the operative note for complete procedural details . Reviewed, dictated and finalized at location K.
--- OUTSIDE RECORDS SUMMARY | 2025-01-12 07:49 | XMS_ITS | Clinical Summary ---
Author Organization [facility] Address [address] [facility] [place] [address] Care Team Providers Care Chef Head Name Role Phone Unavailable Primary Care Provider [...] on file Legal Sex Female 12:03 PM LOW ALTITUDE AIR DEFENSE OFFICER Gender Identity Not on file Sexual Orientation Not on file Last Filed Vital Signs Vital Sign Reading Time Taken Comments Blood Pressure 203/103 09/09/2021 12:20 PM LOW ALTITUDE AIR DEFENSE OFFICER Pulse 70 09/09/2021 12:20 PM LOW ALTITUDE AIR DEFENSE OFFICER Temperature 36.7 C (98 F) 09/09/2021 12:20 PM LOW ALTITUDE AIR DEFENSE OFFICER Respiratory Rate 16 09/09/2021 12:20 PM LOW ALTITUDE AIR DEFENSE OFFICER Oxygen Saturation 99% 09/09/2021 12:20 PM LOW ALTITUDE AIR DEFENSE OFFICER Inhaled Oxygen Concentration - - Weight 49.9 kg (110 lb) 09/09/2021 12:20 PM LOW ALTITUDE AIR DEFENSE OFFICER Height 154.9 cm (5' 1 ) 09/09/2021 12:20 PM LOW ALTITUDE AIR DEFENSE OFFICER Body Mass Index 20.78 09/09/2021 12:20 PM LOW ALTITUDE AIR DEFENSE OFFICER Plan of Treatment Health Maintenance Due Date Last Done Comments DTAP/TDAP/TD VACCINES (1 - Tdap) 1986 HEPATITIS B VACCINES (1 of 3 - 19+ 3-dose series) 09/1985 HPV/Cotest (21-29) 1988 CERVICAL CANCER SCREENING 1997 HPV/Cotest (30-65) 1997 PAP SMEAR 1997 BREAST CANCER SCREENING 2007 COLORECTAL SCREENING 2012 Colorectal Cancer Screening 2012 FIT-DNA Q 3 years 2012 FIT/FOBT Q 1 year 2012 Flex Sig/CT Colonography Q 5 years 2012 ZOSTER VACCINE (1 of 2) 2017 INFLUENZA VACCINE (#1) 2024 [place] [address] [facility] [id number] POS II
--- OUTSIDE RECORDS SUMMARY | 2025-01-12 07:49 | XMS_ITS | Encounter Summary ---
Author Organization [facility] Address [address] [place] [address] Care Team Providers Care Heavy Forger Name Role Phone Axel Angeles MD Primary Care Provider Axel Angeles MD Unavailable [phone] Reason for Visit * Reason Comments Follow-up Annual f/u. Donated kidney to daughter 6 mo ago. Possible shell-fish allergy and was unable to have Epi-pen prescribed due to Afib Atrial Fibrillation Encounter Details Date Type Department Care Team (Late st Contact Info) Description 01/11/2025 1:15 PM CDT Office Visit [facility] Cardiology [address] [place] [address] Elie Haile MD [address] [facility] [address] [place] [address] Paroxysmal atrial fibrillation (HCC) (Primary Dx) Social History Tobacco Use Types Packs/Day Years Used Date Smoking Tobacco: Former Smokeless Tobacco: Never Comments Unknown Sex and Gender Information Value Date Recorded Sex Assigned at Not on file 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 Gender Identity Female 10/11/2021 1:27 PM ELECTROSTATIC 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 Sexual Orientation Straight 10/11/2021 1: 27 PM ELECTROSTATIC PAINTER documented as of this encounter Last Filed Vital Signs Vital Sign Reading Time Taken Comments Blood Pressure 122/68 01/11/2025 1:27 PM CDT Pulse 81 01/11/2025 1:27 PM CDT Temperature - - Respiratory Rate - - Oxygen Saturation 98% 01/11/2025 1:27 PM CDT Inhaled Oxygen Concentration - - Weight 57.3 kg (126 lb 6.4 oz) 01/11/2025 1:27 P M CDT Height 154.9 cm (5' 1 ) 01/11/2025 1:27 PM CDT Body Mass Index 23.88 01/11/2025 1:27 PM CDT documented in this encounter Progress Notes * Elie Haile MD - 01/11/2025 1:15 PM CDT [facility] FOLLOW UP 01/11/2025 Maureen Sorenson is a 59 y.o. female who presents for follow up of lone atrial fibrillation. This mi patient that I saw in consultation in the office in January of 2020 she had intermittent episodes of some palpitations and had a event monitor that was done as an outpatient interpreted as showing somerelatively brief self-limited episodes of atrial fibrillation. The patient was placed on a beta-sirena in the form of metoprolol and was seen in follow-up by the nurse practitioner after this and was essentially asymptomatic. She has previous history of smoking no other cardiac problems in the past. Echocardiogram did not show any significant structural cardiac problems at the time of her initial consultation. Subsequently she continued to have some occasional momentary palpitations and another 48 hour Holter demonstrated no evidence of atrial fib but she does have some PACs that appeared yessenia the source of these symptoms. She has been continued on metoprolol for this. Her low chads scorewould indicate no need for anticoagulation She presents today for annual follow-up. She is doing very well and does not have any cardiovascular complaints. She donated a kidney to her daughter because of her polycystic kidney disease 6 monthsago. 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 She did have a reaction to shellfish recently with a significant allergy. She is scheduled to see an street cleaner relatively soon for evaluation of this. She says there was concern about her being able to safely use an EpiPen because of her atrial fib history REVIEW OF SYSTEMS General ROS: negative for - chills, fatigue, fever, malaise, night sweats, weight gain or weight loss Psychological ROS: negative for - anxiety, depression, memory difficulties or sleep disturbances Ophthalmic ROS: negative for - blurry vision, decreased vision, loss of vision or scotomata ENT ROS: negative for - epistaxis, headaches, hearing change, nasal congestion, nasal discharge, sore throat, vertigo or visual changes Hematological and Lymphatic ROS: negative for - bleeding problems, blood clots, bruising, fatigue or weight loss Endocrine ROS: negative for - hot flashes, palpitations, polydipsia/polyuria or unexpected weight changes Respiratory ROS: negative for - cough, hemoptysis, orthopnea, shortness of breath, tachypnea or wheezing Cardiovascular ROS: negative for - chest pain, dyspnea on exertion, edema, irregular heartbeat, loss of consciousness, murmur, orthopnea, palpitations, paroxysmal nocturnal dyspnea, rapid heart rate or shortness of breath Gastrointestinal ROS: negative for - abdominal pain, appetite loss, blood in stools, constipation, diarrhea, gas/bloating, heartburn, hematemesis, melena or nausea/vomiting Genito-Urinary ROS: negative for - dysuria, or hematuria Musculoskeletal ROS: negative for - joint pain, muscle pain or muscular weakness Dermatological ROS: negative for dry skin, eczema, pruritus and rash HOME MEDICATIONS Current Outpatient Medications: acetaminophen (TYLENOL) 500 mg tablet, Take 2 tablets (1,000 mg total) by mouth every 6 (six) hoursas needed for pain, Disp: , Rfl: amLODIPine (NORVASC) 2.5 mg tablet, Take 2 tablets (5 mg total) by mouth daily, Disp: , Rfl: metoprolol XL (TOPROL-XL) 50 mg extended release tablet, TAKE 1 TABLET(50 MG) BY MOUTH DAILY, Disp:90 tablet, Rfl: [address] (PROTONIX) 40 mg EC tablet, Take 1 tablet (40 mg total) by mouth 2 (two) times a day, Disp: , Rfl: LABS AND OTHER DIAGNOSTIC TESTS No results found for: CHOL No results found for: HDL No results found for: LDLCALC No results found for: TRIG No results found for: CHOLHDL No results found for: WBC , HGB , HCT , MCV , PLT No lab exists for component: LABALBU PHYSICAL EXAM Vitals BP 122/68 (BP Location: Right arm, Patient Position: Sitting) Pulse 81 Ht 154.9 cm (5' 1 ) Wt 57.3 kg (126 lb 6.4 oz) SpO2 98% BMI 23.88 kg/m?? Physical Examination: General appearance - alert, well appearing, and in no distress, oriented to person, place, and time and acyanotic, in no respiratory distress Mental status - affect appropriate to mood Eyes - extraocular eye movements intact, sclera anicteric, no pallor Ears - external earsappear normal, hearing grossly normal bilaterally Nose - normal and patent, no erythema or discharge Mouth - mucous membranes moist, pharynx appears normal, dental hygiene good and tongue normal Neck - supple, no significant neck masses, carotids upstroke normal bilaterally, no bruits, no JVD Chest - clear to auscultation, no wheezes, rales or rhonchi, symmetric air entry, no tachypnea, retractions or cyanosis Heart - normal rate, regular rhythm, normal S1, S2, no murmurs, rubs, clicks or gallops, no JVD Abdomen - soft, nontender, nondistended, no masses or organomegaly bowel sounds normal Neurological - alert, oriented, normal speech, no focal findings or movement disorder noted Musculoskeletal - no joint tenderness, deformity or swelling, no muscular tenderness noted Extremities - peripheral pulses normal, no pedal edema, no clubbing or cyanosis Skin - normal coloration and turgor, no rashes, no suspicious skin lesions noted ASSESSMENT Paroxysmal atrial fibrillation with no evidence of any recent recurrences Occasional premature atrial contractions that do create symptoms of momentary palpitations PLAN/RECOMMENDATIONS Continue modest dose of metoprolol and longitudinal follow-up. They are not been any signs of recurrent atrial fibrillation in a long time electrocardiogram in the office today is normal I told the patient that I thought she could be provided an EpiPen with relative safety given the fact that she has not had any recurrences of atrial fib in about 6 years and if she had a true anaphylactic reaction that is probably worth the risk of an AFib recurrence Follow-up with me annually or p.r.n. Elie Haile MD documented in this encounter Plan of Treatment Not on file documented as of this encounter Visit Diagnoses Diagnosis Paroxysmal atrial fibrillation (HCC)- Primary Atrial fibrillation documented in this encounter Care Teams Heavy Forger Relationship Specialty Start Date End Date Axel Angeles MD [address] [place] [address] PCP - General Family Medicine 12/29/19 Axel Angeles MD [address] [place] [address] Family Medicine 12/29/19 documented as of this encounter
--- OUTSIDE RECORDS SUMMARY | 2025-01-12 07:49 | XMS_ITS | Clinical Summary ---
Author Organization [facility] Address [address] [place] [address] Care Team Providers Care Highway Painter Helper Name Role Phone Axel Angeles MD Primary Care Provider Axel Angeles MD Unavailable [phone] Allergies Active Allergy Reactions Criticality Noted Date Comments Antihistamine 12hr Palpitations Low 01/19/2020 Codeine Mental status changes,Hallucinations Medium Reaction: CONFUSION, HALLUCINATION, Codeine Palpitations Low 01/19/2020 Decongestant Capsule Palpitations Low 01/19/[address] (PROTONIX) 40 mg EC tablet Take 1 tablet (40 mg total) by mouth 2 (two) times a day 12/30/2019 Active amLODIPine (NORVASC) 2.5 mg tablet Take 2 tablets (5 mg total) by mouth daily 04/24/2022 Active acetaminophen (TYLENOL) 500 mg tablet Take 2 tablets (1,000 mg total) by mouth every 6 (six) hours as needed for pain Active metoprolol XL (TOPROL-XL) 50 mg extended release tablet TAKE 1 TABLET(50 MG) BY MOUTH DAILY 90 tablet 1 11/02/2024 Active Active Problems Problem Noted Date Diagnosed Date Paroxysmal atrial fibrillation 09/05/2021 Encounters Date Type Department Care Team Description 01/11/2025 1:15 PM CDT Office Visit [facility] Cardiology [address] [facility] [address] [place] [address] Elie Haile MD Paroxysmal atrial fibrillation (HCC) (Primary Dx) from Last 3 Months Surgical History Surgery Date Site/Laterality Comments TUBAL LIGATION 09/16/1990 - 09/15/1991 OTHER SURGICAL HISTORY 09/16/2023 - 09/15/2024 Donated kidney Medical History Medical History Date Comments A-fib (HCC) Anemia GERD (gastroesophageal reflux disease) 1986 Arthritis 2017 Hypertension 2020 Menstrual problem 1992 Family History Medical History Relation Name Comments Hypertension Daughter ED MIRZA Kidney disease Daughter ED MIRZA Cancer Father LAUREN HUFFMAN Heart attack Father LAUREN HUFFMAN Heart disease Father LAUREN HUFFMAN Hypertension Father LAUREN HUFFMAN Heart attack Mother JEFF CATHERINE Hypertension Mother JEFF CATHERINE Stroke Mother JEFF CATHERINE Anemia Sister SAMUEL SHAVER Clotting disorder Sister SAMUEL SHAVER Relation Name Status Comments Daughter ED MIRZA Father LAUREN HUFFMAN HEART DISEASE Mother JEFF CATHERINE MYOCARDIAL I NFARCT Sister SAMUEL SHAVER Social History Tobacco Use Types Packs/Day Years Used Date Smoking Tobacco: Former Smokeless Tobacco: Never Tobacco Cessation:Counseling Given: Not Answered Comments Unknown Sex and Gender Information Value Date Recorded Sex Assigned at Not on file 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 Gender Identity Female 10/11/2021 1:27 PM POWER AND RECOVERY SUPERVISOR Sexual Orientation Straight 10/11/2021 1: 27 PM POWER AND RECOVERY 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 Obstetrics History Last Filed Vital Signs Vital Sign Reading [...] Mass Index 23.88 01/11/2025 1:27 PM CDT Plan of Treatment Health Maintenance Due Date Last Done Comments Breast Cancer Screening-Mammogram 1967 Cervical Cancer Screening 1967 Colon Cancer Screening-Colonoscopy 1967 Depression Screening 1967 Hepatitis C Screening 1967 DTaP/Tdap/Td Vaccine (1 - Tdap) 1978 Hepatitis B Screening 1985 Regular Well Visit/Exam 18-64 1985 Zoster Vaccine (1 of 2) 2017 Covid-19 Vaccine (3 - 2023-2 5 season) 2024 01/02/2021, 12/02/2020 Influenza Vaccine (Season Ended) 2025 Pneumococcal vaccine <65 Aged Out No longer eligible based on patient's age to complete [place] [address] [facility] Care Teams Highway Painter Helper Relationship Specialty Start Date End Date Axel Angeles MD [address] [place] [address] PCP - General Family Medicine 12/29/19 Axel Angeles MD [address] [place] [address] Family Medicine 12/29/19
--- OUTSIDE RECORDS SUMMARY | 2025-01-12 07:49 | XMS_ITS | Clinical Summary ---
Author Organization [facility] Address [address] [facility] [place] [address] Care Team Providers Care Allopathic Doctor Name Role Phone Axel Angeles MD Primary Care Provider [phone] Source Comments [facility],non-owned Affiliates and Associated Physician Practices is amultiple site organization consisting of ambulatory clinics and hospital sitesin [place], [place], [place] and [place]. This disclosure is being madepursuant to the Care Everywhere program and may not contain all information available regarding this patient. Last updated 18.[facility] Allergies Active Allergy Reactions Criticality Noted Date Comments Fexofenadine-Pseudoeph ed Er Palpitations Low 01/19/2020 Alkylamines 12/09/2013 Diphenhydramine Palpitations 06/16/2024 Chocolate Rash,Nausea and/or Vomiting Medium 06/25/2024 Codeine Other Low 12/09/2013 Age 19 hallucinations Pseudoephedrine Base 12/09/2013 Lidocaine Palpitations 07/27/2024 Medications * This document contains information received from the source organization and may not represent a complete record from that organization. * Be aware that medications may not be up to date on this document. Alwaysverify current medications with the patient. pantoprazole EC (PROTONIX) 40 MG tablet Take 1 (one) tablet by mouth 2 times daily 1 Active metoprolol succinate XL 24hr (TOPROL XL) 50 MG tablet Take 1 (one) tablet by mouth once daily 1 Active amLODIPine (Norvasc) 5 MG tablet Take 1 (one) tablet by mouth once daily 4 Active acetaminophen (Tylenol) 500 MG tablet Take 1 (one) tablet by mouth every 6 hours Maximum allowable Acetaminophen amount = 4 Grams (4000 mg) / 24 hours. 4 Active sennosides (Senokot) 8.6 MG tablet Take 1 (one) tablet by mouth once daily Please take as long as you are requiring opioids (oxycodone) for pain control 20 tablet 06/26/2024 9:43 AM CDT 4 Active diazePAM (Valium) 10 MG tablet INSERT 1 TABLET VAGINALLY EVERY NIGHT AT BEDTIME 4 Active nitrofurantoin monohyd macro crystals (Macrobid) 100 MG capsule TAKE 1 CAPSULE BY MOUTH EVERY 12 HOURS FOR 5 DAYS. TAKE WITH FOOD. 5 Active Active Problems Problem Noted Date Diagnosed Date Kidney donor 12/03/2024 Overview (12/03/2024): Laparoscopic RIGHT living donor nephrectomy 06/24/24 (Dr. Manriquez) Willing to be kidney donor 09/27/2023 Overview [...] has decided to abstain from drinking completely. 10/4 - recheck trending down Now in normal [...] Protein Recent Labs Component Name 08/19/23 1512 [id number] <77* VOLUMETIMDUR 1,100 1,100 1,100 PROTEINTO <7 Acceptable Hemoglobin A1c Hemoglobin A1c (%) Date Value 08/19/2023 5.1 Acceptable 2 HR GTT (as needed) No results found for: [id number] n/a CBC Recent Labs Component Name 06/16/24 [...] Labs Component Name 06/16/24 1541 08/19/23 1512 [id number] Negative Negative Acceptable QUANT Gold Recent Labs [...] of ischemia. PVCs Hx of a-fib? 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 Paroxysmal atrial fibrillation 09/05/2021 Encounters Date Type Department Care Team Description 12/11/2024 8:30 AM CDT Office Visit [facility] - Nephrology [address] [facility], [place] [address] Carrie Sierra MD Kidney donor (Primary Dx); Primary hypertension 12/11/2024 7:50 AM CDT - 12/11/2024 11:59 PM CDT Hospital Encounter [facility] OP DRAW STATION [address] [place] [address] Carrie Sierra MD Discharge Disposition: Home or Self Care 12/11/2024 Travel 12/03/2024 Orders Only [facility] TRANSPLANT [address] [place] [phone] Ankush Tom, TOM Donor of kidney for transplant 12/03/2024 Telephone [facility] TRANSPLANT [address] [place] [phone] Alice [facility] Kidney/Liver Donor Follow-up from Last 3 Months Family History Medical History Relation Name Comments Hypercholesterolemia Father Heart Failure Mother Hypercholesterolemia Mother Hypertension Mother Stroke Mother Relation Name Status Comments Father Mother Social History Tobacco Use Types Packs/Day Years Used Date Smoking Tobacco: Former Cigarettes 0.5 5 0 09/16/2010 - 09/16/2015 Smokeless Tobacco: Never Tobacco Cessation:Counseling Given: Not Answered Alcohol Use Standard Drinks/Week Comments Yes 5 [...] and heating? Not hard at all 06/24/2024 [facility] - Occupational Stress [...] place to sleep or slept in a alf (including now)? No 06/24/2024 Comments No Sex and Gender Information Value Date Recorded Sex Assigned at Not on file Legal Sex Female 7:05 PM CDT Gender Identity Not on file Sexual Orientation Straight 07/07/2024 5: 30 PM CDT Last Filed Vital Signs Vital Sign Reading Time Taken Comments Blood Pressure 150/85 12/11/2024 8:52 AM CDT Pulse 58 12/11/2024 8:47 AM CDT Temperature 36.7 C (98 F) 12/11/2024 8:47 AM CDT Respiratory Rate 18 12/11/2024 8:47 AM CDT Oxygen Saturation 100% 12/11/2024 8:47 AM CDT Inhaled Oxygen Concentration - - Weight 56.2 kg (124 lb) 12/11/2024 8:47 AM CDT Height 154.9 cm (5' 1 ) 12/11/2024 8:47 AM CDT Body Mass Index 23.43 12/11/2024 8:47 AM CDT Plan of Treatment Upcoming Encounters Date Type Department Care Team (Late st Contact Info) Description 05/07/2025 8:00 AM CDT Office Visit [facility] - Nephrology [address] [place] [address], [place] [address] Carrie Sierra MD [address] [place] [address] [place] [address] Health Maintenance Due Date Last Done Comments COLON MONITORING 1967 COLONOSCOPY - COLON CA SCREENING 1967 CT COLONOGRAPHY - COLON CA SCREENING 1967 FIT - COLON CA SCREENING 1967 FLEX SIG - COLON CA SCREENING 1967 MAMMOGRAM 1967 PAP SMEAR 1967 HIV SCREENING 1982 DTAP/TDAP/TD VACCINES (1 - Tdap) 1986 HEPATITIS B VACCINE (1 of 3 - 19+ 3-dose series) 1986 PNEUMOCOCCAL VACCINE 50+ (1 of 1 - PCV) 2017 ZOSTER VACCINE (1 of 2) 2017 COVID-19 VACCINE (3 - season) 2024 01/02/2021, 12/02/2020 DEPRESSION SCREENING 09/16/2024 COLOGUARD (AGES 45-75) - COLON CA SCREENING 07/05/2026 07/05/2023 Colorectal Cancer Screening 07/05/2026 LIPID TESTING 12/16/2028 12/17/2023, 12/0 12/2022, 11/29/2022, Additional history exists INFLUENZA VACCINE Completed 06/08/2024 HEPATITIS C SCREENING Completed 06/16/2024, 023 HIB VACCINE Aged Out No longer eligi ble based on patient's age to complete this topic HPV VACCINE Aged Out No longer eligi ble based on patient's age to complete this topic MENINGOCOCCAL (Group B) VACCINE SHARED DECISION-MAKING Aged Out No longer eligible based on patient's age to complete this topic MENINGOCOCCAL GROUPS A/C/Y/W VACCINE Aged Out No longer eligible based on patient's age to complete this topic Procedures Procedure Name Priority Date/Time Associated Diagnosis Comments URINALYSIS W/MICROSCOPIC NO CULTURE Routine 12/11/2024 7:59 AM CDT Donor of kidney for transplant MICROALB/CREAT RATIO URINE RANDOM PANEL Routine 12/11/2024 7:59 AM CDT Donor of kidney for transplant RENAL FUNCTION PANEL Routine 12/11/2024 7:56 AM CDT Donor of kidney for transplant CBC W AUTO DIFFERENTIAL Routine 12/11/2024 7:56 AM CDT Donor of kidney for transplant HEPATITIS C AB SCREEN RFLX NAAT QUANT STAT 06/16/2024 3:41 PM CDT Willing to be kidney donor LIPID PROFILE Routine 08/19/2023 3:12 PM BRAKE ENGINEER Willing to be kidney donor from Last 3 Months or Most Recently Relevant to Health Maintenance Results * (ABNORMAL) URINALYSIS W/MICROSCOPIC NO CULTURE (12/11/2024 7:59 AM CDT) Color UA Yellow Yellow, Straw 12/11/2024 8:24 AM CDT [facility] Clarity UA Clear Clear 12/11/2024 8:24 AM CDT [facility] Glucose UA Normal Normal 12/11/2024 8:24 AM CDT [facility] Bilirubin UA Negative Negative 12/11/2024 8:24 AM CDT [facility] Ketone UA Negative Negative 12/11/2024 8:24 AM CDT [facility] Specific [place] UA 1.020 1.005 - 1.030 12/11/2024 8:24 AM CDT [facility] Blood UA Negative Negative 12/11/2024 8:24 AM [facility] pH UA 6.5 5.0 - 9.0 pH 12/11/2024 8:24 AM [facility] Protein UA Negative Negative 12/11/2024 8:24 AM [facility] Urobilinogen UA Normal Normal mg/dL 025 8:24 AM [facility] Nitrite UA Negative Negative 12/11/2024 8:24 AM [facility] Leukocyte UA Negative Negative 12/11/2024 8:24 AM [facility] RBC UA 0-2 0 - 5 # /hpf 12/11/2024 8:24 AM [facility] WBC UA 0-5 0 - 5 # /hpf 12/11/2024 8:24 AM [facility] Bacteria UA Trace(A) None Seen 12/11/2024 8:24 AM [facility] Squamous Epithelial Cells 3-5 0 - 5 /hpf 12/11/2024 8:24 AM [facility] Mucus UA 1+ /LPF 12/11/2024 8:24 AM [facility] Urine URINE SPECIMEN OBTAINED BY CLEAN CATCH PROCEDURE / Unknown Collection / Unknown 12/11/2024 7:59 AM CDT 12/11/2024 8:14 AM [facility] Carrie Sierra MD LAB - URINALYSIS ORDERABLES Fi nal Result [address] [address], [facility] [phone] * MICROALB/CREAT RATIO URINE RANDOM PANEL (12/11/2024 7:59 AM CDT) Albumin Random Urine 9.5 Not Established ug/mL 12/11/2024 8:43 AM [facility] Creatinine Urine 84.98 Not Established mg/dL 12/11/2024 8:43 AM [facility] Urine Albumin/Creati nine Ratio 11 <30 mg/g 12/11/2024 8:43 AM [facility] Urine URINE SPECIMEN OBTAINED BY CLEAN CATCH PROCEDURE / Unknown Collection / Unknown 12/11/2024 7:59 AM CDT 12/11/2024 8:14 AM CDT us Carrie Sierra MD LAB - URINE CHEMISTRY ORDERABL ES Final Result [facility] [address] [place] [address], [facility] [phone] * CBC WITH DIFFERENTIAL (12/11/2024 7:56 AM CDT) WBC 7.1 4.0 - 10.7 x10E9/L 12/11/2024 8:22 AM [facility] RBC Count 4.18 3.90 - 5.20 x10E12/L 12/11/2024 8:22 AM [facility] Hemoglobin 12.8 11.9 - 15.8 g/dL 12/11/2024 8:22 AM [facility] Hematocrit 38.1 34.8 - 46.1 % 12/11/2024 8:22 AM [facility] MCV 91.1 80.0 - 98.0 fL 12/11/2024 8:22 AM [facility] MCH 30.6 26.7 - 33.6 pg 12/11/2024 8:22 AM [facility] MCHC 33.6 31.7 - 36.3 g/dL 12/11/2024 8:22 AM [facility] RDW-CV 13.2 11.3 - 14.8 % 12/11/2024 8:22 AM [facility] Platelet Count 351 150 - 420 x10E9/L 12/11/2024 8:22 AM [facility] MPV 10.4 7.8 - 11.4 fL 12/11/2024 8:22 AM [facility] Neutrophil % 54.0 41.0 - 74.0 % 12/11/2024 8:22 AM [facility] Lymphocyte % 33.4 17.0 - 47.0 % 12/11/2024 8:22 AM [facility] Monocyte % 10.4 3.0 - 11.0 % 12/11/2024 8:22 AM [facility] Eosinophil % 1.5 0.0 - 7.0 % 12/11/2024 8:22 AM [facility] Basophil % 0.4 0.0 - 1.6 % 12/11/2024 8:22 AM [facility] Immature Granulocytes % 0.3 0.0 - 1.0 % 12/11/2024 8:22 AM [facility] Neutrophil Absolute 3.84 1.60 - 7.50 x10E9/L 12/11/2024 8:22 AM [facility] Lymphocyte Absolute 2.38 1.00 - 4.40 x10E9/L 12/11/2024 8:22 AM [facility] Monocyte Absolute 0.74 0.15 - 1.00 x10E9/L 12/11/2024 8:22 AM [facility] Eosinophil Absolute 0.11 0.00 - 0.60 x10E9/L 12/11/2024 8:22 AM [facility] Basophil Absolute 0.03 0.00 - 0.13 x10E9/L 12/11/2024 8:22 AM [facility] Blood BLOOD SPECIMEN / Unknown Lab Venipuncture / Unknown 12/11/2024 7:56 AM CDT 12/11/2024 8:16 AM CDT us Carrie Sierra MD LAB - HEMATOLOGY ORDERABLES Fi nal Result Performing Organization Address City/State/[facility] Co de Phone Number [facility] [address] [place] [phone] [phone] * (ABNORMAL) RENAL FUNCTION PANEL (12/11/2024 7:56 AM CDT) BUN 20 7 - 26 mg/dL 12/11/2024 8:41 AM [facility] Creatinine 0.82 0.56 - 0.96 mg/dL 12/11/2024 8:41 AM [facility] Sodium 139 136 - 145 mmol/L 12/11/2024 8:41 AM [facility] Potassium 4.0 3.5 - 4.5 mmol/L 12/11/2024 8:41 AM [facility] Chloride 106 98 - 107 mmol/L 12/11/2024 8:41 AM [facility] CO2 26 22 - 29 mmol/L 12/11/2024 8:41 AM [facility] Glucose 83 70 - 99 mg/dL 12/11/2024 8:41 AM [facility] Albumin 4.2 3.4 - 5.0 g/dL 12/11/2024 8:41 AM [facility] Calcium 9.6 8.4 - 10.2 mg/dL 12/11/2024 8:41 AM [facility] Phosphorus 3.3 2.9 - 5.1 mg/dL 12/11/2024 8:41 AM [facility] Anion Gap 7 6 - 16 12/11/2024 8:41 AM [facility] BUN/Creatinine Ratio 24(H) 7 - 23 12/11/2024 8:41 AM [facility] Osmolality Calculated 290 275 - 295 mOsm/kg 12/11/2024 8:41 AM [facility] eGFR by CKD-EPI 83(L) >=90 mL/min/1.7 3 m2 12/11/2024 8:41 AM [facility] Blood BLOOD SPECIMEN / Unknown Lab Venipuncture / Unknown 12/11/2024 7:56 AM CDT 12/11/2024 8:16 AM T Carrie Sierra MD LAB - CHEMISTRY ORDERABLES Fin al Result [facility] [address] [place] [address], [facility] [phone] * HEPATITIS C AB SCREEN RFLX NAAT QUANT (06/16/2024 3:41 PM CDT) Hepatitis C Antibody Non-react marquez Non-reac tive 06/16/2024 5:28 PM [facility] Comment:Hepatitis C Antibody screen indicates no [...] CDT Chantal Manriquez MD LAB - CHEMISTRY ORDERAB LES Final Result Performing Organization Address City/[facility]/ZIP Co de Phone Number [address] [address], [place] [phone] * LIPID PROFILE (08/19/2023 3:12 PM BRAKE ENGINEER) [facility] Cholesterol Total 179 <200 mg/dL 08/19/2023 3:53 PM [facility] HDL 67 >40 mg/dL 08/19/2023 3:53 PM [facility] Comment: ATP III Classification of HDL Cholesterol: <40 mg/dL: Considered a major risk factor. >60 mg/dL: Considered a negative risk factor. LDL Calculated 94 <100 mg/dL 08/19/2023 3:53 PM [facility] Comment: ATP III Classification of LDL Cholesterol: <100 mg/dL: Optimal 100 - 129 mg/dL: Near Optimal/Above Optimal 130 - 159 mg/dL: Borderline High 160 - 189 mg/dL: High >190 mg/dL: Very High Triglycerides 91 <150 mg/dL 08/19/2023 3:53 PM [facility] Comment: ATP III Classification of Triglycerides: <150 mg/dL: Normal 150 - 199 mg/dL: Borderline High 200 - 400 mg/dL: High >500 mg/dL: Very High Blood BLOOD SPECIMEN / Unknown Lab Venipuncture / Unknown 08/19/2023 3:12 PM BRAKE ENGINEER 08/19/2023 3:22 PM BRAKE ENGINEER Chantal Manriquez MD LAB - CHEMISTRY ORDERAB LES Final Result Performing Organization Address City/[facility]/ZIP Co de Phone Number [address] [address], [place] [phone] from Last 3 Months or Most Recently Relevant to Health Maintenance Insurance [facility] [place] [address] Care Teams Allopathic Doctor Relationship Specialty Start Date End Date Axel Angeles MD [address] [place] [address] [facility] - General 02/16/21
--- OUTSIDE RECORDS SUMMARY | 2025-01-12 07:49 | XMS_ITS | Referral Summary ---
Author Organization [facility] Address [address] [place] [address] Care Team Providers Care Travel Specialist Name Role Phone Axel Angeles MD Primary Care Provider Axel Angeles MD Unavailable [phone] Encounters Date Type Department Care Team Description 01/11/2025 1:15 PM CDT Office Visit [facility] Cardiology [address] [place] [address] Elie Haile MD Paroxysmal atrial fibrillation (HCC) (Primary Dx) from Last 3 Months Allergies Active Allergy [...] Date Diagnosed Date Paroxysmal atrial fibrillation 09/05/2021 Social History Tobacco Use Types Packs/Day Years Used Date Smoking Tobacco: Former Smokeless Tobacco: Never Tobacco Cessation:Counseling Given: Not Answered Comments Unknown Sex and Gender Information Value Date Recorded Sex Assigned at Not on file Legal Sex Female 10:57 AM [employer] Gender Identity Female 10/11/2021 1:27 PM [employer] Sexual Orientation Straight 10/11/2021 1: 27 PM [employer] Last Filed Vital Signs Vital Sign Reading [...] 01/11/2025 1:27 PM CDT Plan of Treatment [place] [address] [place] [address] [place] [address] [facility] [place] [address] [place] [address] Care Teams Travel Specialist Relationship Specialty Start Date End Date Axel Angeles MD [address] [facility] [address] [place] [address] PCP - General Family Medicine 12/29/19 Axel Angeles MD [address] [facility] [address] [place] [address] Family Medicine 12/29/19
--- OUTSIDE RECORDS SUMMARY | 2025-01-12 07:50 | XMS_ITS | Encounter Summary ---
Author Organization [facility] Address [address] [facility] [place] [address] Care Team Providers Care Tank Maker Wood Name Role Phone Axel Angeles MD Primary Care Provider [phone] Encounter Details Date Type Department Care Team (Late st Contact Info) Description 02/16/2021 Telephone [facility] [address] [place] [address] Lizz Hess MD No info available Social History Tobacco Use Types Packs/Day Years Used Date Smoking Tobacco: Every Day Cigarettes 0.5 2 Alcohol Use Standard Drinks/Week Comments Yes 0 (1 standard drink = 0.6 oz pur e alcohol) sociall Comments Unknown Sex and Gender Information Value Date Recorded Sex Assigned at Not on file Legal Sex Female 7:05 PM CDT Gender Identity Not on file Sexual Orientation Straight 07/07/2024 5: 30 PM CDT documented as of this encounter Plan of Treatment Upcoming Encounters Date Type Department Care Team (Late Contact Info) Description 05/07/2025 8:00 AM CDT Office Visit [facility] - Nephrology [address] [place] [address], [facility] [place] [phone] Carrie Sierra MD [address] [place] [address] [place] [address] documented as of this encounter Visit Diagnoses Not on filedocumented in this encounter Additional Health Concerns Infection Onset Date Last Indicated Resolved Time COVID-19 Under Investigation 06/16/2024 06/16/2024 06/17/2024 12:28 AM CDT documented as of this encounter Care Teams Tank Maker Wood Relationship Specialty Start Date End Date Axel Angeles MD [address] [place] [address] PCP - General 02/16/21 documented as of this encounter
--- OUTSIDE RECORDS SUMMARY | 2025-01-12 07:50 | XMS_ITS | Encounter Summary ---
Author Organization [facility] Address [address] [facility] [address] Care Team Providers Care Nanotechnician Name Role Phone Axel Angeles MD Primary Care Provider [phone] Reason for Visit * Reason Comments Transplant Donor Evaluation Persistent d ysuria (burning with urination) Encounter Details Date Type Department Care Team (Late Contact Info) Description 10/08/2023 Telephone [facility] TRANSPLANT [address] [place] [phone] Ankush Tom RN Transplant Donor Evaluation (Persistent dysuria (burning with urination)) Social History Tobacco Use Types Packs/Day Years Used Date Smoking Tobacco: Former Cigarettes 0.5 5 0 09/16/2010 - 09/16/2015 Smokeless Tobacco: Never Alcohol Use Standard Drinks/Week Comments Yes 10 (1 standard drink = 0.6 oz pu re alcohol) socially Comments No Sex and Gender Information Value Date Recorded Sex Assigned at Not on file Legal Sex Female 7:05 PM CDT Gender Identity Not on file Sexual Orientation Straight 07/07/2024 5: 30 PM CDT documented as of this encounter Plan of Treatment Upcoming Encounters Date Type Department Care Team (Late Contact Info) Description 05/07/2025 8:00 AM CDT Office Visit [facility] - Nephrology [address] [facility], [place] [phone] Carrie Sierra MD [address] [place] [address] [place] [address] documented as of this encounter Visit Diagnoses Not on filedocumented in this encounter Additional Health Concerns Infection Onset Date Last Indicated Resolved Time COVID-19 Under Investigation 06/16/2024 06/16/2024 06/17/2024 12:28 AM CDT documented as of this encounter Care Teams Nanotechnician Relationship Specialty Start Date End Date Axel Angeles MD [address] [place] [address] PCP - General 02/16/21 documented as of this encounter
--- OUTSIDE RECORDS SUMMARY | 2025-01-12 07:50 | XMS_ITS ---
Author Organization [facility] Address [address] [facility] [place] [address] Care Team Providers Care Vegetable Farming Supervisor Name Role Phone Axel Angeles MD Primary Care Provider Transplant Episode Kidney Donor [facility] ([place], [place]) - [facility] Organ Donated: Right Kidney Recovered on 06/24/2024 Marked as Active Follow-up on 06/24/2024 Kidney CoordinatorAnkush Tom RN Phone: N/A Fax: N/A Email: N/A Care Team Name Role Phone Fax Email Ankush Tom RN Kidney Coordinator N/A N/A N /A Axel Angeles MD Primary Care Provider [phone] N/A Claire Villanueva LMSW Restaurant Supervisor [phone] N/A N/A Events Post-Donation Pre-Donation Admitted: 06/24/2024 Referred: 12/25/2022 Recovered: 06/24/2024 Evaluation began: 08/19/2023 Discharged: 06/26/2024 Committee: 06/18/2024
[2025-01-12 08:10] VITALS: BP 151/93; PULSE 63; RESP 18; TEMP 37.3; O2SAT 100; BMI 23.9
--- NOTE | 2025-01-12 08:12 | PM.HPGS ---
History of Present Illness History of Present Illness Consent: Risks, benefits, and alternatives have been discussed and questions answered. Patient agrees to proceed with procedure. Chief complaint: Cervical spondylosis, chronic neck pain Narrative: Maureen Sorenson is a 59 year old female with chronic, recalcitrant and disabling right cervical pain secondary to degenerative spondylosis with failure to respond to aggressive conservative measures including PT, oral and topical analgesics, opioid and nonopioid analgesics, rest, time and activity/behavioral modification over the past 1-2 years who presents for diagnostic/prognostic medial branch blocks of the right C4, C5, C6 medial branches(#2) addressing the ipsilateral C4-5, C5-6 facet joints under fluoroscopic guidance and with contrast control. Review of Systems Review of Systems: Patient denies any new infectious, allergic, cardiopulmonary, neurologic or constitutional symptoms or changes in activity tolerance or exercise capacity including new or progressive SOB/HOFFMAN, peripheral edema, productive cough, dysuria, nausea/vomiting, diarrhea, weight change, fevers/chills/night sweats, new or progressive neurologic deficit, cognitive or mood changes since last seen, except as documented in the HPI. All systems reviewed & are unremarkable except as noted in HPI and below PMFSH Past Medical History Medical History Single kidney RLQ abdominal pain Constipation Altered bowel habits Dyspepsia White matter disease Menorrhagia (normal spontaneous vaginal delivery) x3 Anemia, blood loss Anemia, iron deficiency Paroxysmal A-fib GERD (gastroesophageal reflux disease) Iron deficiency anemia Palpitations Chronic GERD History of peptic ulcer Surgical History Surgical History History of nephrectomy R for donation History of endometrial ablation Status post myomectomy 2005 H/O tubal ligation Family History Family History Father Family history of cardiovascular disease Diabetes mellitus Skin cancer Heart disease Mother Family history of cardiovascular disease Heart disease Mother Acute myocardial infarction Sibling Skin cancer Hypertension Heart disease Son Heart disease Social History Social History Social History: Smoking packs per day: 1 Smoking cigarettes per day: 20.0 Years smoked: 5 Smoking pack-years: 5.00 Smoking status: Former smoker Tobacco type: cigarettes Second hand tobacco smoke exposure: Yes Smoking end date: 09/16/15 Additional smoking assessment comments: VAPING 2015 TO 12/2019/stopped vaping Alcohol intake: current Drinks per week: 2 Substance use: never Substance use type: does not use Do You Feel Safe in your Home?: Yes Lack of Transportation: No Lack of Food: Never True Current Housing: I Have Housing Concerned About Future Housing: No Difficulty Paying Gas/Electric Bills: No Difficulty Paying for Meds: No Currently Unemployed: No Education: High School Diploma/GED Difficulty w/ Childcare or Family Care: No Living arrangements: with family Occupation/Education: occupation Gender identity (if verbalized by the patient): Female Sexual Orientation (if Verbalized by the Patient): Straight or Heterosexual Spiritual care concerns: No Meds Home Medications and Allergies Home Medications ?Medication ?Instructions ?Recorded ?Confirmed ?Type pantoprazole 40 mg tablet,delayed 40 mg PO BID #180 tabs 10/21/23 01/12/25 Rx release acetaminophen 500 mg capsule 500 - 1,000 mg PO BID PRN Pain 11/21/23 01/05/25 History metoprolol succinate 50 mg 50 mg PO DAILY 11/21/23 01/12/25 History tablet,extended release 24 hr amlodipine 5 mg tablet 5 mg PO DAILY #90 tabs 05/28/24 01/12/25 Rx Allergies Allergy/AdvReac Type Severity Reaction Status Date / Time shellfish derived Allergy Severe Difficulty Verified 01/12/25 08:05 Breathing codeine Allergy Intermediate Hives Verified 01/12/25 07:57 pregabalin Allergy nausea and Verified 01/12/25 07:57 lightheadedness lidocaine AdvReac Intermediate Palpitation Verified 01/12/25 07:57 s antihistamines Allergy Intermediate Palpitation Uncoded 01/12/25 07:57 s decongestants Allergy Intermediate Palpitation Uncoded 01/12/25 07:57 s Vital Signs Vital Signs - 24 hr 01/12/25 08:10 Temperature 99.2 F Pulse Rate 63 Respiratory Rate 18 Blood Pressure 151/93 H Pulse Oximetry 100 Oxygen Delivery Room Air Exam Narrative: The patient's physical exam is essentially unchanged from prior examination on 11/23/2024. Specifically, patient demonstrates normal lung capacity, tidal volume and respiratory rate without wheezes, crackles, rales or rubs. Heart rate and rhythm are regular without murmurs, gallops or rubs. No JVD. Pulses 2+ globally without increasing peripheral edema. AAOx3 with no evidence of confusion, intoxication or altered mental state, NC/AT without acute distress or altered consciousness. Speech, cognition, mood, insight and judgment at baseline and within normal limits. Assessment and Plan Assessment and plan (1) Spondylosis of cervical spine: Code(s): M47.812 - Spondylosis without myelopathy or radiculopathy, cervical region Status: Acute Assessment and Plan: Proceed as planned with diagnostic/prognostic medial branch blocks of the right C4, C5, C6 medial branches(#2) addressing the ipsilateral C4-5, C5-6 facet joints under fluoroscopic guidance and with contrast control (2) Cervicalgia: Code(s): M54.2 - Cervicalgia Status: Acute (3) Chronic pain: Code(s): G89.29 - Other chronic pain Status: Acute
--- NOTE | 2025-01-12 08:14 | WPDHPUPDATE1 ---
History and Physical Update Update Date/Time: 01/12/25 08:14 History and Physical has been reviewed, including an updated exam of the patient. There are NO changes in the patient's condition. Risks, benefits, and alternatives have been discussed and questions answered. Patient agrees to proceed with procedure.
--- NOTE | 2025-01-12 08:15 | W.PM.PROC2 ---
Procedure Note - Detailed Date of Procedure 01/12/25 Pre-op Diagnosis Cervical spondylosis, chronic neck pain Post-op Diagnosis Same Procedure Performed Diagnostic Right Cervical Medial Branch Nerve Blocks at C4, C5, C6 Blocking the Ipsilateral C4-5, C5-6 facet joints under Fluoroscopic Guidance and with Contrast Control (2 levels blocked). Surgeon Shaq Estes MD Senior Informatica Developer None. Anesthesia Local Description of Procedure INFORMED CONSENT: Risks, benefits and alternatives to the procedure were discussed in detail with the patient who expressed explicit understanding and consent to proceed. Patient was informed verbally and in written form regarding the risks associated with the procedure including the low risk of serious infection, bleeding/bruising, allergic reaction, nerve or organ injury, paralysis, procedural site pain or discomfort, worsening pain and/or mobility, failure to treat and/or disfigurement. The patient expressed explicit understanding and consent to proceed. All materials required for the procedure were available prior to procedure start. Site and side were marked prior to procedure and confirmed in the presence of the patient. PROCEDURE IN DETAIL: The patient was brought to the procedural suite and placed in the prone position with head stabilized with a ProneView pillow. Patient was made comfortable with use of pillows under the head/chest, hips and ankles. Skin overlying the injection site on the affected side(s) was prepared broadly with ChloraPrep applicator and draped in a sterile manner. Aseptic technique was used throughout. The endplates of the vertebral bodies at the site(s) of interest were aligned in the AP view. Ipsilateral oblique angulation was utilized to optimize visualization of the pars interarticularis at each target site. Local anesthesia was established by infiltration with approximately 5 mL of 0.5% lidocaine via a 1-1/2 inch 27-gauge needle divided over each injection site. A 25-gauge 3.5 inch Quincke spinal needle was advanced until the needle tip contacted the periosteum of the pars interarticularis at the target site, right C4 medial branch. Lateral view was utilized to confirm the appropriate placement of the needle tip just anterior to the center point of the interarticularis. In the Lateral view, 0.25 mL of Omnipaque 300 contrast medium was injected after negative aspiration for CSF, blood or other bodily fluid, showing appropriate extra-articular spread of contrast without evidence of intravascular, foraminal or intrathecal placement. A 0.25 mL solution of 2.0% PF lidocaine was injected after negative repeat aspiration. Appropriate spread of the injectate was confirmed with washout of previously injected contrast. No parasthesias were elicited. Needle was removed completely intact without difficulty. The same exact procedure was repeated for all remaining levels on the ipsilateral side, right C5, C6 medial branches, modified as necessary to accommodate for the new target location with identical findings and results and no evidence of complication. Images were saved and documented in the patient chart. Patient's skin was cleansed and sterile bandage applied. The patient tolerated the procedure well. The patient was transported to the recovery area in stable condition where they were observed for an appropriate amount of time prior to discharge, without evidence of complication. Patient was instructed on the appropriate completion of a pain diary over the next 12-24 hours. The patient was instructed to avoid excessive activity for the next 48 hours, including climbing and frequent use of stairs. Showers only for 48 hours. They were instructed not to drive or operate heavy machinery for 24 hours. They are to monitor for severe headaches, fevers, chills, night sweats, erythema/swelling at the site or any other signs of infection, bleeding/bruising, bowel or bladder changes as well as new pain, weakness or numbness in the upper or lower extremity. Should they notice these changes, they are instructed to call our office immediately or report directly to the nearest Emergency Department if no answer or if after posted office hours. COMPLICATIONS: None COMMENTS: None CONTRAST WASTED: 29.25 mL Omnipaque 300. Complications No immediate complications Condition Stable Disposition Same day [facility] Billing Surgery - Charge Forward: Surgery Billing
[2025-01-12 08:43] VITALS: BP 173/94; PULSE 61; RESP 14; O2SAT 100
[2025-01-12 08:51] VITALS: BP 168/80; PULSE 68; RESP 20; O2SAT 100
[2025-01-12] MEDS: LIDOCAINE 1% PF INJ 5 ML VIAL 3 ML INFILTRATE (08:52)
[2025-01-12] MEDS: LIDOCAINE 2% PF LOCAL INJ 5 ML VIAL INFILTRATE (08:52)
[2025-01-12 08:57] VITALS: BP 169/88; PULSE 59; RESP 14; O2SAT 100
== END 2025-01-12 09:10 | disposition home or self-care (01) ==
PROVIDERS: PCP Family Medicine; Visit Provider Anesthesiology Pain Medicine
PROC: (CPT 64490; principal; 2025-01-12 08:45)
DX: M47.812 Spondylosis without myelopathy or radiculopathy, cervical region (principal); G89.29 Other chronic pain
CPT/HCPCS: 64490; 64491; 99199

== ENCOUNTER 2025-02-19 11:09 | Outpatient (CLI) | payer OTHER, SELFPAY ==
--- NOTE | ~2025-02-19 | XR_ITS ---
Lumbosacral Spine: AP and lateral views Clinical History: Pain Findings: The normal lordotic curve is maintained. The vertebral bodies and posterior elements are i ntact. The intervertebral disc spaces are preserved. The sacroiliac joints are normally outlined. Impression: No significant abnormality. Reviewed, dictated and finalized at [facility]. Impression: No significant abnormality.
== END 2025-02-19 11:10 | disposition home or self-care (01) ==
LOC: MICIMG 11:09
PROVIDERS: PCP Family Medicine; Visit Provider Physician Assistant Medical
DX: M54.50 Low back pain, unspecified (principal)
CPT/HCPCS: 72100

== ENCOUNTER 2025-02-26 10:48 | Emergency (ER) | payer OTHER, SELFPAY ==
[2025-02-26] VITALS (8 sets, daily range): BP systolic 127–174; BP diastolic 84–93; PULSE 59–71; RESP 14–22; TEMP 36.5–36.8; O2SAT 98–100
--- NOTE | ~2025-02-26 | CT_ITS ---
EXAMINATION: CT brain wo con DATE: 02/26/2025 12:58 INDICATION: Headache. Paresthesias at the posterior head. TECHNIQUE: Computed tomography (CT) of the head was performed without intravenous contrast. Sagittal and coronal reconstructions were performed. The mA was adjusted according to patient size. Iterative reconstruction technique was employed. The dose-length product was 605.33 mGy-cm. COMPARISON: head CT dated 10/13/2021 FINDINGS: No acute intracranial hemorrhage, acute infarction or abnormal extra axial fluid collection. There is mild scattered white matter hypoattenuation consistent with chronic small vessel ischemic disease. A gain seen is a left choroid fissure cyst inferior to the left basal ganglia. Ventricles are normal an d symmetric. No mass/mass effect. The orbits, paranasal sinuses and mastoid air cells are normal. IMPRESSION: 1. Mild scattered white matter hypoattenuation consistent with chronic small vessel ischemic disease. No acute intracranial process. Reviewed, dictated and finalized at location A. IMPRESSION: 1. Mild scattered white matter hypoattenuation consistent with chronic small ve ssel ischemic disease. No acute intracranial process.
--- OUTSIDE RECORDS SUMMARY | 2025-02-26 10:50 | XMS_ITS | Clinical Summary ---
Author Organization [facility] Address [address] [facility] [place] [address] Care Team Providers Care Hospital Plan Administrator Name Role Phone Unavailable Primary Care Provider [...] on file Legal Sex Female 12:03 PM HUMAN SERVICES CASE MANAGER Gender Identity Not on file Sexual Orientation Not on file Last Filed Vital Signs Vital Sign Reading Time Taken Comments Blood Pressure 203/103 09/09/2021 12:20 PM HUMAN SERVICES CASE MANAGER Pulse 70 09/09/2021 12:20 PM HUMAN SERVICES CASE MANAGER Temperature 36.7 C (98 F) 09/09/2021 12:20 PM HUMAN SERVICES CASE MANAGER Respiratory Rate 16 09/09/2021 12:20 PM HUMAN SERVICES CASE MANAGER Oxygen Saturation 99% 09/09/2021 12:20 PM HUMAN SERVICES CASE MANAGER Inhaled Oxygen Concentration - - Weight 49.9 kg (110 lb) 09/09/2021 12:20 PM HUMAN SERVICES CASE MANAGER Height 154.9 cm (5' 1) 09/09/2021 12:20 PM HUMAN SERVICES CASE MANAGER Body Mass Index 20.78 09/09/2021 12:20 PM HUMAN SERVICES CASE MANAGER Plan of Treatment Health Maintenance Due Date [...] 2) 2017 INFLUENZA VACCINE (#1) 2024 [place] [address] [facility] [id number] POS II
--- OUTSIDE RECORDS SUMMARY | 2025-02-26 10:51 | XMS_ITS | Encounter Summary ---
Author Organization [facility] Address [address] [facility] [place] [place] [address] Care Team Providers Care Secretary Specialist Name Role Phone Axel Angeles MD Primary Care Provider [phone] Encounter Details Date Type Department Care Team (Late st Contact Info) Description 02/16/2021 Telephone [facility] [address] [place] [address] Lizz Hess MD No info available Social [...] Office Visit [facility] - Nephrology [address] [place] [address], [facility] [place] [id number] Carrie Sierra MD [address] [place] [address] [place] [id number] documented as of this encounter Visit Diagnoses Not on filedocumented in this encounter Additional Health Concerns Infection Onset Date Last Indicated Resolved Time COVID-19 Under Investigation 06/16/2024 06/16/2024 06/17/2024 12:28 AM CDT documented as of this encounter Care Teams Secretary Specialist Relationship Specialty Start Date End Date Axel Angeles MD [address] [place] [address] PCP - General 02/16/21 documented as of this encounter
--- OUTSIDE RECORDS SUMMARY | 2025-02-26 10:51 | XMS_ITS | Clinical Summary ---
Author Organization [facility] Address [address] [place] [address] Care Team Providers Care Inspector Metal Fabricating Name Role Phone Axel Angeles MD Primary Care Provider Axel Angeles MD Unavailable [phone] Allergies Active Allergy Reactions Criticality Noted Date [...] Description 01/11/2025 1:15 PM CDT Office Visit [facility] Cardiology [address] [facility] [address] [place] [address] Elie Haile MD Paroxysmal atrial fibrillation (HCC) (Primary Dx); Need for lipid screening from Last 3 Months Surgical History Surgery [...] Father LAUREN HUFFMAN Heart disease Father LAUREN SHERJOE Hypertension Father LAUREN SHERFY Heart attack Mother JEFF CATHERINE Hypertension Mother [...] on file Legal Sex Female 10:57 AM ATTENDANCE CLERK Gender Identity Female 10/11/2021 1:27 PM ATTENDANCE CLERK Sexual Orientation Straight 10/11/2021 1: 27 PM ATTENDANCE CLERK Obstetrics History Last Filed Vital Signs Vital Sign Reading Time Taken Comments Blood Pressure 122/68 01/11/2025 1:27 PM CDT Pulse 81 01/11/2025 1:27 PM CDT Temperature - - Respiratory Rate - - Oxygen Saturation 98% 01/11/2025 1:27 PM CDT Inhaled Oxygen Concentration - - Weight 57.3 kg (126 lb 6.4 oz) 01/11/2025 1:27 P M CDT Height 154.9 cm (5' 1) 01/11/2025 1:27 PM CDT Body Mass Index [...] Procedure Name Priority Date/Time Associated Diagnosis Comments POCT LIPID PANEL Routine 01/11/2025 2:00 PM CDT Need for lipid screening from Last 3 Months Results * (ABNORMAL) POCT lipid panel (01/11/2025 2:00 PM CDT) Cholesterol, POC 198 <200 MG/DL HDL, POC 51 >=40 mg/dL Triglycerides, POC 311(A) <=149 mg/dL LDL Cholesterol POC 85 <=129 mg/dL Chol/HDL Ratio, POC 1.7 NONE Non-HDL Cholesterol, POC 147 NONE mg/dL Cholesterol Total, POC 198 30 - 199 mg/dL Capillary blood 01/11/2025 2 :00 PM CDT Elie Haile MD POINT OF CARE TEST ORDER HARVINDER Final Result from Last [address] [address] [facility] [place] [address] [facility] [place] [address] [place] [address] Care Teams Inspector Metal Fabricating Relationship Specialty Start Date End Date Axel Angeles MD [address] [place] [address] PCP - General Family Medicine 12/29/19 Axel Angeles MD [address] [place] [address] Family Medicine 12/29/19
--- OUTSIDE RECORDS SUMMARY | 2025-02-26 10:51 | XMS_ITS ---
Author Organization [facility] Address [address] [place] [address] Care Team Providers Care Documentation Improvement Specialist Name Role Phone Axel Angeles MD Primary Care Provider [phone] Transplant Episode Kidney Donor [facility] ([place], [place]) - [facility] Organ Donated: Right Kidney Recovered on 06/24/2024 Marked as Active Follow-up on 06/24/2024 Kidney CoordinatorAnkush Tom RN Phone: N/A Fax: N/A Email: N/A Care Team Name Role Phone Fax Email Ankush Tom RN Kidney Coordinator N/A N/A N /A Axel Angeles MD Primary Care Provider [phone] N/A Claire Villanueva LMSW Conveyancer [phone] N/A N/A Events Post-Donation Pre-Donation Admitted: 06/24/2024 Referred: 12/25/2022 Recovered: 06/24/2024 Evaluation began: 08/19/2023 Discharged: 06/26/2024 Committee: 06/18/2024
--- OUTSIDE RECORDS SUMMARY | 2025-02-26 10:51 | XMS_ITS | Referral Summary ---
Author Organization [facility] Address [address] [place] [address] Care Team Providers Care Center Sales And Service Associate Name Role Phone Axel Angeles MD Primary Care Provider Axel Angeles MD Unavailable [phone] Encounters Date Type Department Care Team Description 01/11/2025 1:15 PM CDT Office Visit [facility] Cardiology [address] [place] [address] Elie Haile MD Paroxysmal atrial fibrillation (HCC) (Primary Dx); Need for lipid screening from Last 3 Months Allergies Active Allergy [...] on file Legal Sex Female 10:57 AM ACADEMIC SUPPORT CENTER DIRECTOR Gender Identity Female 10/11/2021 1:27 PM ACADEMIC SUPPORT CENTER DIRECTOR Sexual Orientation Straight 10/11/2021 1: 27 PM ACADEMIC SUPPORT CENTER DIRECTOR Last Filed Vital Signs Vital Sign Reading [...] CDT Plan of Treatment Not on file Procedures Procedure Name Priority Date/Time Associated Diagnosis [...] Final Result from Last [address] [place] [address] [facility] [place] [address] [facility] Care Teams Center Sales And Service Associate Relationship Specialty Start Date End Date Axel Angeles MD [address] [place] [address] PCP - General Family Medicine 12/29/19 Axel Angeles MD [address] [place] [address] Family Medicine 12/29/19
--- OUTSIDE RECORDS SUMMARY | 2025-02-26 10:51 | XMS_ITS | Clinical Summary ---
Author Organization [facility] Address [address] [place] [address] Care Team Providers Care Lugger Name Role Phone Axel Angeles MD Primary Care Provider [phone] Source Comments [facility],non-owned Affiliates and Associated Physician Practices is amultiple site organization consisting of ambulatory clinics and hospital sitesin [place], [place], [place] and [place]. This disclosure is being madepursuant to the Care Everywhere program and may not contain all information available regarding this patient. Last updated 18.[facility] Allergies Active Allergy Reactions Criticality Noted Date Comments Fexofenadine-Pseudoeph ed Er Palpitations Low 01/19/2020 Alkylamines 12/09/2013 Diphenhydramine Palpitations 06/16/2024 Chocolate Rash,Nausea and/or Vomiting Medium 06/25/2024 Codeine Other Low 12/09/2013 Age 19 hallucinations Pseudoephedrine Base 12/09/2013 Lidocaine Palpitations 07/27/2024 Shellfish Allergy Diarrhea High 01/25/2025 Has epi pen Medications * This document contains information received [...] Protein Recent Labs Component Name 08/19/23 1512 [id number] <77* VOLUMETIMDUR 1,100 1,100 1,100 PROTEINTO <7 Acceptable Hemoglobin A1c Hemoglobin A1c (%) Date Value 08/19/2023 5.1 Acceptable 2 HR GTT (as needed) No results found for: [id number] n/a CBC Recent Labs Component Name 06/16/24 [...] Labs Component Name 06/16/24 1541 08/19/23 1512 [id number] Negative Negative Acceptable QUANT Gold Recent Labs [...] of ischemia. PVCs Hx of a-fib? 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 Paroxysmal atrial fibrillation 09/05/2021 Encounters Date Type Department Care Team Description 01/25/2025 Telephone [facility] TXP [facility] CSM [address]L [address] [place] [phone] Ankush Tom RN Kidney/Liver Donor Follow-up 12/11/2024 8:30 AM CDT Office Visit [facility] - Nephrology [address] [place] [phone] Carrie Sierra MD Kidney donor (Primary Dx); Primary hypertension 12/11/2024 7:50 AM CDT - 12/11/2024 11:59 PM CDT Hospital Encounter [facility] LAB OP DRAW STATION [address] [place] [address] Carrie Sierra MD Discharge Disposition: Home or Self Care 12/11/2024 Travel 12/03/2024 Orders Only [facility] TRANSPLANT [address] [place] [address] Ankush Tom RN Donor of kidney for transplant 12/03/2024 Telephone [facility] TRANSPLANT [address] [place] [address] Alice Luna [facility] Kidney/Liver Donor Follow-up from [...] and heating? Not hard at all 06/24/2024 [facility] of Occupat ional Health - Occupational Stress [...] a skilled nursing (including now)? No 06/24/2024 Comments No Sex [...] 8:47 AM CDT Height 154.9 cm (5' 1) 12/11/2024 8:47 AM CDT Body Mass Index 23.43 12/11/2024 8:47 AM CDT Plan of Treatment Upcoming Encounters Date Type Department Care Team (Late st Contact Info) Description 05/07/2025 8:00 AM CDT Office Visit [facility] - Nephrology [address] [place] [address], [place] [address] Carrie Sierra MD [address] [place] [address] [place] [phone] Health Maintenance Due Date Last Done Comments COLON MONITORING 1967 COLONOSCOPY - COLON CA SCREENING 1967 CT COLONOGRAPHY - COLON CA SCREENING 1967 FIT - COLON CA SCREENING 1967 FLEX SIG - COLON CA SCREENING 1967 MAMMOGRAM 1967 HIV SCREENING 1982 DTAP/TDAP/TD VACCINES (1 - Tdap) 1986 HEPATITIS B VACCINE (1 of 3 - 19+ 3-dose series) 1986 PAP SMEAR 1988 PAP with HPV 1997 PNEUMOCOCCAL VACCINE 50+ (1 of 1 - PCV) 2017 ZOSTER VACCINE (1 of 2) 2017 COVID-19 VACCINE (3 - season) 2024 01/02/2021, 12/02/2020 DEPRESSION SCREENING 09/16/2024 COLOGUARD (AGES 45-75) - COLON CA SCREENING 07/05/2026 07/05/2023 Colorectal Cancer Screening 07/05/2026 LIPID TESTING 01/11/2030 01/11/2025, 04/0 10/2023, 08/19/2023, Additional history exists INFLUENZA VACCINE Completed 06/08/2024 [...] donor LIPID PROFILE Routine 08/19/2023 3:12 PM CENTRAL SUPPLY SUPERVISOR Willing to be kidney donor from Last 3 Months or Most Recently Relevant to Health Maintenance Results * (ABNORMAL) URINALYSIS W/MICROSCOPIC NO CULTURE (12/11/2024 7:59 AM CDT) Color UA Yellow Yellow, Straw 12/11/2024 8:24 AM CDT [facility] Clarity UA Clear Clear 12/11/2024 8:24 AM CDT [facility] Glucose UA Normal Normal 12/11/2024 8:24 AM CDT [facility] Bilirubin UA Negative Negative 12/11/2024 8:24 AM [facility] Ketone UA Negative Negative 12/11/2024 8:24 AM [facility] Specific Warren UA 1.020 1.005 - 1.030 12/11/2024 8:24 AM [facility] Blood UA Negative Negative 12/11/2024 8:24 AM [facility] pH UA 6.5 5.0 - 9.0 pH 12/11/2024 8:24 AM [facility] Protein UA Negative Negative 12/11/2024 8:24 AM [facility] Urobilinogen UA Normal Normal mg/dL 025 8:24 AM [facility] Nitrite UA Negative Negative 12/11/2024 8:24 AM [facility] Leukocyte Esterase UA Negative Negative 12/11/2024 8:24 AM [facility] RBC UA 0-2 0 - 5 # /hpf 12/11/2024 8:24 AM [facility] WBC UA 0-5 0 - 5 # /hpf 12/11/2024 8:24 AM [facility] Bacteria UA Trace(A) None Seen 12/11/2024 8:24 AM [facility] Squamous Epithelial Cells 3-5 0 - 5 /hpf 12/11/2024 8:24 AM [facility] Mucus UA 1+ /LPF 12/11/2024 8:24 AM [facility] Urine URINE SPECIMEN OBTAINED BY CLEAN CATCH PROCEDURE / Unknown Collection / Unknown 12/11/2024 7:59 AM CDT 12/11/2024 8:14 AM T us Carrie Sierra MD LAB - URINALYSIS ORDERABLES Fi nal Result [address] [address], [place] [phone] * MICROALB/CREAT RATIO URINE RANDOM PANEL (12/11/2024 7:59 AM CDT) Albumin Random Urine 9.5 Not Established ug/mL 12/11/2024 8:43 AM [facility] Creatinine Urine 84.98 Not Established mg/dL 12/11/2024 8:43 AM [facility] Urine Albumin/Creati nine Ratio 11 <30 mg/g 12/11/2024 8:43 AM [facility] Urine URINE SPECIMEN OBTAINED BY CLEAN CATCH PROCEDURE / Unknown Collection / Unknown 12/11/2024 7:59 AM CDT 12/11/2024 8:14 AM CDT us Carrie Sierra MD LAB - URINE CHEMISTRY ORDERABL ES Final Result [facility] [address] [place] [address], [place] [phone] * CBC WITH DIFFERENTIAL (12/11/2024 7:56 AM CDT) WBC 7.1 4.0 - 10.7 x10E9/L 12/11/2024 8:22 AM [facility] RBC Count 4.18 3.90 - 5.20 x10E12/L 12/11/2024 8:22 AM [facility] Hemoglobin 12.8 11.9 - 15.8 g/dL 12/11/2024 8:22 AM [facility] Hematocrit 38.1 34.8 - 46.1 % 12/11/2024 8:22 AM [facility] MCV 91.1 80.0 - 98.0 fL 12/11/2024 8:22 AM [facility] MCH 30.6 26.7 - 33.6 pg 12/11/2024 8:22 AM [facility] MCHC 33.6 31.7 - 36.3 g/dL 12/11/2024 8:22 AM [facility] RDW-CV 13.2 11.3 - 14.8 % 12/11/2024 8:22 AM [facility] Platelet Count 351 150 - 420 x10E9/L 12/11/2024 8:22 AM [facility] MPV 10.4 7.8 - 11.4 fL 12/11/2024 8:22 AM [facility] Neutrophil % 54.0 41.0 - 74.0 % 12/11/2024 8:22 AM [facility] Lymphocyte % 33.4 17.0 - 47.0 % 12/11/2024 8:22 AM [facility] Monocyte % 10.4 3.0 - 11.0 % 12/11/2024 8:22 AM [facility] Eosinophil % 1.5 0.0 - 7.0 % 12/11/2024 8:22 AM [facility] Basophil % 0.4 0.0 - 1.6 % 12/11/2024 8:22 AM [facility] Immature Granulocytes % 0.3 0.0 - 1.0 % 12/11/2024 8:22 AM [facility] Neutrophil Absolute 3.84 1.60 - 7.50 x10E9/L 12/11/2024 8:22 AM [facility] Lymphocyte Absolute 2.38 1.00 - 4.40 x10E9/L 12/11/2024 8:22 AM [facility] Monocyte Absolute 0.74 0.15 - 1.00 x10E9/L 12/11/2024 8:22 AM [facility] Eosinophil Absolute 0.11 0.00 - 0.60 x10E9/L 12/11/2024 8:22 AM [facility] Basophil Absolute 0.03 0.00 - 0.13 x10E9/L 12/11/2024 8:22 AM [facility] Blood BLOOD SPECIMEN / Unknown Lab Venipuncture / Unknown 12/11/2024 7:56 AM CDT 12/11/2024 8:16 AM CDT us Carrie Sierra MD LAB - HEMATOLOGY ORDERABLES Fi nal Result [address] [address], [place] [phone] * (ABNORMAL) RENAL FUNCTION PANEL (12/11/2024 7:56 AM CDT) BUN 20 7 - 26 mg/dL 12/11/2024 8:41 AM [facility] Creatinine 0.82 0.56 - 0.96 mg/dL 12/11/2024 8:41 AM [facility] Sodium 139 136 - 145 mmol/L 12/11/2024 8:41 AM [facility] Potassium 4.0 3.5 - 4.5 mmol/L 12/11/2024 8:41 AM [facility] Chloride 106 98 - 107 mmol/L 12/11/2024 8:41 AM [facility] CO2 26 22 - 29 mmol/L 12/11/2024 8:41 AM [facility] Glucose 83 70 - 99 mg/dL 12/11/2024 8:41 AM [facility] Albumin 4.2 3.4 - 5.0 g/dL 12/11/2024 8:41 AM [facility] Calcium 9.6 8.4 - 10.2 mg/dL 12/11/2024 8:41 AM [facility] Phosphorus 3.3 2.9 - 5.1 mg/dL 12/11/2024 8:41 AM [facility] Anion Gap 7 6 - 16 12/11/2024 8:41 AM [facility] BUN/Creatinine Ratio 24(H) 7 - 23 12/11/2024 8:41 AM [facility] Osmolality Calculated 290 275 - 295 mOsm/kg 12/11/2024 8:41 AM [facility] eGFR by CKD-EPI 83(L) >=90 mL/min/1.7 3 m2 12/11/2024 8:41 AM [facility] Blood BLOOD SPECIMEN / Unknown Lab Venipuncture / Unknown 12/11/2024 7:56 AM CDT 12/11/2024 8:16 AM T us Carrie Sierra MD LAB - CHEMISTRY ORDERABLES Fin al Result [facility] [address] [place] [address], [place] [phone] * HEPATITIS C AB SCREEN RFLX NAAT QUANT (06/16/2024 3:41 PM CDT) [facility] Hepatitis C Antibody Non-react marquez Non-reac tive 06/16/2024 5:28 PM CDT [facility] Comment:Hepatitis C Antibody screen indicates no serologic [...] 3:41 PM CDT 06/16/2024 4:43 PM CDT us Chantal Manriquez MD LAB - CHEMISTRY ORDERAB LES Final Result [facility] [address] [place] [address], [place] [phone] * LIPID PROFILE (08/19/2023 3:12 PM CENTRAL SUPPLY SUPERVISOR) [facility] Cholesterol Total 179 <200 mg/dL 08/19/2023 3:53 PM [facility] HDL 67 >40 mg/dL 08/19/2023 3:53 PM [facility] Comment: ATP III Classification of HDL Cholesterol: <40 mg/dL: Considered a major risk factor. >60 mg/dL: Considered a negative risk factor. LDL Calculated 94 <100 mg/dL 08/19/2023 3:53 PM [facility] Comment: ATP III Classification of LDL Cholesterol: <100 mg/dL: Optimal 100 - 129 mg/dL: Near Optimal/Above Optimal 130 - 159 mg/dL: Borderline High 160 - 189 mg/dL: High >190 mg/dL: Very High Triglycerides 91 <150 mg/dL 08/19/2023 3:53 PM [facility] Comment: ATP III Classification of Triglycerides: <150 mg/dL: Normal 150 - 199 mg/dL: Borderline High 200 - 400 mg/dL: High >500 mg/dL: Very High Blood BLOOD SPECIMEN / Unknown Lab Venipuncture / Unknown 08/19/2023 3:12 PM CENTRAL SUPPLY SUPERVISOR 08/19/2023 3:22 PM CENTRAL SUPPLY SUPERVISOR us Chantal Manriquez MD LAB - CHEMISTRY ORDERAB LES Final Result Performing Organization Address City/State/[facility] Co de Phone Number [facility] [address] [place] [address], [place] [phone] from Last 3 Months or Most Recently Relevant to Health Maintenance Insurance [employer]IVING [employer] Care Teams Lugger Relationship Specialty Start Date End Date Axel Angeles MD [address] [place] [id number] PCP - General 02/16/21
--- OUTSIDE RECORDS SUMMARY | 2025-02-26 10:51 | XMS_ITS | Encounter Summary ---
Author Organization [facility] Address [address] [place] [address] Care Team Providers Care Shift Mechanic Name Role Phone Axel Angeles MD Primary Care Provider [phone] Reason for Visit * Reason Comments Transplant Donor Evaluation Persistent d ysuria (burning with urination) Encounter Details Date Type Department Care Team (Late Contact Info) Description 10/08/[address] [facility] TRANSPLANT [address] [place] [phone] Ankush Tom RN Transplant Donor Evaluation (Persistent [...] Description 05/07/2025 8:00 AM CDT Office Visit [facility] - Nephrology [address] [facility], [place] [phone] Carrie Sierra MD [address] [place] [address] [place] [address] documented as of this encounter Visit Diagnoses Not on filedocumented in this encounter Additional Health Concerns Infection Onset Date Last Indicated Resolved Time COVID-19 Under Investigation 06/16/2024 06/16/2024 06/17/2024 12:28 AM CDT documented as of this encounter Care Teams Shift Mechanic Relationship Specialty Start Date End Date Axel Angeles MD [address] [place] [address] PCP - General 02/16/21 documented as of this encounter
--- NOTE | 2025-02-26 12:35 | ED_ITS ---
HPI - Headache General Chief Complaint: Headache Stated Complaint: pins and needles pain in head x couple days Time Seen by Provider: 02/26/25 11:01 Source: patient Mode of arrival: ambulatory Limitations: no limitations History of Present Illness HPI Narrative: Patient is a 59 y/o female, with PMH of chronic neck pain - sees pain management, who presents to the ED with c/o CORONADO. Patient reports having pain to her L sided posterior head intermittently for the past 3 days. States pain presents as a sharp pins and needle sensation which will last for few seconds at a time, before resolving, then with aching pain remaining. Patient has tried taking Tylenol without improvement. She is concerned she is having a stroke. Denies previous history of frequent headaches or migraines. Denies vision changes, photophobia, phonophobia, nausea, vomiting, dizziness, slurred speech, confusion, numbness or weakness of arm or leg. Patient does admit to some L sided sinus pressure over the couple of days. Patient states she is due to receive nerve block with pain management for her cervical pain next week. Related Data Home Medications ?Medication ?Instructions ?Recorded ?Confirmed ?Last Taken ?Type acetaminophen 500 mg capsule 500 - 1,000 mg PO BID PRN Pain 11/21/23 02/18/25 02/16/25 History metoprolol succinate 50 mg 50 mg PO DAILY 11/21/23 02/18/25 02/16/25 History tablet,extended release 24 hr Allergies Allergy/AdvReac Type Severity Reaction Status Date / Time shellfish derived Allergy Severe Difficulty Verified 02/26/25 10:59 Breathing codeine Allergy Intermediate Hives Verified 02/26/25 10:59 pregabalin Allergy nausea and Verified 02/26/25 10:59 lightheadedness lidocaine AdvReac Intermediate Palpitation Verified 02/26/25 10:59 s antihistamines Allergy Intermediate Palpitation Uncoded 02/26/25 10:59 s decongestants Allergy Intermediate Palpitation Uncoded 02/26/25 10:59 s Review of Systems Review of Systems: All systems reviewed & are unremarkable except as noted in HPI. All systems reviewed & are unremarkable except as noted in HPI and below PMFSH Past Medical History Medical History Single kidney RLQ abdominal pain Constipation Altered bowel habits Dyspepsia White matter disease Menorrhagia (normal spontaneous vaginal delivery) x3 Anemia, blood loss Anemia, iron deficiency Paroxysmal A-fib GERD (gastroesophageal reflux disease) Iron deficiency anemia Palpitations Chronic GERD History of peptic ulcer Surgical History Surgical History History of nephrectomy R for donation History of endometrial ablation Status post myomectomy 2005 H/O tubal ligation Family History Family History Father Family history of cardiovascular disease Diabetes mellitus Skin cancer Heart disease Mother Family history of cardiovascular disease Heart disease Mother Acute myocardial infarction Sibling Skin cancer Hypertension Heart disease Son Heart disease Social History Social History Social History: Smoking packs per day: 1 Smoking cigarettes per day: 20.0 Years smoked: 5.5 Smoking pack-years: 5.50 Smoking status: Former smoker Tobacco type: cigarettes Second hand tobacco smoke exposure: Yes Smoking end date: 09/16/15 Additional smoking assessment comments: VAPING 2015 TO 12/2019/stopped vaping Alcohol intake: current Drinks per week: 4 Substance use: never Substance use type: does not use Do You Feel Safe in your Home?: Yes Lack of Transportation: No Lack of Food: Never True Current Housing: I Have Housing Concerned About Future Housing: No Difficulty Paying Gas/Electric Bills: No Difficulty Paying for Meds: No Currently Unemployed: No Education: High School Diploma/GED Difficulty w/ Childcare or Family Care: No Living arrangements: with family Additional living arrangements comments: Occupation/Education: occupation Gender identity (if verbalized by the patient): Female Sexual Orientation (if Verbalized by the Patient): Straight or Heterosexual Spiritual care concerns: No Exam Narrative: GENERAL: Well appearing, well-nourished, non-toxic, in no acute distress. HEAD: Normocephalic, atraumatic. Mild tenderness palpation over left posterior scalp. EYES: PERRL/EOMI, conjunctivae clear bilaterally. No nystagmus. NECK: Supple. No meningeal signs. RESPIRATORY: Airway patent, respirations nonlabored. Clear to auscultation bilaterally, no rales, rhonchi, wheezing. CARDIOVASCULAR: Regular rate and rhythm without murmurs, rubs, or gallops. Peripheral pulses 2+ and equal bilaterally. MUSCULOSKELETAL: Moves all extremities. No gross deformities. SKIN: Warm, dry, normal color. No rashes. NEURO: A&O X3. Speech clear. Follows commands. CN II-XII intact. Sensation grossly intact. Steady gait. No ataxic movements. Strength 5/5 in upper and lower extremities bilaterally. No pronator drift. Equal grinding machine tender strength bilaterally. PSYCHIATRIC: Appropriate mood and affect. Normal interaction. Course Vital Signs Vital signs: Vital Signs Temperature 97.8 F 02/26/25 10:56 Pulse Rate 70 02/26/25 10:56 Respiratory Rate 19 02/26/25 10:56 Blood Pressure 145/93 H 02/26/25 10:56 Pulse Oximetry 100 02/26/25 10:56 Temperature 97.8 F 02/26/25 13:16 Pulse Rate 63 02/26/25 13:16 Respiratory Rate 17 02/26/25 13:16 Blood Pressure 140/89 02/26/25 13:16 Pulse Oximetry 100 02/26/25 13:16 MDM - Headache MDM Narrative Medical decision making narrative: Patient presented to ED with 3 day history of intermittent left-sided headache/pins and needle sensation. Vital signs are stable upon arrival. Patient's headache was not sudden in onset or maximal in severity. There are no focal neurological deficits on exam. Subarachnoid hemorrhage is felt to be unlikely at this time. CT brain was obtained and negative for acute findings. Does show white matter disease, which is chronic and known to patient. There is no history of fever and neck is supple on evaluation without meningeal signs. Meningitis is felt to be unlikely. No traumatic history or signs of trauma on evaluation. No vision changes or ocular signs of acute glaucoma. Patient feeling very relieved by normal brain CT. Discussed possibility of migr sunitha/headache versus cervical spinal stenosis causing pain. Patient's headache is felt to be benign cephalgia and reasonable for further outpatient management. Advised to discuss symptoms with pain management at her appointment next week. Advised patient to follow with PCP for further evaluation. Given reasons to return. She agrees with plan. Discharged in stable condition. Medical Records Attestation: I reviewed the patient's medical records. Imaging Data Attestation: I personally reviewed and interpreted this imaging study as follows: Radiologist's impression: ITS Impressions Head CT 02/26/25 13:26 IMPRESSION: 1. Mild scattered white matter hypoattenuation consistent with chronic small vessel ischemic disease. No acute intracranial process. Discharge Plan Discharge Clinical Impression: Paresthesia Headache Qualifiers: Headache type: unspecified Headache chronicity pattern: acute headache Intractability: not intractable Qualified Code(s): R51.9 - Headache, unspecified Patient Disposition: Home Condition: Stable Instructions: Antibiotic Form, Migraine Headache (ED), Acute Headache (ED) Additional Instructions: Your CT scan of your brain today did not show any acute findings. Recommend Tylenol and ibuprofen as needed for headache. Follow-up with your primary care doctor and shipyard painter apprentice for further evaluation. Return to the ED if you experience worsening or severe pain, severe dizziness/lightheadedness, vision changes, slurred speech, confusion, numbness or weakness of arm or leg, unable to keep down food or drink, chest pain, difficulty breathing, or any other symptoms of concern. Patient Language: Thai Prescriptions: No Action methocarbamol 750 mg tablet 1,500 mg PO TID PRN (Reason: back spasms) Qty: 30 0RF metoprolol succinate 50 mg tablet extended release 24 hr 50 mg PO DAILY acetaminophen 500 mg Capsule 500 - 1,000 mg PO BID PRN (Reason: Pain) pantoprazole 40 mg tablet,delayed release (DR/EC) 40 mg PO BID Qty: 180 3RF amlodipine 5 mg tablet 5 mg PO DAILY Qty: 90 2RF Follow-up/Referrals: Axel Angeles MD [Primary Care Provider] - Time of Disposition: 14:10
[2025-02-26] MEDS: ACETAMINOPHEN 500 MG TABLET 1000 MG PO (13:01)
== END 2025-02-26 14:22 | disposition home or self-care (01) ==
PROVIDERS: Emergency Provider Physician Assistant; PCP Family Medicine
DX: R51.9 Headache, unspecified (principal); R20.2 Paresthesia of skin; I48.0 Paroxysmal atrial fibrillation; D50.9 Iron deficiency anemia, unspecified; K21.9 Gastro-esophageal reflux disease without esophagitis; Z87.11 Personal history of peptic ulcer disease
CPT/HCPCS: 70450; 99284; A9270

== ENCOUNTER 2025-03-24 13:57 | Outpatient (CLI) | payer OTHER, SELFPAY ==
--- NOTE | 2025-03-24 | ECG_ITS ---
Test Date: 2025-03-24 14:27:09 Measurements Intervals [place] Rate: 61 P: 48 [place]: 162 QRS: -2 QRSD: 89 T: 37 QT: 398 QTc: 401 Interpretive Statements SINUS RHYTHM MINIMAL VOLTAGE CRITERIA FOR LVH, CONSIDER NORMAL VARIANT [MEETS CRITERIA IN ONE OF: R(aVL), S(V1), R(V5), R(V5/V6)+S(V1)] No previous ECG available for comparison Electronically Signed On 03-25-2025 11:36:58 CDT by Jose Luis Roca M.D.
--- OUTSIDE RECORDS SUMMARY | 2025-03-24 14:08 | XMS_ITS | Clinical Summary ---
Author Organization [facility] Address [address] [facility] [place] [address] [place] [address] Care Team Providers Care Cardiovascular Physician Assistant Name Role Phone Unavailable Primary Care Provider [...] on file Legal Sex Female 12:03 PM NEWSPAPER OR PERIODICAL EDITOR Gender Identity Not on file Sexual Orientation Not on file Last Filed Vital Signs Vital Sign Reading Time Taken Comments Blood Pressure 203/103 09/09/2021 12:20 PM NEWSPAPER OR PERIODICAL EDITOR Pulse 70 09/09/2021 12:20 PM NEWSPAPER OR PERIODICAL EDITOR Temperature 36.7 C (98 F) 09/09/2021 12:20 PM NEWSPAPER OR PERIODICAL EDITOR Respiratory Rate 16 09/09/2021 12:20 PM NEWSPAPER OR PERIODICAL EDITOR Oxygen Saturation 99% 09/09/2021 12:20 PM NEWSPAPER OR PERIODICAL EDITOR Inhaled Oxygen Concentration - - Weight 49.9 kg (110 lb) 09/09/2021 12:20 PM NEWSPAPER OR PERIODICAL EDITOR Height 154.9 cm (5' 1) 09/09/2021 12:20 PM NEWSPAPER OR PERIODICAL EDITOR Body Mass Index 20.78 09/09/2021 12:20 PM NEWSPAPER OR PERIODICAL EDITOR Plan of Treatment Health Maintenance Due Date [...] (1 of 2) 2017 INFLUENZA VACCINE (#1) 2025 [place] [address] [facility] [id number] POS II
--- OUTSIDE RECORDS SUMMARY | 2025-03-24 14:09 | XMS_ITS ---
Author Organization [facility] Address [address] [facility] [place] [address] Care Team Providers Care Skilled Nursing Professional Name Role Phone Axel Angeles MD Primary Care Provider [phone] Transplant Episode Kidney Donor [facility] ([place], [place]) - [facility] Organ Donated: Right Kidney Recovered on 06/24/2024 Marked as Active Follow-up on 06/24/2024 Kidney CoordinatorAnkush Tom RN Phone: N/A Fax: N/A Email: N/A Care Team Name Role Phone Fax Email Ankush Tom RN Kidney Coordinator N/A N/A N /A Axel Angeles MD Primary Care Provider [phone] N/A Claire Villanueva LMSW Senior Bioinformatics Scientist [phone] N/A N/A Events Post-Donation Pre-Donation Admitted: 06/24/2024 Referred: 12/25/2022 Recovered: 06/24/2024 Evaluation began: 08/19/2023 Discharged: 06/26/2024 Committee: 06/18/2024
--- OUTSIDE RECORDS SUMMARY | 2025-03-24 14:09 | XMS_ITS | Continuity of Care Document ---
Author Organization [facility] Address [address] [place] [address] [place] [address] Phone Care Team Providers Care Development And Housing Director Name Role Phone Unavailable Unavailable Unavailable Advance Directives Directive Yes / No Effective Date File Name No Information Encounters Encounter Description Practice Location Reason(s) For Visit Diagnoses Date Provider Providers Copied on Encounter [facility], [address] [place] [address] [address], [place], [place], [id number], [place] tel:[phone] [facility] No Information [id number] No Information Family History Family Member Type Diagnosis Age At Onset No Information Payers Payer name Insurance type Covered democrat ID Authoriza tion(s) No Information Social History [...]
--- OUTSIDE RECORDS SUMMARY | 2025-03-24 14:09 | XMS_ITS | Patient Health Record ---
Author Organization [facility] Address [address] [place], [place] [id number] Support Name Relationship Address Phone LETY CLEMENTS Emergency Contact Unknown CALVIN CLEMENTS Guarantor Unknown [phone] Reason For Referral No Information Plan Of Treatment No Information Insurance Providers Payer Name Payer Address Payer Phone Subscriber Number Group Number Insured Name Patient Relationship to Insured Coverage Start Date Coverage End Date [facility] [address] [place] [phone] [id number] LETY CLEMENTS Spouse - patient is the spouse of the insured
--- OUTSIDE RECORDS SUMMARY | 2025-03-24 14:09 | XMS_ITS | Encounter Summary ---
Author Organization [facility] Address [address] [place] [address] Care Team Providers Care Machine Cementer Name Role Phone Axel Angeles MD Primary Care Provider [phone] Reason for Visit * Reason Comments Transplant Donor Evaluation Persistent d ysuria (burning with urination) Encounter Details Date Type Department Care Team (Late Contact Info) Description 10/08/2023 Telephone [facility] TRANSPLANT [address] [place] [address] Ankush Tom RN Transplant Donor Evaluation (Persistent [...] Description 05/07/2025 8:00 AM CDT Office Visit [facility] - Nephrology [address] [facility], [place] [address] Carrie Sierra MD [address] [place] [address] [place] [address] documented as of this encounter Visit Diagnoses Not on filedocumented in this encounter Additional Health Concerns Infection Onset Date Last Indicated Resolved Time COVID-19 Under Investigation 06/16/2024 06/16/2024 06/17/2024 12:28 AM CDT documented as of this encounter Care Teams Machine Cementer Relationship Specialty Start Date End Date Axel Angeles MD [address] [place] [address] PCP - General 02/16/21 documented as of this encounter
--- OUTSIDE RECORDS SUMMARY | 2025-03-24 14:09 | XMS_ITS | Clinical Summary ---
Author Organization [facility] Address [address] [place] [address] Care Team Providers Care Public Relations Intern Name Role Phone Axel Angeles MD Primary Care Provider Axel Angeles MD Unavailable [phone] Allergies Active Allergy Reactions Criticality Noted Date [...] Description 01/11/2025 1:15 PM CDT Office Visit [facility] Cardiology [address] [facility] [address] [place] [address] Elie Haile MD Paroxysmal atrial [...] on file Legal Sex Female 10:57 AM CATALYST SUPERVISOR Gender Identity Female 10/11/2021 1:27 PM CATALYST SUPERVISOR Sexual Orientation Straight 10/11/2021 1: 27 PM CATALYST SUPERVISOR Obstetrics History Last Filed Vital Signs [...] Result from Last [address] [place] [address] [facility] [place] [address] [facility] [place] [address] [place] [address] Care Teams Public Relations Intern Relationship Specialty Start Date End Date Axel Angeles MD [address] [place] [address] PCP - General Family Medicine 12/29/19 Axel Angeles MD [address] [place] [address] Family Medicine 12/29/19
--- OUTSIDE RECORDS SUMMARY | 2025-03-24 14:09 | XMS_ITS | Clinical Summary ---
Author Organization [facility] Address [address] [place] [address] Care Team Providers Care Um Specialist Name Role Phone Axel Angeles MD Primary Care Provider [phone] Source Comments [facility],non-owned Affiliates and Associated Physician Practices is amultiple site organization consisting of ambulatory clinics and hospital sitesin [place], [place], [place] and [place]. This disclosure is being madepursuant to the Care Everywhere program and may not contain all information available regarding this patient. Last updated 18.[facility] Allergies Active Allergy Reactions Criticality [...] Protein Recent Labs Component Name 08/19/23 1512 [id number] <77* VOLUMETIMDUR 1,100 1,100 1,100 PROTEINTO <7 Acceptable Hemoglobin A1c Hemoglobin A1c (%) Date Value 08/19/2023 5.1 Acceptable 2 HR GTT (as needed) No results found for: [id number] n/a CBC Recent Labs Component Name 06/16/24 [...] Labs Component Name 06/16/24 1541 08/19/23 1512 [id number] Negative Negative Acceptable QUANT Gold Recent Labs [...] of ischemia. PVCs Hx of a-fib? Has counting machine operator last visit :11/29/2022 Cardiology Sees q6 months [...] for anticoagulation See clearance note from her counting machine operator CXR FINDINGS/IMPRESSION: There is no focal consolidation, [...] negative Acceptable Completed by: Ankush Tom RN [facility] Organ Transplant Center Date: 06/23/2024 . Paroxysmal atrial fibrillation 09/05/2021 Encounters Date Type Department Care Team Description 01/25/2025 Telephone [facility]P [facility] [address] [facility], [place] [address] Ankush Tom, RN Kidney/Liver Donor Follow-up from Last 3 Months [...] and heating? Not hard at all 06/24/2024 [facility] [place] of Occupat ional Health - Occupational Stress [...] place to sleep or slept in a longterm (including now)? No 06/24/2024 Comments No Sex [...] Description 05/07/2025 8:00 AM CDT Office Visit [facility] - Nephrology [address] [place] [address] [place] [address] Carrie Sierra MD [address] [place] [address] Health Maintenance Due Date Last Done Comments COLON MONITORING 1967 COLONOSCOPY - COLON CA SCREENING 1967 CT COLONOGRAPHY - COLON CA SCREENING 1967 FIT - COLON CA SCREENING 1967 FLEX SIG - COLON CA SCREENING 1967 MAMMOGRAM 1967 HIV SCREENING 1982 DTAP/TDAP/TD VACCINES (1 - Tdap) 1986 HEPATITIS B VACCINE (1 of 3 - 19+ 3-dose series) 1986 PAP SMEAR 1988 PNEUMOCOCCAL VACCINE 50+ (1 of 1 - PCV) 2017 ZOSTER VACCINE (1 of 2) 2017 COVID-19 VACCINE (3 - season) 2024 01/02/2021, 12/02/2020 DEPRESSION SCREENING 09/16/2024 INFLUENZA VACCINE (#1) 2025 06/08/2024 COLOGUARD (AGES 45-75) - COLON CA SCREENING 07/05/2026 07/05/2023 Colorectal Cancer Screening 07/05/2026 LIPID TESTING 01/11/2030 01/11/2025, 0410/2023, 08/19/2023, Additional history exists HEPATITIS C SCREENING Completed 06/16/2024, 023 HIB [...] Procedure Name Priority Date/Time Associated Diagnosis Comments HEPATITIS C AB SCREEN RFLX NAAT QUANT STAT 06/16/2024 3:41 PM CDT Willing to be kidney donor LIPID PROFILE Routine 08/19/2023 3:12 PM [employer]ACHER [employer]CHOOL Willing to be kidney donor from Last 3 Months or Most Recently Relevant to Health Maintenance Results * HEPATITIS C AB SCREEN RFLX NAAT QUANT (06/16/2024 3:41 PM CDT) Hepatitis C Antibody Non-react marquez Non-reac tive 06/16/2024 5:28 PM CDT [facility] Comment:Hepatitis C Antibody screen indicates no [...] ORDERAB LES Final Result Performing Organization Address [facility]/State/[facility] Co de Phone Number [address] [address], [facility] [phone] * LIPID PROFILE (08/19/2023 3:12 PM [employer]) Pathologist [facility] Cholesterol Total 179 <200 mg/dL 08/19/2023 3:53 [...] Lab Venipuncture / Unknown 08/19/2023 3:12 PM [employer] 08/19/2023 3:22 PM [employer] Chantal Manriquez MD LAB - CHEMISTRY ORDERAB LES Final Result [facility] [address] [place] [address], [facility] [phone] from Last 3 Months or Most Recently Relevant to Health Maintenance Insurance [facility] Care Teams Um Specialist Relationship Specialty Start Date End Date Axel Angeles MD [address] [place] [address] PCP - General 02/16/21
--- OUTSIDE RECORDS SUMMARY | 2025-03-24 14:09 | XMS_ITS | Encounter Summary ---
Author Organization [facility] Address [address] [facility] [place] [address] Care Team Providers Care Dock Manager Name Role Phone Axel Angeles MD Primary Care Provider [phone] Encounter Details Date Type Department Care Team (Late st Contact Info) Description 02/16/2021 Telephone [facility] [address] [place] [address] Lizz Hess MD No info available Social [...] Office Visit [facility] - Nephrology [address] [place] [address], [facility] [place] [address] Carrie Sierra MD [address] [place] [address] [place] [address] documented as of this encounter Visit Diagnoses Not on filedocumented in this encounter Additional Health Concerns Infection Onset Date Last Indicated Resolved Time COVID-19 Under Investigation 06/16/2024 06/16/2024 06/17/2024 12:28 AM CDT documented as of this encounter Care Teams Dock Manager Relationship Specialty Start Date End Date Axel Angeles MD [address] [place] [address] PCP - General 02/16/21 documented as of this encounter
--- OUTSIDE RECORDS SUMMARY | 2025-03-24 14:09 | XMS_ITS | Referral Summary ---
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 Gender Identity Female 10/11/2021 1:27 PM BURNISHING MACHINE OPERATOR Sexual Orientation Straight 10/11/2021 1: 27 PM BURNISHING MACHINE OPERATOR Last Filed Vital Signs Vital Sign Reading [...] Haile MD POINT OF CARE TEST ORDER AHRVINDER Final Result from Last [address] [place] [place] [address] [facility] [place] [place] [address] [facility] Care Teams Senior Policy Advisor Relationship Specialty Start Date End Date Axel Angeles MD [address] [place] [address] PCP - General Family Medicine 12/29/19 Axel Angeles MD [address] [place] [address] Family Medicine 12/29/19
== END 2025-03-24 13:58 | disposition home or self-care (01) ==
LOC: ANHLAB 13:59 → ANHCARD 13:59
PROVIDERS: PCP Family Medicine; Visit Provider Anesthesiology
DX: I10 Essential (primary) hypertension (principal); I48.0 Paroxysmal atrial fibrillation; R00.2 Palpitations; R94.31 Abnormal electrocardiogram [ECG] [EKG]
CPT/HCPCS: 93005

== ENCOUNTER 2025-03-29 12:14 | Outpatient (CLI) | payer OTHER, SELFPAY ==
--- NOTE | ~2025-03-29 | XR_ITS ---
AP and oblique views of the SI joints Clinical history: Sacroiliitis FINDINGS: No fracture or dislocation seen. Mild SI joints and hip joints are intact. No evidence of i nflammatory or erosive arthropathy. No sclerosis. No degenerative change. Soft tissues are unremarkab le. IMPRESSION: Unremarkable exam. Reviewed, dictated and finalized at location . IMPRESSION: Unremarkable exam.
--- NOTE | ~2025-03-29 | XR_ITS ---
AP and lateral views of the bilateral hips Clinical history: Pain Findings: No acute fracture or dislocation is seen. Osseous alignment is anatomic. Bilateral hip and SI joint spaces are preserved. Soft tissues are unremarkable. Impression: No significant abnormality is seen. Reviewed, dictated and finalized at location . Impression: No significant abnormality is seen.
--- OUTSIDE RECORDS SUMMARY | 2025-03-29 12:17 | XMS_ITS | Clinical Summary ---
Author Organization [facility] Address [address] [facility] [place] [address] Care Team Providers Care Sparmaker Name Role Phone Axel Angeles MD Primary Care Provider [phone] Source Comments [facility],non-owned Affiliates and Associated Physician Practices is amultiple site organization consisting of ambulatory clinics and hospital sitesin [place], [place], [place] and [place]. This disclosure is being madepursuant to the Care Everywhere program and may not contain all information available regarding this patient. Last updated 18.[facility] Allergies Active Allergy Reactions Criticality Noted [...] Protein Recent Labs Component Name 08/19/23 1512 [id number] <77* VOLUMETIMDUR 1,100 1,100 1,100 PROTEINTO <7 Acceptable Hemoglobin A1c Hemoglobin A1c (%) Date Value 08/19/2023 5.1 Acceptable 2 HR GTT (as needed) No results found for: [id number] n/a CBC Recent Labs Component Name 06/16/24 [...] Labs Component Name 06/16/24 1541 08/19/23 1512 [id number] Negative Negative Acceptable QUANT Gold Recent Labs [...] of ischemia. PVCs Hx of a-fib? 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 Paroxysmal atrial fibrillation 09/05/2021 Encounters Date Type Department Care Team Description 01/25/2025 Telephone [facility] TXP [facility] [address] [facility] [place] [address] Ankush Tom, RN Kidney/Liver Donor [...] and heating? Not hard at all 06/24/2024 [facility] [place] of Occupat ional Health - Occupational Stress [...] place to sleep or slept in a fpc (including now)? No 06/24/2024 Comments No Sex [...] Description 05/07/2025 8:00 AM CDT Office Visit [facility] - Nephrology [address] [place] [address] [place] [address] Carrie Sierra MD [address] [place] [address] Health Maintenance Due Date Last Done Comments [...] donor LIPID PROFILE Routine 08/19/2023 3:12 PM EDUCATIONAL AUDIOLOGIST Willing to be kidney donor from Last 3 Months or Most Recently Relevant to Health Maintenance Results * HEPATITIS C AB SCREEN RFLX NAAT QUANT (06/16/2024 3:41 PM CDT) Hepatitis C Antibody Non-react marquez Non-reac tive 06/16/2024 5:28 PM CDT [facility] Comment:Hepatitis C Antibody screen indicates no [...] ORDERAB LES Final Result Performing Organization Address [facility]/State/[facility] Co de Phone Number [address] [address], [facility] [phone] * LIPID PROFILE (08/19/2023 3:12 PM EDUCATIONAL AUDIOLOGIST) Pathologist [facility] Cholesterol Total 179 <200 mg/dL 08/19/2023 3:53 PM [facility] HDL 67 >40 mg/dL 08/19/2023 3:53 PM [facility] Comment: ATP III Classification of HDL Cholesterol: <40 mg/dL: Considered a major risk factor. >60 mg/dL: Considered a negative risk factor. LDL Calculated 94 <100 mg/dL 08/19/2023 3:53 PM [facility] Comment: ATP III Classification of LDL Cholesterol: <100 mg/dL: Optimal 100 - 129 mg/dL: Near Optimal/Above Optimal 130 - 159 mg/dL: Borderline High 160 - 189 mg/dL: High >190 mg/dL: Very High Triglycerides 91 <150 mg/dL 08/19/2023 3:53 PM [facility] Comment: ATP III Classification of Triglycerides: <150 mg/dL: Normal 150 - 199 mg/dL: Borderline High 200 - 400 mg/dL: High >500 mg/dL: Very High Blood BLOOD SPECIMEN / Unknown Lab Venipuncture / Unknown 08/19/2023 3:12 PM EDUCATIONAL AUDIOLOGIST 08/19/2023 3:22 PM EDUCATIONAL AUDIOLOGIST Chantal Manriquez MD LAB - CHEMISTRY ORDERAB LES Final Result [facility] [address] [place] [address], [facility] [phone] from Last 3 Months or Most Recently Relevant to Health Maintenance Insurance LIVING DONOR [facility] Care Teams Sparmaker Relationship Specialty Start Date End Date Axel Angeles MD [address] [place] [address] PCP - General 02/16/21
--- OUTSIDE RECORDS SUMMARY | 2025-03-29 12:17 | XMS_ITS | Encounter Summary ---
Author Organization [facility] Address [address] [place] [address] Care Team Providers Care Philanthropy Officer Name Role Phone Axel Angeles MD Primary Care Provider [phone] Encounter Details Date Type Department Care Team (Late st Contact Info) Description 02/16/2021 Telephone [facility] [address] [place] [address] Lizz Hess MD No info available Social [...] Office Visit [facility] - Nephrology [address] [place] [address], [facility] [place] [address] Carrie Sierra MD [address] [place] [address] [place] [address] documented as of this encounter Visit Diagnoses Not on filedocumented in this encounter Additional Health Concerns Infection Onset Date Last Indicated Resolved Time COVID-19 Under Investigation 06/16/2024 06/16/2024 06/17/2024 12:28 AM CDT documented as of this encounter Care Teams Philanthropy Officer Relationship Specialty Start Date End Date Axel Angeles MD [address] [place] [address] PCP - General 02/16/21 documented as of this encounter
--- OUTSIDE RECORDS SUMMARY | 2025-03-29 12:17 | XMS_ITS | Encounter Summary ---
Author Organization [facility] Address [address] [facility] [place] [address] Care Team Providers Care Pet Sitting Name Role Phone Axel Angeles MD Primary Care Provider [phone] Reason for Visit * Reason Comments Transplant Donor Evaluation Persistent d ysuria (burning with urination) Encounter Details Date Type Department Care Team (Late Contact Info) Description 10/08/2023 Telephone [facility] TRANSPLANT [address] [place] [address] Ankush Tom RN Transplant Donor Evaluation (Persistent [...] [facility] - Nephrology [address] [facility], [place] [address] Carrie Sierra MD [address] [place] [address] [place] [address] documented as of this encounter Visit Diagnoses Not on filedocumented in this encounter Additional Health Concerns Infection Onset Date Last Indicated Resolved Time COVID-19 Under Investigation 06/16/2024 06/16/2024 06/17/2024 12:28 AM CDT documented as of this encounter Care Teams Pet Sitting Relationship Specialty Start Date End Date Axel Angeles MD [address] [place] [address] PCP - General 02/16/21 documented as of this encounter
--- OUTSIDE RECORDS SUMMARY | 2025-03-29 12:17 | XMS_ITS | Clinical Summary ---
Author Organization [facility] Address [address] [place] [address] Care Team Providers Care Helicopter Crew Chief Name Role Phone Unavailable Primary Care Provider [...] on file Legal Sex Female 12:03 PM VACUUM DRIER OPERATOR Gender Identity Not on file Sexual Orientation Not on file Last Filed Vital Signs Vital Sign Reading Time Taken Comments Blood Pressure 203/103 09/09/2021 12:20 PM VACUUM DRIER OPERATOR Pulse 70 09/09/2021 12:20 PM VACUUM DRIER OPERATOR Temperature 36.7 C (98 F) 09/09/2021 12:20 PM VACUUM DRIER OPERATOR Respiratory Rate 16 09/09/2021 12:20 PM VACUUM DRIER OPERATOR Oxygen Saturation 99% 09/09/2021 12:20 PM VACUUM DRIER OPERATOR Inhaled Oxygen Concentration - - Weight 49.9 kg (110 lb) 09/09/2021 12:20 PM VACUUM DRIER OPERATOR Height 154.9 cm (5' 1) 09/09/2021 12:20 PM VACUUM DRIER OPERATOR Body Mass Index 20.78 09/09/2021 12:20 PM VACUUM DRIER OPERATOR Plan of Treatment Health Maintenance Due Date [...] 2) 2017 INFLUENZA VACCINE (#1) 2025 [place] [address] [facility] [id number] POS II
--- OUTSIDE RECORDS SUMMARY | 2025-03-29 12:17 | XMS_ITS ---
Author Organization [facility] Address [address] [facility] [place] [address] Care Team Providers Care Montessori Lead Teacher Name Role Phone Axel Angeles MD Primary Care Provider [phone] Transplant Episode [facility] [place] Organ Donated: Right Kidney Recovered on 06/24/2024 Marked as Active Follow-up on 06/24/2024 Kidney CoordinatorAnkush Tom RN Phone: N/A Fax: N/A Email: N/A Care Team Name Role Phone Fax Email Ankush Tom RN Kidney Coordinator N/A N/A N /A Axel Angeles MD Primary Care Provider [phone] N/A Claier Villanueva LMSW Credit Or Loans Officer [phone] N/A N/A Events Post-Donation Pre-Donation Admitted: 06/24/2024 Referred: 12/25/2022 Recovered: 06/24/2024 Evaluation began: 08/19/2023 Discharged: 06/26/2024 Committee: 06/18/2024
--- OUTSIDE RECORDS SUMMARY | 2025-03-29 12:17 | XMS_ITS | Patient Health Record ---
Author Organization [facility] Address [address] [place], [place] [address] Support Name Relationship Address Phone LETY CLEMENTS Emergency Contact Unknown [phone] CALVIN CLEMENTS Guarantor Unknown [phone] Reason For Referral No Information Plan Of Treatment No Information Insurance Providers Payer Name Payer Address Payer Phone Subscriber Number Group Number Insured Name Patient Relationship to Insured Coverage Start Date Coverage End Date [facility] [address] [place] [phone] [id number] LETY CLEMENTS Spouse - patient is the spouse of the insured
== END 2025-03-29 12:15 | disposition home or self-care (01) ==
LOC: ANHIMG 12:16
PROVIDERS: PCP Family Medicine; Visit Provider Anesthesiology Pain Medicine
DX: M46.1 Sacroiliitis, not elsewhere classified (principal); M25.559 Pain in unspecified hip
CPT/HCPCS: 72202; 73521

== ENCOUNTER 2025-03-30 07:26 | Day surgery (SDC) | payer OTHER, SELFPAY ==
--- NOTE | 2025-03-01 11:54 | SUR.PREOP ---
Pt scheduled for thermal radiofrequency ablation right C4, C5, C6 with Dr. Estes at [facility] 03/02/25. Pt told during pre-op interview on 02/16/25 that needed a pre-op EKG done. Pt stated understanding with no further questions. VM left for pt on 02/24/25, 02/26/25, and 03/01/25 to remind about getting EKG done as it was still not in the chart. Pt called back 03/01/25 and states did not go get EKG done because went to ER on 02/26/25 and was under the impression when hooked up to ER monitor that was her EKG. This RN informed pt that being monitored if different than getting an EKG test done. Pt states understanding and will go get EKG done. This RN spoke with anesthesia to confirm they want EKG before putting under anesthesia, they state they do want EKG to proceed. Pt states understands that she is being canceled off of our schedule and will have to call Dr. Mcclellan office to reschedule. Spoke with Ailin, medical assistent at Dr. Mcclellan office to let know. She states understanding and has no further quetsions.
[2025-03-24 10:43] VITALS: BMI 22.8
--- NOTE | ~2025-03-30 | XR_ITS ---
XR fluoroscopy no charge Indication: Thermal radiofrequency ablation right C4, C5 and C6 medial branch nerves TECHNIQUE: Fluoroscopy used during Thermal radiofrequency ablation right C4, C5 and C6 medial branch nerves performed by [Shaq Estes MD] on 04/02/2025. 95 seconds of fluoroscopy with 8 fluoroscopic i mages captured. FINDINGS: Correlate with procedure note. IMPRESSION: Fluoroscopy used during Thermal radiofrequency ablation right C4, C5 and C6 medial branch nerves . Reviewed, dictated and finalized at location B. IMPRESSION: Fluoroscopy used during Thermal radiofrequency ablation right C4, C 5 and C6 medial branch nerves .
--- NOTE | 2025-03-30 06:42 | WPDHPUPDATE1 ---
History and Physical Update Update Date/Time: 03/30/25 06:42 History and Physical has been reviewed, including an updated exam of the patient. There are NO changes in the patient's condition. Risks, benefits, and alternatives have been discussed and questions answered. Patient agrees to proceed with procedure. Proceed with planned procedure : Thermal RF ablation of the right C4, C5, C6 medial branches supplying the right C4-5, C5-6 facet joints under fluoroscopic guidance.
--- NOTE | 2025-03-30 06:44 | P.OP_ITS ---
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 Post-op Diagnosis Same Procedure Performed Thermal Radiofrequency Ablation of the Right Cervical Medial Branches at C4, C5, C6 to ablate the Ipsilateral C4-5, C5-6 facet joints under Fluoroscopic Guidance (2 levels treated). Surgeon Shaq Estes MD Gearcase Assembler None. Anesthesia Local (w/ IV Moderate Sedation) Description of Procedure INFORMED CONSENT: Risks, benefits and alternatives to the procedure were discussed in detail with the patient who expressed explicit understanding and consent to proceed. Patient was informed verbally and in written form regarding the risks associated with the procedure including the low risk of serious infection, bleeding/bruising, allergic reaction, nerve or organ injury, paralysis, procedural site pain or discomfort, worsening pain and/or mobility, failure to treat and/or disfigurement. The patient expressed explicit understanding and consent to proceed. All materials required for the procedure were available prior to procedure start. Site and side was marked prior to procedure and confirmed in the presence of the patient. PROCEDURE IN DETAIL: The patient was brought to the procedural suite and placed in the prone position with head stabilized with a horseshoe pillow and cervical ramp. Patient was made comfortable with use of pillows under the head/chest, hips and ankles. Skin overlying the injection site on the affected side(s) was prepared broadly with 10mL tinted ChloraPrep applicator and draped in a sterile manner. Strict aseptic technique was utilized throughout. The endplates of the vertebral bodies at the site(s) of interest were aligned in the AP view. Ipsilateral oblique angulation was utilized to optimize visualization of the pars interarticularis at each target site. Local anesthesia was established by infiltration with approximately 5 mL of 1% lidocaine via a 1-1/2 inch 27-gauge needle. An 18-gauge 100mm RF needle with curved 10mm active tip was advanced in the AP view until the needle tip contacted the periosteum of the pars interarticularis at the target site, right C4, parallel to the course of the targeted peripheral nerve branch. Lateral view was utilized to adjust and confirm the appropriate placement of the needle tip just anterior to the center point of the interarticularis, bisecting the distance between adjacent joint spaces. The appropriately-sized RF cannula was inserted into the RF needle and motor stimulation performed with no subjective or objective evidence of recruited muscle activity with stimulation up to 2.0 volts at a frequency of 2Hz. A 1.5 mL solution of 2.0% PF lidocaine was injected via the appropriately positioned RF cannula after negative aspiration. The grounding electrode was confirmed to be in place with good contact and functioning appropriately. After a 90s pause, lesioning was performed to 90 degrees centigrade for 90s ensuring lack of symptoms in the extremity throughout. Needle was withdrawn approximately 1-2 mm and rotated 180 degrees at each level. Lesioning was then repeated in a similar manner as above. The patient tolerated this well. No parasthesias were elicited. Needle was removed completely intact without difficulty. The same procedure was then repeated for all intended levels/ structures on the ipsilateral side, right C5, C6 medial branches, with identical methodology, modified to compensate for new location, with similar results and no evidence of complication. The same procedure was then repeated for all intended levels/ structures on the contralateral side, left C4, C5, C6 medial branches with identical methodology, modified to compensate for new contralateral location/approach, with similar results and no evidence of complication. Images were saved and documented in the patient's chart. The patient's skin was cleaned and sterile bandages applied. The patient tolerated the procedure well. The patient was transported to the recovery area in stable condition where they were observed for an appropriate amount of time prior to discharge, without evidence of complication. The patient was instructed to avoid excessive activity for the next 48 hours, including overhead work, reaching and device/computer usage. Showers only for 48 hours. They were instructed not to drive or operate heavy machinery for 24 hours. They are to monitor for severe headaches, fevers, chills, night sweats, erythema/swelling at the site or any other signs of infection, bleeding/bruising, bowel or bladder changes as well as new pain, weakness or numbness in the upper or lower extremity. Should they notice these changes, they are instructed to call our office immediately or report directly to the nearest Emergency Department if no answer or if after posted office hours. Complications None Condition Stable Disposition PACU [facility] Billing Surgery - Charge Forward: Surgery Billing
--- OUTSIDE RECORDS SUMMARY | 2025-03-30 07:29 | XMS_ITS | Clinical Summary ---
Author Organization [facility] Address [address] [facility] [place] [address] Care Team Providers Care Material Movers Name Role Phone Unavailable Primary Care Provider [...] on file Legal Sex Female 12:03 PM INSTRUCTOR PSYCHIATRIC AIDE Gender Identity Not on file Sexual Orientation Not on file Last Filed Vital Signs Vital Sign Reading Time Taken Comments Blood Pressure 203/103 09/09/2021 12:20 PM INSTRUCTOR PSYCHIATRIC AIDE Pulse 70 09/09/2021 12:20 PM INSTRUCTOR PSYCHIATRIC AIDE Temperature 36.7 C (98 F) 09/09/2021 12:20 PM INSTRUCTOR PSYCHIATRIC AIDE Respiratory Rate 16 09/09/2021 12:20 PM INSTRUCTOR PSYCHIATRIC AIDE Oxygen Saturation 99% 09/09/2021 12:20 PM INSTRUCTOR PSYCHIATRIC AIDE Inhaled Oxygen Concentration - - Weight 49.9 kg (110 lb) 09/09/2021 12:20 PM INSTRUCTOR PSYCHIATRIC AIDE Height 154.9 cm (5' 1) 09/09/2021 12:20 PM INSTRUCTOR PSYCHIATRIC AIDE Body Mass Index 20.78 09/09/2021 12:20 PM INSTRUCTOR PSYCHIATRIC AIDE Plan of Treatment Health Maintenance Due Date [...] 2) 2017 INFLUENZA VACCINE (#1) 2025 [place] [address] [facility] [id number] POS II
--- OUTSIDE RECORDS SUMMARY | 2025-03-30 07:29 | XMS_ITS | Referral Summary ---
Author Organization [facility] Address [address] [place] [address] Care Team Providers Care Combiner Operator Name Role Phone Axel Angeles MD Primary Care Provider Axel Angeles MD Unavailable [phone] Encounters Date Type Department Care Team Description 01/11/2025 1:15 PM CDT Office Visit [facility] Cardiology [address] [place] [address] Elie Haile MD Paroxysmal atrial [...] on file Legal Sex Female 10:57 AM SATELLITE TELEVISION INSTALLER Gender Identity Female 10/11/2021 1:27 PM SATELLITE TELEVISION INSTALLER Sexual Orientation Straight 10/11/2021 1: 27 PM SATELLITE TELEVISION INSTALLER Last Filed Vital Signs Vital Sign Reading [...] from Last [address] [place] [address] [place] [address] [facility] [place] [address] [facility] Care Teams Combiner Operator Relationship Specialty Start Date End Date Axel Angeles MD [address] [place] [address] PCP - General Family Medicine 12/29/19 Axel Angeles MD [address] [place] [address] Family Medicine 12/29/19
--- OUTSIDE RECORDS SUMMARY | 2025-03-30 07:29 | XMS_ITS | Clinical Summary ---
Author Organization [facility] Address [address] [facility] [place] [address] Care Team Providers Care Display Decorator Name Role Phone Axel Angeles MD Primary Care Provider [phone] Source Comments [facility],non-owned Affiliates and Associated Physician Practices is amultiple site organization consisting of ambulatory clinics and hospital sitesin [place], [place], [place] and [place]. This disclosure is being madepursuant to the Care Everywhere program and may not contain all information available regarding this patient. Last updated 18.[facility] Allergies Active Allergy Reactions Criticality Noted Date [...] Protein Recent Labs Component Name 08/19/23 1512 [id number] <77* VOLUMETIMDUR 1,100 1,100 1,100 PROTEINTO <7 Acceptable Hemoglobin A1c Hemoglobin A1c (%) Date Value 08/19/2023 5.1 Acceptable 2 HR GTT (as needed) No results found for: [id number] n/a CBC Recent Labs Component Name 06/16/24 [...] Labs Component Name 06/16/24 1541 08/19/23 1512 [id number] Negative Negative Acceptable QUANT Gold Recent Labs [...] of ischemia. PVCs Hx of a-fib? Has telephone order clerk room service last visit :11/29/2022 Cardiology Sees q6 months [...] for anticoagulation See clearance note from her telephone order clerk room service CXR FINDINGS/IMPRESSION: There is no focal consolidation, [...] negative Acceptable Completed by: Ankush Tom RN [facility] Date: 06/23/2024 . Paroxysmal atrial fibrillation 09/05/2021 Encounters Date Type Department Care Team Description 01/25/2025 Telephone [facility] [address] [facility] [place] [address] Ankush Tom, RN Kidney/Liver Donor [...] and heating? Not hard at all 06/24/2024 [facility] of Occupat ional Health - Occupational Stress [...] place to sleep or slept in a care home (including now)? No 06/24/2024 Comments No Sex [...] Description 05/07/2025 8:00 AM CDT Office Visit [facility] - Nephrology [address] [place] [address] [place] [address] Carrie Sierra MD [address] [place] [place] [address] Health Maintenance Due Date Last Done Comments [...] donor LIPID PROFILE Routine 08/19/2023 3:12 PM DIRECT CASTING OPERATOR Willing to be kidney donor from Last 3 Months or Most Recently Relevant to Health Maintenance Results * HEPATITIS C AB SCREEN RFLX NAAT QUANT (06/16/2024 3:41 PM CDT) Hepatitis C Antibody Non-react marquez Non-reac tive 06/16/2024 5:28 PM CDT [facility] Comment:Hepatitis C Antibody screen indicates no [...] ORDERAB LES Final Result Performing Organization Address [facility]/State/[facility] Co de Phone Number [address] [address], [facility] [phone] * LIPID PROFILE (08/19/2023 3:12 PM DIRECT CASTING OPERATOR) Pathologist [facility] Cholesterol Total 179 <200 mg/dL 08/19/2023 3:53 PM [facility] HDL 67 >40 mg/dL 08/19/2023 3:53 PM [facility] Comment: ATP III Classification of HDL Cholesterol: <40 mg/dL: Considered a major risk factor. >60 mg/dL: Considered a negative risk factor. LDL Calculated 94 <100 mg/dL 08/19/2023 3:53 PM [facility] Comment: ATP III Classification of LDL Cholesterol: <100 mg/dL: Optimal 100 - 129 mg/dL: Near Optimal/Above Optimal 130 - 159 mg/dL: Borderline High 160 - 189 mg/dL: High >190 mg/dL: Very High Triglycerides 91 <150 mg/dL 08/19/2023 3:53 PM [facility] Comment: ATP III Classification of Triglycerides: <150 mg/dL: Normal 150 - 199 mg/dL: Borderline High 200 - 400 mg/dL: High >500 mg/dL: Very High Blood BLOOD SPECIMEN / Unknown Lab Venipuncture / Unknown 08/19/2023 3:12 PM DIRECT CASTING OPERATOR 08/19/2023 3:22 PM DIRECT CASTING OPERATOR Chantal Manriquez MD LAB - CHEMISTRY ORDERAB LES Final Result [facility] [address] [place] [address], [facility] [phone] from Last 3 Months or Most Recently Relevant to Health Maintenance Insurance [facility] Care Teams Display Decorator Relationship Specialty Start Date End Date Axel Angeles MD [address] [place] [address] PCP - General 02/16/21
--- OUTSIDE RECORDS SUMMARY | 2025-03-30 07:30 | XMS_ITS | Clinical Summary ---
Author Organization [facility] Address [address] [place] [address] Care Team Providers Care Yard Warehouse Worker Name Role Phone Axel Angeles MD Primary Care Provider Axel Angeles MD Unavailable [phone] Allergies Active Allergy Reactions Criticality Noted Date [...] Description 01/11/2025 1:15 PM CDT Office Visit [facility] Cardiology [address] [facility] [address] [place] [address] Elie Haile MD Paroxysmal atrial [...] on file Legal Sex Female 10:57 AM PRISM MEASURER Gender Identity Female 10/11/2021 1:27 PM PRISM MEASURER Sexual Orientation Straight 10/11/2021 1: 27 PM PRISM MEASURER Obstetrics History Last Filed Vital Signs Vital [...] 5 season) 2024 01/02/2021, 12/02/2020 Influenza Vaccine (#1) 2025 Pneumococcal vaccine <65 Aged Out No [...] Result from Last [address] [place] [address] [facility] [place] [address] [facility] [place] [address] [place] [address] Care Teams Yard Warehouse Worker Relationship Specialty Start Date End Date Axel Angeles MD [address] [place] [address] PCP - General Family Medicine 12/29/19 Axel Angeles MD [address] [place] [address] Family Medicine 12/29/19
--- OUTSIDE RECORDS SUMMARY | 2025-03-30 07:30 | XMS_ITS | Continuity of Care Document ---
Author Organization [facility] Address [address] [place] [address] [place] [address] Phone Care Team Providers Care Employee Relations Administrator Name Role Phone Unavailable Unavailable Unavailable Advance Directives Directive Yes / No Effective Date File Name No Information Encounters Encounter Description Practice Location Reason(s) For Visit Diagnoses Date Provider Providers Copied on Encounter [facility], [id number] [place] [address] [address], [place], [place], [id number], [place] tel:[phone] [facility] No Information 0-200 0 No Information [...]
--- OUTSIDE RECORDS SUMMARY | 2025-03-30 07:30 | XMS_ITS | Encounter Summary ---
Author Organization [facility] Address [address] [place] [address] Care Team Providers Care Battery Loader Name Role Phone Axel Angeles MD Primary Care Provider [phone] Encounter Details Date Type Department Care Team (Late st Contact Info) Description 02/16/2021 Telephone [facility] [address] [place] [address] Lizz Hess MD No info available Social [...] Office Visit [facility] - Nephrology [address] [place] [address], [facility] [place] [address] Carrie Sierra MD [address] [place] [address] [place] [address] documented as of this encounter Visit Diagnoses Not on filedocumented in this encounter Additional Health Concerns Infection Onset Date Last Indicated Resolved Time COVID-19 Under Investigation 06/16/2024 06/16/2024 06/17/2024 12:28 AM CDT documented as of this encounter Care Teams Battery Loader Relationship Specialty Start Date End Date Axel Angeles MD [address] [place] [address] PCP - General 02/16/21 documented as of this encounter
--- OUTSIDE RECORDS SUMMARY | 2025-03-30 07:30 | XMS_ITS | Patient Health Record ---
Author Organization [facility] Address [address] [place], [place] [address] Support Name Relationship Address Phone LETY CLEMENTS Emergency Contact Unknown [phone] CALVIN CLEMENTS Guarantor Unknown [phone] Reason For Referral No Information Plan Of Treatment No Information Insurance Providers Payer Name Payer Address Payer Phone Subscriber Number Group Number Insured Name Patient Relationship to Insured Coverage Start Date Coverage End Date [facility] [address] [place] [phone] [id number] LETY CLEMENTS Spouse - patient is the spouse of the insured
--- OUTSIDE RECORDS SUMMARY | 2025-03-30 07:30 | XMS_ITS | Encounter Summary ---
Author Organization [facility] Address [address] [facility] [place] [address] Care Team Providers Care Record Systems Analyst Name Role Phone Axel Angeles MD Primary Care Provider [phone] Reason for Visit * Reason Comments Transplant Donor Evaluation Persistent d ysuria (burning with urination) Encounter Details Date Type Department Care Team (Late Contact Info) Description 10/08/2023 Telephone [facility] TRANS[facility]ANT [address] [place] [address] Ankush Tom RN Transplant Donor Evaluation (Persistent [...] Description 05/07/2025 8:00 AM CDT Office Visit [facility] - Nephrology [address] [facility] [place] [address] Carrie Sierra MD [address] [place] [address] [place] [address] documented as of this encounter Visit Diagnoses Not on filedocumented in this encounter Additional Health Concerns Infection Onset Date Last Indicated Resolved Time COVID-19 Under Investigation 06/16/2024 06/16/2024 06/17/2024 12:28 AM CDT documented as of this encounter Care Teams Record Systems Analyst Relationship Specialty Start Date End Date Axel Angeles MD [address] [place] [address] PCP - General 02/16/21 documented as of this encounter
--- OUTSIDE RECORDS SUMMARY | 2025-03-30 07:30 | XMS_ITS ---
Author Organization [facility] Address [address] [facility] [place] [address] Care Team Providers Care Inside Outside Sales Representative Name Role Phone Axel Angeles MD Primary Care Provider [phone] Transplant Episode Kidney Donor [facility] ([place], [place]) - [facility] Organ Donated: Right Kidney Recovered on 06/24/2024 Marked as Active Follow-up on 06/24/2024 Kidney CoordinatorAnkush Tom RN Phone: N/A Fax: N/A Email: N/A Care Team Name Role Phone Fax Email Ankush Tom RN Kidney Coordinator N/A N/A N /A Axel Angeles MD Primary Care Provider [phone] N/A Claire Villanueva LMSW Class C Truck Driver [phone] N/A N/A Events Post-Donation Pre-Donation Admitted: 06/24/2024 Referred: 12/25/2022 Recovered: 06/24/2024 Evaluation began: 08/19/2023 Discharged: 06/26/2024 Committee: 06/18/2024
[2025-03-30 07:42] VITALS: BP 156/93; PULSE 61; RESP 16; TEMP 36.9; O2SAT 99
--- NOTE | 2025-03-30 09:17 | WPDANESEPPF ---
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 Patient Data Age: 59 Gender: F Height: 1.55 m Weight: 57.45 kg Last Vital Signs Temp 98.5 F 03/30/25 07:42 Pulse 61 03/30/25 07:42 Resp 16 03/30/25 07:42 BP 156/93 H 03/30/25 07:42 Pulse Ox 99 03/30/25 07:42 O2 Del Method Room Air 03/30/25 07:42 Allergies Allergy/AdvReac Type Severity Reaction Status Date / Time shellfish derived Allergy Severe Difficulty Verified 03/30/25 07:41 Breathing codeine Allergy Intermediate Hives Verified 03/30/25 07:41 pregabalin Allergy nausea and Verified 03/30/25 07:41 lightheadedness lidocaine AdvReac Intermediate Palpitation Verified 03/30/25 07:41 s antihistamines Allergy Intermediate Palpitation Uncoded 03/30/25 07:41 s decongestants Allergy Intermediate Palpitation Uncoded 03/30/25 07:41 s Home Medications ?Medication ?Instructions ?Recorded ?Confirmed ?Type acetaminophen 500 mg capsule 500 - 1,000 mg PO BID PRN Pain 11/21/23 03/30/25 History metoprolol succinate 50 mg 50 mg PO DAILY 11/21/23 03/30/25 History tablet,extended release 24 hr pantoprazole 40 mg tablet,delayed 40 mg PO BID #180 tabs 01/25/25 03/30/25 Rx release amlodipine 5 mg tablet 5 mg PO DAILY #90 tabs 02/05/25 03/30/25 Rx Patient hx anesthesia problems: none Family hx anesthesia problems: none Results Review: All pre-operative results and documents have been reviewed as part of the pre-operative evaluation. [facility] Past Medical History Medical History Single kidney RLQ abdominal pain Constipation Altered bowel habits Dyspepsia White matter disease Menorrhagia (normal spontaneous vaginal delivery) x3 Anemia, blood loss Anemia, iron deficiency Paroxysmal A-fib GERD (gastroesophageal reflux disease) Iron deficiency anemia Palpitations Chronic GERD History of peptic ulcer Surgical History Surgical History History of nephrectomy R for donation History of endometrial ablation Status post myomectomy 2005 H/O tubal ligation Family History Family History Father Family history of cardiovascular disease Diabetes mellitus Skin cancer Heart disease Mother Family history of cardiovascular disease Heart disease Mother Acute myocardial infarction Sibling Skin cancer Hypertension Heart disease Son Heart disease Social History Social History Social History: Smoking packs per day: 0.5 Smoking cigarettes per day: 10.0 Years smoked: 5 Smoking pack-years: 2.50 Smoking status: Former smoker Tobacco type: cigarettes Second hand tobacco smoke exposure: No Smoking end date: 09/16/15 Additional smoking assessment comments: FORMER SMOKER Alcohol intake: current Drinks per week: 4 Substance use: never Substance use type: does not use Do You Feel Safe in your Home?: Yes Lack of Transportation: No Lack of Food: Never True Current Housing: I Have Housing Concerned About Future Housing: No Difficulty Paying Gas/Electric Bills: No Difficulty Paying for Meds: No Currently Unemployed: No Education: High School Diploma/GED Difficulty w/ Childcare or Family Care: No Living arrangements: with family Additional living arrangements comments: WITH SPOUSE Occupation/Education: occupation Gender identity (if verbalized by the patient): Female Sexual Orientation (if Verbalized by the Patient): Straight or Heterosexual Spiritual care concerns: No Anes - Eval Final PreProcedure Day of Procedure 03/30/25 09:17 Heart: regular rate and rhythm Lungs: clear to auscultation Airway: Mallampati scale class 1 Neurological: alert and oriented Last oral intake: >/= 8 hours ASA classification: II Anesthetic plan: proceed Anesthesia type and monitoring: monitored anesthesia care Results Review: All pre-operative results and documents have been reviewed as part of the pre-operative evaluation. Informed Consent: The patient's anesthetic plan and its attendant risks and benefits were discussed with the patient/family/POA. Questions were solicited and answers provided to the satisfaction of the patient/family/POA.
[2025-03-30] MEDS: LACTATED RINGERS 1,000 ML 30 ML IV CONT (09:20)
--- NOTE | 2025-03-30 09:20 | WPDANESPN ---
Anes - Prog Note Post-Op Date/Time: 03/30/25 09:20 Vital Signs: Last Vital Signs Temp 98.5 F 03/30/25 07:42 Pulse 61 03/30/25 07:42 Resp 16 03/30/25 07:42 BP 156/93 H 03/30/25 07:42 Pulse Ox 99 03/30/25 07:42 O2 Del Method Room Air 03/30/25 07:42 Pain Score (VAS): 4 Patient Feedback: Patient satisfied with anesthetic care.
[2025-03-30] MEDS: BUPivacaine HCL 0.5% 10 ML AMP INFILTRATE (09:22)
[2025-03-30 09:29] VITALS: BP 137/84; PULSE 63; RESP 15; O2SAT 99
[2025-03-30 09:39] VITALS: BP 150/90; PULSE 62; RESP 15; O2SAT 100
[2025-03-30 09:49] VITALS: BP 146/85; PULSE 58; RESP 15; O2SAT 100
== END 2025-03-30 10:05 | disposition home or self-care (01) ==
PROVIDERS: PCP Family Medicine; Visit Provider Anesthesiology Pain Medicine
PROC: (CPT 64633; principal; 2025-03-30 09:00)
DX: M47.812 Spondylosis without myelopathy or radiculopathy, cervical region (principal)
CPT/HCPCS: 64633; 64634; 99199

== ENCOUNTER 2025-04-21 15:20 | Outpatient (RCR) | payer OTHER, SELFPAY ==
--- NOTE | 2025-04-21 16:32 | OPREHPOC ---
Outpatient Therapy Plan of Care This is a Multidisciplinary Plan of Care that may contain components documented by all disciplines (PT, OT, and ST.) PT Problem 1 PT Problem #1 Knowledge Deficit PT Goal 1 Goal / Goal Update 1* pt independent with HEP 2* correct body mechanics demonstrated with lifting from the floor Target Visit 8 PT Problem 2 PT Problem #2 Pain PT Goal 1 Goal / Goal Update 1* pt report pain rating at the worst of 3/10 2* no radicular pain into L LE Target Visit 8 PT Problem 3 PT Problem #3 Impaired Flexibility PT Goal 1 Goal / Goal Update 1*pt report L piriformis stretch report no tightness/ equal to L with supine cross leg stretch 2* supine hamstring stretch L without report of pain Target Visit 8 PT Problem 4 PT Problem #4 Impaired Strength PT Goal 1 Goal / Goal Update * pt have good strength of lower abdominals for stability to iliac sacral joints Target Visit 8
--- NOTE | 2025-04-21 16:32 | PTOPEVAL1 ---
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 Onset of pain after lifting her cat and jerking to catch him. Back Index rating of 30% limitation in activity level. 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 xray of bilateral hips and lumbar spine was negative; to have MRI in 2 days. Medical history includes: cervical pain with recent ablation. With the evaluation: pain is increased with standing trunk extension and supine L hip flexion and hamstring stretch with SLR; good strength over hips; posterior tilt of L sacrum; tightness of L piriformis; Skilled PT services are indicated for treatment of lumbar- sacral spasm/dysfunction with L posterior rotation: modalities PRN, therapeutic exercises to increase sacral stability and stretching L piriformis with education for HEP, posture and body mechanics. Plan of Care Interventions Electrical Stimulation,Hot Pack/Cold Pack,Manual Therapy,Neuro Re-education,Patient/Caregiver Education,Therapeutic Activities,Therapeutic Exercise,Ultrasound,Other Other Interventions taping PT Services Indicated Yes Treatment Frequency and 1-2x/week for 8 visits Duration These treatments will address the objective and functional deficits as defined above. The patient will be advanced safely and appropriately in order for the patient to progress towards his/her prior level of function. Additional exercises will be introduced and as well as a comprehensive home exercise program upon discharge, if needed, ?to ensure carryover of functional gains achieved in the clinic. This treatment plan has been reviewed and agreement upon by the patient.
--- NOTE | 2025-05-06 15:36 | PCPTNOTE ---
Pt no call no showed her appointment today
--- NOTE | 2025-05-10 17:35 | PCPTNOTE ---
pt no call no showed appt this date, called and left VM to remind pt of attendance policy and to call to reschedule
--- NOTE | 2025-05-13 14:56 | PCPTNOTE ---
Pt called to cancel her appointment this date due to not getting off of work in time.
--- NOTE | 2025-05-27 16:34 | PCPTNOTE ---
Pt no call no showed her appointment today, which is her 3rd no call no show since evaluation. Called pt to notify her that pt is being discharged from physical therapy per policy. Pt was agreeable, and notes her MRI came back all clear, and she is feeling better.
--- NOTE | 2025-06-22 11:29 | OPREHPOC ---
Outpatient Therapy Plan of Care This is a Multidisciplinary Plan of Care that may contain components documented by all disciplines (PT, OT, and ST.) PT Problem 1 PT Problem #1 Knowledge Deficit PT Goal 1 Goal / Goal Update 1* pt independent with HEP 2* correct body mechanics demonstrated with lifting from the floor 06-22-25 d/c- pt stopped attending goals not met Target Visit 8 PT Problem 2 PT Problem #2 Pain PT Goal 1 Goal / Goal Update 1* pt report pain rating at the worst of 3/10 2* no radicular pain into L LE 06-22-25 d/c- pt stopped attending goals not met Target Visit 8 PT Problem 3 PT Problem #3 Impaired Flexibility PT Goal 1 Goal / Goal Update 1*pt report L piriformis stretch report no tightness/ equal to L with supine cross leg stretch 2* supine hamstring stretch L without report of pain 06-22-25 d/c- pt stopped attending goals not met Target Visit 8 PT Problem 4 PT Problem #4 Impaired Strength PT Goal 1 Goal / Goal Update * pt have good strength of lower abdominals for stability to iliac sacral joints 06-22-25 d/c- pt stopped attending goals not met Target Visit 8
--- NOTE | 2025-06-22 11:29 | PTOPDC ---
Assessment and note entered by Martha Curran, PT Assessment Status Discharge - Pt Not Present ICD-10 Condition Codes (PT) Radiculopathy, lumbar region M54.16 Onset December 2024 Subjective Information pt was not seen this date. Assessment PT Clinical Summary Maureen received the PT evaluation on April 21. She then had 1 call/cancel and 3 no- show appointments. Discharge PT due to not attending. The goals were not addressed. Plan of Care PT Services Indicated No
== END 2025-06-24 12:38 | disposition home or self-care (01) ==
LOC: ANHPT 15:20
PROVIDERS: PCP Family Medicine; Visit Provider Anesthesiology Pain Medicine
DX: M54.17 Radiculopathy, lumbosacral region (principal); M54.9 Dorsalgia, unspecified
CPT/HCPCS: 97110; 97161; 97530

== ENCOUNTER 2025-04-30 09:12 | Outpatient (CLI) | payer OTHER, SELFPAY ==
--- NOTE | ~2025-04-30 | MR_ITS ---
MRI of the lumbar spine Clinical History: Radiculopathy Technique: Axial T2-weighted images, and sagittal T1-weighted, T2-weighted, and T2 fat-sat images wer e acquired. Findings: There is no fracture or subluxation of the lumbar spine. Vertebral bodies maintain normal h eight and alignment. No bone marrow signal abnormality seen. At L1-L2, L2-L3, L3-L4, there is no disc bulge or herniation. No spinal canal stenosis or neural fora gabby narrowing at these levels. At L4-L5, there is minimal disc bulge with minimal facet hypertrophy. No spinal canal stenosis or rossana ral foraminal narrowing. At L5-S1, there is no disc bulge or herniation. No spinal canal stenosis or neural foraminal narrowin g. Paravertebral soft tissues are unremarkable. Impression: Minimal degenerative changes, as above. Reviewed, dictated and finalized at [facility]. Impression: Minimal degenerative changes, as above.
== END 2025-04-30 09:13 | disposition home or self-care (01) ==
LOC: GOSHIMG 09:13
PROVIDERS: PCP Family Medicine; Visit Provider Anesthesiology Pain Medicine
DX: M54.17 Radiculopathy, lumbosacral region (principal)
CPT/HCPCS: 72148

== ENCOUNTER 2025-06-28 21:02 | Emergency (ER) | payer OTHER, SELFPAY ==
--- OUTSIDE RECORDS SUMMARY | 2000-01-24 11:15 | XMS_ITS | Continuity of Care Document ---
Author Organization [facility] Address [address] [place] [address] [place] [address] Phone Care Team Providers Care Apartment Leasing Agent Name Role Phone Unavailable Unavailable Unavailable Advance Directives Directive Yes / No Effective Date File Name No Information Encounters Encounter Description Practice Location Reason(s) For Visit Diagnoses Date Provider Providers Copied on Encounter [facility], [id number] [place] [address] [address], [place], [place], [id number], [place] tel:[phone] [facility] No Information 0-200 0 No Information Family History Family Member Type Diagnosis Age At Onset No Information Payers Payer name Insurance type Covered green party ID Authoriza tion(s) No Information Social History Type Description Quantity Date Captured Comments Sex Female Smoking Status No Information Chief Complaint And Reason For Visit No Information Reason For Referral Reason For Referral No Information History Of Present Illness Encounter Date Complaint History Of Prese nt Illness No Information Functional Status Date Functional Assessmen t No Information Instructions Date Instruction Additional Infor mation No Information Assessments Type Assessment Date No Information Patient Care Teams Name Effective Dates (start - stop) Status Members No Information
--- OUTSIDE RECORDS SUMMARY | 2025-06-28 21:04 | XMS_ITS | Clinical Summary ---
Author Organization [facility] [employer] Address [address] [place] [address] Care Team Providers Care Biostatistics Manager Name Role Phone Axel Angeles MD Primary Care Provider [phone] Source Comments [facility] [employer],non-owned Affiliates and Associated Physician Practices is amultiple site organization consisting of ambulatory clinics and hospital sitesin [place], [place], [place] and [place]. This disclosure is being madepursuant to the Care Everywhere program and may not contain all information available regarding this patient. Last updated 18.[facility] Allergies Active Allergy Reactions Criticality Noted [...] tablet 06/26/2024 9:43 AM CDT 4 Active Additional Information Patient not taking.Reported on 05/07/2025 diazePAM (Valium) 10 MG tablet INSERT 1 [...] Willing to be kidney donor 09/27/2023 Overview (05/07/2025): Images from the original note were not included. Kidney Donor Review Donor Name: Maureen Clements Donor type: Standard to daughter w [facility] Living Donor Nurse Coordinator: Ankush Tom RN Test Donor Results Acceptable to proceed with donation? LABS CMP Recent Labs Component Name 12/11/24 0756 06/25/24 0404 06/19/24 0821 POTASSIUM 4.0 - 4.2 CO2 26 - 26 BUN 20 - 17 CREATININE 0.82 - 0.55* CALCIUM 9.6 - 9.6 ALT - - 46 AST - - 27 GLUCOSE 83 - 90 - = values in this interval not displayed. Creatinine 0.64 09/25/2020 06/16/2024 elevated AST/ALT/GGT Pt [...] to proceed. PHOS Recent Labs Component Name 12/11/24 0756 08/21/24 0919 PHOS 3.3 3.1 Acceptable Uric Acid Recent Labs Component Name [...] Urinalysis + micro Recent Labs Component Name 12/11/24 0759 08/21/24 0925 COLORU - Yellow CLARITYU - Slt Cloudy* LABSPEC - 1.019 PHUA 6.5 5.0 PROTEINU - Negative KETONES - Negative BILIRUBINUR - Negative BLOODU - 1+* NITRITE - Negative LEUKOCYTE - Negative UROBILINUA Normal Negative RBCUA 0-2 0-2 WBCU - 0-5 SQUAMOUS 3-5 6-10* MUCOUS - 1+ Recent Labs Component Name 07/27/24 0919 URINECULT <10,000 CFU/mL urogenital nirmal Acceptable Cystatin C Recent Labs Component Name 08/19/23 1512 EGFRCYSTATIN 99 CYSTATINC 0.8 Acceptable CrCl Result Recent Labs Component Name 12/11/24 0759 08/21/24 0925 07/07/24 1408 08/19/23 1512 CREATCLEAR - - - <1.76* VOLUMETIMDUR - - - 1,100 1,100 1,100 CREATININEUR 84.98 94.85 - <3.00 - = values in this interval not displayed. Not accurate collection Performed mGFR - see below Urine Microalbumin Albumin 24 Hour Urine (mg/24 hrs) Date Value 08/19/2023 6 Urine Albumin/Creatinine Ratio (mg/g) Date Value 12/11/2024 11 Creatinine Urine (mg/dL) Date Value 12/11/2024 84.98 Albumin Random Urine (ug/mL) Date Value 12/11/2024 9.5 08/21/2024 19.2 Acceptable Urine Total Protein Recent Labs Component Name 08/19/23 1512 [id number] <77* VOLUMETIMDUR 1,100 1,100 1,100 PROTEINTO <7 Acceptable Hemoglobin A1c Hemoglobin A1c (%) Date Value 08/19/2023 5.1 Acceptable 2 HR GTT (as needed) No results found for: [id number] n/a CBC Recent Labs Component Name 05/07/25 0829 12/11/24 0756 WBC 9.1 7.1 HGB 13.2 12.8 HCT 40.5 38.1 PLTCOUNT 349 351 Acceptable PTT APTT (Seconds) Date Value 06/16/2024 29.3 08/19/2023 29.6 Acceptable INR INR (no units) Date Value 06/16/2024 0.9 08/19/2023 1.0 Acceptable ABO Recent Labs Component Name 07/07/24 1403 06/24/24 0745 ABORH O POS O POS Acceptable Preliminary [...] Labs Component Name 06/16/24 1541 08/19/23 1512 [id number] Negative Negative Acceptable QUANT Gold Recent Labs [...] of ischemia. PVCs Hx of a-fib? Has classifications officer cc/cm last visit :11/29/2022 Cardiology Sees q6 months [...] for anticoagulation See clearance note from her classifications officer cc/cm CXR FINDINGS/IMPRESSION: There is no focal consolidation, [...] Impressions Overall, from a psychological perspective, Maureen Loepker is a good candidate for kidney donation. [...] Surgeon Dr. Manriquez plans RIGHT nephrectomy Complete [facility] Education 10/04/23 repeated 06/16/2024 d/t long interval [...] negative Acceptable Completed by: Ankush Tom RN [facility] Date: 05/07/2025 . Paroxysmal atrial fibrillation 09/05/2021 Encounters Date Type Department Care Team Description 05/11/2025 Travel 05/07/2025 8:24 AM CDT - 05/07/2025 11:59 PM CDT Hospital Encounter [facility] OP DRAW STATION [address] [place] [address] Carrie Sierra MD Discharge Disposition: Home or Self Care 05/07/2025 8:00 AM CDT Office Visit [facility] - Nephrology [address] [place] [phone] Carrie Sierra MD Kidney donor (Primary Dx); Primary hypertension 05/07/2025 Results Follow-Up [facility] TXP [facility] [address] [place] [phone] Ankush Tom RN 05/07/2025 Travel 05/06/2025 Orders Only [facility] TXP [facility] [address] [place] [phone] Ankush Tom RN Kidney donor 05/06/2025 Telephone [facility] TRANSPLANT [address] [place] [address] Mary Pearce Kidney/Liver Donor Follow-up from Last 3 Months [...] and heating? Not hard at all 06/24/2024 [facility] [place] [facility] - Occupational Stress [...] place to sleep or slept in a detention (including now)? No 06/24/2024 Comments No Sex and Gender Information Value Date Recorded Sex Assigned at Not on file Legal Sex Female 7:05 PM CDT Gender Identity Not on file Sexual Orientation Straight 07/07/2024 5: 30 PM CDT Last Filed Vital Signs Vital Sign Reading Time Taken Comments Blood Pressure 131/78 05/07/2025 9:23 AM CDT Pulse 66 05/07/2025 9:23 AM CDT Temperature 36.1 C (97 F) 05/07/2025 9:23 AM CDT Respiratory Rate 18 05/07/2025 9:23 AM CDT Oxygen Saturation 100% 05/07/2025 9:23 AM CDT Inhaled Oxygen Concentration - - Weight 56.7 kg (125 lb) 05/07/2025 9:23 AM CDT Height 154.9 cm (5' 1) 05/07/2025 9:23 AM CDT Body Mass Index 23.62 05/07/2025 9:23 AM CDT Plan of Treatment Upcoming Encounters Date Type Department Care Team (Late st Contact Info) Description 05/13/2026 9:00 AM CDT Office Visit [facility] - Nephrology [address] [place] [address], [place] [address] Carrie Sierra MD [address] [place] [address] [place] [phone] Health Maintenance Due Date Last Done Comments [...] 2017 ZOSTER VACCINE (1 of 2) 2017 DEPRESSION SCREENING 09/16/2024 COVID-19 VACCINE (3 - season) 2025 01/02/2021, 12/02/2020 INFLUENZA VACCINE (#1) 2025 06/08/2024 COLOGUARD (AGES [...] Procedure Name Priority Date/Time Associated Diagnosis Comments MICROALB/CREAT RATIO URINE RANDOM PANEL Routine 05/07/2025 8:36 AM CDT Kidney donor RENAL FUNCTION PANEL Routine 05/07/2025 8:29 AM CDT Kidney donor CBC W AUTO DIFFERENTIAL Routine 05/07/2025 8:29 AM CDT Kidney donor HEPATITIS C AB SCREEN RFLX NAAT QUANT STAT 06/16/2024 3:41 PM CDT Willing to be kidney donor LIPID PROFILE Routine 08/19/2023 3:12 PM REPAIR MANAGER Willing to be kidney donor from Last 3 Months or Most Recently Relevant to Health Maintenance Results * MICROALB/CREAT RATIO URINE RANDOM PANEL (05/07/2025 8:36 AM CDT) Albumin Random Urine 15.8 Not Established ug/mL 05/07/2025 9:50 AM [facility] Creatinine Urine 212.11 Not Established mg/dL 05/07/2025 9:50 AM [facility] Urine Albumin/Creati nine Ratio 7 <30 mg/g 05/07/2025 9:50 AM [facility] Urine URINE SPECIMEN OBTAINED BY CLEAN CATCH PROCEDURE / Unknown Collection / Unknown 05/07/2025 8:36 AM CDT 05/07/2025 9:04 AM CDT us Carrie Sierra MD LAB - URINE CHEMISTRY ORDERABL ES Final Result [address] [address], [facility] [phone] * CBC WITH DIFFERENTIAL (05/07/2025 8:29 AM CDT) WBC 9.1 4.0 - 10.7 x10E9/L 05/07/2025 9:25 AM [facility] RBC Count 4.31 3.90 - 5.20 x10E12/L 05/07/2025 9:25 AM [facility] Hemoglobin 13.2 11.9 - 15.8 g/dL 05/07/2025 9:25 AM [facility] Hematocrit 40.5 34.8 - 46.1 % 05/07/2025 9:25 AM [facility] MCV 94.0 80.0 - 98.0 fL 05/07/2025 9:25 AM [facility] MCH 30.6 26.7 - 33.6 pg 05/07/2025 9:25 AM [facility] MCHC 32.6 31.7 - 36.3 g/dL 05/07/2025 9:25 AM [facility] RDW-CV 13.3 11.3 - 14.8 % 05/07/2025 9:25 AM [facility] Platelet Count 349 150 - 420 x10E9/L 05/07/2025 9:25 AM [facility] MPV 11.2 7.8 - 11.4 fL 05/07/2025 9:25 AM [facility] Neutrophil % 63.3 41.0 - 74.0 % 05/07/2025 9:25 AM [facility] Lymphocyte % 26.4 17.0 - 47.0 % 05/07/2025 9:25 AM [facility] Monocyte % 8.2 3.0 - 11.0 % 05/07/2025 9:25 AM [facility] Eosinophil % 1.1 0.0 - 7.0 % 05/07/2025 9:25 AM [facility] Basophil % 0.7 0.0 - 1.6 % 05/07/2025 9:25 AM [facility] Immature Granulocytes % 0.3 0.0 - 1.0 % 05/07/2025 9:25 AM [facility] Neutrophil Absolute 5.75 1.60 - 7.50 x10E9/L 05/07/2025 9:25 AM [facility] Lymphocyte Absolute 2.39 1.00 - 4.40 x10E9/L 05/07/2025 9:25 AM [facility] Monocyte Absolute 0.74 0.15 - 1.00 x10E9/L 05/07/2025 9:25 AM [facility] Eosinophil Absolute 0.10 0.00 - 0.60 x10E9/L 05/07/2025 9:25 AM [facility] Basophil Absolute 0.06 0.00 - 0.13 x10E9/L 05/07/2025 9:25 AM [facility] Blood BLOOD SPECIMEN / Unknown Lab Venipuncture / Unknown 05/07/2025 8:29 AM CDT 05/07/2025 9:09 AM CDT us Carrie Sierra MD LAB - HEMATOLOGY ORDERABLES Fi nal Result [facility] [address] [place] [phone], [facility] [phone] * (ABNORMAL) RENAL FUNCTION PANEL (05/07/2025 8:29 AM CDT) BUN 15 7 - 26 mg/dL 05/07/2025 9:41 AM [facility] Creatinine 0.91 0.56 - 0.96 mg/dL 05/07/2025 9:41 AM [facility] Sodium 142 136 - 145 mmol/L 05/07/2025 9:41 AM [facility] Potassium 4.4 3.5 - 4.5 mmol/L 05/07/2025 9:41 AM [facility] Chloride 109(H) 98 - 107 mmol/L 05/07/2025 9:41 AM [facility] CO2 29 22 - 29 mmol/L 05/07/2025 9:41 AM [facility] Glucose 83 70 - 99 mg/dL 05/07/2025 9:41 AM [facility] Albumin 4.6 3.4 - 5.0 g/dL 05/07/2025 9:41 AM [facility] Calcium 10.0 8.4 - 10.2 mg/dL 05/07/2025 9:41 AM [facility] Phosphorus 3.0 2.9 - 5.1 mg/dL 05/07/2025 9:41 AM [facility] Anion Gap 4(L) 6 - 16 05/07/2025 9:41 AM [facility] BUN/Creatinine Ratio 16 7 - 23 05/07/2025 9:41 AM [facility] Osmolality Calculated 294 275 - 295 mOsm/kg 05/07/2025 9:41 AM [facility] eGFR by CKD-EPI 74(L) >=90 mL/min/1.7 3 m2 05/07/2025 9:41 AM [facility] Comment:Estimated Glomerular Filtration Rate (eGFR) calculated using the CKD-EPI Creatinine Equation (2020), per the National Kidney Foundation and [place] [employer] Nephrology recommendations. Blood BLOOD SPECIMEN / Unknown Lab Venipuncture / Unknown 05/07/2025 8:29 AM CDT 05/07/2025 9:09 AM [facility] us Carrie Sierra MD LAB - CHEMISTRY ORDERABLES Fin al Result Performing Organization Address City/[facility]/ZIP Co de Phone Number [facility] [address] [place] [address], [place] [phone] * HEPATITIS C AB SCREEN RFLX NAAT QUANT (06/16/2024 3:41 PM CDT) [facility] [address] Hepatitis C Antibody Non-react marquez Non-reac tive 06/16/2024 5:28 PM CDT [facility] Comment:Hepatitis C Antibody screen indicates [...] ORDERAB LES Final Result Performing Organization Address City/[facility]/ZIP Co de Phone Number [facility] [address] [place] [address], [facility] [phone] * LIPID PROFILE (08/19/2023 3:12 PM REPAIR MANAGER) [facility] [address] Cholesterol Total 179 <200 mg/dL 08/19/2023 3:53 PM [facility] HDL 67 >40 mg/dL 08/19/2023 3:53 PM [facility] Comment: ATP III Classification of HDL Cholesterol: <40 mg/dL: Considered a major risk factor. >60 mg/dL: Considered a negative risk factor. LDL Calculated 94 <100 mg/dL 08/19/2023 3:53 PM [facility] Comment: ATP III Classification of LDL Cholesterol: <100 mg/dL: Optimal 100 - 129 mg/dL: Near Optimal/Above Optimal 130 - 159 mg/dL: Borderline High 160 - 189 mg/dL: High >190 mg/dL: Very High Triglycerides 91 <150 mg/dL 08/19/2023 3:53 PM [facility] Comment: ATP III Classification of Triglycerides: <150 mg/dL: Normal 150 - 199 mg/dL: Borderline High 200 - 400 mg/dL: High >500 mg/dL: Very High Blood BLOOD SPECIMEN / Unknown Lab Venipuncture / Unknown 08/19/2023 3:12 PM REPAIR MANAGER 08/19/2023 3:22 PM REPAIR MANAGER us Chantal Manriquez MD LAB - CHEMISTRY ORDERAB LES Final Result Performing Organization Address City/State/[facility] Co de Phone Number [facility] [address] [place] [address], [facility] [phone] from Last 3 Months or Most Recently Relevant to Health Maintenance Insurance [employer] [facility] Care Teams Biostatistics Manager Relationship Specialty Start Date End Date Axel Angeles MD [address] [place] [address] PCP - General 02/16/21
--- OUTSIDE RECORDS SUMMARY | 2025-06-28 21:04 | XMS_ITS | Encounter Summary ---
Author Organization [facility] Address [address] [place] [address] Care Team Providers Care Director Child Name Role Phone Axel Angeles MD Primary Care Provider [phone] Encounter Details Date Type Department Care Team (Late st Contact Info) Description 05/07/2025 Results Follow-Up [facility] TXP D[facility]OTAH CSM 3L [address] [facility], [place] [address] Ankush Tom, TOM Social History Tobacco Use Types Packs/Day Years [...] and heating? Not hard at all 06/24/2024 [facility] of Occupat ional Health - Occupational Stress [...] to sleep or slept in a senior care (including now)? No 06/24/2024 Comments No Sex and Gender Information Value Date Recorded Sex Assigned at Not on file Legal Sex Female 7:05 PM CDT Gender Identity Not on file Sexual Orientation Straight 07/07/2024 5: 30 PM CDT documented as of this encounter Functional Status * Is person deaf or have serious hearing difficulty? Answer Date of Assessment Author No 06/24/2024 3:49 PM CDT Edwige Villanueva RN * Is person blind or have serious difficulty seeing? Answer Date of Assessment Author No 06/24/2024 3:49 PM CDT Edwige Villanueva RN * Does person have serious difficulty walking/climbing stairs? Answer Date of Assessment Author No 06/24/2024 3:49 PM CDT Edwige Villanueva, TOM * Does person have difficulty dressing/bathing? Answer Date of Assessment Author No 06/24/2024 3:49 PM CDT Edwige Villanueva RN * Does person have difficulty doing errands alone? Answer Date of Assessment Author No 06/24/2024 3:49 PM CDT Edwige Villanueva RN documented as of this encounter Mental Status * Does person have difficulty concentrating/remembering/making decisions? Answer Entry Date Author No 06/24/2024 3:49 PM CDT Edwige Villanueva RN documented in this encounter Plan of Treatment Upcoming Encounters Date Type Department Care Team (Late st Contact Info) Description 05/13/2026 9:00 AM CDT Office Visit [facility] - Nephrology [address] [place] [address], [place] [phone] Carrie Sierra MD [address] [place] [address] [place] [address] documented as of this encounter Visit Diagnoses Not on filedocumented in this encounter Care Teams Director Child Relationship Specialty Start Date End Date Axel Angeles MD [address] [place] [address] PCP - General 02/16/21 documented as of this encounter
--- OUTSIDE RECORDS SUMMARY | 2025-06-28 21:04 | XMS_ITS ---
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
--- OUTSIDE RECORDS SUMMARY | 2025-06-28 21:04 | XMS_ITS | Encounter Summary ---
Author Organization [facility] Address [address] [place] [address] Care Team Providers Care Premium Cancellation Clerk Name Role Phone Axel Angeles MD Primary Care Provider [phone] Encounter Details Date Type Department Care Team (Late st Contact Info) Description 02/16/2021 Telephone [facility] [address] [place] [address] Lizz Hess MD No info available Social [...] Department Care Team (Late Contact Info) Description 05/13/2026 9:00 AM CDT Office Visit [facility] - Nephrology [address] [place] [address], [facility] [place] [address] Carrie Sierra MD [address] [place] [address] [place] [address] documented as of this encounter Visit Diagnoses Not on filedocumented in this encounter Additional Health Concerns Infection Onset Date Last Indicated Resolved Time COVID-19 Under Investigation 06/16/2024 06/16/2024 06/17/2024 12:28 AM CDT documented as of this encounter Care Teams Premium Cancellation Clerk Relationship Specialty Start Date End Date Axel Angeles MD [address] [place] [address] PCP - General 02/16/21 documented as of this encounter
--- OUTSIDE RECORDS SUMMARY | 2025-06-28 21:04 | XMS_ITS | Encounter Summary ---
Author Organization [facility] Address [address] [facility] [place] [address] Care Team Providers Care Director Mba Name Role Phone Axel Angeles MD Primary Care Provider [phone] Reason for Visit * Reason Comments Transplant Donor Evaluation Persistent d ysuria (burning with urination) Encounter Details Date Type Department Care Team (Late Contact Info) Description 10/08/2023 Telephone [facility] TRANSPLANT [address] [place] [phone] Ankush Tom RN Transplant Donor Evaluation (Persistent [...] Description 05/13/2026 9:00 AM CDT Office Visit [facility] - Nephrology [address] [facility], [place] [address] Carrie Sierra MD [address] [place] [address] [place] [address] documented as of this encounter Visit Diagnoses Not on filedocumented in this encounter Additional Health Concerns Infection Onset Date Last Indicated Resolved Time COVID-19 Under Investigation 06/16/2024 06/16/2024 06/17/2024 12:28 AM CDT documented as of this encounter Care Teams Director Mba Relationship Specialty Start Date End Date Axel Angeels MD [address] [place] [address] PCP - General 02/16/21 documented as of this encounter
--- OUTSIDE RECORDS SUMMARY | 2025-06-28 21:04 | XMS_ITS | Clinical Summary ---
Author Organization [facility] Address [address] [place] [address] Care Team Providers Care Maintenance Porter Name Role Phone Axel Angeles MD Primary Care Provider Axel Angeles MD Unavailable [phone] Allergies Active Allergy Reactions Criticality Noted Date [...] MG) BY MOUTH DAILY 90 tablet 1 05/10/2025 Active Active Problems Problem Noted Date Diagnosed Date Paroxysmal atrial fibrillation 09/05/2021 Surgical History Surgery Date Site/Laterality Comments TUBAL LIGATION 09/16/1990 - 09/15/1991 OTHER SURGICAL HISTORY 09/16/2023 - 09/15/2024 Donated kidney Medical History Medical History Date Comments A-fib (HCC) Anemia GERD (gastroesophageal reflux disease) 1987 Arthritis 2017 Hypertension 2020 Menstrual problem 1992 [...] on file Legal Sex Female 10:57 AM SHINE WORKER Gender Identity Female 10/11/2021 1:27 PM SHINE WORKER Sexual Orientation Straight 10/11/2021 1: 27 PM SHINE WORKER Obstetrics History Last Filed Vital Signs Vital [...] Vaccine (1 of 2) 2017 Covid-19 Vaccine ( - 2024-2 6 season) 2025 01/02/2021, 12/02/2020 Influenza Vaccine (#1) 2025 Pneumococcal vaccine <65 Aged Out No longer eligible based on patient's age to [place] [address] [place] [address] [place] [address] [facility] Care Teams Maintenance Porter Relationship Specialty Start Date End Date Axel Angeles MD [address] [place] [address] PCP - General Family Medicine 12/29/19 Axel Angeles MD [address] [place] [address] Family Medicine 12/29/19
--- OUTSIDE RECORDS SUMMARY | 2025-06-28 21:04 | XMS_ITS | Patient Health Record ---
Author Organization [facility] [employer] [place] ([address]) Address [address] [place] [address] Care Team Providers Care Fur Nailer Name Role Phone Axel Angeles MD Primary Care Provider Shabbir Pham Unavailable [phone] Lizzy Zavala Unavailable [phone] Allergies Allergen (clinical drug ingredient) Drug/Non Drug Allergy documented on EMR Reaction Allergy Type Onset Date Status Antihistamine & Nasal Deconges other reaction Drug Allergy Active Decongestant other reaction Drug Allergy Active codeine Codeine hives and hallucinations Drug Allergy Active Reason For Referral No Information Medications Medication SIG (Take, Route, Frequency, Duration) Notes Start Date End Date Status amLODIPine Besylate 5 MG TAKE 1 TABLET B Y MOUTH DAILY Oral; Duration: 90 Days Active Metoprolol Succinate ER 50 MG Oral; Duration: 90 Days Acti ve Pantoprazole Sodium 40 MG TAKE 1 TABLET BY MOUTH TWICE DAILY Oral; Duration: 90 Days Active EPINEPHrine 0.3 MG/0.3ML as directed Inj ection as needed; Duration: 30 days 01/19/2025 Active Social History Tobacco Use: Social History Observation Description Date Details (start date - stop date) Former Smoker NA - NA Sex Assigned At : Social History Observation Description Sex Assigned At Female Tobacco Control (Standard) Question Answer Notes Tobacco use: Former smoker How long has it been since you last smoked? Grea ter than 10 years Problems Problem Type SNOMED Code ICD Code Onset Dates Problem Status W/U Status Risk Notes Problem Allergy to seafood (93617572) Allergy to seafood (Z91.013) Active confirmed Vital Signs Blood pressure diastolic 76 mm Hg 01/19/2025 Oximetry 99 % 01/19/2025 Height 65 in 01/19/2025 Blood pressure systolic 130 mm Hg 01/19/2025 Weight 127.6 lbs 01/19/2025 BMI 21.23 kg/m2 01/19/2025 Encounters Encounter Location Date Provider Diagnosis [facility] [address] [facility] [address] [place] [address] 01/19/2025 Lizzy Zavala Anaphylactic reactio n due to shellfish (crustaceans), initial encounter T78.02XA and Allergy to seafood Z91.013 Assessments Encounter Date Diagnosis (ICD Code) Assessment Notes Treatment Notes Treatment Clinical Notes Section Notes 01/19/2025 Allergy to seafood (ICD-10 - Z91.013) 01/19/2025 Anaphylactic reaction due to shellfish (crustaceans), initial encounter (ICD-10 - T78.02XA) Reaction may be secondary to IgE mediated reaction, Food Protein Induced Enterocolitis or food poisoning. Skin testing showed sensitivity to shrimp but otherwise negative to other shellfish. Labs ordered for further evaluation. For now, strict avoidance of shrimp and EpiPen to be available at all times. She has had food poisoning in the past and feels symptoms were different. A copy of this consultation report was sent to the requesting physician. 01/19/2025 Other Plan Of Treatment Pending Test Test Name Order Date -Immunoglobulin E, Total 01/19/2025 -F024 Shrimp 01/19/2025 -F023 Crab 01/19/2025 -F080 Lobster 01/19/2025 -F290 Oyster 01/19/2025 -F207 Clam 01/19/2025 -F053 Scallop 01/19/2025 Insurance Providers Payer Name Payer Address Payer Phone Subscriber Number Group Number Insured Name Patient Relationship to Insured Coverage Start Date Coverage End Date [facility] [id number] [place] [id number] Florentino Sorenson Spouse - patient is the spouse of the insured 9 Medical (General) History Medical History History ICD Code Essential (primary) hypertension I10 Tachycardia Surgical History Surgery Date(Month/Year) Uterus Ablation tubal ligation 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
--- OUTSIDE RECORDS SUMMARY | 2025-06-28 21:04 | XMS_ITS | Patient Health Record ---
Author Organization [facility] Address [address] [place], [place] [address] Support Name Relationship Address Phone LETY CLEMENTS Emergency Contact Unknown [phone] [address] CLEMENTS Guarantor Unknown [phone] Reason For Referral No Information Plan Of Treatment No Information Insurance Providers Payer Name Payer Address Payer Phone Subscriber Number Group Number Insured Name Patient Relationship to Insured Coverage Start Date Coverage End Date [facility] [address] [place] [phone] [id number] LETY CLEMENTS Spouse - patient is the spouse of the insured
[2025-06-28 21:23] VITALS: BP 144/77; PULSE 72; RESP 20; TEMP 36.6; O2SAT 99
--- NOTE | 2025-06-29 01:01 | PC.NURSE ---
no answer at triage
== END 2025-06-29 01:46 | disposition left against medical advice (07) ==
PROVIDERS: PCP Family Medicine
DX: R10.31 Right lower quadrant pain (principal)
CPT/HCPCS: 99199

== ENCOUNTER 2025-06-30 13:20 | Outpatient (CLI) | payer OTHER, SELFPAY ==
--- OUTSIDE RECORDS SUMMARY | 2000-01-24 11:15 | XMS_ITS | Continuity of Care Document ---
Author Organization [facility] Address [address] [place] [address] [place] [address] Phone Care Team Providers Care Rehabilitation Therapist Name Role Phone Unavailable Unavailable Unavailable Advance Directives Directive Yes / No Effective Date File Name No Information Encounters Encounter Description Practice Location Reason(s) For Visit Diagnoses Date Provider Providers Copied on Encounter [facility], [id number] [place] [address] [address], [place], [place], [id number], [place] tel:[phone] [facility] No Information 0-200 0 No Information Family History Family Member Type Diagnosis Age At Onset No Information Payers Payer name Insurance type Covered libertarian ID Authoriza tion(s) No Information Social History [...]
--- NOTE | ~2025-06-30 | CT_ITS ---
EXAMINATION: CT abdomen pelvis wo con DATE: 06/30/2025 13:40 INDICATION: Right lower quadrant abdominal pain. TECHNIQUE: Computed tomography (CT) of the abdomen and pelvis was performed without intravenous contrast. Automated exposure control and iterative reconstruction technique were employed. The dose-length product was 226.99 mGy-cm. COMPARISON: CT abdomen and pelvis 10/30/2023 FINDINGS: The visualized portions of lung bases demonstrate mild atelectasis. No pleural effusion. The heart size is normal. No pericardial effusion. The liver, gallbladder, spleen, pancreas, adrenal glands, and left kidney are normal. There are changes of right nephrectomy. There is no urolithiasis. There is diverticulosis of the colon without evidence of diverticulitis. The appendix is normal. There are no dilated loops of bowel. There are no pathologically enlarged lymph nodes. There is no free intraperitoneal fluid. There is mild lumbar spondylosis. IMPRESSION: 1. No etiology for the patient's symptoms. Reviewed, dictated and finalized at location E.
--- OUTSIDE RECORDS SUMMARY | 2025-06-30 15:27 | XMS_ITS | Encounter Summary ---
Author Organization [facility] Address [address] [facility] [place] [address] Care Team Providers Care Channeling Machine Runner Name Role Phone Axel Angeles MD Primary Care Provider [phone] Encounter Details Date Type Department Care Team (Late st Contact Info) Description 02/16/2021 Telephone [facility] [address] [place] [address] Lizz Hess MD No info available Social [...] Office Visit [facility] - Nephrology [address] [place] [address], [facility] [place] [address] Carrie Sierra MD [address] [place] [address] [place] [phone] documented as of this encounter Visit Diagnoses Not on filedocumented in this encounter Additional Health Concerns Infection Onset Date Last Indicated Resolved Time COVID-19 Under Investigation 06/16/2024 06/16/2024 06/17/2024 12:28 AM CDT documented as of this encounter Care Teams Channeling Machine Runner Relationship Specialty Start Date End Date Axel Angeles MD [address] [place] [address] PCP - General 02/16/21 documented as of this encounter
--- OUTSIDE RECORDS SUMMARY | 2025-06-30 15:27 | XMS_ITS | Clinical Summary ---
Author Organization [facility] Address [address] [place] [address] Care Team Providers Care Commercial Real Estate Appraiser Name Role Phone xAel Angeles MD Primary Care Provider [phone] Source Comments [facility],non-owned Affiliates and Associated Physician Practices is amultiple site organization consisting of ambulatory clinics and hospital sitesin [place], [place], [place] and [place]. This disclosure is being madepursuant to the Care Everywhere program and may not contain all information available regarding this patient. Last updated 18.[facility] Allergies Active Allergy Reactions Criticality Noted Date [...] Protein Recent Labs Component Name 08/19/23 1512 [id number] <77* VOLUMETIMDUR 1,100 1,100 1,100 PROTEINTO <7 Acceptable Hemoglobin A1c Hemoglobin A1c (%) Date Value 08/19/2023 5.1 Acceptable 2 HR GTT (as needed) No results found for: [id number] n/a CBC Recent Labs Component Name 05/07/25 [...] Labs Component Name 06/16/24 1541 08/19/23 1512 [id number] Negative Negative Acceptable QUANT Gold Recent Labs [...] ischemia. PVCs Hx of a-fib? Has rn anesthetist last visit :11/29/2022 Cardiology Sees q6 months [...] anticoagulation See clearance note from her rn anesthetist CXR FINDINGS/IMPRESSION: There is no focal consolidation, [...] Surgeon Dr. Manriquez plans RIGHT nephrectomy Complete [facility] Education 10/04/23 repeated 06/16/2024 d/t long [...] negative Acceptable Completed by: Ankush Tom RN [facility] Trans[facility] Date: 05/07/2025 . Paroxysmal atrial fibrillation 09/05/2021 Encounters Date Type Department Care Team Description 05/11/2025 Travel 05/07/2025 8:24 AM CDT - 05/07/2025 11:59 PM CDT Hospital Encounter [facility] LAB OP DRAW STATION [address] [place] [address] Carrie Sierra MD Discharge Disposition: Home or Self Care 05/07/2025 8:00 AM CDT Office Visit [facility] - Nephrology [address] [place] [phone] Carrie Sierra MD Kidney donor (Primary Dx); Primary hypertension 05/07/2025 Results Follow-Up [facility] TXP DAKOTAH CSM [address]L [address] [place] [address] Ankush Tom RN 05/07/2025 Travel 05/06/2025 Orders Only [facility] TXP DAKOTAH CSM [address]L [address] [place] [phone] Ankush Tom RN Kidney donor 05/06/2025 Telephone [facility] TRANSPLANT [address] [place] [address] Mary Pearce Kidney/Liver Donor Follow-up from Last [...] and heating? Not hard at all 06/24/2024 [facility] [place] of Occupat ional Health - Occupational Stress [...] Office Visit [facility] - Nephrology [address] [place] [address], [place] [address] Carrie Sierra MD [address] [place] [address] [place] [address] Health Maintenance Due Date Last Done Comments [...] donor LIPID PROFILE Routine 08/19/2023 3:12 PM SOLAR ENERGY CONSULTANT AND DESIGNER Willing to be kidney donor from Last 3 Months or Most Recently Relevant to Health Maintenance Results * MICROALB/CREAT RATIO URINE RANDOM PANEL (05/07/2025 8:36 AM CDT) Albumin Random Urine 15.8 Not Established ug/mL 05/07/2025 9:50 AM [facility] Creatinine Urine 212.11 Not Established mg/dL 05/07/2025 9:50 AM [facility] Urine Albumin/Creati nine Ratio 7 <30 mg/g 05/07/2025 9:50 AM [facility] Urine URINE SPECIMEN OBTAINED BY CLEAN CATCH PROCEDURE / Unknown Collection / Unknown 05/07/2025 8:36 AM CDT 05/07/2025 9:04 AM CDT us Carrie Sierra MD LAB - URINE CHEMISTRY ORDERABL ES Final Result [address] [address], [facility] [phone] * CBC WITH DIFFERENTIAL (05/07/2025 8:29 AM CDT) WBC 9.1 4.0 - 10.7 x10E9/L 05/07/2025 9:25 AM [facility] RBC Count 4.31 3.90 - 5.20 x10E12/L 05/07/2025 9:25 AM [facility] Hemoglobin 13.2 11.9 - 15.8 g/dL 05/07/2025 9:25 AM [facility] Hematocrit 40.5 34.8 - 46.1 % 05/07/2025 9:25 AM [facility] MCV 94.0 80.0 - 98.0 fL 05/07/2025 9:25 AM [facility] MCH 30.6 26.7 - 33.6 pg 05/07/2025 9:25 AM [facility] MCHC 32.6 31.7 - 36.3 g/dL 05/07/2025 9:25 AM [facility] RDW-CV 13.3 11.3 - 14.8 % 05/07/2025 9:25 AM [facility] Platelet Count 349 150 - 420 x10E9/L 05/07/2025 9:25 AM [facility] MPV 11.2 7.8 - 11.4 fL 05/07/2025 9:25 AM [facility] Neutrophil % 63.3 41.0 - 74.0 % 05/07/2025 9:25 AM [facility] Lymphocyte % 26.4 17.0 - 47.0 % 05/07/2025 9:25 AM [facility] Monocyte % 8.2 3.0 - 11.0 % 05/07/2025 9:25 AM [facility] Eosinophil % 1.1 0.0 - 7.0 % 05/07/2025 9:25 AM [facility] Basophil % 0.7 0.0 - 1.6 % 05/07/2025 9:25 AM [facility] Immature Granulocytes % 0.3 0.0 - 1.0 % 05/07/2025 9:25 AM [facility] Neutrophil Absolute 5.75 1.60 - 7.50 x10E9/L 05/07/2025 9:25 AM [facility] Lymphocyte Absolute 2.39 1.00 - 4.40 x10E9/L 05/07/2025 9:25 AM [facility] Monocyte Absolute 0.74 0.15 - 1.00 x10E9/L 05/07/2025 9:25 AM [facility] Eosinophil Absolute 0.10 0.00 - 0.60 x10E9/L 05/07/2025 9:25 AM [facility] Basophil Absolute 0.06 0.00 - 0.13 x10E9/L 05/07/2025 9:25 AM [facility] Blood BLOOD SPECIMEN / Unknown Lab Venipuncture / Unknown 05/07/2025 8:29 AM CDT 05/07/2025 9:09 AM CDT us Carrie Sierra MD LAB - HEMATOLOGY ORDERABLES Fi nal Result [facility] [address] [place] [address], [facility] [phone] * (ABNORMAL) RENAL FUNCTION PANEL (05/07/2025 8:29 AM CDT) BUN 15 7 - 26 mg/dL 05/07/2025 9:41 AM [facility] Creatinine 0.91 0.56 - 0.96 mg/dL 05/07/2025 9:41 AM [facility] Sodium 142 136 - 145 mmol/L 05/07/2025 9:41 AM [facility] Potassium 4.4 3.5 - 4.5 mmol/L 05/07/2025 9:41 AM [facility] Chloride 109(H) 98 - 107 mmol/L 05/07/2025 9:41 AM [facility] CO2 29 22 - 29 mmol/L 05/07/2025 9:41 AM [facility] Glucose 83 70 - 99 mg/dL 05/07/2025 9:41 AM [facility] Albumin 4.6 3.4 - 5.0 g/dL 05/07/2025 9:41 AM [facility] Calcium 10.0 8.4 - 10.2 mg/dL 05/07/2025 9:41 AM [facility] Phosphorus 3.0 2.9 - 5.1 mg/dL 05/07/2025 9:41 AM [facility] Anion Gap 4(L) 6 - 16 05/07/2025 9:41 AM [facility] BUN/Creatinine Ratio 16 7 - 23 05/07/2025 9:41 AM [facility] Osmolality Calculated 294 275 - 295 mOsm/kg 05/07/2025 9:41 AM [facility] eGFR by CKD-EPI 74(L) >=90 mL/min/1.7 3 m2 05/07/2025 9:41 AM [facility] Comment:Estimated Glomerular Filtration Rate (eGFR) calculated using the CKD-EPI Creatinine Equation (2020), per the National Kidney Foundation and [place] Society of Nephrology recommendations. Blood BLOOD SPECIMEN / Unknown Lab Venipuncture / Unknown 05/07/2025 8:29 AM CDT 05/07/2025 9:09 AM [facility] us Carrie Sierra MD LAB - CHEMISTRY ORDERABLES Fin al Result Performing Organization Address City/[facility]/ZIP Co de Phone Number [facility] [address] [place] [address], [place] [phone] * HEPATITIS C AB SCREEN RFLX NAAT QUANT (06/16/2024 3:41 PM CDT) [facility] Hepatitis C Antibody Non-react marquez Non-reac tive 06/16/2024 5:28 PM CDT [facility] Comment:Hepatitis C Antibody screen indicates no serologic [...] ORDERAB LES Final Result Performing Organization Address City/[facility]/ZIP Co de Phone Number [facility] [address] [place] [address], [facility] [phone] * LIPID PROFILE (08/19/2023 3:12 PM SOLAR ENERGY CONSULTANT AND DESIGNER) [facility] Cholesterol Total 179 <200 mg/dL 08/19/2023 3:53 PM [facility] HDL 67 >40 mg/dL 08/19/2023 3:53 PM [facility] Comment: ATP III Classification of HDL Cholesterol: <40 mg/dL: Considered a major risk factor. >60 mg/dL: Considered a negative risk factor. LDL Calculated 94 <100 mg/dL 08/19/2023 3:53 PM [facility] Comment: ATP III Classification of LDL Cholesterol: <100 mg/dL: Optimal 100 - 129 mg/dL: Near Optimal/Above Optimal 130 - 159 mg/dL: Borderline High 160 - 189 mg/dL: High >190 mg/dL: Very High Triglycerides 91 <150 mg/dL 08/19/2023 3:53 PM [facility] Comment: ATP III Classification of Triglycerides: <150 mg/dL: Normal 150 - 199 mg/dL: Borderline High 200 - 400 mg/dL: High >500 mg/dL: Very High Blood BLOOD SPECIMEN / Unknown Lab Venipuncture / Unknown 08/19/2023 3:12 PM SOLAR ENERGY CONSULTANT AND DESIGNER 08/19/2023 3:22 PM SOLAR ENERGY CONSULTANT AND DESIGNER us Chantal Manriquez MD LAB - CHEMISTRY ORDERAB LES Final Result Performing Organization Address City/State/[facility] Co de Phone Number [facility] [address] [place] [address], [facility] [phone] from Last 3 Months or Most Recently Relevant to Health Maintenance Insurance [facility] Address: [facility] [id number] [place] [phone] [facility] Care Teams Commercial Real Estate Appraiser Relationship Specialty Start Date End Date Axel Angeles MD [address] [place] [address] PCP - General 02/16/21
--- OUTSIDE RECORDS SUMMARY | 2025-06-30 15:27 | XMS_ITS | Clinical Summary ---
Author Organization [facility] on Address [address] [place] [address] Care Team Providers Care Tank Builder Helper Name Role Phone Unavailable Primary Care Provider [...] on file Legal Sex Female 12:03 PM NETWORK OPERATIONS CENTER TECHNICIAN Gender Identity Not on file Sexual Orientation Not on file Last Filed Vital Signs Vital Sign Reading Time Taken Comments Blood Pressure 203/103 09/09/2021 12:20 PM NETWORK OPERATIONS CENTER TECHNICIAN Pulse 70 09/09/2021 12:20 PM NETWORK OPERATIONS CENTER TECHNICIAN Temperature 36.7 C (98 F) 09/09/2021 12:20 PM NETWORK OPERATIONS CENTER TECHNICIAN Respiratory Rate 16 09/09/2021 12:20 PM NETWORK OPERATIONS CENTER TECHNICIAN Oxygen Saturation 99% 09/09/2021 12:20 PM NETWORK OPERATIONS CENTER TECHNICIAN Inhaled Oxygen Concentration - - Weight 49.9 kg (110 lb) 09/09/2021 12:20 PM NETWORK OPERATIONS CENTER TECHNICIAN Height 154.9 cm (5' 1) 09/09/2021 12:20 PM NETWORK OPERATIONS CENTER TECHNICIAN Body Mass Index 20.78 09/09/2021 12:20 PM NETWORK OPERATIONS CENTER TECHNICIAN Plan of Treatment Health Maintenance Due [...] 2) 2017 INFLUENZA VACCINE (#1) 2025 [place] [address] [facility] [id number] POS II
--- OUTSIDE RECORDS SUMMARY | 2025-06-30 15:27 | XMS_ITS | Patient Health Record ---
Author Organization [facility] Address [address] [place], [place] [address] Support Name Relationship Address Phone LETY CLEMENTS Emergency Contact Unknown CALVIN CLEMENTS Guarantor Unknown [phone] Reason For Referral No Information Plan Of Treatment No Information Insurance Providers Payer Name Payer Address Payer Phone Subscriber Number Group Number Insured Name Patient Relationship to Insured Coverage Start Date Coverage End Date [facility] [address] [place] [phone] [id number] LETY CLEMENTS Spouse - patient is the spouse of the insured
--- OUTSIDE RECORDS SUMMARY | 2025-06-30 15:27 | XMS_ITS | Clinical Summary ---
Author Organization [facility] Address [address] [place] [address] Care Team Providers Care Machine Compositor Name Role Phone Axel Angeles MD Primary Care Provider Axel Angeles MD Unavailable [phone] Allergies Active Allergy Reactions Criticality Noted Date [...] on file Legal Sex Female 10:57 AM MIXER DIAMOND POWDER Gender Identity Female 10/11/2021 1:27 PM MIXER DIAMOND POWDER Sexual Orientation Straight 10/11/2021 1: 27 PM MIXER DIAMOND POWDER Obstetrics History Last Filed Vital Signs Vital [...] [place] [address] [facility] [place] [address] [facility] Care Teams Machine Compositor Relationship Specialty Start Date End Date Axel Angeles MD [address] [place] [address] PCP - General Family Medicine 12/29/19 Axel Angeles MD [address] [place] [address] Family Medicine 12/29/19
--- OUTSIDE RECORDS SUMMARY | 2025-06-30 15:28 | XMS_ITS | Patient Health Record ---
Author Organization [facility] [employer] [facility] [place] ([address]) Address [address] [place] [address] Care Team Providers Care Franchise Field Consultant Name Role Phone Axel Angeles MD Primary Care Provider Shabbir Pham Unavailable [phone] Lizzy Zavala Unavailable [phone] Allergies Allergen (clinical drug ingredient) Drug/Non Drug [...] Status Risk Notes Problem Allergy to seafood (95430314) Allergy to seafood (Z91.013) Active confirmed Vital Signs Blood pressure diastolic 76 mm Hg 01/19/2025 Oximetry 99 % 01/19/2025 Height 65 in 01/19/2025 Blood pressure systolic 130 mm Hg 01/19/2025 Weight 127.6 lbs 01/19/2025 BMI 21.23 kg/m2 01/19/2025 Encounters Encounter Location Date Provider Diagnosis [facility] [address] [facility] [address] [place] [address] 01/19/2025 Lizzy Zavala Anaphylactic reactio n due [...] Insured Coverage Start Date Coverage End Date [facility] [address] [place] [id number] [phone] [id number] Florentino Sorenson Spouse - patient is the spouse of the insured 9 Medical (General) History Medical History History ICD Code Essential (primary) hypertension I10 Tachycardia Surgical History Surgery Date(Month/Year) Uterus Ablation tubal ligation 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
--- OUTSIDE RECORDS SUMMARY | 2025-06-30 15:28 | XMS_ITS ---
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
--- OUTSIDE RECORDS SUMMARY | 2025-06-30 15:28 | XMS_ITS | Encounter Summary ---
Author Organization [facility] Address [address] [facility] [place] [address] Care Team Providers Care Middle Card Tender Name Role Phone Axel Angeles MD Primary Care Provider [phone] Encounter Details Date Type Department Care Team (Late st Contact Info) Description 05/07/2025 Results Follow-Up [facility] [address], [place] [address] Ankush Tom, TOM Social History [...] and heating? Not hard at all 06/24/2024 [facility] [place] of Occupat ional Health - Occupational Stress [...] in a prison (including now)? No 06/24/2024 Comments No Sex [...] Office Visit [facility] - Nephrology [address] [place] [address], [place] [address] Carrie Sierra MD [address] [place] [address] [place] [address] documented as of this encounter Visit Diagnoses Not on filedocumented in this encounter Care Teams Middle Card Tender Relationship Specialty Start Date End Date Axel Angeles MD [address] [place] [address] PCP - General 02/16/21 documented as of this encounter
--- OUTSIDE RECORDS SUMMARY | 2025-06-30 15:28 | XMS_ITS | Encounter Summary ---
Author Organization [facility] Address [address] [facility] [place] [address] Care Team Providers Care Motor Equipment Commanding Officer Name Role Phone Axel Angeles MD Primary Care Provider [phone] Reason for Visit * Reason Comments Transplant Donor Evaluation Persistent d ysuria (burning with urination) Encounter Details Date Type Department Care Team (Late Contact Info) Description 10/08/2023 Telephone [facility] TRANSPLANT [address] [place] [phone] Ankush Tom RN Transplant Donor Evaluation (Persistent [...] Description 05/13/2026 9:00 AM CDT Office Visit [facility] - Nephrology [address] [facility], [place] [address] Carrie Sierra MD [address] [place] [address] DIV [place] [address] documented as of this encounter Visit Diagnoses Not on filedocumented in this encounter Additional Health Concerns Infection Onset Date Last Indicated Resolved Time COVID-19 Under Investigation 06/16/2024 06/16/2024 06/17/2024 12:28 AM CDT documented as of this encounter Care Teams Motor Equipment Commanding Officer Relationship Specialty Start Date End Date Axel Agneles MD [address] [place] [address] PCP - General 02/16/21 documented as of this encounter
== END 2025-06-30 13:21 | disposition home or self-care (01) ==
PROVIDERS: PCP Family Medicine
DX: R10.31 Right lower quadrant pain (principal); Z98.890 Other specified postprocedural states
CPT/HCPCS: 74176

== ENCOUNTER 2025-08-05 16:14 | Outpatient (CLI) | payer OTHER, SELFPAY ==
--- NOTE | ~2025-08-05 | XR_ITS ---
EXAMINATION: XR chest 2V DATE: 08/05/2025 16:50 INDICATION: Rib pain TECHNIQUE: Frontal and lateral views of the chest were obtained. COMPARISON: August 05, 2022 FINDINGS: No consolidation effusion or definite lymphadenopathy seen. Heart size normal. Bones appear intact. No pneumothorax or subphrenic free air seen. IMPRESSION: 1. No focal acute process. Reviewed, dictated and finalized at location A. WRAPPING MACHINE OPERATOR IMPRESSION: 1. No focal acute process.
--- NOTE | ~2025-08-05 | XR_ITS ---
EXAMINATION: XR abdomen/kub 1V DATE: 08/05/2025 16:50 INDICATION: Left upper quadrant abdominal pain and epigastric pain TECHNIQUE: A supine view of the abdomen on 2 radiographs was obtained. COMPARISON: CT dated 06/30/2025 FINDINGS: Postoperative changes in the right upper lower quadrants consistent with prior right nephrectomy. No dilated loops of gas-filled bowel to suggest obstruction. Several phleboliths along with a couple likely tubal ligation rings in the pelvis. No other suspicious calcifications in the abdomen or pelvis. Lung bases are clear. Heart size is normal. IMPRESSION: 1. Normal bowel gas pattern. 2. Bilateral tubal ligation rings in the pelvis unchanged prior right nephrectomy in the right abdomen. Reviewed, dictated and finalized at location A. OMA DENTAL ASSISTANT IMPRESSION: 1. Normal bowel gas pattern. 2. Bilateral tubal ligation rings in the pelvis unchanged prior right nephrecto my in the right abdomen.
[2025-08-05 17:02] LABS: Hematocrit 39.6 % (37.0-47.0); Hemoglobin 13.1 g/dL (12.0-15.0); Immature Granulocyte Percent A 0.1 % (0-0.5); Lymphocytes Absolute Auto 2.64 K/mm3 (0.9-3.2); Mean Corpuscular HGB Conc 33.1 g/dl (32-36); Mean Corpuscular Hemoglobin 31.7 pg (26-34); Mean Corpuscular Volume 95.9 fl (80-100); Nucleated Red Blood Cells Absolute Auto 0.000 K/mm3 (0.0-0.012); Nucleated Red Blood Cells Perc 0.0 % (0.0-0.2); Platelet Count Result 346 k/mm3 (150-375); Red Blood Count 4.13 M/mm3 (4.2-5.4); White Blood Count 8.2 K/mm3 (4.5-10.0)
[2025-08-05 17:20] LABS: Alanine Aminotransferase 25 U/L (6-35); Albumin Level 4.6 g/dL (3.5-5.1); Alkaline Phosphatase 102 U/L (38-126); Amylase 111 U/L (30-110); Anion Gap 7 mmol/L (4-12); Aspartate Amino Transferase 31 U/L (14-36); Bilirubin,Total 0.4 mg/dL (0.2-1.3); Blood Urea Nitrogen 19 mg/dL (7-17); Calcium 9.5 mg/dL (8.4-10.2); Carbon Dioxide 30 mmol/L (22-30); Chloride 102 mmol/L (98-107); Estimated Glomerular Filt Rate > 60; Glucose 98 mg/dL (65-110); Lipase 86 U/L (23-300); Potassium 4.5 mmol/L (3.4-5.0); Sodium 139 mmol/L (137-145); Total Protein 8.4 g/dL (6.3-8.2)
== END 2025-08-05 16:15 | disposition home or self-care (01) ==
LOC: ANHLAB 16:16
PROVIDERS: PCP Family Medicine; Visit Provider Nurse Practitioner
DX: R10.13 Epigastric pain (principal); R10.12 Left upper quadrant pain; R07.9 Chest pain, unspecified
CPT/HCPCS: 36415; 71046; 74018; 80053; 82150; 83690; 85025

== ENCOUNTER 2025-08-17 03:13 | Day surgery (SDC) | payer OTHER, SELFPAY ==
[2025-08-16 10:57] VITALS: BMI 22.6
--- OUTSIDE RECORDS SUMMARY | 2025-08-17 03:14 | XMS_ITS | Encounter Summary ---
Author Organization [facility] Address [address] [place] [address] Care Team Providers Care Manager Research Name Role Phone Axel Angeles MD Primary Care Provider [phone] Reason for Visit * Reason Comments Transplant Donor Evaluation Persistent d ysuria (burning with urination) Encounter Details Date Type Department Care Team (Late st Contact Info) Description 10/08/2023 Telephone [facility] TRANSPLANT [address] [place] [address] Ankush Tom RN Transplant Donor Evaluation (Persistent [...] Care Team (Late st Contact Info) Description 11/22/2025 3:45 PM CDT Office Visit [facility] - SUPERVISOR SAMPLE [address], [facility] [address] [place] [phone] Drew Jackman MD [address] [facility] [address] [place] [address] 05/13/2026 9:00 AM CDT Office Visit [facility] - Nephrology [address] [place] [address], [place] [address] Carrie Sierra MD [facility] [facility] [address] [place] [address] documented as of this encounter Visit Diagnoses Not on filedocumented in this encounter Additional Health Concerns Infection Onset Date Last Indicated Resolved Time COVID-19 Under Investigation 06/16/2024 06/16/2024 06/17/2024 12:28 AM CDT documented as of this encounter Care Teams Manager Research Relationship Specialty Start Date End Date Axel Angeles MD [address] [place] [address] PCP - General 02/16/21 documented as of this encounter
--- OUTSIDE RECORDS SUMMARY | 2025-08-17 03:14 | XMS_ITS | Clinical Summary ---
Author Organization [facility] Address [address] [place] [address] Care Team Providers Care Division Head Name Role Phone Axel Angeles MD Primary Care Provider Axel Angeles MD Unavailable [phone] Allergies Active Allergy Reactions Criticality Noted Date [...] on file Legal Sex Female 10:57 AM DANDY TENDER Gender Identity Female 10/11/2021 1:27 PM DANDY TENDER Sexual Orientation Straight 10/11/2021 1: 27 PM DANDY TENDER Last Filed Vital Signs Vital Sign Reading [...] age to complete [place] [address] [facility] [place] [address] [facility] [place] [address] Care Teams Division Head Relationship Specialty Start Date End Date Axel Angeles MD [address] [place] [address] PCP - General Family Medicine 12/29/19 Axel Angeles MD [address] [place] [address] Family Medicine 12/29/19
--- OUTSIDE RECORDS SUMMARY | 2025-08-17 03:14 | XMS_ITS ---
Author Organization [facility] Address [address] [facility] [place] [address] Care Team Providers Care Metal Casket Maker Name Role Phone Axel Angeles MD Primary Care Provider [phone] Transplant Episode Kidney Donor [facility] ([place], [place]) - [facility] Organ Donated: Right Kidney Recovered on 06/24/2024 Marked as Active Follow-up on 06/24/2024 Kidney CoordinatorAnkush Tom RN Phone: N/A Fax: N/A Email: N/A Care Team Name Role Phone Fax Email Ankush Tom RN Kidney Coordinator N/A N/A N /A Axel Angeles MD Primary Care Provider [phone] N/A Claire Villanueva LMSW Scrap Metal Burner [phone] N/A N/A Events Post-Donation Pre-Donation Admitted: 06/24/2024 Referred: 12/25/2022 Recovered: 06/24/2024 Evaluation began: 08/19/2023 Discharged: 06/26/2024 Committee: 06/18/2024
--- OUTSIDE RECORDS SUMMARY | 2025-08-17 03:14 | XMS_ITS | Clinical Summary ---
Author Organization [facility] Address [address] [place] [address] Care Team Providers Care Rn Integrity Name Role Phone Unavailable Primary Care Provider [...] on file Legal Sex Female 12:03 PM HIGH SCHOOL SCIENCE TUTOR Gender Identity Not on file Sexual Orientation Not on file Last Filed Vital Signs Vital Sign Reading Time Taken Comments Blood Pressure 203/103 09/09/2021 12:20 PM HIGH SCHOOL SCIENCE TUTOR Pulse 70 09/09/2021 12:20 PM HIGH SCHOOL SCIENCE TUTOR Temperature 36.7 C (98 F) 09/09/2021 12:20 PM HIGH SCHOOL SCIENCE TUTOR Respiratory Rate 16 09/09/2021 12:20 PM HIGH SCHOOL SCIENCE TUTOR Oxygen Saturation 99% 09/09/2021 12:20 PM HIGH SCHOOL SCIENCE TUTOR Inhaled Oxygen Concentration - - Weight 49.9 kg (110 lb) 09/09/2021 12:20 PM HIGH SCHOOL SCIENCE TUTOR Height 154.9 cm (5' 1) 09/09/2021 12:20 PM HIGH SCHOOL SCIENCE TUTOR Body Mass Index 20.78 09/09/2021 12:20 PM HIGH SCHOOL SCIENCE TUTOR Plan of Treatment Health Maintenance Due Date [...] 2) 2017 INFLUENZA VACCINE (#1) 2025 Insurance [facility] [id number] POS II
--- OUTSIDE RECORDS SUMMARY | 2025-08-17 03:14 | XMS_ITS | Encounter Summary ---
Author Organization [facility] Address [address] [place] [address] Care Team Providers Care Wrapper Caser Name Role Phone Axel Angeles MD Primary Care Provider [phone] Encounter Details Date Type Department Care Team (Late st Contact Info) Description 02/16/2021 Telephone [facility] [address] [place] [address] Lizz Hess MD No info available Social [...] Department Care Team (Late Contact Info) Description 11/22/2025 3:45 PM CDT Office Visit [facility] - WEB APPLICATIONS ARCHITECT [address], [facility] [address] [place] [address] Drew Jackman MD [address] [facility] [address] [place] [address] 05/13/2026 9:00 AM CDT Office Visit [facility] - Nephrology [address] [facility], [place] [address] Carrie Sierra MD [address] [place] [address] [place] [address] documented as of this encounter Visit Diagnoses Not on filedocumented in this encounter Additional Health Concerns Infection Onset Date Last Indicated Resolved Time COVID-19 Under Investigation 06/16/2024 06/16/2024 06/17/2024 12:28 AM CDT documented as of this encounter Care Teams Wrapper Caser Relationship Specialty Start Date End Date Axel Angeles MD [address] [place] [address] PCP - General 02/16/21 documented as of this encounter
--- OUTSIDE RECORDS SUMMARY | 2025-08-17 03:14 | XMS_ITS | Clinical Summary ---
Author Organization [facility] Address [address] [facility] [place] [address] Care Team Providers Care Decorating Consultant Name Role Phone Axel Angeles MD Primary Care Provider Source Comments [facility],non-owned Affiliates and Associated Physician Practices is amultiple site organization consisting of ambulatory clinics and hospital sitesin [place], [place], [place] and [place]. This disclosure is being madepursuant to the Care Everywhere program and may not contain all information available regarding this patient. Last updated 18.[facility] Allergies Active Allergy Reactions [...] Protein Recent Labs Component Name 08/19/23 1512 [id number] <77* VOLUMETIMDUR 1,100 1,100 1,100 PROTEINTO <7 Acceptable Hemoglobin A1c Hemoglobin A1c (%) Date Value 08/19/2023 5.1 Acceptable 2 HR GTT (as needed) No results found for: [id number] n/a CBC Recent Labs Component Name 05/07/25 [...] Labs Component Name 06/16/24 1541 08/19/23 1512 [id number] Negative Negative Acceptable QUANT Gold Recent Labs [...] of ischemia. PVCs Hx of a-fib? Has special needs child caregiver last visit :11/29/2022 Cardiology Sees q6 months [...] for anticoagulation See clearance note from her special needs child caregiver CXR FINDINGS/IMPRESSION: There is no focal consolidation, [...] Surgeon Dr. Manriquez plans RIGHT nephrectomy Complete [facility] Education 10/04/23 repeated 06/16/2024 d/t long interval [...] negative Acceptable Completed by: Ankush Tom RN [facility] Organ Transplant Center Date: 05/07/2025 . Paroxysmal atrial fibrillation 09/05/2021 Encounters Date Type Department Care Team Description 08/10/2025 Travel 08/02/2025 Transcribe Orders [facility] - Centralized Scheduling [address] [place] [address] Theresa Marroquin MD Incontinence in female from Last 3 Months Family History Medical [...] and heating? Not hard at all 06/24/2024 [facility] [place] of Occupat ional Health - Occupational Stress [...] place to sleep or slept in a nursing home (including now)? No 06/24/2024 Comments No [...] Description 11/22/2025 3:45 PM CDT [facility] CAR UNLOADER HELPER [address], [facility] [address] [place] [address] Drew Jackman MD [address] [facility] [address] [place] [address] 05/13/2026 9:00 AM CDT Office Visit [facility] - Nephrology [address] [place] [address], [place] [address] Carrie Sierra MD [address] [place] [address] [place] [address] Health Maintenance Due Date Last Done Comments COLON MONITORING 1967 COLONOSCOPY - COLON CA SCREENING 1967 CT COLONOGRAPHY - COLON CA SCREENING 1967 FIT - COLON CA SCREENING 1967 FLEX SIG - COLON CA SCREENING 1967 MAMMOGRAM 1967 HIV SCREENING 1982 DTAP/TDAP/TD VACCINES (1 - Tdap) 1986 HEPATITIS B VACCINE (1 of 3 - 19+ 3-dose series) 1986 Cervical Cancer Screening 1988 PAP SMEAR 1988 PAP with HPV 1997 PNEUMOCOCCAL VACCINE 50+ (1 of 1 - PCV) 2017 ZOSTER VACCINE (1 of 2) 2017 DEPRESSION SCREENING 09/16/2024 COVID-19 VACCINE (3 - 2024-2 6 season) 2025 01/02/2021, 12/02/2020 INFLUENZA VACCINE (#1) 2025 06/08/2024 COLOGUARD (AGES 45-75) - COL ON CA SCREENING 07/05/2026 07/05/2023 Colorectal Cancer Screening 07/05/2026 LIPID TESTING 08/19/2028 08/19/2023 HEPATITIS C SCREENING Completed 06/16/2024 , 08/19/2023 [...] A/C/Y/W VACCINE Aged Out No longer eligible b ased on patient's age to complete this topic Procedures Procedure Name Priority Date/Time Associated Diagnosis Comments HEPATITIS C AB SCREEN RFLX NAAT QUANT STAT 06/16/2024 3:41 PM CDT Willing to be kidney donor LIPID PROFILE Routine 08/19/2023 3:12 PM HEALTH PROMOTION OFFICER Willing to be kidney donor from Last 3 Months or Most Recently Relevant to Health Maintenance Results * HEPATITIS C AB SCREEN RFLX NAAT QUANT (06/16/2024 3:41 PM CDT) Pathologist [facility] Hepatitis C Antibody Non-react marquez Non-reac tive 06/16/2024 5:28 PM CDT [facility] Comment:Hepatitis C Antibody screen [...] LAB - CHEMISTRY ORDERAB LES Final Result [facility] [address] [address], [facility] [phone] * LIPID PROFILE (08/19/2023 3:12 PM HEALTH PROMOTION OFFICER) Pathologist [facility] Cholesterol Total 179 <200 mg/dL 08/19/2023 [...] Lab Venipuncture / Unknown 08/19/2023 3:12 PM HEALTH PROMOTION OFFICER 08/19/2023 3:22 PM [facility] Chantal Manriquez MD LAB - CHEMISTRY ORDERAB LES Final Result Performing Organization Address City/State/[facility] Co de Phone Number [facility] [address] [place] [address], [facility] [phone] from Last 3 Months or Most Recently Relevant to Health Maintenance [place] [address] [employer] [facility] Care Teams Decorating Consultant Relationship Specialty Start Date End Date Axel Angeles MD [address] [place] [address] PCP - General 02/16/21
[2025-08-17 12:01] VITALS: BP 136/85; PULSE 62; RESP 18; TEMP 37; O2SAT 100
[2025-08-17] MEDS: LACTATED RINGERS 1,000 ML 150 ML IV CONT (12:13)
--- NOTE | 2025-08-17 12:26 | P.PNAN_ITS ---
Anes - Initial Pre Proc Eval Procedure: Operation Date: 08/17/25 13:00 Proposed Procedures p Esophagogastroduodenoscopy - Jeevan Anne MD Date/Time: 08/17/25 12:26 Surgeon: Jeevan Anne MD Pre Op Diagnosis: Gastro-esophageal reflux disease without esophagit Patient Data Age: 60 Gender: F Height: 1.55 m Weight: 55.5 kg Last Vital Signs Temp 98.6 F 08/17/25 12:01 Pulse 62 08/17/25 12:01 Resp 18 08/17/25 12:01 BP 136/85 08/17/25 12:01 Pulse Ox 100 08/17/25 12:01 O2 Del Method Room Air 08/17/25 12:01 Allergies Allergy/AdvReac Type Severity Reaction Status Date / Time shellfish derived Allergy Severe Difficulty Verified 08/16/25 10:52 Breathing codeine Allergy Intermediate Hives Verified 08/16/25 10:52 pregabalin Allergy nausea and Verified 08/16/25 10:52 lightheadedness lidocaine AdvReac Intermediate Palpitation Verified 08/16/25 10:52 s antihistamines Allergy Intermediate Palpitation Uncoded 08/05/25 15:28 s decongestants Allergy Intermediate Palpitation Uncoded 08/05/25 15:28 s Home Medications ?Medication ?Instructions ?Recorded ?Confirmed ?Type acetaminophen 500 mg capsule 500 - 1,000 mg PO BID PRN Pain 11/21/23 08/16/25 History metoprolol succinate 50 mg 50 mg PO DAILY 11/21/2311/10 History tablet,extended release 24 hr amlodipine 5 mg tablet 5 mg PO DAILY #90 tabs 08/0508/17/25 Rx sucralfate 1 gram tablet (Carafate) 1 g PO ACHS 2 week s #56 tabs 08/05/25 08/16/25 Rx epinephrine 0.3 mg/0.3 mL 0.3 mg subcut ONCE PRN anaph ylaxis 08/16/25 08/16/25 History injection, auto-injector lansoprazole 30 mg capsule,delayed 30 mg PO DAILY 10/1008/17/25 History release Patient hx anesthesia problems: none Family hx anesthesia problems: none Results Review: All pre-operative results and documents have been reviewed as part of the pre- operative evaluation. [facility] Past Medical History Medical History Single kidney RLQ abdominal pain Constipation Altered bowel habits Dyspepsia White matter disease Menorrhagia (normal spontaneous vaginal delivery) x3 Anemia, blood loss Anemia, iron deficiency Paroxysmal A-fib GERD (gastroesophageal reflux disease) Iron deficiency anemia Palpitations Chronic GERD History of peptic ulcer Surgical History Surgical History History of nephrectomy R for donation History of endometrial ablation Status post myomectomy 2005 H/O tubal ligation Family History Family History Father Family history of cardiovascular disease Diabetes mellitus Skin cancer Heart disease Mother Family history of cardiovascular disease Heart disease Mother Acute myocardial infarction Sibling Skin cancer Hypertension Heart disease Son Heart disease Social History Social History Social History: Smoking packs per day: 0.5 Smoking cigarettes per day: 10.0 Years smoked: 5 Smoking pack-years: 2.50 Smoking status: Former smoker Tobacco type: cigarettes Second hand tobacco smoke exposure: No Smoking end date: 09/16/15 Additional smoking assessment comments: FORMER SMOKER Alcohol intake: current Drinks per week: 4 Substance use: never Substance use type: does not use Lack of Transportation: No Lack of Food: Never True Current Housing: I Have Housing Concerned About Future Housing: No Difficulty Paying Gas/Electric Bills: No Difficulty Paying for Meds: No Currently Unemployed: No Education: High School Diploma/GED Difficulty w/ Childcare or Family Care: No Living arrangements: with family Additional living arrangements comments: WITH SPOUSE Occupation/Education: occupation Gender identity (if verbalized by the patient): Female Sexual Orientation (if Verbalized by the Patient): Straight or Heterosexual Spiritual care concerns: No Anes - Eval Final PreProcedure Day of Procedure 08/17/25 12:26 Patient weight: normal Heart: regular rate and rhythm Lungs: clear to auscultation Airway: Mallampati scale class II Last oral intake: >/= 8 hours ASA classification: III Emergent: no Anesthetic plan: proceed Anesthesia type and monitoring: general GIVS and standard monitoring Results Review: All pre-operative results and documents have been reviewed as part of the pre- operative evaluation. Informed Consent: The patient's anesthetic plan and its attendant risks and benefits were discussed with the patient/family/POA. Questions were solicited and answers provided to the satisfaction of the patient/family/POA.
--- NOTE | 2025-08-17 12:48 | WPDHPUPDATE1 ---
History and Physical Update Update Date/Time: 08/17/25 12:48 History and Physical has been reviewed, including an updated exam of the patient. There are NO changes in the patient's condition. Risks, benefits, and alternatives have been discussed and questions answered. Patient agrees to proceed with procedure.
--- NOTE | 2025-08-17 13:00 | S_PTH ---
PATIENT: Maureen Sorenson LOC: [facility] Weeks#:[id number] AGE/SX: 60/F ROOM: RE08/17/[address]: Jeevan Anne MD : 1965 BED: DIS: 08/17/2025 SPEC #: [id number] RECD: 08/17/25 13:04 STATUS: DULCE VOGEL #: [id number] KATHIE: 08/17/25 13:[address]: Jeevan Anne DEPT: [facility] Surgical RECD BY: Damian Cortés ENTERED: 08/17/25 13:05 SP TYPE: Surgical OTHR DR: Axel Angeles MD Tissues: A - Gastric Biopsy B - Small Bowel Bx Procedures: Hematoxylin and Eosin Stain Gross and Microscopic Level 4
[2025-08-17 13:05] VITALS: BP 102/51; PULSE 64; RESP 20; O2SAT 99
[2025-08-17 13:15] VITALS: BP 111/52; PULSE 61; RESP 18; O2SAT 98
[2025-08-17 13:25] VITALS: BP 124/67; PULSE 58; RESP 18; O2SAT 99
== END 2025-08-17 14:01 | disposition home or self-care (01) ==
PROVIDERS: PCP Family Medicine; Referring Provider Nurse Practitioner; Visit Provider Internal Medicine Gastroenterology
PROC: 0DJ08ZZ Inspection of Upper Intestinal Tract, Via Natural or Artificial Opening Endoscopic (ICD-10-PCS; CPT 43239; principal; 2025-08-17 13:00)
DX: R10.12 Left upper quadrant pain (principal); Z87.891 Personal history of nicotine dependence
CPT/HCPCS: 43239; 88305; J2003; J2704; J7120

== ENCOUNTER 2025-08-18 11:00 | Outpatient (CLI) | payer OTHER, SELFPAY ==
--- NOTE | ~2025-08-18 | DEXA_ITS ---
Bone Density Report Name: CALVIN CLEMENTS Age: 60 Sex: Female Ethnicity: White Date of : 1965 Indication: postmenopausal; screening for osteoporosis; Referring Provider: SANDEEP VAGN Study: Bone densitometry was performed. Exam Date: August 18, 2025 Accession number: [id number] Bone Density: Region BMD T-score Z-score Classification AP Spine(L1-L4) 0.799 -2.3 -1.0 Osteopenia Femoral Neck (Left) 0.591 -2.3 -1.1 Osteopenia Total Hip (Left) 0.767 -1.4 -0.6 Osteopenia Femoral Neck (Right) 0.644 -1.8 -0.7 Osteopenia Total Hip (Right) 0.767 -1.4 -0.6 Osteopenia Total Hip Mean 0.767 -1.4 -0.6 Osteopenia World Health Organization criteria for BMD impression classify patients as: Normal (T-score at or above -1.0), Osteopenia (T-score between -1.0 and -2.5), or Osteoporosis (T-score at or below -2.5). 10-year Fracture Risk(1): Major Osteoporotic Fracture 9.3% Hip Fracture 1.4% Reported Risk Factors: [place] (), Neck BMD=0.591, BMI=23.0 (1) FRAX(R) Version 3.08. Fracture probability calculated for an untreated patient. Fracture probability may be lower if the patient has received treatment. Clinical Information Provided by Patient: Has used the following medications: Vitamin D Patient maximum height was 61 Menopause Age: 58 No regular weight bearing exercise Onset of menses at age 14 Number of children 3 Impression: The patient has low bone mass, based on the Total Spine T-score. The patient has an estimated ten-year risk of hip fracture of 1.4% and an estimated ten-year risk of major fracture of 9.3%, based on the WHO FRAX algorithm. Discussion: BONE DENSITY IS LOW AT ONE OR MORE SKELETAL SITES. This patient's lowest T-score is low at one or more skeletal sites. It meets the World Health Organization's (WHO) criteria for ?low bone mass? (T-score between -1.0 and -2.5). The patient's 10-year risk of fracture as calculated by FRAX is less than the threshold where pharmacological therapy is recommended by the National Osteoporosis Foundation (NOF). However, all treatment decisions require clinical judgment and consideration of individual patient factors, including patient preferences, comorbidities, previous drug use, risk factors not captured in the FRAX model (e.g., frailty, falls, vitamin D deficiency, increased bone turnover, interval significant decline in bone density) and possible under or overestimation of fracture risk by FRAX. The patient should follow a healthful lifestyle (good nutrition with adequate calcium and vitamin D, and appropriate weight-bearing exercise). Follow-Up: Consider repeating this study in 2 to 3 years to reassess this patient's status, or sooner if there is some new clinical indication. Reported by: EVAN on 08/18/2025 11:43:00 AM. Reviewed, dictated and finalized at location A.
--- NOTE | ~2025-08-18 | MM_ITS ---
EXAMINATION: MM screening raffi BI w melisa HISTORY: Screening TECHNIQUE: Craniocaudal and mediolateral oblique 3-D tomosynthesis images were obtained and synthetic 2-D images were generated. CAD analysis was submitted and interpreted. COMPARISON: No prior mammogram is available for comparison at this institution. BREAST PARENCHYMAL COMPOSITION: Not dense: There are scattered areas of fibroglandular density. FINDINGS: There is no evidence of suspicious mass, calcification, or architectural distortion to suggest malignancy in either breast. There has been no suspicious interval change. IMPRESSION: 1. No mammographic evidence of malignancy. 2. Recommend routine screening mammography in one year. BI-RADS Category 1: Negative Reviewed, dictated and finalized at location I. [facility]
== END 2025-08-18 11:01 | disposition home or self-care (01) ==
PROVIDERS: PCP Obstetrics & Gynecology Gynecology; Visit Provider Obstetrics & Gynecology Gynecology
DX: Z12.31 Encounter for screening mammogram for malignant neoplasm of breast (principal); Z13.820 Encounter for screening for osteoporosis; M85.88 Other specified disorders of bone density and structure, other site; M85.852 Other specified disorders of bone density and structure, left thigh; M85.851 Other specified disorders of bone density and structure, right thigh
CPT/HCPCS: 77063; 77067; 77080